=== PATIENT | female | born 1945 | race Caucasian/White ===

== ENCOUNTER 2018-04-22 11:00 | Outpatient (RCR) | payer MEDICARE, SELFPAY ==
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
--- NOTE | 2018-04-22 11:27 | HP.OTDCSUM ---
HP - OT D/C Summary It has been my pleasure to treat JENNI HOLLINS under orders from JERILYN THIBODEAUX, for the diagnosis of right 3rd and 4th metacarpal shaft fx for a total of 9 visit(s). Please see the following information for a summary of their discharge status. - Objective Objective/Function: pt demo the ability to make a composite fist. No pain with motion, minimal pain with ROM. pt demo a right pediatric clinical nurse specialist strength 25# and left pediatric clinical nurse specialist at 30# ( pt states she does not have alot of hand strength typically) - Goals Patient Goals: Regain Mobility, Regain Strength, Use Hand/Wrist/Arm Normally Again Goal:: pt will demo a increase in right pediatric clinical nurse specialist strength to 30# or greater to return to perfrom BADLS and IADLs at IND level by d/c. Goal:: pt will demo the ability to form a composite fist for pt to perform IADLs at IND. level by d/c Goal:: pt will demo full functional ROM with report of no pain greater than 1/10 by d/c Goal:: pt will demo understanding of scar mtg by end of 2nd session to decrease chance ofscar adhesions - Plan Plan: D/C - D/C Information Discharge Comments: pt has been seen for 9 OT session to increase her functional ROM and strength to return to her PLOF. Pt reports she is ind. with all BADLs and IADLs at this time. PT has met goals in OT and is D/C If there are questions or concerns regarding this patient's occupational therapy, please fell free to call me at [phone]. Thank you for the referral of this patient. Sincerely, Josseline Elias, OTR/L, CHT
--- NOTE | 2018-04-22 11:49 | RAD_ITS ---
STUDY: X-RAY CHEST REASON FOR EXAM: Female, 73 years old. Follow up lung nodules. TECHNIQUE: Frontal and lateral views of the chest. COMPARISON: CT scan 03/20/2013, chest x-ray 08/20/2016.. FINDINGS: There is hyperexpansion of the chest consistent with COPD. There is new elevation of the right hemidiaphragm which was not present previously. There is a stable poorly marginated 1.6 cm nodule in the right upper lobe which had been present since previous CT scan. Probable mild scarring in the lung bases. No focal infiltrates. No effusions. Normal size heart. Normal mediastinum and tory. Normal visualized pulmonary arteries. Normal visualized aortic arch and descending thoracic aorta. Normal visualized thoracic spine. Normal visualized ribs, clavicles, and shoulders. There is no demonstrated abnormality of the visualized soft tissue structures of the upper abdomen. RAD/Chest PA and Lateral IMPRESSION: Mild elevation of the right hemidiaphragm, new since prior study. COPD and no other changes. Electronically Signed: Nav Austin MD at 16:01 EDT , Service support ,
== END 2018-04-22 19:00 | disposition home or self-care (01) ==
LOC: OT 11:00
PROVIDERS: Family Provider Nurse Practitioner; PCP Nurse Practitioner
DX: Z98.890 Other specified postprocedural states (principal)
CPT/HCPCS: 71046; 97110; 97140; 97166; 97168; 97530

== ENCOUNTER 2018-05-09 16:31 | Emergency (ER) | payer MEDICARE, SELFPAY ==
[2018-05-09 16:32] VITALS: BP 165/82; PULSE 120; RESP 18; TEMP 37.1; O2SAT 94; BMI 23.0
[2018-05-09] MEDS: Ibuprofen 200 MG Tablet 400 MG PO (17:35)
[2018-05-09 17:48] LABS: Absolute Lymphocyte Count 1.74 X10^3/ul (0.83-4.51); Absolute Neutrophil Count 4.6 X10^3/uL (2.0-7.7); Basophil# 0.05 X10^3/uL; Basophil% 0.6 % (0-1); Eosinophil# 0.97 X10^3/uL; Eosinophils% 12.1 % (0-5); Hematocrit 35.6 % (37-47); Hemoglobin 11.2 g/dl (12.0-15.0); Lymphocyte # 1.74 X10^3/ul (4.0); Lymphocyte % 21.7 % (19-41); Mean Corp Hgb Conc 31.5 g/gl (32-36); Mean Corpuscular Hgb 27.1 pg (27.0-32.0); Mean Platelet Vol. 10.3 fl (6.2-12.0); Monocyte# 0.66 X10^3/uL; Monocyte% 8.2 % (0-10); Neutrophil # 4.58 X10^3/uL (2.7-7.7); Neutrophil % 57.3 % (47-70); Platelet Count 315 K/mm3 (150-450); RBC Distribution Width CV 14.5 % (11.6-14.6); RBC Distribution Width SD 44.4 fl (35.1-43.9); Red Blood Count 4.14 M/mm3 (4.2-5.4)
[2018-05-09 17:55] LABS: POSITIVE COUNT NO; POSITIVE DIFFERENTIAL NO; POSITIVE MORPHOLOGY NO
[2018-05-09 17:58] LABS: D-Dimer Quantitative (DVT/PE) 0.57 FEU/ug/m (0.27-0.49)
--- NOTE | 2018-05-09 17:59 | ED.RN ---
critical d dimer of 0.[address] Cagle notified, no new orders.
[2018-05-09 18:04] LABS: AST(SGOT) 21 U/L (15-37); Alanine Aminotransfer ALT/SGPT 25 U/L (13-56); Albumin, Serum 3.3 g/dL (3.2-5.0); Alkaline Phosphatase 90 U/L (45-117); Anion Gap 10 (5-15); BUN 14 mg/dL (7-18); Bilirubin, Direct < 0.05 mg/dL (0.00-0.30); Calcium,Total 8.9 mg/dL (8.5-10.1); Chloride 107 mmol/L (98-107); Creatinine, Serum 0.94 mg/dL (0.55-1.02); EST Glomerular Filtration Rate 63 mL/min (>60); Est Glom Filt Rate - Afr Amer 76 mL/min (>60); Estimated Creatinine Clearance 38.86 ml/min; Globulin 4.1 g/dL (2.2-4.2); Glucose 120 mg/dL (74-106); Lipase 493 U/L (73-393); Potassium 3.7 mmol/L (3.5-5.1); Protein, Total 7.4 g/dL (6.4-8.2); Sodium Level 144 mmol/L (136-145)
[2018-05-09 18:54] VITALS: PULSE 92; RESP 22; O2SAT 97
[2018-05-09 20:55] VITALS: PULSE 92; RESP 19; O2SAT 95
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
[2018-05-09 21:18] VITALS: BP 151/74; PULSE 86; RESP 22; O2SAT 97
--- NOTE | 2018-05-09 21:20 | ED.RN ---
THIS NURSE REVIEWED D/C INSTRUCTIONS WITH PT. PT VERBALIZED UNDERSTANDING OF INSTRUCTIONS. IV D/C. IV CATHETER INTACT. PT TOLERATED WELL. PT DENIES FURTHER NEEDS OR QUESTIONS AT THIS TIME. PT AMBULATES FROM ROOM ON OWN WITHOUT ASSISTANCE FROM STAFF
== END 2018-05-09 21:22 | disposition home or self-care (01) ==
PROVIDERS: Emergency Provider Emergency Medicine; Family Provider Nurse Practitioner; PCP Internal Medicine
DX: R07.89 Other chest pain (principal); S22.41XD Multiple fractures of ribs, right side, subsequent encounter for fracture with routine healing; V49.9XXD Car occupant (driver) (passenger) injured in unspecified traffic accident, subsequent encounter; K44.9 Diaphragmatic hernia without obstruction or gangrene; J44.9 Chronic obstructive pulmonary disease, unspecified; R79.89 Other specified abnormal findings of blood chemistry; Z86.718 Personal history of other venous thrombosis and embolism; Z87.891 Personal history of nicotine dependence
CPT/HCPCS: 71045; 71275; 80048; 80076; 83690; 85025; 85379; 96360; 99285; J7030; J7040; Q9967

== ENCOUNTER → 2018-09-25 10:59 | Outpatient (CLI) | payer MEDICARE, SELFPAY ==
--- NOTE | 2018-09-25 11:02 | RAD_ITS ---
STUDY: X-RAY CHEST REASON FOR EXAM: Female, 73 years old. One-week history of illness. Abnormal breath sounds. TECHNIQUE: PA and lateral views of the chest. COMPARISON: Comparison is made with prior examination dated May 09, 2018. FINDINGS: Hyperinflation. Stable elevation of the right hemidiaphragm. Focal density is seen in the right upper lobe. This is unchanged. There is evidence of blunting of the right costophrenic angle with right basilar scarring. Minimal increased markings at the left lung base suggestive of scarring. Scattered calcified granulomas. Normal size heart. Normal mediastinum and tory. Normal visualized pulmonary arteries. There is atherosclerotic calcification of the aortic arch with tortuosity. There is demineralization of the osseous structures. Normal visualized ribs, clavicles, and shoulders. There is no demonstrated abnormality of the visualized soft tissue structures of the upper abdomen. RAD/Chest PA and Lateral IMPRESSION: Stable examination. Electronically Signed: Gustavo Cota MD at 11:27 EST Tel [phone], Service support ,
== END ==
PROVIDERS: Family Provider Nurse Practitioner; PCP Internal Medicine; Referring Provider Nurse Practitioner Gerontology; Visit Provider Nurse Practitioner Gerontology
DX: R09.89 Other specified symptoms and signs involving the circulatory and respiratory systems (principal)
CPT/HCPCS: 71046

== ENCOUNTER → 2018-09-30 13:38 | Outpatient (CLI) | payer MEDICARE, SELFPAY ==
--- NOTE | 2018-09-30 13:41 | CT_ITS ---
STUDY: CT CHEST WITHOUT CONTRAST REASON FOR EXAM: Female, 73 years old. Lung nodule follow-up RADIATION DOSAGE (If Supplied By Facility): CTDIvol = ( 6.09 ) mGy, DLP = ( 208.44 ) mGycm TECHNIQUE: Transaxial imaging was performed without the administration of intravenous contrast material. Individualized dose optimization techniques were used for this CT. COMPARISON: March 20, 2013 and July 09, 2018 FINDINGS: TRACHEA, THYROID, ESOPHAGUS: No tracheomalacia,stricture or wall thickening. Thyroid and esophagus are normal CARDIOVASCULAR SYSTEM: The thoracic aorta is grossly within normal limits. The pulmonary trunk and the left pulmonary arteries are also grossly within normal limits. The heart is not enlarged. There are no vascular developmental anomalies. BIPIN AND LYMPH NODES: No hilar masses and no mediastinal, hilar, axillary or supraclavicular adenopathy LUNGS, LOW-ATTENUATION: A background of centrilobular emphysematous changes in both lungs. No traction bronchiectasis and no honeycombing. LUNGS, HIGH ATTENUATION: A 2.4 x 1.5 cm spiculated density in the posterior segment of the right upper lobe. Shows areas of retraction and very suggestive of a fibrotic scar. Has not changed since the last examination. LUNGS, MOSAIC/CRAZY PAVING: Not evident PLEURA AND CHEST WALL: No plural effusions, pneumothoraces,rib fractures or any osteolytic/osteoblastic changes . The soft tissue chest wall including the breasts are normal UPPER ABDOMEN: Unremarkable . CT/Chest without Contrast IMPRESSION: A background of centrilobular emphysematous changes in both lungs. A 2.4 x 1.5 cm focal area of scar tissue in the posterior segment of the right upper lobe. This has been present since 2012 Electronically Signed: Ryan Stafford MD at 8:00 EST Tel , Service support ,
== END ==
PROVIDERS: Family Provider Nurse Practitioner; PCP Internal Medicine; Referring Provider Internal Medicine Pulmonary Disease; Visit Provider Internal Medicine Pulmonary Disease
DX: R91.1 Solitary pulmonary nodule (principal)
CPT/HCPCS: 71250

== ENCOUNTER → 2018-10-09 13:00 | Outpatient (CLI) | payer MEDICARE, SELFPAY | PROVIDERS: Family Provider Internal Medicine; PCP Internal Medicine; Referring Provider Internal Medicine Pulmonary Disease; Visit Provider Internal Medicine Pulmonary Disease | DX: J44.9 Chronic obstructive pulmonary disease, unspecified (principal); J40 Bronchitis, not specified as acute or chronic | CPT/HCPCS: 87070; 87205 ==

== ENCOUNTER 2019-03-30 14:31 | Emergency (ER) | payer MEDICARE, SELFPAY ==
[2019-03-30 14:33] VITALS: BP 130/72; PULSE 104; RESP 16; TEMP 36.2; O2SAT 93; BMI 21.1
--- NOTE | 2019-03-30 15:03 | CT_ITS ---
STUDY: CT ABDOMEN AND PELVIS WITHOUT CONTRAST REASON FOR EXAM: Female, 74 years old. Left flank pain. RADIATION DOSAGE (If Supplied By Facility): CTDIvol = ( 6.04 ) mGy, DLP = ( 299 ) mGycm TECHNIQUE: Transaxial images were obtained from the dome of the diaphragm to the symphysis pubis without oral contrast, and without intravenous contrast. Sagittal and coronal images were reconstructed. Individualized dose optimization techniques were used for this CT. COMPARISON: None. FINDINGS: Emphysematous changes. Mild scarring at the right lung base with elevation of the right hemidiaphragm. The visualized portions of the heart are within normal limits. There is evidence of a colonic interposition in the right upper quadrant with abnormal orientation of the gallbladder towards the lateral side of the liver. Normal gallbladder and extrahepatic biliary system. Normal spleen. Normal pancreas. Normal bilateral adrenal glands. Normal right kidney. Normal left kidney. There is a retrocrural aortic left renal vein. There is a small hiatal hernia. Normal small intestine. There are multiple colonic diverticula consistent with diverticulosis. There are surgical clips in the region of the appendix consistent with a prior appendectomy. There is diffuse atherosclerotic calcification of the abdominal aorta, without a demonstrated aneurysm. Normal inferior vena cava. Normal retroperitoneum. Normal urinary bladder. Normal abdominal wall. There are diffuse degenerative changes of the visualized lumbar spine. CT/Abdomen/Pelvis without Cont IMPRESSION: Emphysematous changes with scarring and elevation of the right hemidiaphragm. Colonic interposition. Electronically Signed: Gustavo Cota, at 15:54 EDT , Service support ,
[2019-03-30] MEDS: 0.9% Normal Saline 1,000 ML 1000 ML IV (15:12)
[2019-03-30] MEDS: Ondansetron 4 MG/2 ML Vial IV (15:12)
[2019-03-30 15:53] LABS: Anion Gap 2 (5-15); BUN 18 mg/dL (7-18); BUN/Creat Ratio 16.1 RATIO (10-20); Calcium,Total 9.7 mg/dL (8.5-10.1); Chloride 107 mmol/L (98-107); Creatinine, Serum 1.12 mg/dL (0.55-1.02); EST Glomerular Filtration Rate 51 mL/min (>60); Est Glom Filt Rate - Afr Amer 61 mL/min (>60); Estimated Creatinine Clearance 32.13 ml/min; Glucose 120 mg/dL (74-106); Potassium 4.3 mmol/L (3.5-5.1); Sodium Level 141 mmol/L (136-145)
[2019-03-30 15:54] LABS: Absolute Lymphocyte Count 1.46 X10^3/ul (0.83-4.51); Absolute Neutrophil Count 3.7 X10^3/uL (2.0-7.7); Basophil# 0.04 X10^3/uL; Basophil% 0.6 % (0-1); Eosinophil# 0.75 X10^3/uL; Eosinophils% 11.5 % (0-5); Hematocrit 37.8 % (37-47); Hemoglobin 12.1 g/dl (12.0-15.0); Lymphocyte # 1.46 X10^3/ul (4.0); Lymphocyte % 22.4 % (19-41); Mean Corpuscular Hgb 28.1 pg (27.0-32.0); Mean Corpuscular Volume 87.9 fL (81-99); Mean Platelet Vol. 10.4 fl (6.2-12.0); Monocyte# 0.53 X10^3/uL; Monocyte% 8.1 % (0-10); Neutrophil # 3.74 X10^3/uL (2.7-7.7); Neutrophil % 57.4 % (47-70); Platelet Count 279 K/mm3 (150-450); RBC Distribution Width CV 14.3 % (11.6-14.6); RBC Distribution Width SD 45.9 fl (35.1-43.9); White Blood Count 6.5 K/mm3 (4.4-11.0)
[2019-03-30 15:55] LABS: POSITIVE COUNT NO; POSITIVE DIFFERENTIAL NO; POSITIVE MORPHOLOGY NO
[2019-03-30 16:01] LABS: Mucous, Urine 0 SEEN /hpf (<or=2+)
--- NOTE | 2019-03-30 16:05 | ED.VISSUMM ---
- ER Visit Summary Date of Service: 03/30/19 Chief Complaint: Left flank pain History of Present Illness: The patient is a 74 F with left flank pain. The pain has been ongoing for about 2 hours. She never had this before. Associated with nausea and urine frequency. Denies any other urinary symptoms. Denies any other GI symptoms. Denies any fevers or other associated symptoms. She never had this before. Nothing seemed to bring it on or make it worse. Nothing seems to make it better. Physical Examination: Afebrile and vital signs unremarkable. Patient is alert and oriented. Appears mildly uncomfortable. Heart regular. Lungs clear. Abdomen soft and nontender. Left CVA tender to palpation. Spine nontender. Skin appears unremarkable. Good strength and sensation. Normal gait. Test Results: CBC and BMP unremarkable. CT abdomen showed emphysematous changes of her lungs as well as scarring and elevation of her right hemidiaphragm. She has colonic interposition. No evidence of pathology. Urinalysis pending. Emergency Department Course and Treatment: Patient initially treated with fluids and Zofran. She declined pain meds as the pain had subsided. CBC unremarkable. BMP showed a very mildly elevated creatinine at 1.12. Urinalysis shows RBCs and some signs of infection. Cultures pending. Pt notified that she may have a small stone or may have passed a small stone. CT showed no evidence of stone or pathology. Nothing else to explain her pain. We will treat with Keflex, Motrin, Zofran. Cultures pending. Follow-up with primary care. Return for any new or worsening issues. Treatment Plan: As above Disposition: Discharge Impression: 1. Left flank pain This note was generated with [employer] dictation software. It may contain incorrect words, spelling, and punctuation that were not noted in review of the chart prior to signing ED Disposition - Plan for ED Patient: Disposition: Home or Assisted Living Instructions: PYELONEPHRITIS, Female (Adult) Prescriptions: Ibuprofen 600 mg PO TID PRN PRN #20 tab PRN Reason: Pain Prescription Printed Cephalexin [Keflex] 500 mg PO Q6 #40 cap Prescription Printed Ondansetron [Zofran Odt] 4 mg PO Q8H PRN PRN #10 tab PRN Reason: Nausea Prescription Printed Referrals: Julia Frazier DO [Primary Care Provider] -
[2019-03-30 16:29] LABS: Color, Urine Yellow (Yellow); Glucose, Dipstick Normal (Normal); Ketone-Dipstick 5 mg/dl (Negative); Leukocyte Esterase-Dipstick 25 /ul (Negative); Nitrite-Dipstick Negative (Negative); Occult Blood-Urine 250 /ul (Negative); Protein-Dipstick 15 mg/dl (Negative); Specific Gravity, Urine 1.015 (1.002-1.030); Urine Bilirubin Dipstick Negative (Negative); Urine Clarity Sl. Cloudy (Clear); Urine Urobilinogen 4 mg/dl (Normal)
--- NOTE | 2019-03-30 16:37 | ED.DEP ---
ED Disposition - Plan for ED Patient: Instructions: PYELONEPHRITIS, Female (Adult) Prescriptions: Ibuprofen 600 mg PO TID PRN PRN #20 tab PRN Reason: Pain Prescription Printed Cephalexin [Keflex] 500 mg PO Q6 #40 cap Prescription Printed Ondansetron [Zofran Odt] 4 mg PO Q8H PRN PRN #10 tab PRN Reason: Nausea Prescription Printed Referrals: Julia Frazier DO [Primary Care Provider] -
[2019-03-30 16:41] LABS: White Blood Cells 5-10 SEEN /hpf (0-5)
[2019-03-30 16:42] LABS: Bacteria RARE /hpf (None Seen); Calcium Oxalate Crystals Ur 3+ /hpf (<or=2+); Red Blood Cells-Urine > 100 SEEN /hpf (0-5); Squamous Epithelial Cells - UA 0-5 SEEN /hpf (5-10)
[2019-03-30] MEDS: Cephalexin 250 MG Capsule 500 MG PO (16:48)
[2019-03-30 16:49] VITALS: BP 120/56; PULSE 71; PULSE 74; RESP 16; O2SAT 99
== END 2019-03-30 16:56 | disposition home or self-care (01) ==
LOC: ED 15:07
PROVIDERS: Emergency Provider Emergency Medicine; Family Provider Internal Medicine; PCP Internal Medicine
DX: R10.9 Unspecified abdominal pain (principal); R35.0 Frequency of micturition; R11.0 Nausea; M54.9 Dorsalgia, unspecified; Z87.891 Personal history of nicotine dependence
CPT/HCPCS: 74176; 80048; 81001; 85025; 87086; 87088; 96361; 96374; 99284; J7030; A4216; J2405

== ENCOUNTER → 2019-05-25 15:37 | Outpatient (CLI) | payer MEDICARE, SELFPAY ==
--- NOTE | 2019-05-25 15:43 | RAD_ITS ---
STUDY: X-RAY - PELVIS AND LEFT HIP REASON FOR EXAM: Female, 74 years old. Lower back and left hip pain. TECHNIQUE: 3 views of the pelvis and hip. COMPARISON: None. FINDINGS: There is a non-specific bowel gas pattern. Normal visualized soft tissue structures. Date lower lumbar spine appears grossly normal. Normal bilateral iliac wings, sacroiliac joints and visualized sacrum. Normal bilateral superior and inferior pubic rami. Normal pubic symphysis. Normal bilateral ischial tuberosities. There is minimal narrowing of the right hip. Normal visualized left femoral head. Normal left acetabulum. There is mild articular joint space narrowing of the hip. RAD/HIP, UNI W/ Pelvis 2-3 Views IMPRESSION: Mild degenerative change left hip. There is no visualized acute fracture or dislocation of left hip or pelvis. Electronically Signed: Juan Carlos Posadas DO at 16:29 EDT Tel [phone], Service support ,
--- NOTE | 2019-05-25 15:44 | RAD_ITS ---
STUDY: X-RAY - LUMBAR SPINE REASON FOR EXAM: Female, 74 years old. Low back pain. Left hip pain TECHNIQUE: 5 view(s) of the lumbar spine were obtained. COMPARISON: None FINDINGS: There is a mild lumbar scoliosis with convexity to the right with narrowing of the lower thoracic disc spaces. The L1-L2 disc space is also narrowed. There are no fractures. Paravertebral soft tissues are normal. RAD/L/S Spine Min 4 Views IMPRESSION: Degenerative changes at the lower thoracic spine and L1-L2. No fracture Electronically Signed: Ryan Stafford MD at 3:33 EDT Tel , Service support ,
== END ==
PROVIDERS: Family Provider Internal Medicine; PCP Internal Medicine; Referring Provider Nurse Practitioner; Visit Provider Nurse Practitioner
DX: M25.552 Pain in left hip (principal); M54.9 Dorsalgia, unspecified
CPT/HCPCS: 72100; 72110; 73502

== ENCOUNTER → 2019-06-02 15:28 | Outpatient (CLI) | payer MEDICARE, SELFPAY ==
--- NOTE | 2019-06-02 15:31 | RAD_ITS ---
STUDY: X-RAY CHEST REASON FOR EXAM: Female, 74 years old. COPD, BRONCHIECTASIS TECHNIQUE: Frontal and lateral views of the chest. COMPARISON: Sep 25 2018 . FINDINGS: There is hyperinflation of the lungs consistent with chronic obstructive lung disease (COPD). Stable cortically marginated 1.9 cm focal pulmonary opacity of the right upper lobe. Stable mild elevation of the right hemidiaphragm with blunting of the right costophrenic angle consistent with scarring. Fibrotic changes in both lung bases. No definite effusions. There is no demonstrated pleural abnormality. Normal size heart. Normal mediastinum and tory. Normal visualized pulmonary arteries. Normal visualized aortic arch and descending thoracic aorta. There are diffuse degenerative changes of the visualized thoracic spine. Normal visualized ribs, clavicles, and shoulders. There is no demonstrated abnormality of the visualized soft tissue structures of the upper abdomen. RAD/Chest PA and Lateral IMPRESSION: COPD. Stable pleural-parenchymal scarring in the right lung base. Stable focal pulmonary opacity in the right upper lobe. No definite acute abnormalities. Electronically Signed: Nav Austin MD at 16:10 EDT , Service support ,
== END ==
PROVIDERS: Family Provider Internal Medicine; PCP Internal Medicine; Referring Provider Internal Medicine Pulmonary Disease; Visit Provider Internal Medicine Pulmonary Disease
DX: J47.9 Bronchiectasis, uncomplicated (principal)
CPT/HCPCS: 71046

== ENCOUNTER → 2019-06-03 09:52 | Outpatient (CLI) | payer MEDICARE, SELFPAY | PROVIDERS: Family Provider Internal Medicine; PCP Internal Medicine; Referring Provider Internal Medicine Pulmonary Disease; Visit Provider Internal Medicine Pulmonary Disease | DX: J47.9 Bronchiectasis, uncomplicated (principal) | CPT/HCPCS: 87015; 87070; 87116; 87205; 87206 ==

== ENCOUNTER → 2019-06-04 10:33 | Outpatient (CLI) | payer MEDICARE, SELFPAY | PROVIDERS: Family Provider Internal Medicine; PCP Internal Medicine; Referring Provider Internal Medicine Pulmonary Disease; Visit Provider Internal Medicine Pulmonary Disease | DX: J47.9 Bronchiectasis, uncomplicated (principal) | CPT/HCPCS: 87015; 87070; 87077; 87116; 87186; 87205; 87206 ==

== ENCOUNTER → 2019-06-05 08:27 | Outpatient (CLI) | payer MEDICARE, SELFPAY | PROVIDERS: Family Provider Internal Medicine; PCP Internal Medicine; Referring Provider Internal Medicine Pulmonary Disease; Visit Provider Internal Medicine Pulmonary Disease | DX: J47.9 Bronchiectasis, uncomplicated (principal) | CPT/HCPCS: 87015; 87116; 87206 ==

== ENCOUNTER 2019-06-09 18:35 | Emergency (ER) | payer MEDICARE, SELFPAY ==
[2019-06-09 18:36] VITALS: BP 128/63; PULSE 99; RESP 20; TEMP 36.7; O2SAT 95; BMI 21.1
--- NOTE | 2019-06-09 19:39 | CT_ITS ---
STUDY: CT ABDOMEN AND PELVIS WITHOUT CONTRAST REASON FOR EXAM: Female, 74 years old. Right-sided abdominal pain RADIATION DOSAGE (If Supplied By Facility): CTDIvol = ( 6.04 ) mGy, DLP = ( 286.91 ) mGycm TECHNIQUE: Transaxial images were obtained from the dome of the diaphragm to the symphysis pubis without oral contrast, and without intravenous contrast. Sagittal and coronal images were reconstructed. Individualized dose optimization techniques were used for this CT. COMPARISON: Prior study of 03/30/2019 FINDINGS: There are emphysematous changes of the lung bases. The visualized portions of the heart are within normal limits. There is a right hemidiaphragmatic hernia, with portion of the liver, gallbladder, and hepatic flexure of the colon within the thorax. Normal gallbladder and extrahepatic biliary system. Normal spleen. There is dilatation of the pancreatic duct measuring up to 5 mm. The right adrenal is not identified. The left adrenal appears normal. There is mild right hydronephrosis and proximal right hydroureter. No obstructing calculus is identified. There is an upper pole left renal cyst. There is a retroaortic left renal vein. Normal visualized stomach. Normal small intestine. There is colonic diverticulosis with no evidence of associated diverticulitis. The appendix is not seen in accordance with history of appendectomy. There are calcified plaques of the abdominal aorta. Normal inferior vena cava. Normal retroperitoneum. Normal urinary bladder. The uterus and adnexal structures are unremarkable. Normal abdominal wall. There are degenerative changes of the visualized thoracolumbar spine. CT/Abdomen/Pelvis without Cont IMPRESSION: 1. Emphysematous changes of the lung bases. 2. Right hemidiaphragmatic hernia, with a portion of the liver, gallbladder and hepatic flexure of the colon within the thorax. 3. Mild dilatation of the pancreatic duct measuring up to 5 mm. 4. There is a mild right hydronephrosis and proximal right hydroureter, representing a new interval finding. No obstructing calculus is identified. 5. Colonic diverticulosis with no evidence of associated diverticulitis. Electronically Signed: Isrrael Jones MD at 20:27 EDT , Service support ,
[2019-06-09] MEDS: Morphine 4 MG/ML Syringe IV (19:49)
[2019-06-09] MEDS: 0.9% Normal Saline 1,000 ML 1000 ML IV (19:49)
[2019-06-09] MEDS: Ondansetron 4 MG/2 ML Vial IV (19:49)
[2019-06-09 19:51] LABS: Absolute Neutrophil Count 9.4 X10^3/uL (2.0-7.7); Basophil# 0.04 X10^3/uL; Basophil% 0.3 % (0-1); Eosinophil# 0.35 X10^3/uL; Hematocrit 37.8 % (37-47); Hemoglobin 12.3 g/dL (12.0-15.0); Lymphocyte % 9.6 % (19-41); Mean Corp Hgb Conc 32.5 g/dL (32-36); Mean Corpuscular Hgb 29.1 pg (27.0-32.0); Mean Corpuscular Volume 89.6 fL (81-99); Mean Platelet Vol. 10.5 fl (6.2-12.0); Monocyte# 0.59 X10^3/uL; Monocyte% 5.1 % (0-10); NRBC Flagged by Analyzer 0 % (0-5); Neutrophil # 9.35 X10^3/uL (2.7-7.7); Neutrophil % 81.5 % (47-70); Platelet Count 226 K/mm3 (150-450); RBC Distribution Width SD 45.7 fl (35.1-43.9); Red Blood Count 4.22 M/mm3 (4.2-5.4); White Blood Count 11.5 K/mm3 (4.4-11.0)
[2019-06-09 20:09] LABS: ALB/GLOB Ratio 0.9 RATIO (0.9-2.4); AST(SGOT) 18 U/L (15-37); Alanine Aminotransfer ALT/SGPT 17 U/L (13-56); Albumin, Serum 3.5 g/dL (3.2-5.0); Alkaline Phosphatase 86 U/L (45-117); Anion Gap 5 (5-15); BUN 23 mg/dL (7-18); BUN/Creat Ratio 17.7 RATIO (10-20); Calcium,Total 9.1 mg/dL (8.5-10.1); Chloride 104 mmol/L (98-107); EST Glomerular Filtration Rate 43 mL/min (>60); Est Glom Filt Rate - Afr Amer 52 mL/min (>60); Estimated Creatinine Clearance 27.68 ml/min; Globulin 3.9 g/dL (2.2-4.2); Glucose 116 mg/dL (74-106); Potassium 3.8 mmol/L (3.5-5.1); Protein, Total 7.4 g/dL (6.4-8.2); Sodium Level 139 mmol/L (136-145)
[2019-06-09 20:13] VITALS: BP 124/56; PULSE 98; RESP 18; O2SAT 95
[2019-06-09 21:18] LABS: Lipase 295 U/L (73-393)
[2019-06-09 21:45] VITALS: BP 122/51; PULSE 89; RESP 18; O2SAT 93
[2019-06-09 22:18] LABS: Bacteria 0 SEEN /hpf (None Seen); Mucous, Urine 0 SEEN /hpf (<or=2+); Squamous Epithelial Cells - UA 0 SEEN /hpf (5-10)
[2019-06-09 22:19] LABS: Color, Urine Yellow (Yellow); Glucose, Dipstick Normal (Normal); Ketone-Dipstick 50 mg/dl (Negative); Leukocyte Esterase-Dipstick 25 /ul (Negative); Nitrite-Dipstick Negative (Negative); Occult Blood-Urine 250 /ul (Negative); Protein-Dipstick 30 mg/dl (Negative); Specific Gravity, Urine 1.015 (1.002-1.030); Urine Bilirubin Dipstick Negative (Negative); Urine Clarity Cloudy (Clear); Urine Urobilinogen 1 mg/dl (Normal); Urine pH 6.5 (5.0 - 8.0)
[2019-06-09 22:30] LABS: Red Blood Cells-Urine 25-50 SEEN /hpf (0-5)
[2019-06-09 22:31] LABS: White Blood Cells 0-5 SEEN /hpf (0-5)
--- NOTE | 2019-06-09 22:37 | ED.RN ---
DR OG PAGED FOR DR BARRERA
--- NOTE | 2019-06-09 22:42 | ED.DEP ---
ED Disposition - Plan for ED Patient: Instructions: FLANK PAIN, Uncertain Cause, KIDNEY STONE, Passed Prescriptions: Oxycodone [Oxyir] 5 mg PO Q4H PRN PRN 3 Days #10 tab PRN Reason: Pain Score 6-10/10 Prescription Printed Referrals: Julia Frazier DO [Primary Care Provider] - 3-5 Days Artie Cabral MD [STAFF PHYSICIAN] - 3-5 Days
[2019-06-09 23:14] VITALS: RESP 18
--- NOTE | 2019-06-21 23:04 | ED.VISSUMM ---
- ER Visit Summary Date of Service: 06/21/19 Chief Complaint: Right flank pain [] History of Present Illness: The patient is a 74 F [presents to the emergency department complaint of right flank pain that started today. Patient also feeling like she cannot empty her bladder. Currently rates her pain an 8 out of 10. Patient states that she is had some discomfort in her flank for about 3 weeks. She denies any fever. She is had some mild nausea. She also states that pain at times will go down her left leg for the last 3 weeks. Patient with history of hypothyroidism. Patient has had prior appendectomy and x4. She denies urinary symptoms. She denies fever.] Physical Examination: [HEENT-PERRLA, EOMI. Cranial nerves II through XII grossly intact. TMs clear. Mucous membranes moist. No adenopathy. Cardiovascular-regular rate and rhythm without murmur or ectopy Lungs-clear to auscultation, chest wall stable without crepitus or subcu emphysema Abdomen-normoactive bowel sounds, soft. Patient has tenderness palpation of the right lower quadrant with some guarding. There is no rebound, rigidity, or perineal signs. Patient has mild tenderness over the right costovertebral angle. Extremities-intact ?4, normal range of motion, normal pulses, atraumatic] Test Results: [Differently showed a white count 11.5, hemoglobin 12.3, hematocrit 38, platelets 226. Chemistries unremarkable. BUN was 23 and creatinine 1.30. LFTs were normal. Urinalysis showed 25-50 RBCs.] CT scan of the M pelvis showed a right hemidiaphragm hernia and mild right hydro-nephrosis. No ureteral stone was noted. Emergency Department Course and Treatment: [She was medicated with morphine and Zofran.] Treatment Plan: [Patient case was discussed with urologist on-call and advised patient to follow-up with urology.] Disposition: [Discharged home in stable condition.] Impression: [Abdominal pain-etiology uncertain Hematuria] This note was generated with [employer] software. It may contain incorrect words, spelling, and punctuation that were not noted in review of the chart prior to signing ED Disposition - Plan for ED Patient: Disposition: Home or Assisted Living Instructions: FLANK PAIN, Uncertain Cause, KIDNEY STONE, Passed Referrals: Artie Cabral MD [STAFF PHYSICIAN] - 3-5 Days Julia Frazier DO [Primary Care Provider] - 3-5 Days
== END 2019-06-09 23:15 | disposition home or self-care (01) ==
LOC: ED 19:41
PROVIDERS: Emergency Provider Emergency Medicine; Family Provider Internal Medicine; PCP Internal Medicine
DX: R10.9 Unspecified abdominal pain (principal); R31.9 Hematuria, unspecified; R11.0 Nausea; E03.9 Hypothyroidism, unspecified; Z79.899 Other long term (current) drug therapy
CPT/HCPCS: 74176; 80053; 81001; 83690; 85025; 96361; 96374; 96375; 99283; J7030; J2405

== ENCOUNTER → 2019-06-11 13:55 | Outpatient (CLI) | payer MEDICARE, SELFPAY ==
[2019-06-09 18:36] VITALS: BMI 21.1
--- NOTE | 2019-06-11 14:05 | BD_ITS ---
STUDY: DUAL ENERGY X-RAY ABSORPTIOMETRY / DXA REASON FOR EXAM: Female, 74 years old. The patient is postmenopausal. Loss of height. TECHNIQUE: Bone Mineral Density (BMD) measurements of lumbar spine and bilateral hips were obtained. COMPARISON: Comparison is made with prior study dated November 07, 2016. FINDINGS: Lumbar Spine (L1-L4): g/cm2 (0.881) / T-score (-2.4) / Z-score (-0.7) Findings are suggestive of osteopenia with a high fracture risk. Increased thoracic kyphosis. Left Femur Total: g/cm2 (0.669) / T-score (-2.7) / Z-score (-1.1) Left Femoral Neck: g/cm2 (0.774) / T-score (-1.9) / Z-score (-0.1) Right Femur Total: g/cm2 (0.699) / T-score (-2.5) / Z-score (-0.8) Right Femoral Neck: g/cm2 (0.718) / T-score (-2.3) / Z-score (-0.5) The T-Scores on the most recent prior examination were: Lumbar Spine (L1-L4): There has been worsening of bone density since the previous examination. Left Femur Total: which represents a worsening of 15.7%. Right Femur Total: which represents a worsening of 11.6%. BD/Dexa Bone Density Study IMPRESSION: The patient is considered osteoporotic as outlined below according to World Johnnie Organization (WHO) criteria with a high fracture risk. There has been worsening of bone density since the previous examination. Reference Information: The T-score is the number of standard deviations above or below the standard which is normal for young adults at their peak bone mineral density. The World Health Organization (WHO) interprets the T-scores as follows: Above -1 Normal bone density Between -1 and -2.5 Osteopenia Equal to / or below -2.5 Osteoporosis As a practical clinical guideline, osteopenia may be graded as follows: Mild -1 through -1.5 Moderate -1.6 through -2.0 Severe -2.1 through -2.4 The Z-score is the number of standard deviations above or below age-matched controls. A Z-score of less than -1.5 would be considered abnormal. References: 1. NIH Osteoporosis and Related Bone Diseases http://www.osteo.org 2. International Society for Clinical Densitometry http://www.iscd.org 3. National Osteoporosis Foundation http://www.nof.org Electronically Signed: Gustavo Cota, at 15:47 EDT , Service support ,
== END ==
PROVIDERS: Family Provider Internal Medicine; PCP Internal Medicine; Referring Provider Internal Medicine; Visit Provider Internal Medicine
DX: Z78.0 Asymptomatic menopausal state (principal); M81.0 Age-related osteoporosis without current pathological fracture
CPT/HCPCS: 77080; 97110

== ENCOUNTER → 2019-06-15 15:32 | Outpatient (CLI) | payer MEDICARE, SELFPAY ==
[2019-06-09 18:36] VITALS: BMI 21.1
[2019-06-15 17:51] LABS: Albumin, Serum 3.7 g/dL (3.2-5.0); BUN 9 mg/dL (7-18); BUN/Creat Ratio 9.2 RATIO (10-20); Calcium,Total 9.6 mg/dL (8.5-10.1); Chloride 108 mmol/L (98-107); Creatinine, Serum 0.98 mg/dL (0.55-1.02); EST Glomerular Filtration Rate 59 mL/min (>60); Est Glom Filt Rate - Afr Amer 72 mL/min (>60); Glucose 102 mg/dL (74-106); Phosphorus 3.2 mg/dL (2.5-4.9); Potassium 3.9 mmol/L (3.5-5.1); Sodium Level 143 mmol/L (136-145)
== END ==
PROVIDERS: Family Provider Internal Medicine; PCP Internal Medicine; Referring Provider Nurse Practitioner; Visit Provider Nurse Practitioner
DX: R79.89 Other specified abnormal findings of blood chemistry (principal)
CPT/HCPCS: 36415; 80069

== ENCOUNTER → 2019-06-16 17:18 | Outpatient (CLI) | payer MEDICARE, SELFPAY ==
[2019-06-09 18:36] VITALS: BMI 21.1
--- NOTE | 2019-06-16 16:30 | CYSPIN_PTH ---
PATIENT: JENNI HOLLINS LOC: [facility] U#:[id number] AGE/SX: 80/F ROOM: RE06/16/[address]: Belkis Topete : 1945 BED: DIS: SPEC #: [id number] RECD: 06/17/19 09:46 STATUS: MALU REJuliana #: [id number] VALERIY: 06/16/19 16:[address]: Belkis Topete DEPT: CYTOLOGY RECD BY: Martinez Ibarra ENTERED: 06/17/19 09:47 SP TYPE: CYSPIN FL OTHR DR: Dr. Julia Frazier, DO Julia Frazier, Tissues: Urine Procedures: Pap Stain (control) Special Stain Group II Cytospin Fluid HEADER OPERATION: Not noted PRE-OP DIAGNOSIS: Hematuria TISSUE SUBMITTED: Urine for cytology DIAGNOSIS CYTOLOGY Urine for cytology (cytospin): Negative for malignant cells. SJ:sarai 06/18/19 CYTOLOGY STUDY Slides are reviewed. CYTOLOGY GROSS Received is 70 ml of clear yellow fluid labeled with the patient's name and and designated per the requisition as urine. Submitted for cytology preparation. / sarai 06/17/19 TC:5 CPT: 32802
[2019-06-16 17:21] LABS: Cytology, Body Fluid / CSF SEE PATHOLOGY REPORT
== END ==
PROVIDERS: Family Provider Internal Medicine; PCP Internal Medicine
DX: R31.9 Hematuria, unspecified (principal)
CPT/HCPCS: 88108; 88313

== ENCOUNTER 2019-06-29 13:00 | Outpatient (RCR) | payer MEDICARE, SELFPAY ==
--- NOTE | 2019-06-29 13:20 | HP.PTDCSUM_ITS ---
HP - PT D/C Summary It has been my pleasure to treat JENNI HOLLINS under orders from Charline Jalloh, FABRICIO-C, for the diagnosis of LBP & L hip Pain for a total of 9 visit(s). Discharge Date: Please see the following information for a summary of their discharge status. - Subjective Subjective: Pt. reports therapy has gone great, only real pain when driving for long time. - Pain LB Pain Intensity (Out of 10): 3 - Overall Improvement % Improvement: 90 - Objective Objective/Function: Posture: FH, RS - corrected w/ V/C, not maintained. Scoliosis. HR: WFL. TR: WFL w/ pain. SLS: 10 seconds B, mod. sway, no pain. Gait: No deviations noted. ROM: Back: WFL in all planes Hip: WFL in all planes Knee: WFL Ankle: WFL. Strength: Hip 4+/5, Knee: 4+/5, Ankle 4+/5 Core: fair. F lexibility: Gastroc: mild HS: mod. Palpation: NTTP. Dural Test: + R. [ End ] - Goals Goal 1:: Pt. will be I w/ HEP & progression Goal Progress: Goal Met Goal 2:: Pt. will amb. >300 ft. w/ normalized gait pattern w/ no AD. Goal Progress: Goal Met Goal 3:: Pt. will demo LE strength 4+/5 Goal Progress: Goal Met Goal 4:: Pt. will be able to SLS L w/ appropriate weight shift for 10 sec Goal Progress: Goal Met Goal 5:: Pt. will exhibit proper posture t/o tx session d/t improved core s/s. Goal Progress: Goal Met - Plan Plan: 06/29/19 Pt. D/C instructed to cont. HEP I - D/C Information If there are questions or concerns regarding this patient's physical therapy, please feel free to call me at [phone]. Thank you for the referral of this patient. Sincerely, Julianne Garcia DPT
== END 2019-06-29 14:00 | disposition home or self-care (01) ==
LOC: PT 13:00
PROVIDERS: Family Provider Internal Medicine; PCP Internal Medicine; Referring Provider Nurse Practitioner; Visit Provider Nurse Practitioner
DX: M54.9 Dorsalgia, unspecified (principal); M25.552 Pain in left hip
CPT/HCPCS: 97110; 97161; 97164

== ENCOUNTER 2019-10-30 08:15 | Inpatient (IN) | payer MEDICARE, SELFPAY ==
[2019-10-30] VITALS (29 sets, daily range): BP systolic 86–146; BP diastolic 44–72; PULSE 68–132; RESP 18–33; TEMP 36.9–39.5; O2SAT 85–98; BMI 20.4; BMI 17.4; BMI 17.5
--- NOTE | 2019-10-30 08:24 | RAD_ITS ---
STUDY: X-RAY CHEST REASON FOR EXAM: Female, 74 years old. SOB, ACHY, FEVER TECHNIQUE: Single AP portable view of the chest. COMPARISON: Comparison is made with prior examination dated June 02, 2019. FINDINGS: EKG electrodes are seen. Stable elevation of the right hemidiaphragm with blunting of the right costophrenic angle. Stable 1.9 cm x 1.9 cm nodular density in the right upper lobe. There now is evidence of a left basilar infiltrate versus atelectasis with blunted left costophrenic angle. Normal size heart. Normal mediastinum and tory. Normal visualized pulmonary arteries. There is atherosclerotic calcification of the aortic arch with tortuosity. There are degenerative changes of the visualized thoracic spine. Normal visualized ribs, clavicles, and shoulders. There is no demonstrated abnormality of the visualized soft tissue structures of the upper abdomen. RAD/Chest 1 View (Portable) IMPRESSION: New increased markings at the left lung base suggestive of left basilar atelectasis versus infiltrate and blunting of left costophrenic angle. The right hemithorax is unchanged. Electronically Signed: Gustavo Cota, at 8:58 EST , Service support ,
--- NOTE | 2019-10-30 08:24 | EKG12_ITS ---
Test Reason : SOB Blood Pressure : / mmHG Vent. Rate : 123 BPM Atrial Rate : 122 BPM P-R Int : 000 ms QRS Dur : 080 ms QT Int : 430 ms P-R-T Axes : 000 048 092 degrees QTc Int : 615 ms Sinus tachycardia Nonspecific ST and T wave abnormality Abnormal ECG Confirmed by BHUPENDRA TORRES ([id number]), online editor GUILLE THOMAS ([id number]) on 11/02/2019 3:40:44 PM Referred By: TIFFANIE Confirmed By:BHUPENDRA TORRES
--- NOTE | 2019-10-30 08:27 | ED.DCSUM_ITS ---
History of Present Illness Chief Complaint: Shortness of Breath Informant: Patient, Family Onset: Today Timing: Continuous Current Severity: Moderate Maximum Severity: Moderate Narrative: Patient presents with cough congestion shortness of breath and fever of 102 Fahrenheit that started in the middle of the night. She presents this morning with her daughter. She has a history of COPD and bronchiectasis, she is on oxygen at night but not during the day she presented with a pulse ox of 85% in triage on room air. She has no chest pain, she has no abdominal pain she denies any urinary symptoms. She did receive influenza vaccination this year. Past Medical History - Allergies and Home Meds Allergies/Adverse Reactions: Allergies acetaminophen [From Darvocet-N] Allergy (Verified 03/30/19 14:33) Unknown levofloxacin [From Levaquin] Allergy (Verified 03/30/19 14:33) Unknown meperidine [From Demerol] Allergy (Verified 03/30/19 14:33) Angioedema propoxyphene [From Darvocet-N] Allergy (Verified 03/30/19 14:33) Unknown Sulfa (Sulfonamide Antibiotics) Allergy (Verified 03/30/19 14:33) Hives Primary Care Physician: Julia Frazier DO [Primary Care Provider] - Past Medical History: - - COPD, bronchiectasis, otherwise I reviewed her medications and her past medical history Smoking Status: Former smoker Review of Systems All systems negative except as indicated General: Reports: Fever Eyes: Denies: Visual changes - bilaterally ENT: Reports: Rhinorrhea, - - , Upper airway congestion Cardiovascular: Denies: Chest pain, Palpitations Respiratory: Reports: Dyspnea, Cough, Sputum Gastrointestinal: Denies: Abdominal pain, Nausea, Vomiting Genitourinary: Denies: Dysuria Musculoskeletal: Reports: Myalgias. Denies: Neck pain Skin: Denies: Rash, Abscess Neurological: Denies: Headache Endocrine: Denies: Polyuria Hematologic: Denies: Easy bruising Allergy: Denies: Swelling of the mouth, Swelling of the tongue Physical Exam Vital Signs/Narrative: Vital Signs Temp Pulse Resp BP Pulse Ox 10/30/19 08:16 100.6 F H 125 H 28 H 146/67 H 97 10/30/19 08:15 85 General: Well nourished, - - She appears in some respiratory distress, she is slightly tachypneic Head: Normocephalic Eyes: Perrl. Negative for: Pale conjunctiva ENT: Dry mucous membranes Neck: Supple Cardiovascular: Tachycardia. Negative for: Murmur Respiratory: - - She is tachypneic, she has diminished bilateral breath sounds with some end expiratory wheezing Abdomen: Soft, Nontender Back: Nontender, Normal Inspection. Negative for: CVA tenderness Extremities: Nontender, No edema Skin: Normal color. Negative for: No rash Neurological: Alert, Normal Strength, Normal Sensation Psychological: Normal affect Diagnostic/Tx/Re-eval - Rhythm Strip Rhythm Strip: Sinus Rhythm Rate: 123 Ectopy: None - EKG Initial EKG Interpretation: - - Normal sinus rhythm with a rate of 123. OK interval is normal although it is not interpreted by the computer reading it is normal per my reading. TC interval is prolonged. Nonspecific ST changes throughout. Otherwise normal EKG Interpreted by emergency doctor - Medical Decision Making She has fever tachycardia shortness of breath and productive cough, she has increased lung markings on the left, she has chronic lung markings on the right, she probably has a pneumonia, she does not meet criteria for severe sepsis or septic shock at this time. We will treat her with antibiotics and she will be admitted for her pneumonia as well as her hypoxia. Disposition admit in guarded condition ED Disposition - Plan for ED Patient: Disposition: Acute Care Hospital [facility] Diagnosis: Pneumonia Referrals: Julia Frazier DO [Primary Care Provider] -
[2019-10-30 08:42] LABS: Absolute Lymphocyte Count 0.68 X10^3/uL (0.83-4.51); Absolute Neutrophil Count 10.2 X10^3/uL (2.0-7.7); Basophil# 0.05 X10^3/uL; Basophil% 0.4 % (0-1); Eosinophil# 0.18 X10^3/uL; Eosinophils% 1.5 % (0-5); Hematocrit 39.8 % (37-47); Hemoglobin 12.9 g/dL (12.0-15.0); Lymphocyte # 0.68 X10^3/ul (4.0); Lymphocyte % 5.7 % (19-41); Mean Corp Hgb Conc 32.4 g/dL (32-36); Mean Corpuscular Hgb 28.7 pg (27.0-32.0); Mean Corpuscular Volume 88.6 fL (81-99); Mean Platelet Vol. 9.8 fl (6.2-12.0); Monocyte# 0.65 X10^3/uL; Monocyte% 5.5 % (0-10); NRBC Flagged by Analyzer 0 % (0-5); Neutrophil # 10.22 X10^3/uL (2.7-7.7); Neutrophil % 86.3 % (47-70); Platelet Count 255 K/mm3 (150-450); RBC Distribution Width CV 14.5 % (11.6-14.6); RBC Distribution Width SD 46.5 fl (35.1-43.9); Red Blood Count 4.49 M/mm3 (4.2-5.4); White Blood Count 11.9 K/mm3 (4.4-11.0)
[2019-10-30 08:57] LABS: AST(SGOT) 26 U/L (15-37); Alanine Aminotransfer ALT/SGPT 28 U/L (13-56); Alkaline Phosphatase 75 U/L (45-117); Anion Gap 6 (5-15); BUN 13 mg/dL (7-18); BUN/Creat Ratio 11.7 RATIO (10-20); Calcium,Total 9.3 mg/dL (8.5-10.1); Chloride 108 mmol/L (98-107); Creatinine, Serum 1.11 mg/dL (0.55-1.02); EST Glomerular Filtration Rate 51 mL/min (>60); Est Glom Filt Rate - Afr Amer 62 mL/min (>60); Estimated Creatinine Clearance 32.42 ml/min; Globulin 3.9 g/dL (2.2-4.2); Glucose 110 mg/dL (74-106); Protein, Total 7.9 g/dL (6.4-8.2); Sodium Level 140 mmol/L (136-145)
[2019-10-30 09:01] LABS: Lactic Acid 1.2 mmol/L (0.4-1.9)
[2019-10-30 09:07] LABS: International Normalized Ratio 1.1; Prothrombin Time (Protime)PT. 13.9 SECONDS (11.7-14.9)
[2019-10-30 09:08] LABS: Partial Thromboplast Time 26.6 Seconds (24.1-36.2)
--- NOTE | 2019-10-30 09:40 | PCM.HP.STD ---
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 At home temperature 102 Fahrenheit. Patient came to ER with shortness of breath and hypoxia pulse ox 85% on room air. In ED, T 100.6.F Chest x-ray independently reviewed. It shows infiltrate in the left lung base suggestive of infiltrate, or atelectasis shows right hemidiaphragm elevation which is chronic. Chronic emphysematous changes and bronchiectatic changes I called Dr. Kimbrough and got the information. She had sputum culture in September and May 2019 which did not grow organism. In 2016 she had MSSA. In 2015, sputum culture grew Pseudomonas and stenotrophomonas and E. coli which were sensitive to most antibiotics. She has evidence of obstructive ventilatory defect in PFT, May 2019. FEV1 53% of predicted, DLCO 51. Clinical Impression(s) from Imaging Studies Chest X-Ray 10/30/19 08:24 IMPRESSION: New increased markings at the left lung base suggestive of left basilar atelectasis versus infiltrate and blunting of left costophrenic angle. The right hemithorax is unchanged. Past Medical History Allergies acetaminophen [From Darvocet-N] Allergy (Verified 10/30/19 09:32) Unknown levofloxacin [From Levaquin] Allergy (Verified 10/30/19 09:32) Unknown meperidine [From Demerol] Allergy (Verified 10/30/19 09:32) Angioedema propoxyphene [From Darvocet-N] Allergy (Verified 10/30/19 09:32) Unknown Sulfa (Sulfonamide Antibiotics) Allergy (Verified 10/30/19 09:32) Hives Home Medications: Ambulatory Orders Medication Instructions Recorded Fluticasone/Vilanterol [Breo 1 puff INHALATION DAILY 05/09/18 Ellipta 100-25 Mcg INH] Levothyroxine [Synthroid] 25 mcg PO DAILY 06/09/19 Tiotropium [place] [Spiriva 18 MCG] 1 puff INHALATION DAILY 06/09/19 Smoking Status: Former smoker - Smoked for about 15 years, a pack per day Alcohol: None Drugs: None - *Family History Paternal History Items: Asthma, Pulmonary Disease Maternal History Items: Asthma, COPD, - - No history of lung cancer in the family. Review of Systems Constitutional: Reports: Chills, Fever, Night Sweats HEENT: Denies: Head Aches, Sinus Congestion, Sinus Drainage Cardiovascular: Denies: Chest Pain, Palpitations Respiratory: Reports: Cough, Shortness of Breath, Shortness of breath at rest, Shortness of breath upon exertion, Sputum production, Wheezing Gastrointestinal: Denies: Abdominal Pain, Nausea, Vomiting Genitourinary: Denies: Dysuria, Frequency Musculoskeletal: Reports: Joint Pain - Bilateral hip joint pain. Denies: Joint Tenderness Skin: Denies: Rash, Wounds Neurological: Reports: Balance problems. Denies: Focal weakness, Numbness, Tingling Psychiatric: Reports: Anxiety, Depression. Denies: Homicidal Ideations, Suicidal Ideations Hematologic/ Lymphatic: Denies: Easy Bruising, Easy Bleeding VTE Information - Inpt Only VTE Present on Admission: No VTE Mechan Device Prophylaxis: None VTE Pharm Prophylaxis ordered?: Yes Patient Problems: Active and Suspected Problems Pneumonia (Acute) COPD exacerbation (Acute) Bronchiectasis exacerbation (Acute) Left lower lobe pneumonia (Acute) Degenerative joint disease (DJD) of hip (Acute) - Physical Exam Vitals/I&O's: Vital Signs Temp Pulse Resp BP Pulse Ox 99.7 F H 132 H 33 H 122/67 H 94 10/30/19 09:36 10/30/19 09:36 10/30/19 09:36 10/30/19 09:36 10/30/19 09:36 Oxygen Flow Rate (L/min) 2 Oxygen Delivery Method Nasal Cannula Weight: 104 lb 7.986 oz Body Mass Index (BMI) 20.4 General: Alert, Oriented x3, Cooperative HEENT: Atraumatic, PERRLA, EOMI, Normocephalic Oral: No Gingival or Mucosal Lesions/ Ulcerations, Dry Mucosa Neck: Supple, No JVD, Negative Carotid Bruits Lungs: Diminished - Air entry diffusely diminished. Right hemidiaphragm elevation chest x-ray., Rhonchi, Short of Breath, Tachypneic Cardiovascular: Regular Rhythm, Normal S1, Normal S2, No murmurs, Tachycardic Abdomen: Bowel Sounds Present, Soft, Non Tender, Non-Distended Extremities: No edema, Capillary Refill Less than 3 Seconds Skin: No rashes, No breakdown Musculoskeletal: Arthritic Changes, Muscle Wasting, Tenderness - Bilateral hip joint tenderness, left more than right Lymphatic: No Cervical, Supraclavicular, or Inguinal Adenopathy Neurological: Cranial nerves II-XII grossly intact, Deep Tendon Reflexes 2+/4 and Symmetrical, Neuro grossly intact Psych/Mental Status: Normal Affect, Appropriate Microbiology Past 72 Hours 10/30/19 08:45 Mucosa - Nose Influenza Types A,B Direct FA (DANITZA) - Final Laboratory Results 10/30/19 08:30: WBC 11.9 H, RBC 4.49, Hgb 12.9, Hct 39.8, MCV 88.6, MCH 28.7, MCHC 32.4, RDW Std Deviation 46.5 H, RDW Coeff of Amber 14.5, Plt Count 255, MPV 9.8, Immature Gran % (Auto) 0.600, Neut % (Auto) 86.3 H, Lymph % (Auto) 5.7 L, [place] % (Auto) 5.5, Eos % (Auto) 1.5, Baso % (Auto) 0.4, Absolute Neuts (auto) 10.2 H, Absolute Lymphs (auto) 0.68 L, Nucleated RBC % 0 10/30/19 08:30: PT 13.9, INR 1.1, APTT 26.6 10/30/19 08:30: Sodium 140, Potassium 4.0, Chloride 108 H, Carbon Dioxide 26.0, Anion Gap 6, BUN 13, Creatinine 1.11 H, Estim Creat Clear Calc 32.42, Est GFR (MDRD) Af Amer 62, Est GFR (MDRD) Non-Af 51 L, BUN/Creatinine Ratio 11.7, Glucose 110 H, Calcium 9.3, Total Bilirubin 0.80, AST 26, ALT 28, Alkaline Phosphatase 75, Total Protein 7.9, Albumin 4.0, Globulin 3.9, Albumin/Globulin Ratio 1.0 10/30/19 08:30: Lactic Acid 1.2 Current Medications Azithromycin 500 mg/ Dextrose 255 mls @ 250 mls/hr IV X1 ONE Stop: 10/30/19 10:31 Ceftriaxone Sodium (Rocephin) 1 gm in 50 mls @ 100 mls/hr IV X1 ONE Stop: 10/30/19 09:59 Sodium Chloride () 500 mls @ 999 mls/hr IV .Q31M STEVE Stop: 10/30/19 10:15 Assessment/Plan All Active Problems Pneumonia (Acute) COPD exacerbation (Acute) Bronchiectasis exacerbation (Acute) Left lower lobe pneumonia (Acute) 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 1. Acute hypoxic respiratory distress/insufficiency secondary to COPD/bronchiectasis exacerbation: Patient being admitted in [facility]. Oxygen therapy. Rescue BiPAP at night as needed. 2. SIRS (fever, tachycardia, tachypnea, hypoxia and leukocytosis with left shift) COPD/bronchiectasis exacerbation most probably secondary to left lung base pneumonia: Pneumonia work-up ordered including blood cultures x2, sputum culture, MRSA nasal screen, respiratory panel and urinary antigens. Started on IV Rocephin and Zithromax. Discussed with Dr. Kimbrough and she did not had any recent antibiotic from him. He will not be available in town until Saturday. If needed we will consult our primer press operator. Lactic acid is normal. She is scheduled for right hemidiaphragm elevation surgery in [facility] later this month. She has evidence of obstructive ventilatory defect in PFT, May 2019. FEV1 53% of predicted, DLCO 51. At home she is on Breo Ellipta and Spiriva 3. Other comorbidities include hypothyroidism, bilateral hip arthritis. Moderate protein calorie malnutrition with diffuse muscle atrophy and loss of subcutaneous fat. Multiple comorbidities complicates the present care and expect difficult and delay recovery. TSH and free T4 tomorrow a.m. DVT prophylaxis: Lovenox 40 mils subcu daily Living will/advanced directive/CODE STATUS: Patient has living will at home. She does not know the details. When asked directly, she want CPR, intubation and ventilator for short time and wants to withdraw as per decision of physicians if it gets prolonged or permanent. She wants central line insertion, vaso-pressure, artificial tube feeding if needed. Full code Patient does not want artificial life support including intubation, tube feed, ventilator and/chest compression. Patient is DNR CC Arrest. Total time spent in [id number] encounter in discussion of advanced directive 16 minutes. Clinical Impression(s) from Imaging Studies Chest X-Ray 10/30/19 08:24 IMPRESSION: New increased markings at the left lung base suggestive of left basilar atelectasis versus infiltrate and blunting of left costophrenic angle. The right hemithorax is unchanged. Code Visit Inpatient E&M: 78488 Init Hosp L3 Procedures: 10687 Advncd Care Plan 30 Min
[2019-10-30] MEDS: Ondansetron 4 MG/2 ML Vial IV (09:46)
[2019-10-30] MEDS: Morphine 4 MG/ML Syringe IV (09:47)
[2019-10-30] MEDS: Ceftriaxone 1 GM/50 ML BAG IV ×2 (09:50→13:49)
[2019-10-30] MEDS: 0.9% Normal Saline 1,000 ML 125 ML IV ×2 (12:23→19:08)
[2019-10-30] MEDS: Ipratropium/Albuterol Sulfate 3 ML AMPUL.NEB INHALATION ×4 (12:58→23:29)
[2019-10-30] MEDS: 0.9% Normal Saline 1,000 ML 999 ML IV (13:50)
[2019-10-30] MEDS: Enoxaparin 40 MG/0.4 ML Syringe SC (14:02)
[2019-10-30] MEDS: 0.9% Saline Lock 10 ML Syringe IV ×2 (14:03→21:05)
[2019-10-30] MEDS: Acetaminophen 650 MG Suppository RECTAL (14:03)
--- NOTE | 2019-10-30 15:05 | CASEMGMT ---
RN CM Face to Face with patient for initial transition planning/care coordination assessment. RN CM introduced self and role at [facility]. Patient lying in bed, alert and oriented. Patient willing to participate in assessment and is able to answer all questions appropriately. Care providers, pharmacy, and demographics verified. Patient wishes to discharge home, denies need for home health at this time. Patient states she has no further needs or concerns at this time. CM to follow for discharge planning needs that may arise. PCP: Freddie Specialists: Luis E, pulmonology Preferred Pharmacy: [facility] Insurance: [employer] Prescription Benefit: yes Living Will/HPOA: yes, daughter Marilyn Hardy LNOK: son, daughter, granddaughter Living Arrangements: Patient lives with family in house with 1st floor setup. Patient independent at home and family support. Transportation: self, family DME/HHC: Patient has shower chair, raised toilet, cane, oxygen 2 lpm at HS through [facility], nebulizer. Disposition Plan: Patient to discharge home with family support and follow-up plans in place. Monitor for need for portable oxygen at home. Lovely DOWNSN, RN, CM
--- NOTE | 2019-10-30 15:55 | NURSING ---
report called to ICU, pt transported via bed at this time by Ly COTO,
--- NOTE | 2019-10-30 16:23 | PCM.HOSP.N ---
Hospitalist Note Sepsis follow-up note Patient is diagnosed severe sepsis secondary to hypotension, systolic in 90s 1 drop to 86/45 at 1520. Severe sepsis protocol started with IV fluid normal saline 30 mils per KG, total about 1.5 L. In ER she had 500 normal saline bolus. After that continue 125 mL/h. Patient had a small body size, total body weight 45 kg. High blood pressure started improving on normal saline bolus, last one systolic in 100s, responding well. No urine output since admission. Ward catheter ordered. Intensive care monitoring. Rest as mentioned in H&P.
--- NOTE | 2019-10-30 16:33 | NURSING ---
DR XIAO IN TO SEE PT. REPORT CALLED AND PT TRANSFERRED TO ICU2. PT NOTIFIED HER DAUGHTER OF TRANSFER.
[2019-10-30 16:51] LABS: M R Staph aureus DNA By PCR Negative (Negative)
[2019-10-30 16:52] LABS: Probe Check PASS; Specimen Processing Control PASS
[2019-10-30] MEDS: Vancomycin IV 1,000 MG/200 ML BAG 200 MG IV (18:13)
--- NOTE | 2019-10-30 18:50 | PCM.RX.CS ---
Consult Pharmacy has been consulted to manage selected antiobiotic: Vancomycin Type of Consult: New start Suspected Infection: Sepsis, Pneumonia Labs: Sodium 140 mmol/L (136-145) 10/30/19 08:30 Potassium 4.0 mmol/L (3.5-5.1) 10/30/19 08:30 Chloride 108 mmol/L (98-107) H 10/30/19 08:30 Carbon Dioxide 26.0 mmol/L (21.0-32.0) 10/30/19 08:30 Anion Gap 6 (5-15) 10/30/19 08:30 BUN 13 mg/dL (7-18) 10/30/19 08:30 Creatinine 1.11 mg/dL (0.55-1.02) H 10/30/19 08:30 Est GFR (MDRD) Af Amer 62 mL/min (>60) 10/30/19 08:30 Est GFR (MDRD) Non-Af 51 mL/min (>60) L 10/30/19 08:30 BUN/Creatinine Ratio 11.7 RATIO (10-20) 10/30/19 08:30 Glucose 110 mg/dL (74-106) H 10/30/19 08:30 Microbiology: Microbiology 10/30/19 16:50 Urine Catheter - Ward Streptococcus pneumoniae Antigen (M - Final 10/30/19 16:50 Urine Catheter - Ward Legionella Antigen - Final 10/30/19 13:35 Sputum, Expectorated/Coughed Gram Stain - Final 10/30/19 08:45 Mucosa - Nose Influenza Types A,B Direct FA (DANITZA) - Final Weight used for dosin.8 kg Estimated Creatinine Clearance: 32 ML/MIN Goal Trough: 15-20 mcg/mL Pharmacy Plan for Drug Dosing: Give initial dose of 1000mg IV x1, then continue with 750mg IV q24h. Will order a trough to be drawn before the 3rd overall dose. Pharmacy Service will continue to monitor and adjust dosing as required. Follow-Up Labs: Trough Vancomycin Labs to be done on [date and time ordered]: 11/01/19 17:30
[2019-10-30] MEDS: guaiFENesin 1,200 MG Tablet 1200 MG PO (21:04)
[2019-10-31] VITALS (33 sets, daily range): BP systolic 87–119; BP diastolic 50–74; PULSE 61–115; RESP 15–26; TEMP 36.6–37.2; O2SAT 92–100
[2019-10-31] MEDS: BENZOCAINE/MENTHOL 1 LOZENGE MUCOUS MEM (00:12)
[2019-10-31] MEDS: Ipratropium/Albuterol Sulfate 3 ML AMPUL.NEB INHALATION ×6 (04:03→23:45)
[2019-10-31 04:43] LABS: Absolute Neutrophil Count 12.1 X10^3/uL (2.0-7.7); Basophil# 0.01 X10^3/uL; Basophil% 0.1 % (0-1); Hemoglobin 9.7 g/dL (12.0-15.0); Lymphocyte % 4.5 % (19-41); Mean Corp Hgb Conc 31.3 g/dL (32-36); Mean Corpuscular Volume 89.3 fL (81-99); Mean Platelet Vol. 10.7 fl (6.2-12.0); Monocyte# 0.54 X10^3/uL; NRBC Flagged by Analyzer 0 % (0-5); Neutrophil # 12.14 X10^3/uL (2.7-7.7); Neutrophil % 90.7 % (47-70); POSITIVE DIFFERENTIAL YES; POSITIVE MORPHOLOGY YES; Platelet Count 155 K/mm3 (150-450); RBC Distribution Width CV 15.2 % (11.6-14.6); RBC Distribution Width SD 49.6 fl (35.1-43.9); Red Blood Count 3.47 M/mm3 (4.2-5.4); White Blood Count 13.4 K/mm3 (4.4-11.0)
[2019-10-31 04:53] LABS: Differential Indicated SCAN CRITERIA MET
[2019-10-31 05:01] LABS: BUN 14 mg/dL (7-18); Creatinine, Serum 0.98 mg/dL (0.55-1.02); Glucose 147 mg/dL (74-106)
[2019-10-31 05:02] LABS: Anion Gap 6 (5-15); BUN/Creat Ratio 14.3 RATIO (10-20); Calcium,Total 7.8 mg/dL (8.5-10.1); Chloride 117 mmol/L (98-107); EST Glomerular Filtration Rate 59 mL/min (>60); Est Glom Filt Rate - Afr Amer 71 mL/min (>60); Estimated Creatinine Clearance 36.13 ml/min; Potassium 3.8 mmol/L (3.5-5.1); Sodium Level 143 mmol/L (136-145)
[2019-10-31] MEDS: 0.9% Saline Lock 10 ML Syringe IV ×3 (05:09→21:47)
[2019-10-31] MEDS: Levothyroxine 25 MCG TABLET PO (05:09)
[2019-10-31] MEDS: Phenol/Sodium Phenolate 180ML 5 SPRAY MM (05:11)
[2019-10-31 05:22] LABS: Crenated RBC RARE; Ovalocyte RARE; Platelet Estimate ADEQUATE (ADEQ)
--- NOTE | 2019-10-31 06:28 | PCM.CON.CC ---
Reason for Consult Date of Consultation: 10/31/19 Reason for Consultation: Pneumonia with history of bronchiectasis and COPD History of Present Illness: The patient is a 74-year-old female, with a history as outlined below, who presented to the emergency department on October 30 with complaints of shortness of breath, cough and fever. She reported that the symptoms had been present for 1 day prior to her hospital presentation. Her cough has been intermittently productive of sputum as well. The patient is followed by Dr. Kimbrough on an outpatient basis due to a history of COPD, bronchiectasis and nocturnal hypoxemia. She regularly utilizes 2 L/min of supplemental oxygen only at night. She is currently prescribed Breo, Spiriva and as needed albuterol in her home environment. On presentation to the emergency department, the patient was noted to be febrile, tachycardic and tachypneic. She was, nevertheless, hemodynamically stable. She was initially noted to be saturating 85% on room air. Initial laboratory evaluation revealed an elevated white blood cell count to 12,000. Coagulation profile was within normal limits. Chemistry profile was notable for a creatinine of 1.1. Lactate was within normal limits. Chest x-ray revealed an elevated right hemidiaphragm with blunting of the right costophrenic angle. There appeared to be a nodular density in the right upper lobe along with evidence of left basilar atelectasis and blunting of the left costophrenic angle. Prior chest CT from September 2018 revealed evidence of a 2.4 x 1.5 cm spiculated density within the right upper lobe, concerning for a fibrotic scar. This has apparently been followed longitudinally by the patient's primary pulmonary provider. Past Medical History Allergies acetaminophen [From Darvocet-N] Allergy (Verified 10/30/19 10:32) Unknown vomit Fish Containing Products Allergy (Verified 10/30/19 10:32) Angioedema lactose Allergy (Verified 10/30/19 10:32) Other trouble breathing levofloxacin [From Levaquin] Allergy (Verified 10/30/19 10:32) Unknown trouble breathing meperidine [From Demerol] Allergy (Verified 10/30/19 09:32) Angioedema pepper (genus Capsicum) Allergy (Verified 10/30/19 10:32) Other trouble breathing, stomach pain propoxyphene [From Darvocet-N] Allergy (Verified 10/30/19 10:32) Unknown uncontrollable crying Sulfa (Sulfonamide Antibiotics) Allergy (Verified 10/30/19 09:32) Hives Home Medications: Ambulatory Orders Medication Instructions Recorded Fluticasone/Vilanterol [Breo 1 puff INHALATION DAILY 05/09/18 Ellipta 100-25 Mcg INH] Levothyroxine [Synthroid] 25 mcg PO DAILY 06/09/19 Tiotropium G[place] [Spiriva 18 MCG] 1 puff INHALATION DAILY 06/09/19 Smoking Status: Former smoker - Smoked for about 15 years, a pack per day Tobacco Use: Cigarettes Alcohol: None Drugs: None - *Family History Paternal History Items: Asthma, Pulmonary Disease Maternal History Items: Asthma, COPD, - - No history of lung cancer in the family. Review of Systems Constitutional: Reports: Chills, Fever Eyes: Denies: Blurred vision, Double vision HEENT: Denies: Head Aches, Sinus Congestion, Sinus Drainage Cardiovascular: Denies: Chest Pain, Palpitations Respiratory: Reports: Cough, Shortness of Breath, Sputum production Gastrointestinal: Denies: Abdominal Pain, Nausea, Vomiting Genitourinary: Denies: Dysuria Musculoskeletal: Denies: Joint Pain, Joint Tenderness Skin: Denies: Rash, Wounds Neurological: Denies: Numbness, Tingling, Focal weakness Psychiatric: Denies: Anxiety, Depression, Homicidal Ideations, Suicidal Ideations Hematologic/ Lymphatic: Denies: Easy Bruising, Easy Bleeding Patient Problems: Active and Suspected Problems Pneumonia (Acute) COPD exacerbation (Acute) Bronchiectasis exacerbation (Acute) Left lower lobe pneumonia (Acute) 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 Respiratory viral panel was negative. Strep and urine Legionella antigens were negative. Sputum, blood and urine cultures are pending. - Physical Exam Vitals/I&O's: Vital Signs Temp Pulse Resp BP Pulse Ox 98.0 F 94 22 H 90/50 L 95 10/31/19 05:00 10/31/19 06:00 10/31/19 06:00 10/31/19 06:00 10/31/19 06:00 Oxygen Flow Rate (L/min) 2 Oxygen Delivery Method Room Air Weight: 101 lb 10.13 oz Body Mass Index (BMI) 17.4 Intake and Output for Last 24 Hours 10/29/19 10/30/19 10/31/19 23:59 23:59 23:59 Intake Total 2685.42 / 2905.42 1446.83 / 1446.83 Output Total 250 / 900 1050 / 1050 Balance 2435.42 / 2005.42 396.83 / 396.83 General: Alert, Oriented x3, Cooperative, No apparent distress HEENT: Atraumatic, PERRLA, Normocephalic Oral: No Gingival or Mucosal Lesions/ Ulcerations Neck: Supple, No Nodes, Trachea Midline Lungs: Diminished, - - Right basilar rales. No conversational dyspnea. Cardiovascular: Regular rate, Regular Rhythm, Normal S1, Normal S2 Abdomen: Bowel Sounds Present, Soft, Non Tender Extremities: No clubbing, No cyanosis, No edema Skin: No breakdown Musculoskeletal: Arthritic Changes Lymphatic: No Cervical, Supraclavicular, or Inguinal Adenopathy Neurological: Cranial nerves II-XII grossly intact, Neuro grossly intact Psych/Mental Status: Alert and oriented to time, place, person, mood and affect Labs (Last 48 Hours) 10/30/19 10/30/19 10/30/19 08:30 08:30 08:30 WBC 11.9 H RBC 4.49 Hgb 12.9 Hct 39.8 MCV 88.6 MCH 28.7 MCHC 32.4 RDW Std Deviation 46.5 H RDW Coeff of Amber 14.5 Plt Count 255 MPV 9.8 Immature Gran % (Auto) 0.600 Neut % (Auto) 86.3 H Lymph % (Auto) 5.7 L [place] % (Auto) 5.5 Eos % (Auto) 1.5 Baso % (Auto) 0.4 Absolute Neuts (auto) 10.2 H Absolute Lymphs (auto) 0.68 L Nucleated RBC % 0 Differential Comment Platelet Estimate Ovalocytes Crenated Cell PT 13.9 INR 1.1 APTT 26.6 Sodium 140 Potassium 4.0 Chloride 108 H Carbon Dioxide 26.0 Anion Gap 6 BUN 13 Creatinine 1.11 H Estim Creat Clear Calc 32.42 Est GFR (MDRD) Af Amer 62 Est GFR (MDRD) Non-Af 51 L BUN/Creatinine Ratio 11.7 Glucose 110 H Lactic Acid Calcium 9.3 Total Bilirubin 0.80 AST 26 ALT 28 Alkaline Phosphatase 75 Total Protein 7.9 Albumin 4.0 Globulin 3.9 Albumin/Globulin Ratio 1.0 Urine Color Urine Clarity Urine pH Ur Specific [place] U Specif Grav (Refrac) Urine Protein Urine Glucose (UA) Urine Ketones Urine Occult Blood Urine Nitrite Urine Bilirubin Urine Urobilinogen Ur Leukocyte Esterase Urine RBC Urine WBC Ur Squamous Epith Cells Ur Transition Epith Cell Ur Renal Epithelial Cell Calcium Oxalate Crystal Uric Acid Crystals Triple Phos Crystals Other Crystals Amorphous Sediment Urine Bacteria Hyaline Casts Fine Granular Casts Coarse Granular Casts Waxy Casts RBC Casts WBC Casts Urine Mucus Urine Trichomonas Urine Yeast MRSA (PCR) 10/30/19 10/30/19 10/30/19 08:30 13:28 16:50 WBC RBC Hgb Hct MCV MCH MCHC RDW Std Deviation RDW Coeff of Amber Plt Count MPV Immature Gran % (Auto) Neut % (Auto) Lymph % (Auto) [place] % (Auto) Eos % (Auto) Baso % (Auto) Absolute Neuts (auto) Absolute Lymphs (auto) Nucleated RBC % Differential Comment Platelet Estimate Ovalocytes Crenated Cell PT INR APTT Sodium Potassium Chloride Carbon Dioxide Anion Gap BUN Creatinine Estim Creat Clear Calc Est GFR (MDRD) Af Amer Est GFR (MDRD) Non-Af BUN/Creatinine Ratio Glucose Lactic Acid 1.2 Calcium Total Bilirubin AST ALT Alkaline Phosphatase Total Protein Albumin Globulin Albumin/Globulin Ratio Urine Color Cancelled Urine Clarity Cancelled Urine pH Cancelled Ur Specific [place] Cancelled U Specif Grav (Refrac) Cancelled Urine Protein Cancelled Urine Glucose (UA) Cancelled Urine Ketones Cancelled Urine Occult Blood Cancelled Urine Nitrite Cancelled Urine Bilirubin Cancelled Urine Urobilinogen Cancelled Ur Leukocyte Esterase Cancelled Urine RBC Cancelled Urine WBC Cancelled Ur Squamous Epith Cells Cancelled Ur Transition Epith Cell Cancelled Ur Renal Epithelial Cell Cancelled Calcium Oxalate Crystal Cancelled Uric Acid Crystals Cancelled Triple Phos Crystals Cancelled Other Crystals Cancelled Amorphous Sediment Cancelled Urine Bacteria Cancelled Hyaline Casts Cancelled Fine Granular Casts Cancelled Coarse Granular Casts Cancelled Waxy Casts Cancelled RBC Casts Cancelled WBC Casts Cancelled Urine Mucus Cancelled Urine Trichomonas Cancelled Urine Yeast Cancelled MRSA (PCR) Negative 10/31/19 10/31/19 04:15 04:15 WBC 13.4 H RBC 3.47 L Hgb 9.7 L Hct 31.0 L MCV 89.3 MCH 28.0 MCHC 31.3 L RDW Std Deviation 49.6 H RDW Coeff of Amber 15.2 H Plt Count 155 MPV 10.7 Immature Gran % (Auto) 0.700 Neut % (Auto) 90.7 H Lymph % (Auto) 4.5 L [place] % (Auto) 4.0 Eos % (Auto) 0.0 Baso % (Auto) 0.1 Absolute Neuts (auto) 12.1 H Absolute Lymphs (auto) 0.60 L Nucleated RBC % 0 Differential Comment Platelet Estimate ADEQUATE Ovalocytes RARE Crenated Cell RARE PT INR APTT Sodium 143 Potassium 3.8 Chloride 117 H Carbon Dioxide 20.0 L Anion Gap 6 BUN 14 Creatinine 0.98 Estim Creat Clear Calc 36.13 Est GFR (MDRD) Af Amer 71 Est GFR (MDRD) Non-Af 59 L BUN/Creatinine Ratio 14.3 Glucose 147 H Lactic Acid Calcium 7.8 L Total Bilirubin AST ALT Alkaline Phosphatase Total Protein Albumin Globulin Albumin/Globulin Ratio Urine Color Urine Clarity Urine pH Ur Specific [place] U Specif Grav (Refrac) Urine Protein Urine Glucose (UA) Urine Ketones Urine Occult Blood Urine Nitrite Urine Bilirubin Urine Urobilinogen Ur Leukocyte Esterase Urine RBC Urine WBC Ur Squamous Epith Cells Ur Transition Epith Cell Ur Renal Epithelial Cell Calcium Oxalate Crystal Uric Acid Crystals Triple Phos Crystals Other Crystals Amorphous Sediment Urine Bacteria Hyaline Casts Fine Granular Casts Coarse Granular Casts Waxy Casts RBC Casts WBC Casts Urine Mucus Urine Trichomonas Urine Yeast MRSA (PCR) Microbiology 10/30/19 08:45 Mucosa - Nasopharyngeal Respiratory Panel (PCR) - Final 10/30/19 16:50 Urine Catheter - Ward Streptococcus pneumoniae Antigen (M - Final 10/30/19 16:50 Urine Catheter - Ward Legionella Antigen - Final 10/30/19 13:35 Sputum, Expectorated/Coughed Gram Stain - Final 10/30/19 08:45 Mucosa - Nose Influenza Types A,B Direct FA (DANITZA) - Final Clinical Impression(s) from Imaging Studies Chest X-Ray 10/30/19 08:24 IMPRESSION: New increased markings at the left lung base suggestive of left basilar atelectasis versus infiltrate and blunting of left costophrenic angle. The right hemithorax is unchanged. Electronically Signed: Gustavo Cota, at 8:58 EST , Service support , Current Medications Acetaminophen (Tylenol) 650 mg RECTAL Q4H PRN PRN PRN Reason: Fever, T>101 Last Admin: 10/30/19 14:03 Dose: 650 mg Documented by: Albuterol Sulfate (Ventolin Aerosols) 2.5 mg INHALATION Q2H PRN PRN PRN Reason: Shortness of Breath/Wheezing Albuterol/Ipratropium (Duoneb) 3 ml INHALATION Q4H.RT [facility] Last Admin: 10/31/19 04:03 Dose: 3 ml Documented by: Enoxaparin Sodium (Lovenox) 40 mg SC DAILY [facility] Last Admin: 10/30/19 14:02 Dose: 40 mg Documented by: Glucagon () 1 mg IM .X1 PRN PRN Reason: Hypoglycemia Guaifenesin (Mucinex) 1,200 mg PO BID [facility] Last Admin: 10/30/19 21:04 Dose: 1,200 mg Documented by: Sodium Chloride () 250 mls @ 15 mls/hr IV .[id number] PRN PRN Reason: Saline Flush Last Infusion: 10/31/19 03:26 Dose: 0 mls/hr Documented by: Sodium Chloride () 250 mls @ 15 mls/hr IV .[id number] PRN PRN Reason: Additional IVPB Infusion Azithromycin 500 mg/ Dextrose 255 mls @ 250 mls/hr IV Q24 [facility] Stop: 11/02/19 11:02 Dextrose (Dextrose 10%-Water) 250 mls @ 999 mls/hr IV .Q16M PRN; Protocol PRN Reason: HYPOGLYCEMIA Piperacillin Sod/Tazobactam (Sod 3.375 gm/ Sodium Chloride) 50 mls @ 12.5 mls/hr IV Q8 [facility] Last Admin: 10/31/19 05:09 Dose: 12.5 mls/hr Documented by: Vancomycin IV Pharmacy to Dose (1 ea/ Sodium Chloride) 500 mls @ 250 mls/hr IV DAILY PRN; Protocol Vancomycin HCl 750 mg/ Sodium (Chloride) 265 mls @ 250 mls/hr IV Q24H [facility] Levothyroxine Sodium (Synthroid) 25 mcg PO DAILY@0600 [facility] Last Admin: 10/31/19 05:09 Dose: 25 mcg Documented by: Methylprednisolone (Solu-Medrol) 40 mg IV Q8 [facility] Last Admin: 10/31/19 05:09 Dose: 40 mg Documented by: Morphine Sulfate () 2 mg IV Q3H PRN PRN PRN Reason: Pain Score 6-10/10 Oxycodone HCl (Oxyir) 5 mg PO Q4H PRN PRN PRN Reason: Pain Score 4-5/10 Phenol/Menthol (Chloraseptic (Bkc)) 5 spray MM Q2H PRN PRN PRN Reason: SORE THROAT Last Admin: 10/31/19 05:11 Dose: 5 spray Documented by: Prochlorperazine Edisylate (Compazine Iv) 5 mg IV Q4H PRN PRN PRN Reason: Breakthrough nausea/vomiting Promethazine HCl (Phenergan) 12.5 mg IV Q6H PRN PRN PRN Reason: Breakthrough nausea/vomiting Senna/Docusate Sodium (Senokot-S, Donna-Colace) 2 tablet PO BID PRN PRN PRN Reason: Constipation Sodium Chloride () 10 - 40 ml IV UD PRN PRN Reason: SALINE FLUSH Last Admin: 10/31/19 05:09 Dose: 20 ml Documented by: Throat Lozenges (Cepacol Sore Throat Lozenge) 2 lozenge MUCOUS MEM Q2H PRN PRN PRN Reason: SORE THROAT Assessment/Plan Active and Suspected Problems Pneumonia (Acute) COPD exacerbation (Acute) Bronchiectasis exacerbation (Acute) Left lower lobe pneumonia (Acute) 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 Discontinue azithromycin and vancomycin. Okay to continue Zosyn, pending finalized infectious work-up. 2. Continue bronchodilators and IV steroids. 3. Continue nocturnal supplemental oxygen per home regimen. 4. Encourage incentive spirometer use and mobilize patient as tolerated. 5. Perform walking oximetry study prior to consideration for discharge home. 6. Consider consultation to the patient's primary drafter electronic upon transfer out of the intensive care unit. IMPRESSIONS: 1. Acute respiratory insufficiency secondary to COPD/bronchiectasis with exacerbation Now resolved. The patient has been maintaining appropriate oxygen saturations on room air. She will be continued on scheduled bronchodilators along with IV steroids. Encourage incentive spirometer use and mobilize patient as tolerated. Perform walking oximetry study prior to consideration for discharge home. 2. Severe sepsis with concerns for community-acquired pneumonia The patient was initially transferred to the medical intensive care unit in the setting of hypotension, which ended up being responsive to IV fluid resuscitation. The patient never had to be started on any form of vasopressor support. She remains hemodynamically stable this morning with baseline systolic blood pressures. Azithromycin and vancomycin can be discontinued from my perspective. The patient will be continued on Zosyn, pending finalized infectious work-up. 3. Hypothyroidism Complicates care, management, recovery and prognosis. Continue Synthroid per home regimen. This note was generated with [employer] dictation software. It may contain incorrect words, spelling, and punctuation that were not noted in checking the note before signing. Code Visit Inpatient E&M: 13476 Init Hosp L3
--- NOTE | 2019-10-31 09:04 | PN_ITS ---
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 Currently respiratory rate in 20s, pulse ox 94% on room air. Heart rate 90s. Blood pressure 90/69?100/53; seems her baseline. Vitals/I&O's: Vital Signs Temp Pulse Resp BP Pulse Ox 98.0 F 92 20 H 90/69 94 10/31/19 05:00 10/31/19 07:00 10/31/19 07:00 10/31/19 07:00 10/31/19 07:00 Oxygen Flow Rate (L/min) 2 Oxygen Delivery Method Room Air Weight: 101 lb 10.13 oz Body Mass Index (BMI) 17.4 Intake and Output for Last 24 Hours 10/29/19 10/30/19 10/31/19 23:59 23:59 23:59 Intake Total 2685.42 / 2905.42 1446.83 / 1446.83 Output Total 250 / 900 1050 / 1050 Balance 2435.42 / 2005.42 396.83 / 396.83 General: Alert, Oriented x3, Cooperative HEENT: Atraumatic, PERRLA, EOMI, Normocephalic Neck: Supple, No JVD, Negative Carotid Bruits Lungs: Diminished - Air entry diminished predominantly in the right lung base., Rhonchi - Expiratory rhonchi and wheezing present. Egophony present Cardiovascular: Regular rate, Regular Rhythm, Normal S1, Normal S2, No murmurs Abdomen: Bowel Sounds Present, Soft, Non Tender, Non-Distended Extremities: No edema, Capillary Refill Less than 3 Seconds Skin: No rashes, No breakdown Musculoskeletal: No Tenderness to Palpation of Joints or Extremities, Arthritic Changes, Muscle Wasting Neurological: Cranial nerves II-XII grossly intact, Deep Tendon Reflexes 2+/4 and Symmetrical, Neuro grossly intact Psych/Mental Status: Normal Affect, Appropriate Microbiology Past 72 Hours 10/30/19 08:45 Mucosa - Nasopharyngeal Respiratory Panel (PCR) - Final 10/30/19 16:50 Urine Catheter - Ward Streptococcus pneumoniae Antigen (M - Final 10/30/19 16:50 Urine Catheter - Ward Legionella Antigen - Final 10/30/19 13:35 Sputum, Expectorated/Coughed Gram Stain - Final 10/30/19 08:45 Mucosa - Nose Influenza Types A,B Direct FA (DANITZA) - Final Laboratory Results 10/30/19 08:30: PT 13.9, INR 1.1, APTT 26.6 10/30/19 13:28: MRSA (PCR) Negative 10/30/19 16:50: Urine Color Cancelled, Urine Clarity Cancelled, Urine pH Cancelled, Ur Specific [place] Cancelled, U Specif Grav (Refrac) Cancelled, Urine Protein Cancelled, Urine Glucose (UA) Cancelled, Urine Ketones Cancelled, Urine Occult Blood Cancelled, Urine Nitrite Cancelled, Urine Bilirubin Cancelled, Urine Urobilinogen Cancelled, Ur Leukocyte Esterase Cancelled, Urine RBC Cancelled, Urine WBC Cancelled, Ur Squamous Epith Cells Cancelled, Ur Transition Epith Cell Cancelled, Ur Renal Epithelial Cell Cancelled, Calcium Oxalate Crystal Cancelled, Uric Acid Crystals Cancelled, Triple Phos Crystals Cancelled, Other Crystals Cancelled, Amorphous Sediment Cancelled, Urine Bacteria Cancelled, Hyaline Casts Cancelled, Fine Granular Casts Cancelled, Coarse Granular Casts Cancelled, Waxy Casts Cancelled, RBC Casts Cancelled, WBC Casts Cancelled, Urine Mucus Cancelled, Urine Trichomonas Cancelled, Urine Yeast Cancelled 10/31/19 04:15: WBC 13.4 H, RBC 3.47 L, Hgb 9.7 L, Hct 31.0 L, MCV 89.3, MCH 28.0, MCHC 31.3 L, RDW Std Deviation 49.6 H, RDW Coeff of Amber 15.2 H, Plt Count 155, MPV 10.7, Immature Gran % (Auto) 0.700, Neut % (Auto) 90.7 H, Lymph % (Auto) 4.5 L, [place] % (Auto) 4.0, Eos % (Auto) 0.0, Baso % (Auto) 0.1, Absolute Neuts (auto) 12.1 H, Absolute Lymphs (auto) 0.60 L, Nucleated RBC % 0, Differential Comment , Platelet Estimate ADEQUATE, Ovalocytes RARE, Crenated Cell RARE 10/31/19 04:15: Sodium 143, Potassium 3.8, Chloride 117 H, Carbon Dioxide 20.0 L , Anion Gap 6, BUN 14, Creatinine 0.98, Estim Creat Clear Calc 36.13, Est GFR (MDRD) Af Amer 71, Est GFR (MDRD) Non-Af 59 L, BUN/Creatinine Ratio 14.3, Glucose 147 H, Calcium 7.8 L Current Medications Acetaminophen (Tylenol) 650 mg RECTAL Q4H PRN PRN PRN Reason: Fever, T>101 Last Admin: 10/30/19 14:03 Dose: 650 mg Documented by: Albuterol Sulfate (Ventolin Aerosols) 2.5 mg INHALATION Q2H PRN PRN PRN Reason: Shortness of Breath/Wheezing Albuterol/Ipratropium (Duoneb) 3 ml INHALATION Q4H.RT [facility] Last Admin: 10/31/19 06:55 Dose: 3 ml Documented by: Enoxaparin Sodium (Lovenox) 40 mg SC DAILY [facility] Last Admin: 10/30/19 14:02 Dose: 40 mg Documented by: Glucagon () 1 mg IM .X1 PRN PRN Reason: Hypoglycemia Guaifenesin (Mucinex) 1,200 mg PO BID [facility] Last Admin: 10/30/19 21:04 Dose: 1,200 mg Documented by: Sodium Chloride () 250 mls @ 15 mls/hr IV .[id number] PRN PRN Reason: Saline Flush Last Infusion: 10/31/19 03:26 Dose: 0 mls/hr Documented by: Sodium Chloride () 250 mls @ 15 mls/hr IV .[id number] PRN PRN Reason: Additional IVPB Infusion Dextrose (Dextrose 10%-Water) 250 mls @ 999 mls/hr IV .Q16M PRN; Protocol PRN Reason: HYPOGLYCEMIA Piperacillin Sod/Tazobactam (Sod 3.375 gm/ Sodium Chloride) 50 mls @ 12.5 mls/hr IV Q8 [facility] Last Admin: 10/31/19 05:09 Dose: 12.5 mls/hr Documented by: Levothyroxine Sodium (Synthroid) 25 mcg PO DAILY@0600 [facility] Last Admin: 10/31/19 05:09 Dose: 25 mcg Documented by: Methylprednisolone (Solu-Medrol) 40 mg IV Q8 [facility] Last Admin: 10/31/19 05:09 Dose: 40 mg Documented by: Oxycodone HCl (Oxyir) 5 mg PO Q4H PRN PRN PRN Reason: Pain Score 4-5/10 Phenol/Menthol (Chloraseptic (Bkc)) 5 spray MM Q2H PRN PRN PRN Reason: SORE THROAT Last Admin: 10/31/19 05:11 Dose: 5 spray Documented by: Prochlorperazine Edisylate (Compazine Iv) 5 mg IV Q4H PRN PRN PRN Reason: Breakthrough nausea/vomiting Promethazine HCl (Phenergan) 12.5 mg IV Q6H PRN PRN PRN Reason: Breakthrough nausea/vomiting Senna/Docusate Sodium (Senokot-S, Donna-Colace) 2 tablet PO BID PRN PRN PRN Reason: Constipation Sodium Chloride () 10 - 40 ml IV UD PRN PRN Reason: SALINE FLUSH Last Admin: 10/31/19 05:09 Dose: 20 ml Documented by: Throat Lozenges (Cepacol Sore Throat Lozenge) 2 lozenge MUCOUS MEM Q2H PRN PRN PRN Reason: SORE THROAT STROKE Vital Signs/Narrative: Vital Signs Pulse Resp BP Pulse Ox 10/31/19 07:00 92 20 H 90/69 94 10/31/19 06:57 97 10/31/19 06:56 94 20 H 10/31/19 06:00 94 22 H 90/50 L 95 Medical Necessity - Tobacco Use Smoking Status: Former smoker - Smoked for about 15 years, a pack per day Tobacco Use: Cigarettes Assessment/Plan All Active Problems Pneumonia (Acute) COPD exacerbation (Acute) Bronchiectasis exacerbation (Acute) Left lower lobe pneumonia (Acute) 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 1. Acute hypoxic respiratory distress/insufficiency secondary to COPD/bronchiectasis exacerbation: Patient being admitted in [facility]. Oxygen therapy. Rescue BiPAP at night as needed. 2. Severe sepsis with SIRS (fever, hypotension, responded to IV fluid, tachycardia, tachypnea, hypoxia and leukocytosis with left shift) with COPD/bronchiectasis exacerbation most probably secondary to left lung base pneumonia: Gram stain showing 4+ WBC, 4+ gram-positive cocci, 4+ gram-negative rods and 1+ gram-positive rods. Antibiotic was broadened to IV Zosyn. MRSA nasal screen negative. Rocephin, Zithromax and vancomycin discontinued. Respir atory panel negative. Urinary antigens negative. Lactic acid is normal. Patient seen by manufacturing quality engineer. Continue bronchodilator and IV steroid. Incentive spirometry and chest physiotherapy. Walking pulse oximetry prior to discharge. She is scheduled for right hemidiaphragm elevation surgery in [facility], November 09. She has evidence of obstructive ventilatory defect in PFT, May 2019. FEV1 53% of predicted, DLCO 51. At home she is on Breo Ellipta and Spiriva 3. Other comorbidities include hypothyroidism, bilateral hip arthritis. Moderate protein calorie malnutrition with diffuse muscle atrophy and loss of subcutaneous fat. Multiple comorbidities complicates the present care and expect difficult and delay recovery. TSH and free T4 tomorrow a.m. DVT prophylaxis: Lovenox 40 mils subcu daily Living will/advanced directive/CODE STATUS: Patient has living will at home. Full code Clinical Impression(s) from Imaging Studies Chest X-Ray 10/30/19 08:24 IMPRESSION: New increased markings at the left lung base suggestive of left basilar atelectasis versus infiltrate and blunting of left costophrenic angle. The right hemithorax is unchanged. Code Visit Inpatient E&M: 38577 Subs Hosp L3
--- NOTE | 2019-10-31 09:24 | CM.UR ---
Participated in interdisciplinarily rounds this am. Patient has been weaned to room air. PT/OT will evaluate today. Dr. Jewell states ok to transfer out of ICU. Lanette Zimmer RN, CCM.
[2019-10-31] MEDS: Enoxaparin 40 MG/0.4 ML Syringe SC (10:56)
[2019-10-31] MEDS: guaiFENesin 1,200 MG Tablet 1200 MG PO ×2 (11:37→21:46)
[2019-11-01] VITALS (12 sets, daily range): BP systolic 103–121; BP diastolic 53–66; PULSE 90–120; RESP 12–24; TEMP 36.6–37.2; O2SAT 96–98
[2019-11-01] MEDS: Ipratropium/Albuterol Sulfate 3 ML AMPUL.NEB INHALATION ×6 (03:00→23:10)
[2019-11-01] MEDS: Levothyroxine 25 MCG TABLET PO (05:20)
[2019-11-01] MEDS: 0.9% Saline Lock 10 ML Syringe IV ×4 (05:20→14:17)
[2019-11-01 06:49] LABS: T4 Free Direct 1.06 ng/dL (0.76-1.46); Thyroid Stim Hormone (TSH) 0.53 uIU/mL (0.358-3.74)
--- NOTE | 2019-11-01 07:51 | PN_ITS ---
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 Events from the last 24 hours have been reviewed. The patient is currently afebrile, hemodynamically stable and maintaining appropriate oxygen saturations on room air. The patient reports that she still is short of breath with exertion to the bathroom. Objective: The patient's most recent lab work, culture data and imaging studies have all been personally reviewed. Respiratory viral panel was negative. Expectorated sputum culture appears to be normal respiratory gregorio. Strep and urine Legionella antigens were negative. - Physical Exam Vitals/I&O's: Vital Signs Temp Pulse Resp BP Pulse Ox 98.1 F 110 H 20 H 103/53 L 96 11/01/19 03:45 11/01/19 03:45 11/01/19 03:45 11/01/19 03:45 11/01/19 03:45 Oxygen Flow Rate (L/min) 2 Oxygen Delivery Method Nasal Cannula Weight: 101 lb 10.13 oz Body Mass Index (BMI) 17.4 Intake and Output for Last 24 Hours 10/30/19 10/31/19 11/01/19 23:59 23:59 23:59 Intake Total 2685.42 / 2905.42 2121.00 / 2121.00 572.58 / 572.58 Output Total 250 / 900 1360 / 1360 Balance 2435.42 / 2005.42 761.00 / 761.00 572.58 / 572.58 General: Alert, Oriented x3, Cooperative, No apparent distress HEENT: Atraumatic, PERRLA, Normocephalic Oral: No Gingival or Mucosal Lesions/ Ulcerations Neck: Supple, No Nodes, Trachea Midline Lungs: Diminished, Rales Cardiovascular: Regular rate, Regular Rhythm, Normal S1, Normal S2, No murmurs Abdomen: Bowel Sounds Present, Soft, Non Tender Extremities: No clubbing, No cyanosis, No edema Skin: No breakdown Musculoskeletal: No Tenderness to Palpation of Joints or Extremities Lymphatic: No Cervical, Supraclavicular, or Inguinal Adenopathy Neurological: Cranial nerves II-XII grossly intact, Neuro grossly intact Psych/Mental Status: Alert and oriented to time, place, person, mood and affect Labs (Last 48 Hours) 10/30/19 10/30/19 10/30/19 08:30 08:30 08:30 WBC 11.9 H RBC 4.49 Hgb 12.9 Hct 39.8 MCV 88.6 MCH 28.7 MCHC 32.4 RDW Std Deviation 46.5 H RDW Coeff of Amber 14.5 Plt Count 255 MPV 9.8 Immature Gran % (Auto) 0.600 Neut % (Auto) 86.3 H Lymph % (Auto) 5.7 L [place] % (Auto) 5.5 Eos % (Auto) 1.5 Baso % (Auto) 0.4 Absolute Neuts (auto) 10.2 H Absolute Lymphs (auto) 0.68 L Nucleated RBC % 0 Differential Comment Platelet Estimate Ovalocytes Crenated Cell PT 13.9 INR 1.1 APTT 26.6 Sodium 140 Potassium 4.0 Chloride 108 H Carbon Dioxide 26.0 Anion Gap 6 BUN 13 Creatinine 1.11 H Estim Creat Clear Calc 32.42 Est GFR (MDRD) Af Amer 62 Est GFR (MDRD) Non-Af 51 L BUN/Creatinine Ratio 11.7 Glucose 110 H Lactic Acid Calcium 9.3 Total Bilirubin 0.80 AST 26 ALT 28 Alkaline Phosphatase 75 Total Protein 7.9 Albumin 4.0 Globulin 3.9 Albumin/Globulin Ratio 1.0 Vitamin D 25-Hydroxy TSH Free T4 Urine Color Urine Clarity Urine pH Ur Specific [place] U Specif Grav (Refrac) Urine Protein Urine Glucose (UA) Urine Ketones Urine Occult Blood Urine Nitrite Urine Bilirubin Urine Urobilinogen Ur Leukocyte Esterase Urine RBC Urine WBC Ur Squamous Epith Cells Ur Transition Epith Cell Ur Renal Epithelial Cell Calcium Oxalate Crystal Uric Acid Crystals Triple Phos Crystals Other Crystals Amorphous Sediment Urine Bacteria Hyaline Casts Fine Granular Casts Coarse Granular Casts Waxy Casts RBC Casts WBC Casts Urine Mucus Urine Trichomonas Urine Yeast MRSA (PCR) 10/30/19 10/30/19 10/30/19 08:30 13:28 16:50 WBC RBC Hgb Hct MCV MCH MCHC RDW Std Deviation RDW Coeff of Amber Plt Count MPV Immature Gran % (Auto) Neut % (Auto) Lymph % (Auto) [place] % (Auto) Eos % (Auto) Baso % (Auto) Absolute Neuts (auto) Absolute Lymphs (auto) Nucleated RBC % Differential Comment Platelet Estimate Ovalocytes Crenated Cell PT INR APTT Sodium Potassium Chloride Carbon Dioxide Anion Gap BUN Creatinine Estim Creat Clear Calc Est GFR (MDRD) Af Amer Est GFR (MDRD) Non-Af BUN/Creatinine Ratio Glucose Lactic Acid 1.2 Calcium Total Bilirubin AST ALT Alkaline Phosphatase Total Protein Albumin Globulin Albumin/Globulin Ratio Vitamin D 25-Hydroxy TSH Free T4 Urine Color Cancelled Urine Clarity Cancelled Urine pH Cancelled Ur Specific [place] Cancelled U Specif Grav (Refrac) Cancelled Urine Protein Cancelled Urine Glucose (UA) Cancelled Urine Ketones Cancelled Urine Occult Blood Cancelled Urine Nitrite Cancelled Urine Bilirubin Cancelled Urine Urobilinogen Cancelled Ur Leukocyte Esterase Cancelled Urine RBC Cancelled Urine WBC Cancelled Ur Squamous Epith Cells Cancelled Ur Transition Epith Cell Cancelled Ur Renal Epithelial Cell Cancelled Calcium Oxalate Crystal Cancelled Uric Acid Crystals Cancelled Triple Phos Crystals Cancelled Other Crystals Cancelled Amorphous Sediment Cancelled Urine Bacteria Cancelled Hyaline Casts Cancelled Fine Granular Casts Cancelled Coarse Granular Casts Cancelled Waxy Casts Cancelled RBC Casts Cancelled WBC Casts Cancelled Urine Mucus Cancelled Urine Trichomonas Cancelled Urine Yeast Cancelled MRSA (PCR) Negative 10/31/19 10/31/19 11/01/19 04:15 04:15 05:20 WBC 13.4 H RBC 3.47 L Hgb 9.7 L Hct 31.0 L MCV 89.3 MCH 28.0 MCHC 31.3 L RDW Std Deviation 49.6 H RDW Coeff of Amber 15.2 H Plt Count 155 MPV 10.7 Immature Gran % (Auto) 0.700 Neut % (Auto) 90.7 H Lymph % (Auto) 4.5 L [place] % (Auto) 4.0 Eos % (Auto) 0.0 Baso % (Auto) 0.1 Absolute Neuts (auto) 12.1 H Absolute Lymphs (auto) 0.60 L Nucleated RBC % 0 Differential Comment Platelet Estimate ADEQUATE Ovalocytes RARE Crenated Cell RARE PT INR APTT Sodium 143 Potassium 3.8 Chloride 117 H Carbon Dioxide 20.0 L Anion Gap 6 BUN 14 Creatinine 0.98 Estim Creat Clear Calc 36.13 Est GFR (MDRD) Af Amer 71 Est GFR (MDRD) Non-Af 59 L BUN/Creatinine Ratio 14.3 Glucose 147 H Lactic Acid Calcium 7.8 L Total Bilirubin AST ALT Alkaline Phosphatase Total Protein Albumin Globulin Albumin/Globulin Ratio Vitamin D 25-Hydroxy TSH 0.53 Free T4 1.06 Urine Color Urine Clarity Urine pH Ur Specific [place] U Specif Grav (Refrac) Urine Protein Urine Glucose (UA) Urine Ketones Urine Occult Blood Urine Nitrite Urine Bilirubin Urine Urobilinogen Ur Leukocyte Esterase Urine RBC Urine WBC Ur Squamous Epith Cells Ur Transition Epith Cell Ur Renal Epithelial Cell Calcium Oxalate Crystal Uric Acid Crystals Triple Phos Crystals Other Crystals Amorphous Sediment Urine Bacteria Hyaline Casts Fine Granular Casts Coarse Granular Casts Waxy Casts RBC Casts WBC Casts Urine Mucus Urine Trichomonas Urine Yeast MRSA (PCR) 11/01/19 05:20 WBC RBC Hgb Hct MCV MCH MCHC RDW Std Deviation RDW Coeff of Amber Plt Count MPV Immature Gran % (Auto) Neut % (Auto) Lymph % (Auto) [place] % (Auto) Eos % (Auto) Baso % (Auto) Absolute Neuts (auto) Absolute Lymphs (auto) Nucleated RBC % Differential Comment Platelet Estimate Ovalocytes Crenated Cell PT INR APTT Sodium Potassium Chloride Carbon Dioxide Anion Gap BUN Creatinine Estim Creat Clear Calc Est GFR (MDRD) Af Amer Est GFR (MDRD) Non-Af BUN/Creatinine Ratio Glucose Lactic Acid Calcium Total Bilirubin AST ALT Alkaline Phosphatase Total Protein Albumin Globulin Albumin/Globulin Ratio Vitamin D 25-Hydroxy Pending TSH Free T4 Urine Color Urine Clarity Urine pH Ur Specific [place] U Specif Grav (Refrac) Urine Protein Urine Glucose (UA) Urine Ketones Urine Occult Blood Urine Nitrite Urine Bilirubin Urine Urobilinogen Ur Leukocyte Esterase Urine RBC Urine WBC Ur Squamous Epith Cells Ur Transition Epith Cell Ur Renal Epithelial Cell Calcium Oxalate Crystal Uric Acid Crystals Triple Phos Crystals Other Crystals Amorphous Sediment Urine Bacteria Hyaline Casts Fine Granular Casts Coarse Granular Casts Waxy Casts RBC Casts WBC Casts Urine Mucus Urine Trichomonas Urine Yeast MRSA (PCR) Microbiology 10/30/19 13:35 Sputum, Expectorated/Coughed Gram Stain - Final 10/30/19 13:35 Sputum, Expectorated/Coughed Respiratory Culture - Preliminary Appears to be normal respiratory gregorio. Further studies to follow. 10/30/19 08:45 Mucosa - Nasopharyngeal Respiratory Panel (PCR) - Final 10/30/19 16:50 Urine Catheter - Ward Streptococcus pneumoniae Antigen (M - Final 10/30/19 16:50 Urine Catheter - Ward Legionella Antigen - Final 10/30/19 08:45 Mucosa - Nose Influenza Types A,B Direct FA (DANITZA) - Final Clinical Impression(s) from Imaging Studies Chest X-Ray 10/30/19 08:24 IMPRESSION: New increased markings at the left lung base suggestive of left basilar atelectasis versus infiltrate and blunting of left costophrenic angle. The right hemithorax is unchanged. Electronically Signed: Gustavo Cota, at 8:58 EST , Service support , Current Medications Acetaminophen (Tylenol) 650 mg RECTAL Q4H PRN PRN PRN Reason: Fever, T>101 Last Admin: 10/30/19 14:03 Dose: 650 mg Documented by: Albuterol Sulfate (Ventolin Aerosols) 2.5 mg INHALATION Q2H PRN PRN PRN Reason: Shortness of Breath/Wheezing Albuterol/Ipratropium (Duoneb) 3 ml INHALATION Q4H.RT [facility] Last Admin: 11/01/19 03:00 Dose: 3 ml Documented by: Enoxaparin Sodium (Lovenox) 40 mg SC DAILY [facility] Last Admin: 10/31/19 10:56 Dose: 40 mg Documented by: Glucagon () 1 mg IM .X1 PRN PRN Reason: Hypoglycemia Guaifenesin (Mucinex) 1,200 mg PO BID [facility] Last Admin: 10/31/19 21:46 Dose: 1,200 mg Documented by: Sodium Chloride () 250 mls @ 15 mls/hr IV .[id number] PRN PRN Reason: Saline Flush Last Infusion: 11/01/19 05:22 Dose: 0 mls/hr Documented by: Sodium Chloride () 250 mls @ 15 mls/hr IV .[id number] PRN PRN Reason: Additional IVPB Infusion Dextrose (Dextrose 10%-Water) 250 mls @ 999 mls/hr IV .Q16M PRN; Protocol PRN Reason: HYPOGLYCEMIA Piperacillin Sod/Tazobactam (Sod 3.375 gm/ Sodium Chloride) 50 mls @ 12.5 mls/hr IV Q8 [facility] Last Admin: 11/01/19 05:23 Dose: 12.5 mls/hr Documented by: Levothyroxine Sodium (Synthroid) 25 mcg PO DAILY@0600 [facility] Last Admin: 11/01/19 05:20 Dose: 25 mcg Documented by: Methylprednisolone (Solu-Medrol) 40 mg IV Q8 [facility] Last Admin: 11/01/19 05:20 Dose: 40 mg Documented by: Oxycodone HCl (Oxyir) 5 mg PO Q4H PRN PRN PRN Reason: Pain Score 4-5/10 Phenol/Menthol (Chloraseptic (Bkc)) 5 spray MM Q2H PRN PRN PRN Reason: SORE THROAT Last Admin: 10/31/19 05:11 Dose: 5 spray Documented by: Prochlorperazine Edisylate (Compazine Iv) 5 mg IV Q4H PRN PRN PRN Reason: Breakthrough nausea/vomiting Promethazine HCl (Phenergan) 12.5 mg IV Q6H PRN PRN PRN Reason: Breakthrough nausea/vomiting Senna/Docusate Sodium (Senokot-S, Donna-Colace) 2 tablet PO BID PRN PRN PRN Reason: Constipation Sodium Chloride () 10 - 40 ml IV UD PRN PRN Reason: SALINE FLUSH Last Admin: 11/01/19 07:48 Dose: 10 ml Documented by: Throat Lozenges (Cepacol Sore Throat Lozenge) 2 lozenge MUCOUS MEM Q2H PRN PRN PRN Reason: SORE THROAT Medical Necessity - Tobacco Use Smoking Status: Former smoker - Smoked for about 15 years, a pack per day Tobacco Use: Cigarettes Assessment/Plan All Active Problems Pneumonia (Acute) COPD exacerbation (Acute) Bronchiectasis exacerbation (Acute) Left lower lobe pneumonia (Acute) 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 Continue Zosyn, pending finalized infectious work-up. 2. Continue bronchodilators and IV steroids. 3. Continue nocturnal supplemental oxygen per home regimen. 4. Encourage incentive spirometer use and mobilize patient as tolerated. 5. Perform walking oximetry study prior to consideration for discharge home. 6. 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 IMPRESSIONS: 1. Acute respiratory insufficiency secondary to COPD/bronchiectasis with exacerbation Now resolved. The patient has been maintaining appropriate oxygen saturations on room air. She will be continued on scheduled bronchodilators along with IV steroids. Encourage incentive spirometer use and mobilize patient as tolerated. Perform walking oximetry study prior to consideration for discharge home. Antibiotics can likely be de-escalated tomorrow to Levaquin, pending finalized infectious work-up. 2. Severe sepsis with concerns for community-acquired pneumonia The patient was initially transferred to the medical intensive care unit in the setting of hypotension, which ended up being responsive to IV fluid resuscitation. The patient never had to be started on any form of vasopressor support. She remains hemodynamically stable. The patient will be continued on IV antibiotics, which can likely be de-escalated to Levaquin beginning tomorrow. 3. Hypothyroidism Complicates care, management, recovery and prognosis. Continue Synthroid per home regimen. This note was generated with QFP[employer] dictation software. It may contain incorrect words, spelling, and punctuation that were not noted in checking the note before signing. Code Visit Inpatient E&M: 54596 Subs Hosp L2
[2019-11-01] MEDS: guaiFENesin 1,200 MG Tablet 1200 MG PO ×2 (09:28→21:55)
[2019-11-01] MEDS: proCHLORPERazine 10 MG/2 ML Vial 5 MG IV (09:33)
[2019-11-01] MEDS: Enoxaparin 40 MG/0.4 ML Syringe SC (09:33)
--- NOTE | 2019-11-01 09:44 | PN_ITS ---
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 She is tachypneic respiratory rate 24 and is tired of breathing hard. Educated about BiPAP and will try it and she accepted. She also has right hemidiaphragm paral ysis/elevation. Objective: Blood pressure 122/66. Vitals/I&O's: Vital Signs Temp Pulse Resp BP Pulse Ox 98.1 F 110 H 20 H 103/53 L 96 11/01/19 03:45 11/01/19 03:45 11/01/19 03:45 11/01/19 03:45 11/01/19 03:45 Oxygen Flow Rate (L/min) 2 Oxygen Delivery Method Room Air Weight: 101 lb 10.13 oz Body Mass Index (BMI) 17.4 Intake and Output for Last 24 Hours 10/30/19 10/31/19 11/01/19 23:59 23:59 23:59 Intake Total 2685.42 / 2905.42 2121.00 / 2121.00 622.58 / 622.58 Output Total 250 / 900 1360 / 1360 Balance 2435.42 / 2005.42 761.00 / 761.00 622.58 / 622.58 General: Alert, Oriented x3, Cooperative HEENT: Atraumatic, PERRLA, EOMI, Normocephalic Neck: Supple, No JVD, Negative Carotid Bruits Lungs: Diminished, Rales, Rhonchi, Short of Breath, Tachypneic Cardiovascular: Regular rate, Regular Rhythm, Normal S1, Normal S2, No murmurs Abdomen: Bowel Sounds Present, Soft, Non Tender, Non-Distended Extremities: No edema, Capillary Refill Less than 3 Seconds Skin: No rashes, No breakdown Musculoskeletal: No Tenderness to Palpation of Joints or Extremities, Arthritic Changes, Muscle Wasting Neurological: Cranial nerves II-XII grossly intact, Deep Tendon Reflexes 2+/4 and Symmetrical, Neuro grossly intact Psych/Mental Status: Normal Affect, Appropriate Microbiology Past 72 Hours 10/30/19 13:35 Sputum, Expectorated/Coughed Gram Stain - Final 10/30/19 13:35 Sputum, Expectorated/Coughed Respiratory Culture - Preliminary Appears to be normal respiratory gregorio. Further studies to follow. 10/30/19 08:45 Mucosa - Nasopharyngeal Respiratory Panel (PCR) - Final 10/30/19 16:50 Urine Catheter - Ward Streptococcus pneumoniae Antigen (M - Final 10/30/19 16:50 Urine Catheter - Ward Legionella Antigen - Final 10/30/19 08:45 Mucosa - Nose Influenza Types A,B Direct FA (DANITZA) - Final Laboratory Results 11/01/19 05:20: TSH 0.53, Free T4 1.06 11/01/19 05:20: Vitamin D 25-Hydroxy Pending Current Medications Acetaminophen (Tylenol) 650 mg RECTAL Q4H PRN PRN PRN Reason: Fever, T>101 Last Admin: 10/30/19 14:03 Dose: 650 mg Documented by: Albuterol Sulfate (Ventolin Aerosols) 2.5 mg INHALATION Q2H PRN PRN PRN Reason: Shortness of Breath/Wheezing Albuterol/Ipratropium (Duoneb) 3 ml INHALATION Q4H.RT [facility] Last Admin: 11/01/19 03:00 Dose: 3 ml Documented by: Enoxaparin Sodium (Lovenox) 40 mg SC DAILY [facility] Last Admin: 11/01/19 09:33 Dose: 40 mg Documented by: Glucagon () 1 mg IM .X1 PRN PRN Reason: Hypoglycemia Guaifenesin (Mucinex) 1,200 mg PO BID [facility] Last Admin: 11/01/19 09:28 Dose: 1,200 mg Documented by: Sodium Chloride () 250 mls @ 15 mls/hr IV .[id number] PRN PRN Reason: Saline Flush Last Infusion: 11/01/19 05:22 Dose: 0 mls/hr Documented by: Sodium Chloride () 250 mls @ 15 mls/hr IV .[id number] PRN PRN Reason: Additional IVPB Infusion Dextrose (Dextrose 10%-Water) 250 mls @ 999 mls/hr IV .Q16M PRN; Protocol PRN Reason: HYPOGLYCEMIA Piperacillin Sod/Tazobactam (Sod 3.375 gm/ Sodium Chloride) 50 mls @ 12.5 mls/hr IV Q8 [facility] Last Infusion: 11/01/19 09:34 Dose: Infused Documented by: Levothyroxine Sodium (Synthroid) 25 mcg PO DAILY@0600 [facility] Last Admin: 11/01/19 05:20 Dose: 25 mcg Documented by: Methylprednisolone (Solu-Medrol) 40 mg IV Q8 [facility] Last Admin: 11/01/19 05:20 Dose: 40 mg Documented by: Oxycodone HCl (Oxyir) 5 mg PO Q4H PRN PRN PRN Reason: Pain Score 4-5/10 Phenol/Menthol (Chloraseptic (Bkc)) 5 spray MM Q2H PRN PRN PRN Reason: SORE THROAT Last Admin: 10/31/19 05:11 Dose: 5 spray Documented by: Prochlorperazine Edisylate (Compazine Iv) 5 mg IV Q4H PRN PRN PRN Reason: Breakthrough nausea/vomiting Last Admin: 11/01/19 09:33 Dose: 5 mg Documented by: Promethazine HCl (Phenergan) 12.5 mg IV Q6H PRN PRN PRN Reason: Breakthrough nausea/vomiting Senna/Docusate Sodium (Senokot-S, Donna-Colace) 2 tablet PO BID PRN PRN PRN Reason: Constipation Sodium Chloride () 10 - 40 ml IV UD PRN PRN Reason: SALINE FLUSH Last Admin: 11/01/19 09:43 Dose: 10 ml Documented by: Throat Lozenges (Cepacol Sore Throat Lozenge) 2 lozenge MUCOUS MEM Q2H PRN PRN PRN Reason: SORE THROAT Medical Necessity - Tobacco Use Smoking Status: Former smoker - Smoked for about 15 years, a pack per day Tobacco Use: Cigarettes Assessment/Plan All Active Problems Pneumonia (Acute) COPD exacerbation (Acute) Bronchiectasis exacerbation (Acute) Left lower lobe pneumonia (Acute) 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 1. Acute hypoxic respiratory distress/insufficiency secondary to COPD/bronchiectasis exacerbation: Patient being admitted in [facility]. Oxygen therapy. Rescue BiPAP at night as needed. 11/01/2019: Resume BiPAP, 08/20, to keep pulse ox 90%. Discussed with respiratory therapist 2. Severe sepsis with SIRS (fever, hypotension, responded to IV fluid, tachycardia, tachypnea, hypoxia and leukocytosis with left shift) with COPD/bronchiectasis exacerbation most probably secondary to left lung base pneumonia: Gram stain showing 4+ WBC, 4+ gram-positive cocci, 4+ gram-negative rods and 1+ gram-positive rods. Antibiotic was broadened to IV Zosyn. MRSA nasal screen negative. Rocephin, Zithromax and vancomycin discontinued. Respiratory panel negative. Urinary antigens negative. Lactic acid is normal. Patient seen by physical chemistry teacher. Continue bronchodilator and IV steroid. Incentive spirometry and chest physiotherapy. Walking pulse oximetry prior to discharge. She is scheduled for right hemidiaphragm elevation surgery in [facility], November 09. She has evidence of obstructive ventilatory defect in PFT, May 2019. FEV1 53% of predicted, DLCO 51. At home she is on Breo Ellipta and Spiriva 11/01: Sputum culture appears to be normal respiratory gregorio. 3. Other comorbidities include hypothyroidism, bilateral hip arthritis. Moderate protein calorie malnutrition with diffuse muscle atrophy and loss of subcutaneous fat. Multiple comorbidities complicates the present care and expect difficult and delay recovery. TSH and free T4 are normal. DVT prophylaxis: Lovenox 40 mils subcu daily Living will/advanced directive/CODE STATUS: Patient has living will at home. Full code Total time of the visit including total time spent in counseling or coordination of care, (more than 50% of the total time, spent in obtaining medical information from nurses and other ancillary care providers), , review of labs and imaging is 35 minutes Clinical Impression(s) from Imaging Studies Chest X-Ray 10/30/19 08:24 IMPRESSION: New increased markings at the left lung base suggestive of left basilar atelectasis versus infiltrate and blunting of left costophrenic angle. The right hemithorax is unchanged. Microbiology Past 72 Hours 10/30/19 08:45 Blood Culture (Wb) - Right Forearm Blood Culture - Preliminary No growth in 48 hours. 10/30/19 08:30 Blood Culture (Wb) - Anticubital Right Blood Culture - Preliminary No growth in 48 hours. 10/30/19 13:35 Sputum, Expectorated/Coughed Gram Stain - Final 10/30/19 13:35 Sputum, Expectorated/Coughed Respiratory Culture - Preliminary Appears to be normal respiratory greogrio. Further studies to follow. 10/30/19 08:45 Mucosa - Nasopharyngeal Respiratory Panel (PCR) - Final 10/30/19 16:50 Urine Catheter - Ward Streptococcus pneumoniae Antigen (M - Final 10/30/19 16:50 Urine Catheter - Ward Legionella Antigen - Final 10/30/19 08:45 Mucosa - Nose Influenza Types A,B Direct FA (DANITZA) - Final Laboratory Results 11/01/19 05:20: TSH 0.53, Free T4 1.06 11/01/19 05:20: Vitamin D 25-Hydroxy Pending Code Visit Inpatient E&M: 90782 Subs Hosp L3
[2019-11-01 18:09] LABS: Vancomycin, Trough Level 3.1 ug/mL (5.0-15.0)
[2019-11-02] VITALS (12 sets, daily range): BP systolic 122–124; BP diastolic 64–72; PULSE 71–101; RESP 12–24; TEMP 36.7–36.8; O2SAT 88–98
[2019-11-02] MEDS: Levothyroxine 25 MCG TABLET PO (05:16)
[2019-11-02 06:03] LABS: Absolute Lymphocyte Count 0.53 X10^3/uL (0.83-4.51); Absolute Neutrophil Count 11.4 X10^3/uL (2.0-7.7); Basophil# 0.03 X10^3/uL; Basophil% 0.2 % (0-1); Eosinophil# 0.06 X10^3/uL; Eosinophils% 0.5 % (0-5); Hematocrit 29.4 % (37-47); Hemoglobin 9.8 g/dL (12.0-15.0); Lymphocyte # 0.53 X10^3/ul (4.0); Lymphocyte % 4.2 % (19-41); Mean Corp Hgb Conc 33.3 g/dL (32-36); Mean Corpuscular Hgb 28.8 pg (27.0-32.0); Mean Corpuscular Volume 86.5 fL (81-99); Mean Platelet Vol. 10.8 fl (6.2-12.0); Monocyte# 0.42 X10^3/uL; Monocyte% 3.3 % (0-10); NRBC Flagged by Analyzer 0 % (0-5); Neutrophil # 11.41 X10^3/uL (2.7-7.7); POSITIVE DIFFERENTIAL YES; POSITIVE MORPHOLOGY YES; Platelet Count 217 K/mm3 (150-450); RBC Distribution Width CV 15.6 % (11.6-14.6); RBC Distribution Width SD 49.1 fl (35.1-43.9); White Blood Count 12.7 K/mm3 (4.4-11.0)
[2019-11-02 06:12] LABS: Differential Indicated SCAN CRITERIA MET
[2019-11-02 06:24] LABS: Anion Gap 6 (5-15); BUN 16 mg/dL (7-18); BUN/Creat Ratio 17.9 RATIO (10-20); Calcium,Total 8.3 mg/dL (8.5-10.1); Chloride 114 mmol/L (98-107); EST Glomerular Filtration Rate 65 mL/min (>60); Est Glom Filt Rate - Afr Amer 79 mL/min (>60); Estimated Creatinine Clearance 40.52 ml/min; Glucose 142 mg/dL (74-106); Potassium 3.4 mmol/L (3.5-5.1); Sodium Level 143 mmol/L (136-145)
[2019-11-02 06:59] LABS: Differential Comment SCANNED; Hypochromasia 2+; Target Cells 1+
[2019-11-02] MEDS: Ipratropium/Albuterol Sulfate 3 ML AMPUL.NEB INHALATION ×3 (07:39→15:10)
[2019-11-02 09:05] LABS: Vitamin D,25 Hydroxy 39.3 ng/mL (29.95-100.01)
[2019-11-02] MEDS: guaiFENesin 1,200 MG Tablet 1200 MG PO (09:06)
[2019-11-02] MEDS: Enoxaparin 40 MG/0.4 ML Syringe SC (09:06)
--- NOTE | 2019-11-02 11:50 | DCINST_ITS ---
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) You will use the following diet at home:: Regular Your food should be the consistency of: Regular Discharge Activity: May Not Drive Weight Bearing Status: Weight bearing as tolerated Allergies/Adverse Reactions: Allergies acetaminophen [From Darvocet-N] Allergy (Verified 10/30/19 10:32) Unknown vomit Fish Containing Products Allergy (Verified 10/30/19 10:32) Angioedema lactose Allergy (Verified 10/30/19 10:32) Other trouble breathing levofloxacin [From Levaquin] Allergy (Verified 10/30/19 10:32) Unknown trouble breathing meperidine [From Demerol] Allergy (Verified 10/30/19 09:32) Angioedema pepper (genus Capsicum) Allergy (Verified 10/30/19 10:32) Other trouble breathing, stomach pain propoxyphene [From Darvocet-N] Allergy (Verified 10/30/19 10:32) Unknown uncontrollable crying Sulfa (Sulfonamide Antibiotics) Allergy (Verified 10/30/19 09:32) Hives Medications to take at Discharge Fluticasone/Vilanterol [Breo Ellipta 100-25 Mcg INH] 1 puff INHALATION DAILY 05/09/18 Levothyroxine [Synthroid] 25 mcg PO DAILY 06/09/19 Tiotropium [place] [Spiriva 18 MCG] 1 puff INHALATION DAILY 06/09/19 Amox/Clavulanate Tablet [Augmentin Tablet] 875 mg PO Q12H #10 tab 11/02/19 Cholecalciferol (Vitamin D3) [Vitamin D3] 5,000 unit PO DAILY #30 tab.rapdis 11/02/19 Guaifenesin [Mucinex] 1,200 mg PO BID #14 tab 11/02/19 Ipratropium/Albuterol Sulfate [Duoneb] 3 ml INHALATION Q4H.RT ampul.neb 11/02/19 Prednisone 10 mg PO DAILY #30 tab 11/02/19 The following prescriptions were given: Amox/Clavulanate Tablet [Augmentin Tablet] 875 mg PO Q12H #10 tab Transmission Status: Received by [facility]30 Guaifenesin [Mucinex] 1,200 mg PO BID #14 tab Transmission Status: Received by [facility] Prednisone 10 mg PO DAILY #30 tab Transmission Status: Received by [facility] Cholecalciferol (Vitamin D3) [Vitamin D3] 5,000 unit PO DAILY #30 tab.rapdis Transmission Status: Received by [facility] Primary Care Physician: Julia Frazier DO [Primary Care Provider] - Please follow up with your Primary Care Physician in: In 2 weeks Test Results: Test results from this visit will be discussed in further detail at your follow- up appointment, if applicable. Please Follow Up With: Edilson Kimbrough MD When: in 1 week
--- NOTE | 2019-11-02 12:31 | DS.PCM_ITS ---
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 1. Acute hypoxic respiratory distress/insufficiency secondary to COPD/bronchiectasis exacerbation with chronic hypoxic respiratory failure: Patient being admitted in [facility]. Oxygen therapy. Rescue BiPAP at night as needed. 11/01/2019: Resume BiPAP, 08/20, to keep pulse ox 90%. Discussed with respiratory therapist 11/02/2019: Home oxygen evaluation shows 94% on room air at rest, ambulating on room air 88%, ambulating on oxygen 2 L 94%. Therefore, patient is ambulatory in home and in the community and requires home oxygen with portability, 2 L through nasal cannula concentrator. 2. Severe sepsis with SIRS (fever, hypotension, responded to IV fluid, tachycardia, tachypnea, hypoxia and leukocytosis with left shift) with COPD/bronchiectasis exacerbation most probably secondary to left lung base pneumonia: Gram stain showing 4+ WBC, 4+ gram-positive cocci, 4+ gram-negative rods and 1+ gram-positive rods. Antibiotic was broadened to IV Zosyn. MRSA nasal screen negative. Rocephin, Zithromax and vancomycin discontinued. Respiratory panel negative. Urinary antigens negative. Lactic acid is normal. Patient seen by scissors grinder. Continue bronchodilator and IV steroid. Incentive spirometry and chest physiotherapy. Walking pulse oximetry prior to discharge. She is scheduled for right hemidiaphragm elevation surgery in [facility], November 09. She has evidence of obstructive ventilatory defect in PFT, May 2019. FEV1 53% of predicted, DLCO 51. At home she is on Breo Ellipta and Spiriva 11/01: Sputum culture appears to be normal respiratory gregorio. 11/02: Sputum culture final, appears mixed normal respiratory gregorio. 3. Other comorbidities include hypothyroidism, bilateral hip arthritis. Moderate protein calorie malnutrition with diffuse muscle atrophy and loss of subcutaneous fat. Multiple comorbidities complicates the present care and expect difficult and delay recovery. TSH and free T4 are normal. DVT prophylaxis: Lovenox 40 mils subcu daily Living will/advanced directive/CODE STATUS: Patient has living will at home. Full code Discharge medication reconciliation done. Discharge follow-up instructions completed. Discharge process discussed with the patient and all questions were answered to patient's satisfaction. Patient is discharged on Augmentin for 5 more days to complete a total of 8 days. Patient is allergic to Levaquin/fluoroquinolone: Therefore antibiotic changed. Patient had about 4 days of IV Zosyn. Follow Dr. Kimbrough in 1 week. Patient has DuoNeb nebulization equipment, DuoNeb medication and on triple inhalers. 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 She feels comfortable, no respiratory distress at room air. Blood pressure 124/64. - Physical Exam Vitals/I&O's: Vital Signs Temp Pulse Resp BP Pulse Ox 98.1 F 101 H 20 H 122/66 H 95 11/02/19 09:11 11/02/19 09:11 11/02/19 09:11 11/02/19 09:11 11/02/19 10:50 Oxygen Flow Rate (L/min) 1 Oxygen Delivery Method Room Air Weight: 101 lb 10.13 oz Body Mass Index (BMI) 17.4 Intake and Output for Last 24 Hours 10/31/19 11/01/19 11/02/19 23:59 23:59 23:59 Intake Total 2121.00 / 2121.00 1152.58 / 1352.58 1020.50 / 1020.50 Output Total 1360 / 1360 Balance 761.00 / 761.00 1152.58 / 1352.58 1020.50 / 1020.50 General: Alert, Oriented x3, Cooperative HEENT: Atraumatic, PERRLA, EOMI, Normocephalic Neck: Supple, No JVD, Negative Carotid Bruits Lungs: Diminished - Air entry diminished on posterior right side. Right hemidiaphragm elevation., Rhonchi - Chronic expiratory rhonchi Cardiovascular: Regular rate, Regular Rhythm, Normal S1, Normal S2, No murmurs Abdomen: Bowel Sounds Present, Soft, Non Tender, Non-Distended Extremities: No edema, Capillary Refill Less than 3 Seconds Skin: No rashes, No breakdown Musculoskeletal: No Tenderness to Palpation of Joints or Extremities, Muscle Wasting Neurological: Cranial nerves II-XII grossly intact, Deep Tendon Reflexes 2+/4 and Symmetrical, Neuro grossly intact Psych/Mental Status: Normal Affect, Appropriate Microbiology Past 72 Hours 10/30/19 16:50 Urine, Clean Catch Urine Culture - Final Culture exhibits no growth. 10/30/19 13:35 Sputum, Expectorated/Coughed Gram Stain - Final 10/30/19 13:35 Sputum, Expectorated/Coughed Respiratory Culture - Final 10/30/19 08:45 Blood Culture (Wb) - Right Forearm Blood Culture - Preliminary No growth in 48 hours. 10/30/19 08:30 Blood Culture (Wb) - Anticubital Right Blood Culture - Preliminary No growth in 48 hours. 10/30/19 08:45 Mucosa - Nasopharyngeal Respiratory Panel (PCR) - Final 10/30/19 16:50 Urine Catheter - Ward Streptococcus pneumoniae Antigen (M - Final 10/30/19 16:50 Urine Catheter - Ward Legionella Antigen - Final 10/30/19 08:45 Mucosa - Nose Influenza Types A,B Direct FA (DANITZA) - Final Laboratory Results 11/01/19 05:20: Vitamin D 25-Hydroxy 39.3 11/01/19 17:35: Vancomycin Trough 3.1 L 11/02/19 05:25: WBC 12.7 H, RBC 3.40 L, Hgb 9.8 L, Hct 29.4 L, MCV 86.5, MCH 28.8, MCHC 33.3, RDW Std Deviation 49.1 H, RDW Coeff of Amber 15.6 H, Plt Count 217, MPV 10.8, Immature Gran % (Auto) 1.800 H, Neut % (Auto) 90.0 H, Lymph % (Auto) 4.2 L, [place] % (Auto) 3.3, Eos % (Auto) 0.5, Baso % (Auto) 0.2, Absolute Neuts (auto) 11.4 H, Absolute Lymphs (auto) 0.53 L, Nucleated RBC % 0, Differential Comment SCANNED, Hypochromasia 2+, Target Cells 1+ 11/02/19 05:25: Sodium 143, Potassium 3.4 L, Chloride 114 H, Carbon Dioxide 23.0, Anion Gap 6, BUN 16, Creatinine 0.90, Estim Creat Clear Calc 40.52, Est GFR (MDRD) Af Amer 79, Est GFR (MDRD) Non-Af 65, BUN/Creatinine Ratio 17.9, Glucose 142 H, Calcium 8.3 L Current Medications Acetaminophen (Tylenol) 650 mg RECTAL Q4H PRN PRN PRN Reason: Fever, T>101 Last Admin: 10/30/19 14:03 Dose: 650 mg Documented by: Albuterol Sulfate (Ventolin Aerosols) 2.5 mg INHALATION Q2H PRN PRN PRN Reason: Shortness of Breath/Wheezing Albuterol/Ipratropium (Duoneb) 3 ml INHALATION Q4H.RT [facility] Last Admin: 11/02/19 11:28 Dose: 3 ml Documented by: Enoxaparin Sodium (Lovenox) 40 mg SC DAILY [facility] Last Admin: 11/02/19 09:06 Dose: 40 mg Documented by: Glucagon () 1 mg IM .X1 PRN PRN Reason: Hypoglycemia Guaifenesin (Mucinex) 1,200 mg PO BID [facility] Last Admin: 11/02/19 09:06 Dose: 1,200 mg Documented by: Sodium Chloride () 250 mls @ 15 mls/hr IV .[id number] PRN PRN Reason: Saline Flush Last Infusion: 11/02/19 09:16 Dose: 15 mls/hr Documented by: Sodium Chloride () 250 mls @ 15 mls/hr IV .[id number] PRN PRN Reason: Additional IVPB Infusion Dextrose (Dextrose 10%-Water) 250 mls @ 999 mls/hr IV .Q16M PRN; Protocol PRN Reason: HYPOGLYCEMIA Piperacillin Sod/Tazobactam (Sod 3.375 gm/ Sodium Chloride) 50 mls @ 12.5 mls/hr IV Q8 [facility] Last Infusion: 11/02/19 09:16 Dose: Infused Documented by: Levothyroxine Sodium (Synthroid) 25 mcg PO DAILY@0600 [facility] Last Admin: 11/02/19 05:16 Dose: 25 mcg Documented by: Methylprednisolone (Solu-Medrol) 40 mg IV Q8 [facility] Last Admin: 11/02/19 05:16 Dose: 40 mg Documented by: Oxycodone HCl (Oxyir) 5 mg PO Q4H PRN PRN PRN Reason: Pain Score 4-5/10 Phenol/Menthol (Chloraseptic (Bkc)) 5 spray MM Q2H PRN PRN PRN Reason: SORE THROAT Last Admin: 10/31/19 05:11 Dose: 5 spray Documented by: Prochlorperazine Edisylate (Compazine Iv) 5 mg IV Q4H PRN PRN PRN Reason: Breakthrough nausea/vomiting Last Admin: 11/01/19 09:33 Dose: 5 mg Documented by: Promethazine HCl (Phenergan) 12.5 mg IV Q6H PRN PRN PRN Reason: Breakthrough nausea/vomiting Senna/Docusate Sodium (Senokot-S, Donna-Colace) 2 tablet PO BID PRN PRN PRN Reason: Constipation Sodium Chloride () 10 - 40 ml IV UD PRN PRN Reason: SALINE FLUSH Last Admin: 11/01/19 14:17 Dose: 10 ml Documented by: Throat Lozenges (Cepacol Sore Throat Lozenge) 2 lozenge MUCOUS MEM Q2H PRN PRN PRN Reason: SORE THROAT Discharge Activity: May Not Drive Weight Bearing Status: Weight bearing as tolerated Home Medications: Medications to take at Discharge Fluticasone/Vilanterol [Breo Ellipta 100-25 Mcg INH] 1 puff INHALATION DAILY 05/09/18 Levothyroxine [Synthroid] 25 mcg PO DAILY 06/09/19 Tiotropium [place] [Spiriva 18 MCG] 1 puff INHALATION DAILY 06/09/19 Amox/Clavulanate Tablet [Augmentin Tablet] 875 mg PO Q12H #10 tab 02/17/20 Cholecalciferol (Vitamin D3) [Vitamin D3] 5,000 unit PO DAILY #30 tab.rapdis 11/02/19 Guaifenesin [Mucinex] 1,200 mg PO BID #14 tab 11/02/19 Ipratropium/Albuterol Sulfate [Duoneb] 3 ml INHALATION Q4H.RT ampul.neb 11/02/19 Prednisone 10 mg PO DAILY #30 tab 11/02/19 Following Prescrptions Were Given to Patient: Amox/Clavulanate Tablet [Augmentin Tablet] 875 mg PO Q12H #10 tab Transmission Status: Received by [facility] Guaifenesin [Mucinex] 1,200 mg PO BID #14 tab Transmission Status: Received by [facility]30 Prednisone 10 mg PO DAILY #30 tab Transmission Status: Received by [facility]30 Cholecalciferol (Vitamin D3) [Vitamin D3] 5,000 unit PO DAILY #30 tab.rapdis Transmission Status: Received by [facility] Primary Care Physician: Julia Frazier DO [Primary Care Provider] - Please follow up with your Primary Care Physician in: In 2 weeks Please Follow Up With: Edilson Kimbrough MD When: in 1 week Medical Necessity - Tobacco Use Smoking Status: Former smoker - Smoked for about 15 years, a pack per day Tobacco Use: Cigarettes Meaningful Use Info Meaningful Use Diagnoses (Choose all that apply): None applicable Code Visit Inpatient E&M: 45832 Disch Hosp
--- NOTE | 2019-11-02 13:00 | PHA.DC.MC ---
Pharmacy Service has performed discharge medication reconciliation and counseling for this patient. 1. AMOXICILLIN/CLAVULANATE 875MG PO BID 2. GUAIFENESIN 1200MG PO BID X 7 DAYS 3. PREDNISONE 40MG PO DAILY X 3 DAYS, THEN 30MG PO DAILY X 3 DAYS, THEN 20MG PO DAILY X 3 DAYS, THEN 10MG PO DAILY X 3 DAYS 4. CHOLECALCIFEROL 5000UNITS PO DAILY The patient's discharge medication list was reviewed for discrepancies and discrepancies were resolved. Home Medications Fluticasone/Vilanterol [Breo Ellipta 100-25 Mcg INH] 1 puff INHALATION DAILY 05/09/18 Levothyroxine [Synthroid] 25 mcg PO DAILY 06/09/19 Tiotropium [place] [Spiriva 18 MCG] 1 puff INHALATION DAILY 06/09/19 Amox/Clavulanate Tablet [Augmentin Tablet] 875 mg PO Q12H #10 tab 11/02/19 Cholecalciferol (Vitamin D3) [Vitamin D3] 5,000 unit PO DAILY #30 tab.rapdis 11/02/19 Guaifenesin [Mucinex] 1,200 mg PO BID #14 tab 11/02/19 Ipratropium/Albuterol Sulfate [Duoneb] 3 ml INHALATION Q4H.RT ampul.neb 11/02/19 Prednisone 10 mg PO DAILY #30 tab 11/02/19 The patient was counseled on the following discharge medications and changes in medications for homegoing were reviewed. The Reason for Use, instructions for use, and potential side effects were reviewed for all new medications. The patient's questions regarding all of their medications were answered. The patient was able to verbally demonstrate an understanding of their discharge medications.
[2019-11-02] MEDS: 0.9% Saline Lock 10 ML Syringe IV (14:51)
--- NOTE | 2019-11-02 15:16 | CASEMGMT ---
Pt does need 2liters home oxygen with ambulation at discharge per Dahiana COTO after testing complete. New order obtained and faxed to [facility] at this time. Call to [facility] and per Piero, pt does have some portable tanks for 'back up' at home and order is only for bedtime at this time. Piero is aware of new order sent and per Dahiana COTO, pt states that she has a tank she can use to get home. D/C summary also faxed at this time for F2F. Amanda COTO CM
--- NOTE | 2019-11-03 13:03 | CASEMGMT ---
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 Medical Lace/Strata: 08/18 F/u Appt: Dr Kimbrough 11/12/19 at 0915, Dr Frazier 11/05/19 at 1200 Called patient listed cell phone on demographics, patient answered, this engineering technical writer introduced self and role. Patient states not doing great with having N/V/D. States that she started with the nausea/vomiting at hospital d/t the potassium she was taking while in the hospital but has since developed the diarrhea and thinks it may be from the Abx. Has a call out to her Doctor's office and nurse is supposed to call her back/check to see if there is anything she can give her or possibly change Abx. States did eat with ABX this morning and has been drinking lemon water to help keep hydrated which she is able to hold down the lemon water. Her Dtr is at work until 3pm today. This engineering technical writer advised her to f/u again with her doctor and if symptoms persist or worsen advised to seek medical attention. Confirmed picked up all her DC medications and denies any issues, concerns, or questions with ACI or F/u. States needs to switch Dr Kimbrough's appointment d/t not having a ride at that time. Thanked patient for receiving care here at [facility] and ended conversation. Melissa Donohue RNCM
== END 2019-11-02 17:48 | disposition home or self-care (01) | DRG 871 ==
LOC: ED 09:34 → MS3 10:02 → ICU 15:51 → PCU 10-31 18:00
PROVIDERS: Admitting Provider Internal Medicine; Emergency Provider Emergency Medicine; PCP Internal Medicine; Visit Provider Internal Medicine
DX: A41.9 Sepsis, unspecified organism (principal); J18.9 Pneumonia, unspecified organism; J44.0 Chronic obstructive pulmonary disease with (acute) lower respiratory infection; J44.1 Chronic obstructive pulmonary disease with (acute) exacerbation; R06.03 Acute respiratory distress; R65.20 Severe sepsis without septic shock; E44.0 Moderate protein-calorie malnutrition; Z68.1 Body mass index [BMI] 19.9 or less, adult; J98.6 Disorders of diaphragm; M16.0 Bilateral primary osteoarthritis of hip; E03.9 Hypothyroidism, unspecified; Z79.899 Other long term (current) drug therapy; Z88.1 Allergy status to other antibiotic agents; Z87.01 Personal history of pneumonia (recurrent); Z87.891 Personal history of nicotine dependence
CPT/HCPCS: 36415; 71045; 80048; 80053; 80202; 82306; 83605; 84439; 84443; 85025; 85610; 85730; 87040; 87070; 87086; 87205; 87449; 87633; 87641; 87804; 93005; 94002; 94003; 94640; 94667; 94668; 97110; 97162; 97166; 97535; 97802; 97803; 99251; 99285; J7030; J7050; A4216; G0463; J2405

== ENCOUNTER → 2020-06-13 15:47 | Outpatient (CLI) | payer MEDICARE, SELFPAY ==
[2019-10-30 10:29] VITALS: BMI 17.4
--- NOTE | 2020-06-13 15:50 | RAD_ITS ---
STUDY: X-RAY CHEST REASON FOR EXAM: Female, 75 years old. COPD TECHNIQUE: PA and lateral views of the chest. COMPARISON: Comparison is made with prior study dated 10/30/2019. FINDINGS: Hyperinflation. Stable pleural parenchymal changes at the left lung base worse on the right side. Surgical clips are seen at the right lung base and in the right midlung. There is no demonstrated pleural abnormality. Normal size heart. Normal mediastinum and tory. Normal visualized pulmonary arteries. There is atherosclerotic calcification of the aortic arch with tortuosity. Normal visualized thoracic spine. Healed right upper rib fracture most likely secondary to prior thoracotomy. There is no demonstrated abnormality of the visualized soft tissue structures of the upper abdomen. RAD/Chest PA and Lateral IMPRESSION: Status post right thoracotomy. Surgical clips are seen in the right upper lobe and in the anterior medial aspect of the right lower lobe. Electronically Signed: Gustavo Cota, at 15:41 EDT , Service support ,
== END ==
PROVIDERS: PCP Internal Medicine; Referring Provider Internal Medicine Pulmonary Disease; Visit Provider Internal Medicine Pulmonary Disease
DX: J44.9 Chronic obstructive pulmonary disease, unspecified (principal)
CPT/HCPCS: 71046

== ENCOUNTER → 2020-10-17 12:31 | Outpatient (CLI) | payer MEDICARE, SELFPAY ==
[2019-10-30 10:29] VITALS: BMI 17.4
[2020-10-17 12:52] LABS: Absolute Lymphocyte Count 1.06 X10^3/uL (0.83-4.51); Absolute Neutrophil Count 2.6 X10^3/uL (2.0-7.7); Basophil# 0.03 X10^3/uL; Basophil% 0.6 % (0-1); Eosinophil# 0.54 X10^3/uL; Eosinophils% 11.4 % (0-5); Hematocrit 34.2 % (37-47); Hemoglobin 10.9 g/dL (12.0-15.0); Lymphocyte # 1.06 X10^3/ul (4.0); Lymphocyte % 22.5 % (19-41); Mean Corp Hgb Conc 31.9 g/dL (32-36); Mean Corpuscular Hgb 28.9 pg (27.0-32.0); Mean Corpuscular Volume 90.7 fL (81-99); Mean Platelet Vol. 10.1 fl (6.2-12.0); Monocyte# 0.46 X10^3/uL; Monocyte% 9.7 % (0-10); NRBC Flagged by Analyzer 0 % (0-5); Neutrophil # 2.62 X10^3/uL (2.7-7.7); Neutrophil % 55.6 % (47-70); Platelet Count 250 K/mm3 (150-450); Red Blood Count 3.77 M/mm3 (4.2-5.4); White Blood Count 4.7 K/mm3 (4.4-11.0)
[2020-10-17 13:24] LABS: ALB/GLOB Ratio 0.9 RATIO (0.9-2.4); AST(SGOT) 22 U/L (15-37); Alanine Aminotransfer ALT/SGPT 21 U/L (13-56); Albumin, Serum 3.4 g/dL (3.2-5.0); Alkaline Phosphatase 67 U/L (45-117); Anion Gap 3 (5-15); BUN 16 mg/dL (7-18); Calcium,Total 9.1 mg/dL (8.5-10.1); Chloride 107 mmol/L (98-107); Cholesterol 218 mg/dL (200); Creatinine, Serum 1.07 mg/dL (0.55-1.02); EST Glomerular Filtration Rate 53 mL/min (>60); Est Glom Filt Rate - Afr Amer 64 mL/min (>60); Ferritin 14 ng/mL (8-252); Globulin 3.9 g/dL (2.2-4.2); Glucose 95 mg/dL (74-106); High Density Lipoprotein 79 mg/dL; Iron 86 ug/dL (50-170); Iron Binding Capacity,Total 356 ug/dL (250-450); PERCENT IRON SATURATION 24.2 % (15.0-55.0); Potassium 4.4 mmol/L (3.5-5.1); Protein, Total 7.3 g/dL (6.4-8.2); Sodium Level 140 mmol/L (136-145); Thyroid Stim Hormone (TSH) 1.19 uIU/mL (0.358-3.74); Triglycerides 121 mg/dL; Very Low Density Lipoprotein 24 mg/dL (5-40)
[2020-10-17 14:43] LABS: Vitamin B12 843 pg/mL (211-911); Vitamin D,25 Hydroxy 41.9 ng/mL
== END ==
PROVIDERS: PCP Internal Medicine; Referring Provider Internal Medicine; Visit Provider Internal Medicine
DX: E03.9 Hypothyroidism, unspecified (principal); E78.00 Pure hypercholesterolemia, unspecified; E61.1 Iron deficiency; E55.9 Vitamin D deficiency, unspecified; E53.8 Deficiency of other specified B group vitamins
CPT/HCPCS: 36415; 80053; 80061; 82306; 82607; 82728; 83540; 83550; 84443; 85025

== ENCOUNTER 2020-11-09 11:36 | Outpatient (RCR) | payer MEDICARE, SELFPAY ==
[2019-10-30 10:29] VITALS: BMI 17.4
== END 2020-11-09 23:59 ==
LOC: IMMUN 11:36
PROVIDERS: PCP Internal Medicine; Referring Provider Family Medicine; Visit Provider Family Medicine
DX: Z23 Encounter for immunization (principal)
CPT/HCPCS: 0011A; 0012A; 91301

== ENCOUNTER → 2020-12-13 14:26 | Outpatient (CLI) | payer MEDICARE, SELFPAY ==
[2019-10-30 10:29] VITALS: BMI 17.4
--- NOTE | 2020-12-13 14:31 | BI_ITS ---
MAMMOGRAPHY - BILATERAL DIAGNOSTIC REASON FOR EXAM: Female, 75 years old. 2 week history of left breast lump following recent cold with vaccination. PERTINENT HISTORY: Non-contributory. TECHNIQUE: Digital bilateral breast jairo (3D mammographic acquisition) in the CC and MLO projections. 2-D mediolateral oblique (MLO) and craniocaudad (CC) views of both breasts were obtained. CAD: Full Field Digital Mammography with Computer Added Detection was performed. COMPARISON: None. Baseline examination. FINDINGS: Breast Composition: There are scattered areas of fibroglandular density. There are no dominant masses or suspicious calcifications. No other significant abnormalities are identified. BI/DIAG MAMM W/CAD, BILAT IMPRESSION: Negative diagnostic mammogram. With the patient''s history of a palpable lump in the left breast, correlation with ultrasound is recommended. ASSESSMENT CATEGORY: BIRADS Category 0: Incomplete. Need additional imaging evaluation. A letter regarding these results will be sent to the patient by the facility within 30 days. Approximately 10% of breast cancers are not detected by mammography. A normal mammogram should not delay biopsy of a clinically suspicious abnormality. Electronically Signed: Gustavo Cota MD at 15:21 EDT , Service support ,
--- NOTE | 2020-12-13 14:31 | US_ITS ---
STUDY: ULTRASOUND BREAST - LEFT REASON FOR EXAM: Female, 75 years old. Palpable lump left breast. TECHNIQUE: Axial and longitudinal images of the LEFT breast were performed with a high resolution ultrasound transducer. # OF IMAGES: 26 COMPARISON: Comparison is made with prior mammogram done earlier today. FINDINGS: LEFT Breast: There is a 3 mm x 3 mm x 1 mm cyst in the retroareolar region of the breast. US/Breast Limited Unilateral IMPRESSION: 3 mm x 2 mm x 1 mm cyst in the retroareolar region of the breast. ASSESSMENT CATEGORY: BIRADS Category 2: Benign. A letter regarding these results will be sent to the patient by the facility within 30 days. Electronically Signed: Gustavo Cota MD at 10:52 EDT , Service support ,
== END ==
PROVIDERS: PCP Internal Medicine; Referring Provider Nurse Practitioner; Visit Provider Nurse Practitioner
DX: N60.02 Solitary cyst of left breast (principal)
CPT/HCPCS: 76642; 77062; 77066; G0279

== ENCOUNTER → 2021-02-20 15:17 | Outpatient (CLI) | payer MEDICARE, SELFPAY ==
[2019-10-30 10:29] VITALS: BMI 17.4
--- NOTE | 2021-02-20 15:20 | CT_ITS ---
STUDY: CTA CHEST REASON FOR EXAM: Female, 76 years old. ELEVATED DDIMER RADIATION DOSAGE (If Supplied By Facility): CTDIvol = ( 2.49 ) mGy, DLP = ( 102.31 ) mGycm TECHNIQUE: The examination was performed with the intravenous administration of IV 100mL [id number]-370. Post-processing of the angiographic images was performed, with multiplanar reformation and 3D reconstruction. Individualized dose optimization techniques were used for this CT. COMPARISON: None. FINDINGS: Normal enhancement of the main pulmonary artery and right and left pulmonary arteries. Normal enhancement of the bilateral peripheral pulmonary arteries. There is no demonstrated pulmonary embolism. There is atherosclerotic calcification of the aortic arch with tortuosity. There is no demonstrated aortic dissection. Normal heart and pericardium. Normal mediastinum. Normal hilar regions. Normal visualized trachea and bronchi. Hyperinflation. Diffuse emphysematous changes with bullous formation more prominent in the upper lobes. There is an irregular area of soft tissue density in the posterior aspect of the right upper lobe measuring 2.6 cm x 1.6 years. This may represent a focal area of scarring although a neoplastic process cannot be ruled out. There is also evidence of an irregular soft tissue density in the peripheral lateral aspect of the lingular segment of the left upper lobe measuring 2.8 cm. There is also evidence of a bullous formation surrounding this density. There is evidence of bone bronchiectasis in the posterior aspect of the lingular segment of the left upper lobe as well as bullous changes in the left lung base. Normal pleura. Normal chest wall structures. Normal osseous structures. There is a 1.8 cm cyst in the upper pole of the left kidney. CT/CTA Chest W/WO Contrast IMPRESSION: No evidence of pulmonary embolism. Emphysematous changes as described. Patchy areas of increased density as described in both lungs. Radiographic follow-up or correlation with a PET scan is recommended for further evaluation. Electronically Signed: Gustavo Cota MD at 15:57 EDT , Service support ,
== END ==
PROVIDERS: PCP Internal Medicine; Referring Provider Nurse Practitioner; Visit Provider Nurse Practitioner
DX: R79.89 Other specified abnormal findings of blood chemistry (principal); R06.02 Shortness of breath
CPT/HCPCS: 71275; 80069; 83880; 85025; 85379; Q9967

== ENCOUNTER → 2021-02-20 | Outpatient (CLI) | payer MEDICARE, SELFPAY ==
[2019-10-30 10:29] VITALS: BMI 17.4
[2021-02-20 12:05] LABS: Absolute Lymphocyte Count 1.02 X10^3/uL (0.83-4.51); Absolute Neutrophil Count 4.9 X10^3/uL (2.0-7.7); Basophil# 0.03 X10^3/uL; Basophil% 0.4 % (0-1); Eosinophil# 0.99 X10^3/uL; Eosinophils% 13.1 % (0-5); Hematocrit 35.3 % (37-47); Hemoglobin 11.1 g/dL (12.0-15.0); Lymphocyte # 1.02 X10^3/ul (0.83-4.51); Lymphocyte % 13.5 % (19-41); Mean Corp Hgb Conc 31.4 g/dL (32-36); Mean Corpuscular Hgb 27.8 pg (27.0-32.0); Mean Corpuscular Volume 88.5 fL (81-99); Mean Platelet Vol. 11.4 fl (6.2-12.0); Monocyte# 0.58 X10^3/uL; Monocyte% 7.7 % (0-10); NRBC Flagged by Analyzer 0 % (0-5); Neutrophil # 4.92 X10^3/uL (2.7-7.7); Neutrophil % 64.9 % (47-70); Platelet Count 288 K/mm3 (150-450); RBC Distribution Width CV 13.6 % (11.6-14.6); RBC Distribution Width SD 44.5 fl (35.1-43.9); Red Blood Count 3.99 M/mm3 (4.2-5.4); White Blood Count 7.6 K/mm3 (4.4-11.0)
[2021-02-20 12:26] LABS: D-Dimer Quantitative (DVT/PE) 2.79 FEU/ug/m (0.27-0.49)
[2021-02-20 12:34] LABS: BNP,B-Type NATRIURETIC PEPTIDE 5.9 pg/mL (0-100)
[2021-02-20 13:10] LABS: Albumin, Serum 3.3 g/dL (3.2-5.0); BUN 15 mg/dL (7-18); BUN/Creat Ratio 15.6 RATIO (10-20); Calcium,Total 9.4 mg/dL (8.5-10.1); Chloride 105 mmol/L (98-107); Creatinine, Serum 0.96 mg/dL (0.55-1.02); EST Glomerular Filtration Rate 60 mL/min (>60); Est Glom Filt Rate - Afr Amer 73 mL/min (>60); Glucose 89 mg/dL (74-106); Phosphorus 3.2 mg/dL (2.5-4.9); Potassium 4.4 mmol/L (3.5-5.1); Sodium Level 140 mmol/L (136-145)
== END | disposition home or self-care (01) ==
LOC: LABSPEC 11:53
PROVIDERS: PCP Internal Medicine; Referring Provider Nurse Practitioner; Visit Provider Nurse Practitioner
DX: R06.02 Shortness of breath (principal)
CPT/HCPCS: 80069; 83880; 85025; 85379

== ENCOUNTER → 2021-06-09 14:25 | Outpatient (CLI) | payer MEDICARE, SELFPAY ==
[2021-06-09 14:31] VITALS: BP 120/60; PULSE 83; RESP 16; TEMP 36.3; O2SAT 94; BMI 20.5
[2021-06-09] MEDS: DENOSUMAB 60 MG/ML SC (14:36)
== END ==
PROVIDERS: PCP Internal Medicine; Referring Provider Nurse Practitioner; Visit Provider Nurse Practitioner
DX: M81.0 Age-related osteoporosis without current pathological fracture (principal)
CPT/HCPCS: 96372; J0897

== ENCOUNTER 2021-09-18 12:43 | Outpatient (CLI) | payer MEDICARE, SELFPAY ==
[2019-10-30 10:29] VITALS: BMI 17.4
--- NOTE | 2021-09-18 12:46 | CT_ITS ---
STUDY: CT CHEST WITHOUT CONTRAST REASON FOR EXAM: Female, 76 years old. BRONCHIESCHCTISIS RADIATION DOSAGE (If Supplied By Facility): CTDIvol = ( 5.16 ) mGy, DLP = ( 167.93 ) mGycm TECHNIQUE: Transaxial imaging was performed without the administration of intravenous contrast material. Multiplanar coronal and sagittal images were reformatted. Individualized dose optimization techniques were used for this CT. COMPARISON: 02/20/2021, 09/30/2018 FINDINGS: Diffusely abnormal lungs with severe multilobar centrilobular emphysematous bullae/blebs. Central and cylindrical dominant bronchiectasis most conspicuous in the bilateral lower lobes are also stable. No endobronchial lesions. In the posterolateral right upper lobe, there is a 2.0 x 2.8 cm solid dominant nodule on image 33 of series 4 which is increased in size since most recent CTA of 02/20/2021 when it measured 1.6 x 2.6 cm. Subpleural nodular density in the left lower lobe measuring 7 x 9 mm on image 68 of series 4 is new. Localized consolidation of the left upper lobe on the prior CTA has largely resolved with only minimal reticulonodular density (4-5 mm) on image 52 of series 4 persisting. There is no demonstrated pleural abnormality. Normal heart and pericardium. Normal mediastinum. Normal hilar regions. Normal unenhanced pulmonary arteries. Normal aorta arch and descending thoracic aorta. No destructive bony process. There is no demonstrated abnormality of the visualized upper abdomen. CT/Chest without Contrast IMPRESSION: 1. Since 02/20/2021, increased size of right posterior upper lobe nodule. Given change in size, additional evaluation with PET scan recommended. 2. Interval near-complete resolution of left upper lobe subpleural consolidation in the left upper lobe on the prior study. 3. Subpleural nodule in the left lower lobe is new since February 2021. Could represent focal area of inflammation/infection but is nonspecific. Follow-up chest CT in 3 months recommended. Electronically Signed: Antoine Jim MD ([place]) at 13:09 EST , Service support ,
== END 2021-09-18 23:59 | disposition short-term general hospital (02) ==
LOC: CT 12:44
PROVIDERS: PCP Internal Medicine; Referring Provider Internal Medicine Pulmonary Disease; Visit Provider Internal Medicine Pulmonary Disease
DX: J47.9 Bronchiectasis, uncomplicated (principal)
CPT/HCPCS: 71250

== ENCOUNTER 2021-12-07 14:28 | Outpatient (CLI) | payer MEDICARE, SELFPAY ==
[2021-12-07 14:43] VITALS: BP 116/47; PULSE 75; RESP 16; TEMP 36.8; O2SAT 99; BMI 19.9
[2021-12-07] MEDS: DENOSUMAB 60 MG/ML SC (14:46)
== END 2021-12-07 23:59 | disposition home or self-care (01) ==
LOC: MEDOUTP 14:29
PROVIDERS: PCP Internal Medicine; Referring Provider Nurse Practitioner; Visit Provider Nurse Practitioner
DX: M81.0 Age-related osteoporosis without current pathological fracture (principal)
CPT/HCPCS: 96372; J0897

== ENCOUNTER 2021-12-07 16:29 | Outpatient (CLI) | payer MEDICARE, SELFPAY ==
--- NOTE | 2021-12-07 16:30 | BI_ITS ---
MAMMOGRAPHY - BILATERAL SCREENING REASON FOR EXAM: Female, 76 years old. Routine annual screening examination. PERTINENT HISTORY: Non-contributory. TECHNIQUE: Digital bilateral breast luis (3D mammographic acquisition) in the CC and MLO projections. 2-D mediolateral oblique (MLO) and craniocaudad (CC) views of both breasts were obtained. CAD: Full Field Digital Mammography with Computer Added Detection was performed. COMPARISON: Comparison is made with prior study dated 12/13/2020. FINDINGS: Breast Composition: There are scattered areas of fibroglandular density. There are no dominant masses or suspicious calcifications. No other significant abnormalities are identified. There has been no significant change since the prior study. BI/SCRN MAMM (CAD)W/LUIS BILAT IMPRESSION: Stable bilateral screening mammogram. Yearly follow-up mammogram recommended. (A) ASSESSMENT CATEGORY: BIRADS Category 1: Negative. A letter regarding these results will be sent to the patient by the facility within 30 days. Approximately 10% of breast cancers are not detected by mammography. A normal mammogram should not delay biopsy of a clinically suspicious abnormality. [id number] Electronically Signed: Gustavo Cota MD at 8:16 EDT ,
== END 2021-12-07 23:59 | disposition home or self-care (01) ==
LOC: OPBI 16:30
PROVIDERS: PCP Internal Medicine; Visit Provider Nurse Practitioner
DX: Z12.31 Encounter for screening mammogram for malignant neoplasm of breast (principal)
CPT/HCPCS: 77063; 77067

== ENCOUNTER 2022-03-19 20:37 | Emergency (ER) | payer MEDICARE, SELFPAY ==
[2022-03-19 20:38] VITALS: BP 121/56; PULSE 100; RESP 24; TEMP 37.3; O2SAT 95; BMI 20.5
[2022-03-19 20:49] VITALS: PULSE 102; RESP 23; O2SAT 95
[2022-03-19 20:50] VITALS: O2SAT 95
--- NOTE | 2022-03-19 21:16 | EDS_ITS ---
HPI History of Present Illness Chief Complaint: Shortness of Breath Detail of Chief Complaint: Shortness of breath Informant: patient and family Onset/Context/Timing Onset: Month(s) (Onset approximately 1 month ago) Context: gradual Timing: Continuous Quality: Positive for Dyspnea on exertion and Wheezing; Negative for Orthopnea or PND Current Severity: Mild Maximum Severity: Moderate Worsened by: Exertion; Not Worsened By Lying flat or Coughing Relieved by: Nothing Associated Symptoms cough, rhinorrhea and post nasal drip; Negative for ear pain, fever, sore throat, subjective, chills, sweats, clear sputum, white sputum, yellow sputum or green sputum Chest Pain: Positive for None Narrative Narrative: Patient is a 77-year-old woman with history of bronchiectasis, COPD who presents with gradual worsening of shortness of breath over 1 month. She does have history of DVT after delivery of her 41-year-old daughter. She denies fever, chills night sweats. She denies weight loss. She does have chronic postnasal drainage. There is no change in the color of the drainage. She denies ear pain. She denies ocular or visual symptoms. She does report slight cough that is nonproductive. She denies pleuritic chest pain. She does report dyspnea on exertion. She has been on prednisone recently. She denies history of hiatal hernia. She denies history of peptic ulcers. She denies black or maroon-colored stool. She denies leg pain, swelling or discoloration. She is presently not on an anticoagulant. PE Risk Factors: Positive for Prior DVT or PE; Negative for Cancer, OCP + Smoking + > 35, Recent immobilization, Recent surgery or Recent travel Prior similar symptoms: Yes (COPD/bronchiectasis) Recent Illness/Hospitalization: No PFSH PFSH Home Medications levothyroxine 25 mcg tablet 50 mcg PO DAILY thyroid 06/09/19 [History Last Taken 10/29/19] tiotropium bromide 18 mcg capsule with inhalation device 1 puff inhalation DAILY breathing 06/09/19 [History Last Taken 10/29/19] cholecalciferol (vitamin D3) 125 mcg (5,000 unit) disintegrating tablet 5,000 unit PO DAILY ##30 11/02/19 [Rx Last Taken Unknown] guaifenesin 1,200 mg tablet, extended release 12 hr 1,200 mg PO BID PRN Cough 06/09/21 [History Last Taken Unknown] ipratropium 0.5 mg-albuterol 3 mg (2.5 mg base)/3 mL nebulization soln 3 ml INHALATION Q4H PRN sob 12/07/21 [History Last Taken Unknown] doxycycline monohydrate 100 mg capsule 100 mg PO BID #14 CAPSULES 03/19/22 [Rx Last Taken Unknown] fluticasone 250 mcg-salmeterol 50 mcg/dose blistr powdr for inhalation (Advair Diskus) 1 inh inhalation DAILY 03/19/22 [History Last Taken Unknown] prednisone 20 mg tablet 60 mg PO DAILY #15 TABLETS 03/19/22 [Rx Last Taken Unknown] Allergy/AdvReac Type Severity Reaction Status Date / Time acetaminophen Allergy Unknown Verified 03/19/22 20:38 [From Darvocet-N] Fish Containing Products Allergy Angioedema Verified 03/19/22 20:38 lactose Allergy Other Verified 03/19/22 20:38 levofloxacin [From Levaquin] Allergy Unknown Verified 03/19/22 20:38 meperidine [From Demerol] Allergy Angioedema Verified 03/19/22 20:38 pepper (genus Capsicum) Allergy Other Verified 03/19/22 20:38 propoxyphene Allergy Unknown Verified 03/19/22 20:38 [From Darvocet-N] Sulfa (Sulfonamide Allergy Hives Verified 03/19/22 20:38 Antibiotics) Surgical History History of appendectomy Social History (Updated 03/19/22 @ 21:[address] Kale Evangelista MD) household members: none Smoking Status: Former smoker substance use type: does not use ROS ROS ED Constitutional Constitutional ED: Denies chills, fever(s), sweats or weight loss Eyes Eyes: Denies blurry vision, change in vision or diplopia ENT ENT ED: Denies ear pain, rhinorrhea or sore throat Cardiovascular Cardiovascular: Denies chest pain, orthopnea, paroxysmal nocturnal dyspnea or racing heartbeat Respiratory/Chest Respiratory/Chest: Reports cough, dyspnea and dyspnea on exertion; Denies orthopnea, paroxysmal nocturnal dyspnea or sputum Gastrointestinal Gastrointestinal: Denies abdominal pain, constipation, diarrhea, melena, nausea or vomiting Genitourinary Genitourinary ED: Denies dysuria, hematuria or urinary frequency Musculoskeletal Musculoskeletal: Denies arthralgias, back pain, myalgias or neck pain Integumentary Denies Abrasions or rash Neurologic Neurologic: Denies headache(s), paresthesias or weakness Psychiatric Psychiatric: Denies anxiety or depression Endocrine Endocrinology: Denies cold intolerance or heat intolerance Hematologic/Lymphatic Hematologic/Lymphatic: Denies easy bleeding or easy bruising Allergic/Immunologic Allergic/Immunologic ED: Denies mouth swelling, tongue swelling or urticaria EXAM Physical Exam Narrative Exam Narrative: Patient appears dyspneic. Const Vital Signs: 03/19/22 20:38 03/19/22 20:49 03/19/22 20:50 Temperature 99.1 F Temperature Source Temporal Pulse Rate 100 102 H Respiratory Rate 24 H 23 H Respiratory Effort Short of Breath Respiratory Depth Respiratory Pattern Blood Pressure 121/56 H Blood Pressure Mean 77 Pulse Ox 95 95 Oxygen Delivery Method Room Air Room Air Room Air 03/19/22 21:29 03/19/22 21:29 Temperature Temperature Source Pulse Rate 126 H Respiratory Rate 20 H 18 Respiratory Effort Normal Short of Breath Respiratory Depth Shallow Respiratory Pattern Normal Normal Blood Pressure Blood Pressure Mean Pulse Ox 96 Oxygen Delivery Method Room Air Positive well nourished and well developed; Negative for obese, cachectic, contractures or unkempt General Appearance ED: well developed; Negative for unkempt, cachectic, contractures, NAD or pallor Nutritional Appearance: Negative for cachectic or obese HEENT Reports TM's clear and dry mucous membranes HEENT Narrative: Nares patent with minimal discharge. Postnasal drainage noted. Uvula midline. There is no erythema or exudate of the posterior pharynx. atraumatic and trauma Tympanic Membrane ED: Yes TM's clear Mouth ED: Yes dry mucous membranes Mouth: dry mucous membranes Eyes PERRL and EOMs intact bilaterally General Eye ED: Negative for pale conjunctiva or scleral icterus Neck no lymphadenopathy, supple, no meningeal signs and no JVD Resp No normal respiratory effort and No clear to auscultation bilaterally Auscultation: rales bilateral base (End inspiratory), wheezes expiratory wheezes and posterior (Lower lobes) and diminished lung sounds Cardio regular rhythm, S1 normal heart sound, S2 normal heart sound and no murmurs Rate: tachycardic GI non-tender, non-distended and no masses Auscultation: hypoactive bowel sounds Palpation: soft; Negative for hepatomegaly or splenomegaly Back/Spine no CVA tenderness and normal to inspection Extremity normal to inspection Extremity Narrative: There is no asymmetry, swelling, discoloration, leg vein distention, palpable cords or tenderness along the distribution of the deep venous system. General Extremety ED: Negative for edema or tenderness General Extremity: Negative for edema Neuro oriented x3, CN's II-XII intact bilaterally and no sensory deficits noted Darlin Coma Scale: document GCS findings Spontaneous Obeys Commands Oriented 15 Sensorium / Orientation: alert, oriented to person, oriented to place and oriented to time Speech: speech normal Sensory Exam: No sensory level loss detected Motor Exam: strength 5/5 throughout Psych Appearance: Negative for unkempt Thought Process: normal thought process Skin no wounds General Skin Exam: Negative for jaundice or pallor Lesions: no lesions Rashes: no rashes MDM MDM MDM Narrative Medical decision making narrative: With 1 month of gradual shortness of breath suspect this is due to her COPD/bronchiectasis. Chest x-ray obtained to rule out pneumonia. Blood work was obtained to assess white count, rule out anemia and assess renal function. Patient was treated with Solu-Medrol, DuoNeb and albuterol. EKG was obtained to evaluate for ischemia. Patient was reassessed at 2224. She is moving more air. There is no wheezing. Patient states she is coughing up sputum. Patient is aware of the scarring abnormality right upper lobe. She has been following with a him assistant for several years. Lab Data Attestation: I reviewed the patient's lab results. Lab results narrative: White count and differential are unremarkable. Basic metabolic panels marked for creatinine of 1.48. Lactate is normal. Labs: Laboratory Results - last 24 hr 03/19/22 03/19/22 03/19/22 21:37 21:37 21:37 WBC 8.4 RBC 3.56 L Hgb 10.1 L Hct 31.9 L MCV 89.6 MCH 28.4 MCHC 31.7 L RDW Std Deviation 44.3 H RDW Coeff of Amber 13.3 Plt Count 273 MPV 10.4 Immature Gran % (Auto) 0.200 Neut % (Auto) 65.1 Lymph % (Auto) 11.5 L [place] % (Auto) 13.5 H Eos % (Auto) 9.5 H Baso % (Auto) 0.2 Absolute Neuts (auto) 5.5 Absolute Lymphs (auto) 0.97 Nucleated RBC % 0 Sodium 140 Potassium 3.7 Chloride 107 Carbon Dioxide 26.0 Anion Gap 7 BUN 19 H Creatinine 1.48 H Estim Creat Clear Calc 23.23 Est GFR (MDRD) Af Amer 44 L Est GFR (MDRD) Non-Af 36 L BUN/Creatinine Ratio 12.8 Glucose 112 H Lactic Acid 0.9 Calcium 8.9 Radiography Chest X-Ray - ED: 1 View and Read by ED Physician (Patient has scarring/density right upper lobe that was noted on CAT scan in September of this year. This area has increased in size over the past year. Recommendation was PET scan at that time. Cardiac silhouette and size normal. [place] structures are unremarkable. The film was independently inter) EKG Initial EKG: Attestation: I personally reviewed and interpreted this EKG as follows: Interpretation: Sinus Rhythm (The EKG is normal. Rate is 94. OH interval is 148 ms. Cures duration 82 ms. QT duration 344 ms. [place] is normal.) Discharge Plan Triage Chief Complaint: Shortness of Breath ED Provider: Kale Evangelista Dx/Rx/DC Orders Clinical Impression: COPD exacerbation, Bronchiectasis exacerbation Instructions: ED COPD Flare Prescriptions: New prednisone 20 mg tablet 60 mg PO DAILY Qty: 15 0RF doxycycline monohydrate 100 mg capsule 100 mg PO BID Qty: 14 0RF No Action levothyroxine 25 MCG tablet 50 mcg PO DAILY tiotropium bromide 1 PUFF inhaler 1 puff inhalation DAILY cholecalciferol (vitamin D3) 5,000 UNIT tablet,disintegrating 5,000 unit PO DAILY Qty: 30 0RF guaifenesin 1,200 MG tablet extended release 12hr 1,200 mg PO BID PRN (Reason: Cough) ipratropium-albuterol 3 ML solution for nebulization 3 ml INHALATION Q4H PRN (Reason: sob) fluticasone propion-salmeterol [Advair Diskus] 250-50 mcg/dose Blister With Device 1 inh INHALATION DAILY Primary Care Provider: Julia Frazier Referrals: Julia Frazier DO [Primary Care Provider] - 3-5 Days Disposition Disposition: Home, Self Care
--- NOTE | 2022-03-19 21:24 | EKG12_ITS ---
Test Reason : DYSRHYTHMIA Blood Pressure : / mmHG Vent. Rate : 094 BPM Atrial Rate : 094 BPM P-R Int : 148 ms QRS Dur : 082 ms QT Int : 344 ms P-R-T Axes : 074 032 063 degrees QTc Int : 430 ms Normal sinus rhythm Normal ECG Confirmed by MEENU WOODY, NISREEN ([id number]), editor map CONSTANZA NAZARIO ([id number]) on 03/21/2022 8:18:26 AM Referred By: ADRIAN Confirmed By:NISREEN CORRIGAN MD
[2022-03-19 21:29] VITALS: PULSE 126; RESP 18; RESP 20; O2SAT 96
[2022-03-19] MEDS: Ipratropium/Albuterol Sulfate 3 ML AMPUL.NEB INHALATION (21:29)
[2022-03-19] MEDS: MethylPREDNISolone 125 MG/2 ML Vial IV (21:32)
[2022-03-19] MEDS: Albuterol 2.5 MG/3 ML VIAL.NEB. INHALATION ×3 (21:44→22:05)
[2022-03-19 21:46] LABS: Absolute Lymphocyte Count 0.97 X10^3/uL (0.83-4.51); Absolute Neutrophil Count 5.5 X10^3/uL (2.0-7.7); Basophil# 0.02 X10^3/uL; Basophil% 0.2 % (0-1); Eosinophils% 9.5 % (0-5); Hematocrit 31.9 % (37-47); Hemoglobin 10.1 g/dL (12.0-15.0); Lymphocyte # 0.97 X10^3/ul (0.83-4.51); Lymphocyte % 11.5 % (19-41); Mean Corp Hgb Conc 31.7 g/dL (32-36); Mean Corpuscular Hgb 28.4 pg (27.0-32.0); Mean Corpuscular Volume 89.6 fL (81-99); Mean Platelet Vol. 10.4 fl (6.2-12.0); Monocyte# 1.14 X10^3/uL; Monocyte% 13.5 % (0-10); NRBC Flagged by Analyzer 0 % (0-5); Neutrophil # 5.48 X10^3/uL (2.7-7.7); Neutrophil % 65.1 % (47-70); Platelet Count 273 K/mm3 (150-450); RBC Distribution Width CV 13.3 % (11.6-14.6); RBC Distribution Width SD 44.3 fl (35.1-43.9); Red Blood Count 3.56 M/mm3 (4.2-5.4); White Blood Count 8.4 K/mm3 (4.4-11.0)
[2022-03-19 22:01] LABS: Anion Gap 7 (5-15); BUN 19 mg/dL (7-18); BUN/Creat Ratio 12.8 RATIO (10-20); Calcium,Total 8.9 mg/dL (8.5-10.1); Chloride 107 mmol/L (98-107); Creatinine, Serum 1.48 mg/dL (0.55-1.02); EST Glomerular Filtration Rate 36 mL/min (>60); Est Glom Filt Rate - Afr Amer 44 mL/min (>60); Estimated Creatinine Clearance 23.23 ml/min; Glucose 112 mg/dL (74-106); Potassium 3.7 mmol/L (3.5-5.1); Sodium Level 140 mmol/L (136-145)
[2022-03-19 22:14] LABS: Lactic Acid 0.9 mmol/L (0.4-1.9)
--- NOTE | 2022-03-19 22:20 | CPS ---
x3 Albuterol given to pt. in ER as well
--- NOTE | 2022-03-19 22:30 | RAD_ITS ---
STUDY: X-RAY CHEST REASON FOR EXAM: Female, 77 years old. Dyspnea TECHNIQUE: Single AP portable view of the chest. 10:31 PM. COMPARISON: Previous chest radiographs of 04/12/2021, 03/08/2021, and 02/20/21. Chest CT report of 09/18/2021. FINDINGS: Findings of pulmonary emphysema are again noted with hyperinflation of the lungs and pruning of the peripheral pulmonary vascular markings. There is chronic hyperlucency in the right lateral costophrenic angle indicating basilar emphysematous blebs and bullae, associated with a broad band of scarring at the right lung base. 2.8 cm solid dominant nodule was seen within the right upper lobe posterior laterally on prior chest CT, and today''s chest radiograph shows a corresponding 2.5 cm stellate lesion within the right upper lobe, consistent with pulmonary neoplasm. More inferiorly within the right upper lobe, within the right upper lobe anterior segment, a small focus of more patchy consolidation has developed, which could be due to postobstructive pneumonitis or pneumonia. Emphysematous blebs and bullae are noted in the right upper lobe, surrounded by increasing hazy density. No definite pleural effusion is noted. Heart size remains within normal limits. Thoracic aorta remains mildly elongated and calcific. No acute osseous abnormality. 2 surgical clips are again projected at the right lung base medially. There is no demonstrated abnormality of the visualized soft tissue structures of the upper abdomen. 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 Small focus of patchy consolidation within the right upper lobe anterior segment, due to postobstructive pneumonitis versus minimal pneumonia. Findings of advanced pulmonary emphysema again noted along with right basilar scarring. Nonstandard communication protocol initiated. Electronically Signed: Kwan Gaitan MD at 23:43 EDT ,
[2022-03-19] MEDS: Doxycycline 100 MG CAPSULE PO (22:58)
[2022-03-19 23:07] VITALS: BP 134/48; PULSE 128; RESP 22; O2SAT 96
== END 2022-03-19 23:07 | disposition home or self-care (01) ==
PROVIDERS: Emergency Provider Emergency Medicine; PCP Internal Medicine; Visit Provider Emergency Medicine
DX: J47.1 Bronchiectasis with (acute) exacerbation (principal); Z20.822 Contact with and (suspected) exposure to COVID-19; R09.82 Postnasal drip; Z79.52 Long term (current) use of systemic steroids; Z79.890 Hormone replacement therapy; Z79.899 Other long term (current) drug therapy; Z86.718 Personal history of other venous thrombosis and embolism; Z87.891 Personal history of nicotine dependence
CPT/HCPCS: 71045; 80048; 83605; 85025; 87811; 93005; 94640; 96374; 99251; 99284; A4216; G0463

== ENCOUNTER → 2022-06-01 | Outpatient (CLI) | payer MEDICARE, SELFPAY ==
--- NOTE | 2022-06-01 14:45 | CT_ITS ---
STUDY: CT CHEST WITHOUT CONTRAST REASON FOR EXAM: Female, 77 year s old. Bronchiectasis. Pulmonary nodule. RADIATION DOSAGE (If Supplied By Facility): CTDIvol = ( 5.16 ) mGy, DLP = ( 164.06 ) mGycm TECHNIQUE: Transaxial imaging was performed without the administration of intravenous contrast material. Multiplanar coronal and sagittal images were reformatted. Individualized dose optimization techniques were used for this CT. COMPARISON: Comparison is made with prior study 09/18/2021. FINDINGS: CHEST Hyperinflation and diffuse emphysematous changes. Stable central and cylindrical bronchiectasis more prominent in the lower lobes. Once again, there is a 2 cm x 2.8 cm area of the irregular density with areas of lucency suggestive of a focal scarring. This is unchanged. Stable 7 mm 9 mm subpleural nodule in the left lower lobe. There is no demonstrated pleural abnormality. Normal heart and pericardium. There are calcifications of the coronary arteries. There are multiple small lymph nodes within the mediastinum, which are normal in size and morphology most compatible with reactive lymph hyperplasia. Normal hilar regions. Normal unenhanced pulmonary arteries. There is atherosclerotic calcification of the aortic arch with tortuosity and elongation of the aortic arch and descending thoracic aorta. There are multi-level degenerative changes of the thoracic spine. There is no demonstrated abnormality of the visualized upper abdomen. CT/Chest without Contrast IMPRESSION: Stable examination. Electronically Signed: Gustavo Cota MD at 15:14 EDT ,
== END | disposition home or self-care (01) ==
LOC: CT 14:40
PROVIDERS: PCP Internal Medicine; Visit Provider Internal Medicine Pulmonary Disease
DX: R91.1 Solitary pulmonary nodule (principal)
CPT/HCPCS: 71250

== ENCOUNTER → 2022-06-12 | Outpatient (CLI) | payer MEDICARE, SELFPAY ==
--- NOTE | 2022-06-12 16:02 | BD_ITS ---
STUDY: DUAL ENERGY X-RAY ABSORPTIOMETRY / DXA REASON FOR EXAM: Female, 77 years old. Z78.0. Patient is postmenopausal. TECHNIQUE: Bone Mineral Density (BMD) measurements of lumbar spine and bilateral hips were obtained. COMPARISON: Comparison is made with prior study dated 06/11/2019. FINDINGS: Lumbar Spine (L1-L4): g/cm2 (0.829) / T-score (-2.0) / Z-score (0.5) Findings are suggestive of osteopenia with a moderate fracture risk. Left Femur Total: g/cm2 (0.674) / T-score (-2.2) / Z-score (0.3) Left Femoral Neck: g/cm2 (0.564) / T-score (-2.6) / Z-score (-0.4) Right Femur Total: g/cm2 (0.678) / T-score (-2.2) / Z-score (-0.3) Right Femoral Neck: g/cm2 (0.529) / T-score (-2.9) / Z-score (-0.7) The T-Scores on the most recent prior examination were: Lumbar Spine (L1-L4): There has been improvement of bone density since the previous examination. Left Femur Total: which represents an improvement of 10.1%. Right Femur Total: which represents an improvement of 5.6%. BD/Dexa Bone Density Study IMPRESSION: The patient is considered osteoporotic as outlined below according to World [employer] Organization (WHO) criteria with a high fracture risk. There has been improvement of bone density since the previous examination. Reference Information: The T-score is the number of standard deviations above or below the standard which is normal for young adults at their peak bone mineral density. The World Health Organization (WHO) interprets the T-scores as follows: Above -1 Normal bone density Between -1 and -2.5 Osteopenia Equal to / or below -2.5 Osteoporosis As a practical clinical guideline, osteopenia may be graded as follows: Mild -1 through -1.5 Moderate -1.6 through -2.0 Severe -2.1 through -2.4 The Z-score is the number of standard deviations above or below age-matched controls. A Z-score of less than -1.5 would be considered abnormal. References: 1. NIH Osteoporosis and Related Bone Diseases www osteo.org 2. International Society for Clinical Densitometry www iscd.org 3. National Osteoporosis Foundation www nof.org Electronically Signed: Gustavo Cota MD at 13:43 EDT ,
== END | disposition home or self-care (01) ==
PROVIDERS: PCP Internal Medicine; Visit Provider Internal Medicine
DX: Z78.0 Asymptomatic menopausal state (principal); M81.0 Age-related osteoporosis without current pathological fracture; M85.80 Other specified disorders of bone density and structure, unspecified site
CPT/HCPCS: 77080

== ENCOUNTER → 2022-06-14 | Outpatient (CLI) | payer MEDICARE, SELFPAY ==
[2022-06-14 14:41] VITALS: BP 123/60; PULSE 89; RESP 16; TEMP 36; O2SAT 98; BMI 20.4
[2022-06-14] MEDS: DENOSUMAB 60 MG/ML SC (14:44)
== END | disposition home or self-care (01) ==
LOC: MEDOUTP 14:27
PROVIDERS: PCP Internal Medicine; Referring Provider Nurse Practitioner; Visit Provider Nurse Practitioner
DX: M81.0 Age-related osteoporosis without current pathological fracture (principal)
CPT/HCPCS: 96372; J0897

== ENCOUNTER 2022-09-09 12:45 | Emergency (ER) | payer MEDICARE, SELFPAY ==
[2022-09-09 12:46] VITALS: BP 127/55; PULSE 113; RESP 26; TEMP 36.5; O2SAT 96; BMI 20.2
--- NOTE | 2022-09-09 12:57 | ED.VIS.DYS ---
HPI History of Present Illness Chief Complaint: Shortness of Breath Informant: patient Narrative Narrative: 3-day history increasing dyspnea productive cough subjective fevers. History of COPD remote tobacco years ago. No diabetes history. Grandchildren in the house with RSV. Using her scheduled inhalers. Not increasing her treatment. None taken this morning. COVID less than 3 months ago. Vaccinated for influenza. Prior similar symptoms: Yes PFSH PFSH Medical History Bronchiectasis exacerbation COPD exacerbation Left lower lobe pneumonia Home Medications levothyroxine 25 mcg tablet 50 mcg PO DAILY thyroid 06/09/19 [History Last Taken 10/29/19] tiotropium bromide 18 mcg capsule with inhalation device 1 puff inhalation DAILY breathing 06/09/19 [History Last Taken 10/29/19] cholecalciferol (vitamin D3) 125 mcg (5,000 unit) disintegrating tablet 5,000 unit PO DAILY ##30 11/02/19 [Rx Last Taken Unknown] guaifenesin 1,200 mg tablet, extended release 12 hr 1,200 mg PO BID PRN Cough 06/09/21 [History Last Taken Unknown] ipratropium 0.5 mg-albuterol 3 mg (2.5 mg base)/3 mL nebulization soln 3 ml INHALATION Q4H PRN sob 12/07/21 [History Last Taken Unknown] prednisone 20 mg tablet 60 mg PO DAILY #15 TABLETS 03/19/22 [Rx Last Taken Unknown] fluticasone furoate 200 mcg-vilanterol 25 mcg/dose inhalation powder (Breo Ellipta) 1 ea inhalation DAILY 06/14/22 [History Last Taken Unknown] azithromycin 250 mg tablet 250 mg PO DAILY #4 tabs 09/09/22 [Rx Last Taken Unknown] prednisone 20 mg tablet 60 mg PO DAILY #12 tabs 09/09/22 [Rx Last Taken Unknown] Allergy/AdvReac Type Severity Reaction Status Date / Time acetaminophen Allergy Unknown Verified 09/09/22 12:46 [From Darvocet-N] Fish Containing Products Allergy Angioedema Verified 09/09/22 12:46 lactose Allergy Other Verified 09/09/22 12:46 levofloxacin [From Levaquin] Allergy Unknown Verified 09/09/22 12:46 meperidine [From Demerol] Allergy Angioedema Verified 09/09/22 12:46 pepper (genus Capsicum) Allergy Other Verified 09/09/22 12:46 propoxyphene Allergy Unknown Verified 09/09/22 12:46 [From Darvocet-N] Sulfa (Sulfonamide Allergy Hives Verified 09/09/22 12:46 Antibiotics) Surgical History History of appendectomy Social History household members: none Smoking Status: Former smoker substance use type: does not use ROS ROS ED Constitutional Constitutional ED: Reports fever(s); Denies chills or sweats Eyes Eyes: Denies change in vision ENT ENT ED: Denies dysphagia or sore throat Cardiovascular Cardiovascular: Denies chest pain, leg edema, palpitations or racing heartbeat Respiratory/Chest Respiratory/Chest: Reports cough and dyspnea; Denies dyspnea on exertion Gastrointestinal Gastrointestinal: Denies abdominal pain, diarrhea, nausea or vomiting Genitourinary Genitourinary ED: Denies dysuria, hematuria or urinary frequency Musculoskeletal Musculoskeletal: Denies back pain, extremity pain or neck pain Integumentary Denies rash or wounds Neurologic Neurologic: Denies headache(s), paresthesias or weakness EXAM Physical Exam Const Vital Signs: 09/09/22 12:46 09/09/22 13:05 09/09/22 13:22 Temperature 97.7 F L Temperature Source Temporal Pulse Rate 113 H 102 H 113 H Respiratory Rate 26 H 18 26 H Respiratory Effort Respiratory Pattern Normal Blood Pressure 127/55 H 127/55 H Blood Pressure Mean 79 79 Pulse Ox 96 96 Oxygen Delivery Method Room Air Room Air 09/09/22 13:23 09/09/22 13:29 Temperature 97.7 F L Temperature Source Temporal Pulse Rate 113 H Respiratory Rate 26 H Respiratory Effort Short of Breath Respiratory Pattern Blood Pressure 127/55 H Blood Pressure Mean 79 Pulse Ox 96 Oxygen Delivery Method Room Air Room Air Positive well nourished and well developed Constitutional Narrative: Speaking in full sentences. General Appearance ED: well developed and NAD HEENT Reports moist mucous membranes normocephalic and atraumatic Eyes PERRL, EOMs intact bilaterally and conjunctivae normal General Eye ED: Yes normal appearance of both eyes Neck no lymphadenopathy and supple General: Negative for tenderness Chest Wall Chest: Negative for tenderness Resp Resp Narrative: Diminished breath sounds at the bases. Effort and Inspection: symmetric chest movement; Negative for respiratory distress Cardio regular rhythm and no murmurs Rate: tachycardic Peripheral Pulses: pulses 2+ throughout GI normal to inspection, nondistended, normoactive bowel sounds and non-tender Palpation: Negative for guarding or rebound tenderness present Back/Spine no CVA tenderness and no thoracic nor lumbar tenderness Extremity normal to inspection General Extremety ED: Negative for edema or tenderness General Extremity: Negative for edema Neuro oriented x3 and no sensory deficits noted Sensorium / Orientation: awake and alert Skin no rashes or lesions noted and no wounds MDM MDM MDM Narrative Medical decision making narrative: Patient history of COPD diminished breath sounds, aerosol treatments given with improvement of symptoms she started on steroids. Two-view chest x-ray reviewed by myself read by radiology negative for acute process. She was ambulated pulse ox from 90 to 94%. She started on antibiotics secondary to golds criteria. She will be continued with steroids additional 5 days. She will follow-up with PCP. Return precautions. Radiography Diagnostic Testing: Clinical Impression(s) from Imaging Studies Chest X-Ray 09/09/22 13:24 IMPRESSION: Emphysema without pneumonia or atelectasis. Electronically Signed: Jose Daniel Enamorado MD at 13:37 EST , Discharge Plan Triage Chief Complaint: Shortness of Breath ED Provider: Paul Meneses Dx/Rx/DC Orders Clinical Impression: COPD exacerbation, Cough Instructions: ED COPD Flare Prescriptions: New azithromycin [azithromycin] 250 mg tablet 250 mg PO DAILY Qty: 4 0RF prednisone 20 mg tablet 60 mg PO DAILY Qty: 12 0RF No Action levothyroxine 25 MCG tablet 50 mcg PO DAILY tiotropium bromide 1 PUFF inhaler 1 puff inhalation DAILY cholecalciferol (vitamin D3) 5,000 UNIT tablet,disintegrating 5,000 unit PO DAILY Qty: 30 0RF guaifenesin 1,200 MG tablet extended release 12hr 1,200 mg PO BID PRN (Reason: Cough) ipratropium-albuterol 3 ML solution for nebulization 3 ml INHALATION Q4H PRN (Reason: sob) prednisone 20 mg tablet 60 mg PO DAILY Qty: 15 0RF fluticasone furoate-vilanterol [Breo Ellipta] 200-25 mcg/dose blister with device 1 ea INHALATION DAILY Label Comments: Inhale 1 puff daily Primary Care Provider: Julia Frazier Referrals: Julia Frazier DO [Primary Care Provider] - 3-5 Days Disposition Disposition: Home, Self Care Discharge Date/Time: 09/09/22 14:46
[2022-09-09] MEDS: predniSONE 20 MG Tablet 60 MG PO (13:01)
[2022-09-09] MEDS: Ipratropium/Albuterol Sulfate 3 ML AMPUL.NEB INHALATION (13:02)
[2022-09-09 13:05] VITALS: PULSE 102; RESP 18
[2022-09-09 13:22] VITALS: BP 127/55; PULSE 113; RESP 26; O2SAT 96
[2022-09-09 13:23] VITALS: BP 127/55; PULSE 113; RESP 26; TEMP 36.5; O2SAT 96
--- NOTE | 2022-09-09 13:24 | RAD_ITS ---
STUDY: X-RAY CHEST REASON FOR EXAM: Female, 77 years old. cough TECHNIQUE: PA and lateral views of the chest. COMPARISON: 05/15/2022 FINDINGS: There is hyperinflation of the lungs consistent with chronic obstructive lung disease (COPD). There is no demonstrated pleural abnormality. Normal size heart. Normal mediastinum and tory. Normal visualized pulmonary arteries. Normal visualized aortic arch and descending thoracic aorta. Normal visualized thoracic spine. Healed fracture the posterior right sixth rib. There is no demonstrated abnormality of the visualized soft tissue structures of the upper abdomen. RAD/Chest PA and Lateral IMPRESSION: Emphysema without pneumonia or atelectasis. Electronically Signed: Jose Daniel Enamorado MD at 13:37 EST ,
[2022-09-09 13:29] VITALS: O2SAT 97
[2022-09-09 14:37] VITALS: O2SAT 95
[2022-09-09] MEDS: Azithromycin 250 MG Tablet 500 MG PO (14:45)
== END 2022-09-09 14:46 | disposition home or self-care (01) ==
LOC: ED 13:10
PROVIDERS: Emergency Provider Emergency Medicine; PCP Internal Medicine; Visit Provider Emergency Medicine
DX: J44.1 Chronic obstructive pulmonary disease with (acute) exacerbation (principal); Z79.890 Hormone replacement therapy; Z79.899 Other long term (current) drug therapy; Z87.891 Personal history of nicotine dependence
CPT/HCPCS: 71046; 94640; 99281; 99282

== ENCOUNTER → 2022-12-12 | Outpatient (CLI) | payer MEDICARE, SELFPAY ==
[2022-12-12 14:30] VITALS: BP 127/64; PULSE 78; RESP 16; TEMP 36.6; O2SAT 99
[2022-12-12] MEDS: DENOSUMAB 60 MG/ML SC (14:37)
== END | disposition home or self-care (01) ==
LOC: MEDOUTP 14:24
PROVIDERS: PCP Internal Medicine; Referring Provider Nurse Practitioner; Visit Provider Nurse Practitioner
DX: M81.0 Age-related osteoporosis without current pathological fracture (principal)
CPT/HCPCS: 96372; J0897

== ENCOUNTER → 2023-03-28 | Outpatient (CLI) | payer MEDICARE, SELFPAY ==
--- NOTE | 2023-03-28 13:26 | BI_ITS ---
MAMMOGRAPHY - BILATERAL SCREENING REASON FOR EXAM: Female, 78 years old. Routine annual screening examination. PERTINENT HISTORY: Non-contributory. TECHNIQUE: Digital bilateral breast luis (3D mammographic acquisition) in the CC and MLO projections. 2-D mediolateral oblique (MLO) and craniocaudad (CC) views of both breasts were obtained. CAD: Full Field Digital Mammography with Computer Added Detection was performed. COMPARISON: Comparison is made with prior study December 07, 2021 and December 13, 2020. FINDINGS: Breast Composition: There are scattered areas of fibroglandular density. There are no dominant masses or suspicious calcifications. No other significant abnormalities are identified. There has been no significant change since the prior study. BI/SCRN MAMM (CAD)W/LUIS BILAT IMPRESSION: Stable bilateral screening mammogram. Yearly follow-up mammogram recommended. (A) ASSESSMENT CATEGORY: BIRADS Category 1: Negative. A letter regarding these results will be sent to the patient by the facility within 30 days. Approximately 10% of breast cancers are not detected by mammography. A normal mammogram should not delay biopsy of a clinically suspicious abnormality. [id number] Electronically Signed: Gustavo Cota MD at 14:01 EDT ,
== END | disposition home or self-care (01) ==
LOC: OPBI 13:26
PROVIDERS: PCP Internal Medicine; Referring Provider Internal Medicine; Visit Provider Internal Medicine
DX: Z12.31 Encounter for screening mammogram for malignant neoplasm of breast (principal)
CPT/HCPCS: 77063; 77067

== ENCOUNTER → 2023-04-04 | Outpatient (CLI) | payer MEDICARE, SELFPAY | END | disposition home or self-care (01) | LOC: PSN 10:52 | PROVIDERS: PCP Internal Medicine; Referring Provider Internal Medicine; Visit Provider Internal Medicine | DX: R00.0 Tachycardia, unspecified (principal) | CPT/HCPCS: 93225; 93226 ==

== ENCOUNTER → 2023-04-30 | Outpatient (CLI) | payer MEDICARE, SELFPAY ==
--- NOTE | 2023-04-30 10:26 | PCM.PR.TP ---
General Information2 General Information Admitting Diagnosis: COPD GOLD III: severe Secondary Diagnosis: COVID-19, RSV in Aug 2022, Hypercholesterolemia, asthma, hypothyroidism Gold Classification:: GOLD 3: Severe Personal Learning Style/Barriers Personal Learning Style:: Audio/Visual and Written Barriers to Learning: Vision impaired and Hearing impaired Stage of change r/t lifestyle modifications: Prepared Educational Classes SC: Living with Chronic Lung Disease: Initial Assessment, Breathing Retraining: Initial Assessment and Exercise: Initial Assessment Education/Goals Individual Counseling: Initial Assessment: Overweight/Obesity (Risk of malnutrition and COPD low BMI 19.) and Sedentary Lifestyle SC Patient Goals: Increase muscle strength: Initial Assessment, Experience less dyspnea: Initial Assessment and Improve energy level: Initial Assessment Exercise - Initial Assessment Visit Date of Eval: 04/30/23 Session Number:: 0 (Pre-program evaluation) Problem/Goals Problems: Deconditioning, No regular exercise and Knowledge deficit exercise guidelines Goals:: SC: 2-3/wk for 18 weeks [36 sessions] Physician Prescribed Exercise Modalities: Treadmill, Airdyne and NuStep Frequency (days/week): 3 Duration (Minutes):: 30-45 Intensity: 60-80% of age predicted maximum heart rate reserve Current METSs:: 3.0 Target HR:: 132 (THRR 86-108 initial 2 weeks and increase to Max of 132.) Resting Blood Pressure: 138/70 Minimum SpO2 with exercise: 98 EKG Type: Sinus rhythm Plan Plan and Plan to Review:: Benefits of exercise, Core components of exercise, How to measure dyspnea level, How to monitor dyspnea level, Exercise intensity, Exercise safety guideline, Home exercise guidelines and Shu: 3-4/11-13 Nutrition/Wt Mgmt - Initial Visit Date of Eval: 04/30/23 Session Number:: 0 (Pre-program evaluation) Problems/Goals Problems: Underweight Goals: BMI 21-25 Weight Management Knowledge Deficit Management of:: Underweight Admit Height:: 5 ft Admit Weight:: 100 lb Admit BMI:: 19.5 Intervention Referral to dietitian:: Yes Will attend diet classes:: Yes Intervention/Plan: Instruct on ideal BMI & set weight loss goal w/patient and Other additional plan/interventions (Encourage us of daily dietary supplement or increasing to 5 smaller meals daily to compensate for calorie loss due to work of breathing) Plan Nutrition Plan: Yes: Review BMI or WC & identify target wt & strategies for wt control and Yes: Nutrition education class: Nutrition/Wt Mgmt - 30-Day Visit Session Number:: 0 (Pre-program evaluation) Weight Management Height: 5 ft Weight:: 100 lb BMI: 19.5 Nutrition/Wt Mgmt - 60-Day Visit Session Number:: 0 (Pre-program evaluation) Weight Management Height: 5 ft Weight:: 100 lb BMI: 19.5 Nutrition/Wt Mgmt - 90-Day Visit Session Number:: 0 (Pre-program evaluation) Weight Management Height: 5 ft Weight:: 100 lb BMI: 19.5 Nutrition/Wt Mgmt - Final Visit Session Number:: 0 (Pre-program evaluation) Weight Management Height: 5 ft Weight:: 100 lb BMI: 19.5 Psychosocial - Initial Assess Visit Date of Eval: 04/30/23 Session Number:: 0 (Pre-program evaluation) Problems/Goals History of Emotional Disorders: None Psychosocial Goals: 1. Patient is free from overwhelming symtoms of depression (or anxiety and 7. Improved Q.O.L. Psychosocial Test Tool Used:: Pulmonary QOL and PHQ-9 Questionnaire Referral to Behavioral Health PS - Interventions: Yes: Attend Stress Management Classes and No: Referral to Behavioral Health if PHQ-9 score >9:, No: Referral to [facility] and No: Referral to Physician if PHQ-9 if score is 5-9: Intervention/Plan: See List Interventions/Plan:: Assess stressors,coping strategies & signs of derpression on admission, Instruct/assist pt to develop coping & personal stress Mgt strategies, Instruct patient to recognize signs & symptoms of depression and Instruct patient to recog Psychosocial - 30-Day Visit Session Number:: 0 (Pre-program evaluation) Problems/Goals History of Emotional Disorders: None Psychosocial Goals: 1. Patient is free from overwhelming symtoms of depression (or anxiety and 7. Improved Q.O.L. Psychosocial Test Tool Used:: Pulmonary QOL and PHQ-9 Questionnaire Referral to Behavioral Health PS - Interventions: Yes: Attend Stress Management Classes and No: Referral to Behavioral Health if PHQ-9 score >9:, No: Referral to [facility] and No: Referral to Physician if PHQ-9 if score is 5-9: Plan Interventions/Plan:: Assess stressors,coping strategies & signs of derpression on admission, Instruct/assist pt to develop coping & personal stress Mgt strategies, Instruct patient to recognize signs & symptoms of depression and Instruct patient to recog Psychosocial - 60-Day Visit Session Number:: 0 (Pre-program evaluation) Problems/Goals History of Emotional Disorders: None Psychosocial Goals: 1. Patient is free from overwhelming symtoms of depression (or anxiety and 7. Improved Q.O.L. Psychosocial Test Tool Used:: Pulmonary QOL and PHQ-9 Questionnaire Referral to Behavioral Health PS - Interventions: Yes: Attend Stress Management Classes and No: Referral to Behavioral Health if PHQ-9 score >9:, No: Referral to [facility] and No: Referral to Physician if PHQ-9 if score is 5-9: Plan Interventions/Plan:: Assess stressors,coping strategies & signs of derpression on admission, Instruct/assist pt to develop coping & personal stress Mgt strategies, Instruct patient to recognize signs & symptoms of depression and Instruct patient to recog Psychosocial - 90-Day Visit Session Number:: 0 (Pre-program evaluation) Problems/Goals History of Emotional Disorders: None Psychosocial Goals: 1. Patient is free from overwhelming symtoms of depression (or anxiety and 7. Improved Q.O.L. Psychosocial Test Tool Used:: Pulmonary QOL and PHQ-9 Questionnaire Referral to Behavioral Health PS - Interventions: Yes: Attend Stress Management Classes and No: Referral to Behavioral Health if PHQ-9 score >9:, No: Referral to [facility] and No: Referral to Physician if PHQ-9 if score is 5-9: Plan Interventions/Plan:: Assess stressors,coping strategies & signs of derpression on admission, Instruct/assist pt to develop coping & personal stress Mgt strategies, Instruct patient to recognize signs & symptoms of depression and Instruct patient to recog Psychosocial - Final Assess Visit Session Number:: 0 (Pre-program evaluation) Problems/Goals History of Emotional Disorders: None Psychosocial Goals: 1. Patient is free from overwhelming symtoms of depression (or anxiety and 7. Improved Q.O.L. Psychosocial Test Tool Used:: Pulmonary QOL and PHQ-9 Questionnaire Referral to Behavioral Health PS - Interventions: Yes: Attend Stress Management Classes and No: Referral to Behavioral Health if PHQ-9 score >9:, No: Referral to [facility] and No: Referral to Physician if PHQ-9 if score is 5-9: Plan Interventions/Plan:: Assess stressors,coping strategies & signs of derpression on admission, Instruct/assist pt to develop coping & personal stress Mgt strategies, Instruct patient to recognize signs & symptoms of depression and Instruct patient to recog Oxygen & Oxygen Titration Init Visit Date of Eval: 04/30/23 Session Number:: 0 (Pre-program evaluation) Initial Assessment Oxygen on Admission: None SpO2:: 98 FiO2:: 21 Patient Reports:: No cough Exacerbation Date: 09/09/22 Plans Plan: Monitor SpO2 rest & with exercise Reviewed prescribed medications:: Purpose, Schedule and Importance of compliance Instruct correct technique/timing & care:: MDI, DPI, Nebulizer and Return demo use of inhaler Bronchial Hygiene Plan: Controlled cough, Vibratory PEP device, Hydration, Hand hygiene, Signs/symptoms to report: and Influenza/Pneumovax vaccines Oxygen & Oxygen Titration 30D Visit Session Number:: 0 (Pre-program evaluation) Reassessment SpO2:: 98 Exacerbation Date: 09/09/22 Oxygen & Oxygen Titration 60D Visit Session Number:: 0 (Pre-program evaluation) Reassessment SpO2:: 98 Exacerbation Date: 09/09/22 Oxygen & Oxygen Titration 90D Visit Session Number:: 0 (Pre-program evaluation) Reassessment SpO2:: 98 Exacerbation Date: 09/09/22 Oxygen & Oxygen Titration EVELIN Visit Session Number:: 0 (Pre-program evaluation) Reassessment SpO2:: 98 Exacerbation Date: 09/09/22 Core Components - Initial Visit Date of Eval: 04/30/23 Session Number:: 0 (Pre-program evaluation) Hypertension Hypertension Diagnosis:: Hypertension ICD-10 I10 BP: 138/70 [employer] Hypertension Guidelines Low Sodium diet: No Outcomes/Goals: Able to verbalize/achieve optimal blood pressure <130/80 Tobacco - Initial Assessment Tobacco Program Goals Learning Barriers: Vision and Ready to Learn Tobacco Use: Non-smoker How long ago did you quit using tobacco products?: Greater than or equal to 6 months ago Do you use smokeless tobacco?: No Smoking Cessation Referral:: No Individual Education/Counseling:: No Education Schedule Given:: Yes Gave Education Materials For:: Pulmonary Disease, Risk Factors, Breathing Techniques, Medical Compliance, Pulmonary A&P, Exacerbation Signs & Symptoms and Stress & Relaxation Exacerbation Mgmt & Airway Clearance Bronchial Hygiene Problems:: Respiratory infection Prevention/Management Goals: Pt demonstrates effective cough, effective secretion clearance. and Pt describes signs and symptoms of infection. 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 Does pt report taking home meds as prescribed?: Yes Medications: Yes: MDI, Yes: DPI and Yes: NEB Reviewed prescribed medications:: Purpose, Schedule and Importance of compliance Diabetes Diabetes:: No Referral to dietitian:: Yes Referral to Diabetic Clinic:: No Will attend diet classes:: Yes Core Components - 30 DAYS Visit Session Number:: 0 (Pre-program evaluation) Hypertension Hypertension Diagnosis:: Hypertension ICD-10 I10 Resting Blood Pressure:: 138/70 [employer] Hypertension Guidelines Outcomes/Goals: Able to verbalize/achieve optimal blood pressure <130/80 Tobacco - 30-Day Tobacco Program Goals Tobacco Use: Non-smoker Do you use smokeless tobacco?: No Smoking Cessation Referral:: No Education Schedule Given:: Yes Gave Education Materials For:: Pulmonary Disease, Risk Factors, Breathing Techniques, Medical Compliance, Pulmonary A&P, Exacerbation Signs & Symptoms and Stress & Relaxation Diabetes Diabetes:: No Core Components - 60 DAYS Visit Session Number:: 0 (Pre-program evaluation) Hypertension Hypertension Diagnosis:: Hypertension ICD-10 I10 Resting Blood Pressure:: 138/70 [employer] Hypertension Guidelines Outcomes/Goals: Able to verbalize/achieve optimal blood pressure <130/80 Tobacco - 60-Day Tobacco Program Goals Tobacco Use: Non-smoker Do you use smokeless tobacco?: No Smoking Cessation Referral:: No Individual Education/Counseling:: No Education Schedule Given:: Yes Gave Education Materials For:: Pulmonary Disease, Risk Factors, Breathing Techniques, Medical Compliance, Pulmonary A&P, Exacerbation Signs & Symptoms and Stress & Relaxation Diabetes Diabetes:: No Core Components - 90 DAYS Visit Session Number:: 0 (Pre-program evaluation) Hypertension Hypertension Diagnosis:: Hypertension ICD-10 I10 Resting Blood Pressure:: 138/70 [employer] Hypertension Guidelines Outcomes/Goals: Able to verbalize/achieve optimal blood pressure <130/80 Tobacco - 90-Day Tobacco Program Goals Tobacco Use: Non-smoker Do you use smokeless tobacco?: No Smoking Cessation Referral:: No Individual Education/Counseling:: No Education Schedule Given:: Yes Gave Education Materials For:: Pulmonary Disease, Risk Factors, Breathing Techniques, Medical Compliance, Pulmonary A&P, Exacerbation Signs & Symptoms and Stress & Relaxation Diabetes Diabetes:: No Core Components - Final Visit Session Number:: 0 (Pre-program evaluation) Hypertension Hypertension Diagnosis:: Hypertension ICD-10 I10 Resting Blood Pressure:: 138/70 [employer] Hypertension Guidelines Outcomes/Goals: Able to verbalize/achieve optimal blood pressure <130/80 Tobacco - Final Tobacco Program Goals Tobacco Use: Non-smoker Do you use smokeless tobacco?: No Smoking Cessation Referral:: No Individual Education/Counseling:: No Education Schedule Given:: Yes Diabetes Diabetes:: No Patient Health Questionnaire PHQ-9 Screening Initial Assessment: 1. Little interest or pleasure in doing things: Not at all 2. Feeling down, depressed, or hopeless: Not at all 3. Trouble falling or staying asleep, or sleeping too much: Several days 4. Feeling tired or having little energy: Several days 5. Poor appetite or overeating: Several days 6. Feeling bad about yourself -- or that you are a failure or have let yourself or your family down: Not at all 7. Trouble concentrating on things, such as reading the newspaper or watching television: Not at all 8. Moving or speaking so slowly that other people could have noticed. Or the opposite - being so fidgety or restless that you have been moving around a lot more than usual: Not at all 9. Thoughts that you would be better off , or of hurting yourself in some way: Not at all Total Score: 3 Knowledge Questionaire (BCKQ) Information Information: [place] COPD Knowledge Questionnaire (BCKQ) This questionnaire is designed to find out what you know about your lung problem. It should be completed without help form anyone else. This usually takes between 10 and 20 minutes. Your answers will help us to find out what information you need to help you to understand and manage your lung condition. Jakub the elim ira which you think is the correct answer. Questions 1. In COPD: a. In COPD the word chronic means it is severe: False b. COPD can only be confirmed by breathing tests: False c. In COPD ther is usually gradual worsening over time: True d. In COPD oxygen levels in the blood are always low: False e. COPD is usually in people less than 40 years old: False 2. COPD: Josie than 80% of COPD cases are caused by cigarette smoking: False b. COPD can be caused by occupational dust exposure: True c. Longstanding asthma can develop into COPD: True d. COPD is commonly an inherited disease: False e. Women are less vunerable to the effects of cigarette than men: False 3. The following symptoms are Common in COPD: a. Swelling of the ankles is common in COPD:: False b. Fatigue [tiredness] is common in COPD: True c. Wheezing is common in COPD: True d. Crushing chest pain is common in COPD: False e. Rapid weight loss is common in COPD: False 4. Breathlessness in COPD: a. Severe breathlessness prevents travel by air: False b. Breathlessness can be worsened by eating large meals: True c. Breathlessness means that your oxygen levels are low: True d. Breathlessness is a normal response to exercise: False e. Breathlessness is primarily caused by a narrowing of the bronchial tubes: False 5. Phlegm (sputum): a. Coughing phlegm is a common symptom in COPD: True b. Clearing phlegm is more difficult if you get dehydrated: True c. Bronchodilator inhalers can help clear phlegm: True d. Phlegm causes harm if swallowed: False e. Clearing phlegm can be assisted by breathing exercises: True 6. Chest infections / exacerbations: a. Chest infections often cause coughing of blood: False b. Chest infection phlegm usually becomes coloured (ylw/grn): True cExerbations (episodes of worsening) can occur in the absence of chest infection: True d. Chest infections are always accompanied by a high temperature: False e. Steroid tablets should be taken whenever there is an exacerbation: Don't know 7. Excercise in COPD: aWalking excercises better than breathing to improve fitness: True b. Exercise should be avoided as it strains the lungs: False c. Exercise can help maintain your bone density: True d. Exercise helps relieve depression: True e. Exercise should be stopped if it makes you breathless: False 8. Smoking: a. Stopping smoking will reduce the risk of heart disease: True b. Stopping smoking will slow down further lung damage: True c. Stopping smoking is pointless as the damage is done: False d.Stopping smoking usually results in improved lung function: False eNicotine replacement therapy only available on prescription: Don't know 9. Vaccination: a. A flu jab is recommended every year: True b. You can get flu from having a flu jab: False c. You can only have a flu jab if you are 65 or over: False d. A pneumonia jab protects against all forms of pneumonia: False e.You can have a pneumonia jab and a flu job on the same day: Don't know 10. Inhaled bronchodilators: a. Bronchodilators act quickly (within 10 minutes): False b. Both short & long acting bronchodilators can be taken on the same day: True c. Spacers (volumatic,nebuhaler,serochamber)should be dried w/atowel after washing: Don't know d. A spacer device increases the medication to the lungs: True e. Tremor may be a side effect of bronchodilators: Don't know 11. Antibiotic treatment in COPD: a. To be effective, the course should last at least 10 days: False b. Excessive use of antibiotics can cause resistant bacteria (germs): True c. Antibiotics will clear all chest infections: False d. Antibiotic treatment is necessary for an exacerbation (worsening) however mild: False e. Seek advice if antibiotics cause severe diarrhoea: True 12. Steroid tablets given for COPD (eg Prednisolone): a. Steroid tablets help strengthen muscles: False b. Steroid tablets should be avoided if there is a chest infection: False c. The risk of long-term side effects due to steroids is less w/short courses then w/continous treatment: True dIndigestion is common side effect from using steroid tablet: True e. Steroid tablets can increase your appetite: True 13. Inhaled steroids (brown, red or orange): a. Inhaled steroids should be stopped if you are given steroid tablets: False bSteroid inhalers can be used for rapid relief breathlessnes: False c. Spacer devices reduce the risk of getting thrush in the mouth: False d.Steroid inhaler should be taken before your bronchodilator: Don't know e. Inhaled steroids improve lung function in COPD: True COPD Knowledge Test Total Score:: 51 COPD Assessment Test [CAT] Questions Never cough = 0, Cough all the time = 5: 1 No phlegm = 0, Chest full of phlegm = 5: 1 No chest tightness = 0, Chest very tight = 5: 1 No breathless w/exertion = 0, Very breathless w/exertion = 5: 4 No limitations w/activity = 0, Very limited w/activity = 5: 1 Confident leaving home = 0, Not at all confident = 5: 0 Sleep soundly = 0, Don't sleep soundly = 5: 2 Lots of energy = 0, No energy at all = 5: 3 Total CAT score:: 13 Self-Efficacy 6-Item Scale Initial Assessment: We would like to know how confident you are in doing certain activities. Please select your confidence level for: Fatigue Select Number: 4 Physical Discomfort or Pain Select Number: 7 Emotional Distress Select Number: 9 Other Symptoms or Health Problems Select Number: 9 Different Tasks and Activities Select Number: 9 Medication Select Number: 9 Total Score:: 7 Nutrition Survey Nutrition Survey Instructions Scoring Instructions Nutrition Survey Initial: Have you lost >10 lbs over the past 2 months without trying?: No Are you following a special diet at home for diabetes, low fat, or low salt?: Yes Are you interested in meeting with a dietitian for help understanding your diet?: No Do you eat less than 3 meals a day?: No Do you eat fatty meats (nelson, sausage, ribs, etc), fried foods, desserts, large amounts of salad dressings, margarine, butter, or cheese most days?: No Do you have food allergies? [Enter types in comment field]: Yes Do you eat in restaurants more than 3 times a week?: No Do you season food with salt, seasoning salt, or garlic salt?: Yes Do you used canned, boxed, frozen meals, or soups, seasoning packets?: No Total Score:: 3
--- NOTE | 2023-04-30 10:26 | PCM.PR.HP ---
History of Present Illness General Arrival date:: 04/30/23 Arrival time:: 10:15 Date of Referral:: 04/23/23 Date of Evaluation: 04/30/23 Referring Physician: Dr. Edilson Kimbrough Primary Diagnosis: COPD GOLD III: Severe History of Present Pulmonary Event History of Present Illness: Patient previously has participated in pulmonary rehab in the past and is allowed an additional 36 sessions of her lifetime benefit of 72 sessions under the CMS Medicare Rule. It is appropiate to add the KX modifier to this series of pulmonary rehab. mMRC Breathless Scale: When is the patient short of breath? Y/N Grade: Description of Breathlessness: 0 I only get breathless with strenuous exercise. 1 I get short of breath when hurrying on level ground or walking up a slight hill. 2 On level ground, I walk slower than people of the same age because of breathless, or have to stop for breath when walking at my own pace. 3 I stop for breath after walking 100 yards or after a few minutes on level ground. 4 I am too breathless to leave the house or I am breathless when dressing. Respiratory Problems: Yes Fatigue, Wheezing, Able to Speak in Full Sentences, Dizziness and Dyspnea with Activity; No Retain Secretions, Limited Range of Motion, Chest Pain, Ankle Swelling, Hoarseness, Anxiety, Panic, Dyspnea at Rest, Dyspnea Lying Down Flat or Cough with Secretions Medications Home Medications levothyroxine 25 mcg tablet 50 mcg PO DAILY thyroid 06/09/19 tiotropium bromide 18 mcg capsule with inhalation device 1 puff inhalation DAILY breathing 06/09/19 cholecalciferol (vitamin D3) 125 mcg (5,000 unit) disintegrating tablet 5,000 unit PO DAILY ##30 11/02/19 guaifenesin 1,200 mg tablet, extended release 12 hr 1,200 mg PO BID PRN Cough 06/09/21 ipratropium 0.5 mg-albuterol 3 mg (2.5 mg base)/3 mL nebulization soln 3 ml INHALATION Q4H PRN sob 12/07/21 prednisone 20 mg tablet 60 mg (3 x 20 mg) PO DAILY #15 TABLETS 03/19/22 fluticasone furoate 200 mcg-vilanterol 25 mcg/dose inhalation powder (Breo Ellipta) 1 ea inhalation DAILY 06/14/22 azithromycin 250 mg tablet 250 mg PO DAILY #4 tabs 12/25/22 prednisone 20 mg tablet 60 mg (3 x 20 mg) PO DAILY #12 tabs 09/09/22 Allergies Allergies acetaminophen [From Darvocet-N] Allergy (Verified 09/09/22 12:46) Unknown vomit Fish Containing Products Allergy (Verified 09/09/22 12:46) Angioedema lactose Allergy (Verified 09/09/22 12:46) Other trouble breathing levofloxacin [From Levaquin] Allergy (Verified 09/09/22 12:46) Unknown trouble breathing meperidine [From Demerol] Allergy (Verified 09/09/22 12:46) Angioedema pepper (genus Capsicum) Allergy (Verified 09/09/22 12:46) Other trouble breathing, stomach pain peppers propoxyphene [From Darvocet-N] Allergy (Verified 09/09/22 12:46) Unknown uncontrollable crying Sulfa (Sulfonamide Antibiotics) Allergy (Verified 09/09/22 12:46) Hives Secretions Normal Color:: sinusitis, Thick:: No Thin:: No Sleep Disorder Evaluation Hx of Sleep Apnea: No Do you snore loudly (louder than talking or can be heard through closed doors)?: No Do you often feel tired/ fatigued/ sleepy during daytime?: Yes Has anyone observed you stop breathing during sleep?: No History of Hypertension (for STOP score): Yes STOP Results: Positive; was tested & - Medical Utilization Medical Devices Do you use a peak flow meter at home?: No Do you use a spacer device with your inhalers?: Yes Medical Utilization Number of hospital visits in the last year?: 0 Number of emergency room visits in the last year?: 1 (shortness of breath, exacerbation COVID-19 & RSV) Do you see your physician on a regular schedule?: Yes How often?: PCP 6months; Dr. Kimbrough 6 months or more Advanced Directives Advanced Directives Power of Programs Manager: Yes Living Will: Yes Advance Directives Information Provided: No Advance Directives on File: No DNR Order?:: No MOLST See MOLST form: No Past Medical History Covid-19 Screening Physicial Symptoms Fever: No Unexplained muscle aches: No Current respiratory symptoms: Yes (associated with the chronic rhinitis, and COPD) Upper respiratory infections symptoms: No Gastro-intestinal symptoms: No [id number] symptoms: No Other Clinical Concerns Has tested positive for COVID-19 in last 30 days: No Date of testin04/30/23 (fully vaccinated and recently had COVID-19 & RSV at [place] 2021.) Exposure Risk Had contact w/person w/symptoms or Covid-19 (+) last 14 days: No Has High Risk Exposures ID'd by Health dept/Inf Control team: No Pertinent Comorbidities 65 years or older:: Yes Lives in Assisted Living facility:: No Has a chronic lung disease or moderate to severe asthma:: Yes Has a serious heart condition:: No Immunocompromised:: No Severely obese (Body Mass Index of 40 or higher):: No Diabetic:: No Has chronic kidney disease undergoing dialysis:: No Has liver disease:: No Medical History Past Medical History Bronchiectasis exacerbation COPD exacerbation Left lower lobe pneumonia Surgical History Past Surgical History History of appendectomy Z90.49 Current/ Previous Services Pulmonary Rehab:: Yes Comments Comments: Participated in 36 sessions of OR here at [facility]. Social History Smoking History Smoking Status: Former smoker (Quit somewehre around .) Years Smokin Packs Smoked per Day: 0.5 Hx Tobacco Use: Yes Hx Smoking Exposure: No Alcohol Use Alcohol Usage: No Substance Abuse Hx Substance Use: No Occupation Occupation (List type of work in comments):: Retired Hobbies, Recreation, Social Activities Hobbies: Sewing (& crafts), Reading (Reading and crossword puzzles) and Other (Al ot of confucianism social activities, games etc.) Recreational Activities: I am able to engage in most, but not all activities Functioning ADL/IADL Current Ability Current Ability: Independent: Self-Care (e.g.,grooming, dressing, & bathing), Independent: Ambulation, Independent: Transfer and Independent: Household tasks (e.g., light meal prep, laundry, shopping) Pt Functioning Prior to Problem Prior Functioning: Self-Care (e.g.,grooming, dressing, & bathing): Independent, Ambulation: Independent, Transfer: Independent and Household tasks (e.g., light meal prep, laundry, shopping): Independent Social Environment Status Marital Status: Current Living Arrangements Living Environment:: Family Children How many children do you have?: 4 Do any of your children live nearby?: Yes Safety Do you feel safe in your surroundings?: Yes Assistance Do you need any assistance at home?: no Review of Systems Review of Systems Review of Systems Respiratory: Reports SOB upon Exertion, Wheezing, Appetite, Normal (for me personally, don't have much of an appetite), Dizziness/Lightheadedness (Migraines & vertigo) and Fatigue; Denies Cough, Hemoptysis, Pleuritic Pain, SOB at Rest, Sputum production, Sexual changes or Sleep, Normal (disruptive sleep pattern) Pain Is Patient Pain Free?: No Pain Level: 0/10 Previous experience dealing with pain?: occasional oseoarthritis pain; Valteron Risk Factor Assessment Vital Signs Temperature: 98.7 F Pulse Rate: 90 Pulse Rhythm: Regular Respiratory Rate: 16 Pulse Ox: 99 Blood Pressure: 138/70 Diabetes Nutrition Referral for Diabetes: No Obesity Height: 5 ft Weight:: 100 lb Weight in Pounds: 100.0 lbs Weight Source: Estimated by Patient Body Mass Index (BMI): 19.5 Nutritional Referral for Obesity: Yes (risk of malnutrition, poor appetite at home) Physical Activity Physical Inactivity: Recreational activity (Daily yoga, stretching limber exercise) and None Risk Stratification Risk Guidelines: Lowest Risk: Risk Factor for Smoking, Risk Factor for Dyslipidemia, Risk Factor for Diabetes, Risk Factor for Hypertension and Risk Factor for Depression, Moderate Risk: Risk Factor for Sedentary Lifestyle (Sit a lot; more sedentary lifestyle) and Highest Risk: Risk Factor for Obesity (Underweight/malnutrition) For Smoking Smoking Risk Guidelines For Dyslipidemia Dyslipidemia Risk Guidelines For Diabetes Mellitus Diabetes Risk Guidelines For Obesity/Overweight Obesity/Overweight Risk Guidelines For Hypertension Hypertension Risk Guidelines For Sedentary Lifestyle Sedentary Lifestyle Risk Guidelines For Depression Depression Risk Guidelines Motivation Motivation to Participate On a scale of 1 to 10, how prepared are you to commit to attending program?: 10 What do you see as barriers to successfully being able to complete the program?: shortness of breath or something physical that may occurr. What do you see as the benefits of succesfully completing the program? In other words, what do you hope to get out of participating in the program?: Strengthening legs, regain some stamina Are there issues you are dealing with that will interfere with completing the program?: no Do you have a spouse or signficant other, family or friends who will help support you to complete the program?: yes
[2023-04-30 10:47] VITALS: BP 138/70; PULSE 90; RESP 16; TEMP 37.1; O2SAT 99; BMI 19.5
[2023-04-30 11:05] VITALS: BP 138/70; O2SAT 98; BMI 19.5
== END | disposition home or self-care (01) ==
LOC: PR 10:18
PROVIDERS: PCP Internal Medicine; Referring Provider Internal Medicine Pulmonary Disease; Visit Provider Internal Medicine Pulmonary Disease
DX: J44.9 Chronic obstructive pulmonary disease, unspecified (principal); E78.00 Pure hypercholesterolemia, unspecified; E03.9 Hypothyroidism, unspecified; Z87.891 Personal history of nicotine dependence

== ENCOUNTER 2023-05-15 10:00 | Outpatient (RCR) | payer MEDICARE, SELFPAY ==
[2023-04-30 11:05] VITALS: BMI 19.5
== END 2023-05-16 23:59 ==
LOC: PR 10:00
PROVIDERS: PCP Internal Medicine; Referring Provider Internal Medicine Pulmonary Disease; Visit Provider Internal Medicine Pulmonary Disease
DX: J44.9 Chronic obstructive pulmonary disease, unspecified (principal)
CPT/HCPCS: 97150; 94626

== ENCOUNTER 2023-06-13 13:27 | Outpatient (CLI) | payer MEDICARE, SELFPAY ==
[2023-04-30 11:05] VITALS: BMI 19.5
[2023-06-13 13:59] VITALS: BP 108/52; PULSE 73; RESP 16; TEMP 36.1; O2SAT 98; BMI 19.8
[2023-06-13] MEDS: DENOSUMAB 60 MG/ML SC (14:01)
== END 2023-06-13 13:28 | disposition home or self-care (01) ==
LOC: MEDOUTP 13:28
PROVIDERS: PCP Internal Medicine; Referring Provider Nurse Practitioner; Visit Provider Nurse Practitioner
DX: M81.0 Age-related osteoporosis without current pathological fracture (principal)
CPT/HCPCS: 96372; J0897

== ENCOUNTER 2023-06-14 10:00 | Outpatient (RCR) | payer MEDICARE, SELFPAY ==
[2023-04-30 11:05] VITALS: BMI 19.5
== END 2023-06-15 23:59 ==
LOC: PR 10:00
PROVIDERS: PCP Internal Medicine; Referring Provider Internal Medicine Pulmonary Disease; Visit Provider Internal Medicine Pulmonary Disease
DX: J44.9 Chronic obstructive pulmonary disease, unspecified (principal)
CPT/HCPCS: 97150; 94626

== ENCOUNTER 2023-07-15 10:00 | Outpatient (RCR) | payer MEDICARE, SELFPAY ==
[2023-04-30 11:05] VITALS: BMI 19.5
--- NOTE | 2023-06-28 14:49 | PR.ITP_ITS ---
Exercise - Initial Assessment Visit Session Number:: 23 Physician Prescribed Exercise Target HR:: 132 (THRR 122-132) Current RPD:: 2-3 Maximum Exercise HR:: 126 Resting Blood Pressure: 126/68 Maximum Exercise Blood Pressure: 140/60 Minimum SpO2 with exercise: 91 EKG Type: SInus bradycardia to sinus tachycardia with rare PVCs. Nutrition/Wt Mgmt - Initial Visit Session Number:: 23 Weight Management Admit Height:: 5 ft Admit Weight:: 99 lb Admit BMI:: 19.3 Nutrition/Wt Mgmt - 30-Day Visit Date of Eval: 06/28/23 Session Number:: 23 Weight Management Height: 5 ft Weight:: 99 lb BMI: 19.3 Nutrition/Wt Mgmt - 60-Day Visit Date of Eval: 06/28/23 Session Number:: 23 Weight Management Weight Assessment:: BMI 21 to 25 Height: 5 ft Weight:: 99 lb BMI: 19.3 Weight Goals Progress:: Referral to structured weight management program (Weight gain, supplement use, increasing proteins etc.) Nutrition/Wt Mgmt - 90-Day Visit Session Number:: 23 Weight Management Weight Assessment:: BMI 21 to 25 Height: 5 ft Weight:: 99 lb BMI: 19.3 Weight Goals Progress:: Referral to structured weight management program (Weight gain, supplement use, increasing proteins etc.) Nutrition/Wt Mgmt - Final Visit Session Number:: 23 Weight Management Height: 5 ft Weight:: 99 lb BMI: 19.3 Psychosocial - Initial Assess Visit Session Number:: 23 Problems/Goals History of Emotional Disorders: None Psychosocial Goals: 2. Identifies personal stressors & states the strategies for managing, 3. Identifies activities to decrease isolation and/or symptoms of and 7. Improved Q.O.L. Psychosocial Test Tool Used:: PHQ-9 Questionnaire Referral to Behavioral Health PS - Interventions: Yes: Attend Stress Management Classes and No: Referral to Behavioral Health if PHQ-9 score >9:, No: Referral to [facility] and No: Referral to Physician if PHQ-9 if score is 5-9: Intervention/Plan: See List Interventions/Plan:: Assess stressors,coping strategies & signs of derpression on admission, Instruct/assist pt to develop coping & personal stress Mgt strategies, Instruct patient to recognize signs & symptoms of depression and Instruct patient to recog Psychosocial - 30-Day Visit Date of Eval: 06/28/23 Session Number:: 23 Problems/Goals History of Emotional Disorders: None Psychosocial Goals: 2. Identifies personal stressors & states the strategies for managing, 3. Identifies activities to decrease isolation and/or symptoms of and 7. Improved Q.O.L. Psychosocial Test Tool Used:: PHQ-9 Questionnaire Referral to Behavioral Health PS - Interventions: Yes: Attend Stress Management Classes and No: Referral to Behavioral Health if PHQ-9 score >9:, No: Referral to [facility] and No: Referral to Physician if PHQ-9 if score is 5-9: Plan Interventions/Plan:: Assess stressors,coping strategies & signs of derpression on admission, Instruct/assist pt to develop coping & personal stress Mgt strategies, Instruct patient to recognize signs & symptoms of depression and Instruct patient to recog Psychosocial - 60-Day Visit Date of Eval: 06/28/23 Session Number:: 23 Problems/Goals History of Emotional Disorders: None Psychosocial Goals: 2. Identifies personal stressors & states the strategies for managing, 3. Identifies activities to decrease isolation and/or symptoms of and 7. Improved Q.O.L. Psychosocial Test Tool Used:: PHQ-9 Questionnaire Referral to Behavioral Health PS - Interventions: Yes: Attend Stress Management Classes and No: Referral to Behavioral Health if PHQ-9 score >9:, No: Referral to [facility] and No: Referral to Physician if PHQ-9 if score is 5-9: Plan Interventions/Plan:: Assess stressors,coping strategies & signs of derpression on admission, Instruct/assist pt to develop coping & personal stress Mgt strategies, Instruct patient to recognize signs & symptoms of depression and Instruct patient to recog Psychosocial - 90-Day Visit Session Number:: 23 Problems/Goals History of Emotional Disorders: None Psychosocial Goals: 2. Identifies personal stressors & states the strategies for managing, 3. Identifies activities to decrease isolation and/or symptoms of and 7. Improved Q.O.L. Psychosocial Test Tool Used:: PHQ-9 Questionnaire Referral to Behavioral Health PS - Interventions: Yes: Attend Stress Management Classes and No: Referral to Behavioral Health if PHQ-9 score >9:, No: Referral to [facility] and No: Referral to Physician if PHQ-9 if score is 5-9: Plan Interventions/Plan:: Assess stressors,coping strategies & signs of derpression on admission, Instruct/assist pt to develop coping & personal stress Mgt strategies, Instruct patient to recognize signs & symptoms of depression and Instruct patient to recog Psychosocial - Final Assess Visit Session Number:: 23 Problems/Goals History of Emotional Disorders: None Psychosocial Goals: 2. Identifies personal stressors & states the strategies for managing, 3. Identifies activities to decrease isolation and/or symptoms of and 7. Improved Q.O.L. Psychosocial Test Tool Used:: PHQ-9 Questionnaire Referral to Behavioral Health PS - Interventions: Yes: Attend Stress Management Classes and No: Referral to Behavioral Health if PHQ-9 score >9:, No: Referral to [facility] and No: Referral to Physician if PHQ-9 if score is 5-9: Plan Interventions/Plan:: Assess stressors,coping strategies & signs of derpression on admission, Instruct/assist pt to develop coping & personal stress Mgt strategies, Instruct patient to recognize signs & symptoms of depression and Instruct patient to recog Oxygen & Oxygen Titration Init Visit Session Number:: 23 Initial Assessment SpO2:: 91 Oxygen & Oxygen Titration 30D Visit Date of Eval: 06/28/23 Session Number:: 23 Reassessment Breath Sounds:: Clear and Diminished SpO2:: 91 Oxygen & Oxygen Titration 60D Visit Date of Eval: 06/28/23 Session Number:: 23 Reassessment Breath Sounds:: Clear and Diminished SpO2:: 91 Oxygen & Oxygen Titration 90D Visit Date of Eval: 06/28/23 Session Number:: 23 Reassessment Breath Sounds:: Clear and Diminished SpO2:: 91 Oxygen & Oxygen Titration EVELIN Visit Date of Eval: 06/28/23 Session Number:: 23 Reassessment Breath Sounds:: Clear and Diminished SpO2:: 91 Core Components - Initial Visit Session Number:: 23 Hypertension Hypertension Diagnosis:: Hypertension ICD-10 I10 BP: 126/68 [place] [employer] Hypertension Guidelines Blood Pressure: 140/60 Outcomes/Goals: Able to verbalize/achieve optimal blood pressure <130/80 and Incorporates diet changes & exercise for blood pressure control by DC Diabetes Diabetes:: No Heart Failure Documenting weight daily for CHF: No Core Components - 30 DAYS Visit Date of Eval: 06/28/23 Session Number:: 23 Hypertension Hypertension Diagnosis:: Hypertension ICD-10 I10 Resting Blood Pressure:: 126/68 [place] [employer] Hypertension Guidelines Peak Exercise Blood Pressure:: 140/60 Change in medication: No Outcomes/Goals: Able to verbalize/achieve optimal blood pressure <130/80 and Incorporates diet changes & exercise for blood pressure control by DC Interventions/plan: Instruct on optimal blood pressure, hypertension & medications and Instruct on effects of sodium, alcohol, stress, exercise &hypertension 30 day Reassessments:: Met Exacerbation Mgmt & Airway Clearance Reassessment: Demonstrates knowledge of O2 Rx with exercise Bronchial Hygiene Plan: Yes: Pt demo correct for device (instruct in use of SMI and PEP therapy devices), Yes: Pt demo correct for improved hydration, Yes: Pt demo correct for hand hygiene and Yes: Pt demo correct for verbalize when to call MD (verbalizes signs and symptoms of flare-up) Medication Medication reassessment: Yes: Pt demonstrates correct technique timing for MDI, Yes: Pt demonstrates correct technique timing for DPI, Yes: Pt demonstrates correct technique timing for NEB and Yes: Pt demonstrates correct technique timing for spacer Diabetes Diabetes:: No Heart Failure Documenting weight destin: No Core Components - 60 DAYS Visit Date of Eval: 06/28/23 Session Number:: 23 Hypertension Hypertension Diagnosis:: Hypertension ICD-10 I10 Resting Blood Pressure:: 126/68 [place] [employer] Hypertension Guidelines Peak Exercise Blood Pressure:: 140/60 Change in medication: No Outcomes/Goals: Able to verbalize/achieve optimal blood pressure <130/80 and Incorporates diet changes & exercise for blood pressure control by DC Interventions/plan: Instruct on optimal blood pressure, hypertension & medications and Instruct on effects of sodium, alcohol, stress, exercise &hypertension 60 day Reassessments:: Met Exacerbation Mgmt & Airway Clearance Reassessment: Demonstrates knowledge of O2 Rx with exercise Bronchial Hygiene Plan: Yes: Pt demo correct for device (instruct in use of SMI and PEP therapy devices), Yes: Pt demo correct for improved hydration, Yes: Pt demo correct for hand hygiene and Yes: Pt demo correct for verbalize when to call MD (verbalizes signs and symptoms of flare-up) Medication Medication list reviewed:: Yes Taking medications 100% of the time:: Met Medication reassessment: Yes: Pt demonstrates correct technique timing for MDI, Yes: Pt demonstrates correct technique timing for DPI, Yes: Pt demonstrates correct technique timing for NEB and Yes: Pt demonstrates correct technique timing for spacer 60-day Reassessments:: Met Diabetes Diabetes:: No Heart Failure Documenting weight destin: No Core Components - 90 DAYS Visit Session Number:: 23 Hypertension Hypertension Diagnosis:: Hypertension ICD-10 I10 Resting Blood Pressure:: 126/68 [place] [employer] Hypertension Guidelines Peak Exercise Blood Pressure:: 140/60 Outcomes/Goals: Able to verbalize/achieve optimal blood pressure <130/80 and Incorporates diet changes & exercise for blood pressure control by DC Interventions/plan: Instruct on optimal blood pressure, hypertension & medications and Instruct on effects of sodium, alcohol, stress, exercise &hypertension 90 day Reassessments:: Met Exacerbation Mgmt & Airway Clearance Bronchial Hygiene Plan: Yes: Pt demo correct for device (instruct in use of SMI and PEP therapy devices), Yes: Pt demo correct for improved hydration, Yes: Pt demo correct for hand hygiene and Yes: Pt demo correct for verbalize when to call MD (verbalizes signs and symptoms of flare-up) Medication Medication reassessment: Yes: Pt demonstrates correct technique timing for MDI, Yes: Pt demonstrates correct technique timing for DPI, Yes: Pt demonstrates correct technique timing for NEB and Yes: Pt demonstrates correct technique timing for spacer Diabetes Diabetes:: No Core Components - Final Visit Session Number:: 23 Hypertension Hypertension Diagnosis:: Hypertension ICD-10 I10 Resting Blood Pressure:: 126/68 [place] [employer] Hypertension Guidelines Peak Exercise Blood Pressure:: 140/60 Outcomes/Goals: Able to verbalize/achieve optimal blood pressure <130/80 and Incorporates diet changes & exercise for blood pressure control by DC Exacerbation Mgmt & Airway Clearance Bronchial Hygiene Plan: Yes: Pt demo correct for device (instruct in use of SMI and PEP therapy devices), Yes: Pt demo correct for improved hydration, Yes: Pt demo correct for hand hygiene and Yes: Pt demo correct for verbalize when to call MD (verbalizes signs and symptoms of flare-up) Medication Medication reassessment: Yes: Pt demonstrates correct technique timing for MDI, Yes: Pt demonstrates correct technique timing for DPI, Yes: Pt demonstrates correct technique timing for NEB and Yes: Pt demonstrates correct technique timing for spacer Diabetes Diabetes:: No Patient Health Questionnaire PHQ-9 Screening 60-Day Re-eval Assessment: 1. Little interest or pleasure in doing things: Not at all 2. Feeling down, depressed, or hopeless: Not at all 3. Trouble falling or staying asleep, or sleeping too much: Several days 4. Feeling tired or having little energy: Several days 5. Poor appetite or overeating: Several days 6. Feeling bad about yourself -- or that you are a failure or have let yourself or your family down: Not at all 7. Trouble concentrating on things, such as reading the newspaper or watching television: Not at all 8. Moving or speaking so slowly that other people could have noticed. Or the opposite - being so fidgety or restless that you have been moving around a lot more than usual: Not at all 9. Thoughts that you would be better off , or of hurting yourself in some way: Not at all How difficult have these problems made it for you to do your work, take care of things at home, or get along with other people?: Not difficult at all Total Score: 3 Knowledge Questionaire (BCKQ) Information Information: [place] COPD Knowledge Questionnaire (BCKQ) This questionnaire is designed to find out what you know about your lung problem. It should be completed without help form anyone else. This usually takes between 10 and 20 minutes. Your answers will help us to find out what information you need to help you to understand and manage your lung condition. Jakub the tonto apache which you think is the correct answer. COPD Assessment Test [CAT] Questions Never cough = 0, Cough all the time = 5: 1 No phlegm = 0, Chest full of phlegm = 5: 1 No chest tightness = 0, Chest very tight = 5: 1 No breathless w/exertion = 0, Very breathless w/exertion = 5: 3 No limitations w/activity = 0, Very limited w/activity = 5: 1 Confident leaving home = 0, Not at all confident = 5: 0 Sleep soundly = 0, Don't sleep soundly = 5: 1 Lots of energy = 0, No energy at all = 5: 2 Total CAT score:: 10 Self-Efficacy 6-Item Scale 60-Day Re-eval Assessment: We would like to know how confident you are in doing certain activities. Please select your confidence level for: Fatigue Select Number: 6 Physical Discomfort or Pain Select Number: 8 Emotional Distress Select Number: 9 Other Symptoms or Health Problems Select Number: 9 Different Tasks and Activities Select Number: 10 Medication Select Number: 9 Total Score:: 8 Nutrition Survey Nutrition Survey Instructions Scoring Instructions
[2023-06-28 14:58] VITALS: BP 126/68; BP 140/60; O2SAT 91; BMI 19.3
== END 2023-07-16 23:59 ==
LOC: PR 10:00
PROVIDERS: PCP Internal Medicine; Referring Provider Internal Medicine Pulmonary Disease; Visit Provider Internal Medicine Pulmonary Disease
DX: J44.9 Chronic obstructive pulmonary disease, unspecified (principal)
CPT/HCPCS: 97150; 94626

== ENCOUNTER 2023-08-07 10:30 | Outpatient (RCR) | payer MEDICARE, SELFPAY ==
[2023-06-28 14:58] VITALS: BMI 19.3
[2023-07-17 00:14] VITALS: BP 126/68; BP 140/60; BMI 19.3
--- NOTE | 2023-07-29 06:46 | PCM.PR.TP ---
Exercise - Initial Assessment Visit Session Number:: 32 Physician Prescribed Exercise Current METSs:: 4.0 Patient's maximal level of intensity. Original goal was 5.0 Resting Blood Pressure: 128/62 Maximum Exercise Blood Pressure: 142/64 Minimum SpO2 with exercise: 94 (Room air at rest. Minimum Spo2 during exercise is 92% when walking.) EKG Type: NSR to sinus tach withisolated PACs and rare PVC. Nutrition/Wt Mgmt - Initial Visit Session Number:: 32 Weight Management Admit Height:: 5 ft Admit Weight:: 101 lb (encourage use of dietary supplements, and smaller meals more frequent (5 times per day). Patient did meet with Nutritional Services.) Admit BMI:: 19.7 Nutrition/Wt Mgmt - 30-Day Visit Date of Eval: 07/29/23 Session Number:: 32 Weight Management Height: 5 ft Weight:: 101 lb (encourage use of dietary supplements, and smaller meals more frequent (5 times per day). Patient did meet with Nutritional Services.) BMI: 19.7 Nutrition/Wt Mgmt - 60-Day Visit Session Number:: 32 Weight Management Height: 5 ft Weight:: 101 lb (encourage use of dietary supplements, and smaller meals more frequent (5 times per day). Patient did meet with Nutritional Services.) BMI: 19.7 Nutrition/Wt Mgmt - 90-Day Visit Session Number:: 32 Weight Management Height: 5 ft Weight:: 101 lb (encourage use of dietary supplements, and smaller meals more frequent (5 times per day). Patient did meet with Nutritional Services.) BMI: 19.7 Nutrition/Wt Mgmt - Final Visit Date of Eval: 07/29/23 Session Number:: 32 Weight Management Final Weight Assessment: BMI 21 to 25 Height: 5 ft Weight:: 101 lb (encourage use of dietary supplements, and smaller meals more frequent (5 times per day). Patient did meet with Nutritional Services.) BMI: 19.7 Weight Goals Progress:: Progressing Psychosocial - Initial Assess Visit Session Number:: 32 Problems/Goals History of Emotional Disorders: Depression Psychosocial Goals: 1. Patient is free from overwhelming symtoms of depression (or anxiety, 2. Identifies personal stressors & states the strategies for managing, 3. Identifies activities to decrease isolation and/or symptoms of, 4. Improved psychosocial coping skills., 5. Verbalizes coping strategies. and 7. Improved Q.O.L. Psychosocial Test Tool Used:: PHQ-9 Questionnaire Referred to MD for counseling:: No Referral to Behavioral Health PS - Interventions: Yes: Attend Stress Management Classes (Patient using stress relaxation at home.) and No: Referral to Behavioral Health if PHQ-9 score >9: and No: Referral to [facility] Intervention/Plan: See List Interventions/Plan:: Assess stressors,coping strategies & signs of derpression on admission, Instruct/assist pt to develop coping & personal stress Mgt strategies, Instruct patient to recognize signs & symptoms of depression and Instruct patient to recog Psychosocial - 30-Day Visit Date of Eval: 07/29/23 Session Number:: 32 Problems/Goals History of Emotional Disorders: Depression Psychosocial Goals: 1. Patient is free from overwhelming symtoms of depression (or anxiety, 2. Identifies personal stressors & states the strategies for managing, 3. Identifies activities to decrease isolation and/or symptoms of, 4. Improved psychosocial coping skills., 5. Verbalizes coping strategies. and 7. Improved Q.O.L. Psychosocial Test Tool Used:: PHQ-9 Questionnaire Referred to MD for counseling:: No Referral to Behavioral Health PS - Interventions: Yes: Attend Stress Management Classes (Patient using stress relaxation at home.) and No: Referral to Behavioral Health if PHQ-9 score >9: and No: Referral to [facility] Plan Interventions/Plan:: Assess stressors,coping strategies & signs of derpression on admission, Instruct/assist pt to develop coping & personal stress Mgt strategies, Instruct patient to recognize signs & symptoms of depression and Instruct patient to recog Psychosocial - 60-Day Visit Session Number:: 32 Problems/Goals History of Emotional Disorders: Depression Psychosocial Goals: 1. Patient is free from overwhelming symtoms of depression (or anxiety, 2. Identifies personal stressors & states the strategies for managing, 3. Identifies activities to decrease isolation and/or symptoms of, 4. Improved psychosocial coping skills., 5. Verbalizes coping strategies. and 7. Improved Q.O.L. Psychosocial Test Tool Used:: PHQ-9 Questionnaire Referred to MD for counseling:: No Referral to Behavioral Health PS - Interventions: Yes: Attend Stress Management Classes (Patient using stress relaxation at home.) and No: Referral to Behavioral Health if PHQ-9 score >9: and No: Referral to [facility] Plan Interventions/Plan:: Assess stressors,coping strategies & signs of derpression on admission, Instruct/assist pt to develop coping & personal stress Mgt strategies, Instruct patient to recognize signs & symptoms of depression and Instruct patient to recog Psychosocial - 90-Day Visit Session Number:: 32 Problems/Goals History of Emotional Disorders: Depression Psychosocial Goals: 1. Patient is free from overwhelming symtoms of depression (or anxiety, 2. Identifies personal stressors & states the strategies for managing, 3. Identifies activities to decrease isolation and/or symptoms of, 4. Improved psychosocial coping skills., 5. Verbalizes coping strategies. and 7. Improved Q.O.L. Psychosocial Test Tool Used:: PHQ-9 Questionnaire Referred to MD for counseling:: No Referral to Behavioral Health PS - Interventions: Yes: Attend Stress Management Classes (Patient using stress relaxation at home.) and No: Referral to Behavioral Health if PHQ-9 score >9: and No: Referral to [facility] Plan Interventions/Plan:: Assess stressors,coping strategies & signs of derpression on admission, Instruct/assist pt to develop coping & personal stress Mgt strategies, Instruct patient to recognize signs & symptoms of depression and Instruct patient to recog Psychosocial - Final Assess Visit Date of Eval: 07/29/23 Session Number:: 32 Problems/Goals History of Emotional Disorders: Depression Psychosocial Goals: 1. Patient is free from overwhelming symtoms of depression (or anxiety, 2. Identifies personal stressors & states the strategies for managing, 3. Identifies activities to decrease isolation and/or symptoms of, 4. Improved psychosocial coping skills., 5. Verbalizes coping strategies. and 7. Improved Q.O.L. Psychosocial Test Tool Used:: PHQ-9 Questionnaire Referred to MD for counseling:: No Referral to Behavioral Health PS - Interventions: Yes: Attend Stress Management Classes (Patient using stress relaxation at home.) and No: Referral to Behavioral Health if PHQ-9 score >9: and No: Referral to [facility] Plan Interventions/Plan:: Assess stressors,coping strategies & signs of derpression on admission, Instruct/assist pt to develop coping & personal stress Mgt strategies, Instruct patient to recognize signs & symptoms of depression and Instruct patient to recog Oxygen & Oxygen Titration Init Visit Session Number:: 32 Initial Assessment SpO2:: 94 (Room air at rest. Minimum Spo2 during exercise is 92% when walking.) Oxygen & Oxygen Titration 30D Visit Date of Eval: 07/29/23 Session Number:: 32 Reassessment Breath Sounds:: Clear and Diminished SpO2:: 94 (Room air at rest. Minimum Spo2 during exercise is 92% when walking.) Oxygen & Oxygen Titration 60D Visit Date of Eval: 07/29/23 Session Number:: 32 Reassessment Breath Sounds:: Clear and Diminished SpO2:: 94 (Room air at rest. Minimum Spo2 during exercise is 92% when walking.) Oxygen & Oxygen Titration 90D Visit Date of Eval: 07/29/23 Session Number:: 32 Reassessment Breath Sounds:: Clear and Diminished SpO2:: 94 (Room air at rest. Minimum Spo2 during exercise is 92% when walking.) Oxygen & Oxygen Titration EVELIN Visit Date of Eval: 07/29/23 Session Number:: 32 Reassessment Oxygen & Oxygen Titration Final: None Breath Sounds:: Clear and Diminished SpO2:: 94 (Room air at rest. Minimum Spo2 during exercise is 92% when walking.) Core Components - Initial Visit Session Number:: 32 Hypertension Hypertension Diagnosis:: Hypertension ICD-10 I10 BP: 128/62 [employer] Hypertension Guidelines Blood Pressure: 142/64 Outcomes/Goals: Able to verbalize/achieve optimal blood pressure <130/80 and Incorporates diet changes & exercise for blood pressure control by DC Tobacco - Initial Assessment Tobacco Program Goals Do you use smokeless tobacco?: No Smoking Cessation Referral:: No Individual Education/Counseling:: Yes Education Schedule Given:: Yes Diabetes Diabetes:: No Core Components - 30 DAYS Visit Date of Eval: 07/29/23 Session Number:: 32 Hypertension Hypertension Diagnosis:: Hypertension ICD-10 I10 Resting Blood Pressure:: 128/62 [employer] Hypertension Guidelines Peak Exercise Blood Pressure:: 142/64 Outcomes/Goals: Able to verbalize/achieve optimal blood pressure <130/80 and Incorporates diet changes & exercise for blood pressure control by DC Tobacco - 30-Day Tobacco Program Goals Do you use smokeless tobacco?: No Smoking Cessation Referral:: No Education Schedule Given:: Yes Exacerbation Mgmt & Airway Clearance Bronchial Hygiene Plan: Yes: Pt demo correct for device (Instruct SMI, PEP therapy), Yes: Pt demo correct for sputum management (Instruct Mucus Clearance device), Yes: Pt demo correct for improved hydration, Yes: Pt demo correct for hand hygiene and Yes: Pt demo correct for verbalize when to call MD Medication Medication reassessment: Yes: Pt demonstrates correct technique timing for MDI, Yes: Pt demonstrates correct technique timing for DPI, Yes: Pt demonstrates correct technique timing for NEB and Yes: Pt demonstrates correct technique timing for spacer (Instruct in Neb and Spacer use) Diabetes Diabetes:: No Core Components - 60 DAYS Visit Session Number:: 32 Hypertension Hypertension Diagnosis:: Hypertension ICD-10 I10 Resting Blood Pressure:: 128/62 [employer] Hypertension Guidelines Peak Exercise Blood Pressure:: 142/64 Outcomes/Goals: Able to verbalize/achieve optimal blood pressure <130/80 and Incorporates diet changes & exercise for blood pressure control by DC Tobacco - 60-Day Tobacco Program Goals Do you use smokeless tobacco?: No Smoking Cessation Referral:: No Individual Education/Counseling:: Yes Education Schedule Given:: Yes Exacerbation Mgmt & Airway Clearance Bronchial Hygiene Plan: Yes: Pt demo correct for device (Instruct SMI, PEP therapy), Yes: Pt demo correct for sputum management (Instruct Mucus Clearance device), Yes: Pt demo correct for improved hydration, Yes: Pt demo correct for hand hygiene and Yes: Pt demo correct for verbalize when to call MD Medication Medication reassessment: Yes: Pt demonstrates correct technique timing for MDI, Yes: Pt demonstrates correct technique timing for DPI, Yes: Pt demonstrates correct technique timing for NEB and Yes: Pt demonstrates correct technique timing for spacer (Instruct in Neb and Spacer use) Diabetes Diabetes:: No Core Components - 90 DAYS Visit Session Number:: 32 Hypertension Hypertension Diagnosis:: Hypertension ICD-10 I10 Resting Blood Pressure:: 128/62 [employer] Hypertension Guidelines Peak Exercise Blood Pressure:: 142/64 Outcomes/Goals: Able to verbalize/achieve optimal blood pressure <130/80 and Incorporates diet changes & exercise for blood pressure control by DC Tobacco - 90-Day Tobacco Program Goals Do you use smokeless tobacco?: No Smoking Cessation Referral:: No Individual Education/Counseling:: Yes Education Schedule Given:: Yes Exacerbation Mgmt & Airway Clearance Bronchial Hygiene Plan: Yes: Pt demo correct for device (Instruct SMI, PEP therapy), Yes: Pt demo correct for sputum management (Instruct Mucus Clearance device), Yes: Pt demo correct for improved hydration, Yes: Pt demo correct for hand hygiene and Yes: Pt demo correct for verbalize when to call MD Medication Medication reassessment: Yes: Pt demonstrates correct technique timing for MDI, Yes: Pt demonstrates correct technique timing for DPI, Yes: Pt demonstrates correct technique timing for NEB and Yes: Pt demonstrates correct technique timing for spacer (Instruct in Neb and Spacer use) Diabetes Diabetes:: No Core Components - Final Visit Date of Eval: 07/29/23 Session Number:: 32 Hypertension Hypertension Diagnosis:: Hypertension ICD-10 I10 Resting Blood Pressure:: 128/62 [employer] Hypertension Guidelines Peak Exercise Blood Pressure:: 142/64 Outcomes/Goals: Able to verbalize/achieve optimal blood pressure <130/80 and Incorporates diet changes & exercise for blood pressure control by DC Tobacco - Final Tobacco Program Goals Do you use smokeless tobacco?: No Smoking Cessation Referral:: No Individual Education/Counseling:: Yes Education Schedule Given:: Yes Education Goal Reached?: Yes Exacerbation Mgmt & Airway Clearance Final Assessment: Demonstrates knowledge of O2 Rx with exercise Bronchial Hygiene Plan: Yes: Pt demo correct for device (Instruct SMI, PEP therapy), Yes: Pt demo correct for sputum management (Instruct Mucus Clearance device), Yes: Pt demo correct for improved hydration, Yes: Pt demo correct for hand hygiene and Yes: Pt demo correct for verbalize when to call MD Medication Medication list reviewed:: Yes Taking medications 100% of the time:: Met Medication reassessment: Yes: Pt demonstrates correct technique timing for MDI, Yes: Pt demonstrates correct technique timing for DPI, Yes: Pt demonstrates correct technique timing for NEB and Yes: Pt demonstrates correct technique timing for spacer (Instruct in Neb and Spacer use) Diabetes Diabetes:: No Heart Failure Documenting weight daily: No Patient Health Questionnaire PHQ-9 Screening Discharge Assessment: 1. Little interest or pleasure in doing things: Not at all 2. Feeling down, depressed, or hopeless: Not at all 3. Trouble falling or staying asleep, or sleeping too much: Several days 4. Feeling tired or having little energy: Several days 5. Poor appetite or overeating: Several days 6. Feeling bad about yourself -- or that you are a failure or have let yourself or your family down: Not at all 7. Trouble concentrating on things, such as reading the newspaper or watching television: Not at all 8. Moving or speaking so slowly that other people could have noticed. Or the opposite - being so fidgety or restless that you have been moving around a lot more than usual: Not at all 9. Thoughts that you would be better off , or of hurting yourself in some way: Not at all How difficult have these problems made it for you to do your work, take care of things at home, or get along with other people?: Not difficult at all Total Score: 3 Knowledge Questionaire (BCKQ) Information Information: [place] COPD Knowledge Questionnaire (BCKQ) This questionnaire is designed to find out what you know about your lung problem. It should be completed without help form anyone else. This usually takes between 10 and 20 minutes. Your answers will help us to find out what information you need to help you to understand and manage your lung condition. Jakub the deering which you think is the correct answer. COPD Assessment Test [CAT] Questions Never cough = 0, Cough all the time = 5: 1 No phlegm = 0, Chest full of phlegm = 5: 1 No chest tightness = 0, Chest very tight = 5: 1 No breathless w/exertion = 0, Very breathless w/exertion = 5: 3 No limitations w/activity = 0, Very limited w/activity = 5: 0 Confident leaving home = 0, Not at all confident = 5: 0 Sleep soundly = 0, Don't sleep soundly = 5: 2 Lots of energy = 0, No energy at all = 5: 2 Total CAT score:: 10 Self-Efficacy 6-Item Scale Discharge Assessment: We would like to know how confident you are in doing certain activities. Please select your confidence level for: Fatigue Select Number: 7 Physical Discomfort or Pain Select Number: 8 Emotional Distress Select Number: 10 Other Symptoms or Health Problems Select Number: 10 Different Tasks and Activities Select Number: 10 Medication Select Number: 10 Total Score:: 9 Nutrition Survey Nutrition Survey Instructions Scoring Instructions Nutrition Survey Discharge: Have you lost >10 lbs over the past 2 months without trying?: No Are you following a special diet at home for diabetes, low fat, or low salt?: Yes Are you interested in meeting with a dietitian for help understanding your diet?: No Do you eat less than 3 meals a day?: No Do you eat fatty meats (nelson, sausage, ribs, etc), fried foods, desserts, large amounts of salad dressings, margarine, butter, or cheese most days?: No Do you have food allergies? [Enter types in comment field]: Yes (Dairy, Fish and seafood) Do you eat in restaurants more than 3 times a week?: No Do you season food with salt, seasoning salt, or garlic salt?: No Do you used canned, boxed, frozen meals, or soups, seasoning packets?: No Total Score:: 2
[2023-07-29 06:59] VITALS: BP 128/62; BP 142/64; O2SAT 94; BMI 19.7
== END 2023-08-15 23:59 ==
LOC: PR 10:30
PROVIDERS: PCP Internal Medicine; Referring Provider Internal Medicine Pulmonary Disease; Visit Provider Internal Medicine Pulmonary Disease
DX: J44.9 Chronic obstructive pulmonary disease, unspecified (principal)
CPT/HCPCS: 97150; 94626

== ENCOUNTER → 2023-10-29 | Outpatient (CLI) | payer MEDICARE, SELFPAY ==
[2023-07-29 06:59] VITALS: BMI 19.7
== END | disposition home or self-care (01) ==
PROVIDERS: PCP Internal Medicine; Referring Provider Internal Medicine Pulmonary Disease; Visit Provider Internal Medicine Pulmonary Disease
DX: J47.9 Bronchiectasis, uncomplicated (principal)
CPT/HCPCS: 87070; 87077; 87186; 87205

== ENCOUNTER 2023-12-12 13:24 | Outpatient (CLI) | payer MEDICARE, SELFPAY ==
[2023-04-30 11:05] VITALS: BMI 19.5
[2023-07-29 06:59] VITALS: BMI 19.7
[2023-12-12 13:40] VITALS: BP 133/54; PULSE 82; RESP 16; TEMP 35.7; O2SAT 100; BMI 19.5
[2023-12-12] MEDS: DENOSUMAB 60 MG/ML SC (13:55)
== END 2023-12-12 13:25 | disposition home or self-care (01) ==
LOC: MEDOUTP 13:25
PROVIDERS: PCP Internal Medicine; Referring Provider Internal Medicine; Visit Provider Internal Medicine
DX: M81.0 Age-related osteoporosis without current pathological fracture (principal)
CPT/HCPCS: 96372; J0897

== ENCOUNTER → 2024-02-03 | Outpatient (CLI) | payer MEDICARE, SELFPAY ==
[2023-07-29 06:59] VITALS: BMI 19.7
[2024-02-03 12:33] LABS: Absolute Lymphocyte Count 0.98 X10^3/uL (0.83-4.51); Absolute Neutrophil Count 7.4 X10^3/uL (2.0-7.7); Basophil# 0.04 X10^3/uL; Basophil% 0.4 % (0-1); Eosinophil# 0.45 X10^3/uL; Eosinophils% 4.7 % (0-5); Hematocrit 32.2 % (37-47); Hemoglobin 10.1 g/dL (12.0-15.0); Lymphocyte # 0.98 X10^3/ul (0.83-4.51); Lymphocyte % 10.2 % (19-41); Mean Corp Hgb Conc 31.4 g/dL (32-36); Mean Corpuscular Hgb 28.5 pg (27.0-32.0); Mean Platelet Vol. 10.6 fl (6.2-12.0); Monocyte# 0.75 X10^3/uL; Monocyte% 7.8 % (0-10); NRBC Flagged by Analyzer 0 % (0-5); Neutrophil # 7.39 X10^3/uL (2.7-7.7); Neutrophil % 76.5 % (47-70); Platelet Count 250 K/mm3 (150-450); RBC Distribution Width CV 13.7 % (11.6-14.6); RBC Distribution Width SD 46.3 fl (35.1-43.9); Red Blood Count 3.54 M/mm3 (4.2-5.4); White Blood Count 9.7 K/mm3 (4.4-11.0)
[2024-02-03 12:44] LABS: AST(SGOT) 19 U/L (15-37); Alanine Aminotransfer ALT/SGPT 13 U/L (13-56); Albumin, Serum 3.6 g/dL (3.2-5.0); Alkaline Phosphatase 59 U/L (45-117); Anion Gap 4 (5-15); BUN 14 mg/dL (7-18); BUN/Creat Ratio 12.4 RATIO (10-20); Calcium,Total 9.3 mg/dL (8.5-10.1); Chloride 107 mmol/L (98-107); Creatinine, Serum 1.13 mg/dL (0.55-1.02); EST Glomerular Filtration Rate 50 mL/min (>60); Est Glom Filt Rate - Afr Amer 60 mL/min (>60); Globulin 3.5 g/dL (2.2-4.2); Glucose 95 mg/dL (74-106); Potassium 4.5 mmol/L (3.5-5.1); Protein, Total 7.1 g/dL (6.4-8.2); Sodium Level 140 mmol/L (136-145)
[2024-02-03 13:05] LABS: D-Dimer Quantitative (DVT/PE) 6.17 FEU/ug/m (0.27-0.49)
== END | disposition home or self-care (01) ==
LOC: LABSPEC 12:14
PROVIDERS: PCP Internal Medicine; Referring Provider Nurse Practitioner Family; Visit Provider Nurse Practitioner Family
DX: M54.6 Pain in thoracic spine (principal)
CPT/HCPCS: 80053; 85025; 85379

== ENCOUNTER → 2024-02-03 | Outpatient (CLI) | payer MEDICARE, SELFPAY ==
[2023-07-29 06:59] VITALS: BMI 19.7
--- NOTE | 2024-02-03 12:56 | CT_ITS ---
EXAM: CT ANGIOGRAPHY CHEST WITHOUT AND WITH INTRAVENOUS CONTRAST CLINICAL INDICATION: Left sided chest pain, STAT, SOB with inspiration -- STAT question PE TECHNIQUE: Helically acquired angiography images were obtained of the chest without and with intravenous contrast. This CT exam was performed using one or more of the following dose reduction techniques: automated exposure control, adjustment of the mA and/or kV according to patient size, and/or use of iterative reconstruction technique. MIP reconstructed images were created and reviewed. CONTRAST: IV 100mL Isovue-370 COMPARISON: No relevant prior studies available. FINDINGS: PULMONARY ARTERIES: Normal. Normal in caliber. No evidence of pulmonary embolism. AORTA: Normal. Normal in caliber. No evidence of dissection. GREAT VESSELS OF AORTIC ARCH: Normal. Normal in caliber. No evidence of dissection. LUNGS AND PLEURAL SPACES: Marked diffuse centrilobular pulmonary emphysema throughout the lungs. Focal airspace opacification within both upper lobes of the lung which may represent acute inflammatory or infectious process. No mass. No pleural effusion or thickening. HEART: Small pericardial effusion. No significant coronary artery calcifications. Normal heart size. MEDIASTINUM: Normal. No mediastinal or hilar adenopathy. Esophagus is unremarkable. No hiatal hernia. BONES/JOINTS: Normal. No suspicious lytic or blastic abnormality. CT/CTA Chest W/WO Contrast IMPRESSION: 1. No evidence of acute pulmonary embolism. 2. Marked pulmonary emphysema. 3. Focal airspace opacification within both upper lobes of the lung consistent with pneumonia. Electronically Signed: Bijan Shi MD at 13:32 EDT ,
== END | disposition home or self-care (01) ==
LOC: CT 12:52
PROVIDERS: PCP Internal Medicine; Referring Provider Nurse Practitioner Family; Visit Provider Nurse Practitioner Family
DX: M54.6 Pain in thoracic spine (principal)
CPT/HCPCS: 71275; Q9967

== ENCOUNTER → 2024-06-01 | Outpatient (CLI) | payer MEDICARE, SELFPAY ==
[2024-04-01 14:51] VITALS: BMI 19.7
[2024-06-01 12:42] LABS: Absolute Lymphocyte Count 1.37 X10^3/uL (0.83-4.51); Absolute Neutrophil Count 4.4 X10^3/uL (2.0-7.7); Basophil# 0.05 X10^3/uL; Basophil% 0.7 % (0-1); Eosinophil# 0.67 X10^3/uL; Eosinophils% 9.4 % (0-5); Hematocrit 34.8 % (37-47); Hemoglobin 10.7 g/dL (12.0-15.0); Lymphocyte # 1.37 X10^3/ul (0.83-4.51); Lymphocyte % 19.2 % (19-41); Mean Corp Hgb Conc 30.7 g/dL (32-36); Mean Corpuscular Hgb 28.1 pg (27.0-32.0); Mean Corpuscular Volume 91.3 fL (81-99); Mean Platelet Vol. 11.2 fl (6.2-12.0); Monocyte# 0.63 X10^3/uL; Monocyte% 8.8 % (0-10); NRBC Flagged by Analyzer 0 % (0-5); Neutrophil % 61.6 % (47-70); Platelet Count 254 K/mm3 (150-450); RBC Distribution Width CV 14.5 % (11.6-14.6); RBC Distribution Width SD 48.8 fl (35.1-43.9); Red Blood Count 3.81 M/mm3 (4.2-5.4); White Blood Count 7.1 K/mm3 (4.4-11.0)
[2024-06-01 12:47] LABS: Erythrocyte Sedimentation Rate 11 mm/hr (0-30)
[2024-06-01 13:22] LABS: AST(SGOT) 20 U/L (15-37); Alanine Aminotransfer ALT/SGPT 13 U/L (13-56); Albumin, Serum 3.7 g/dL (3.2-5.0); Alkaline Phosphatase 76 U/L (45-117); Anion Gap 4 (5-15); BUN 15 mg/dL (7-18); BUN/Creat Ratio 12.1 RATIO (10-20); CRP < 2.90 mg/L (0.0-3.0); Calcium,Total 10.1 mg/dL (8.5-10.1); Chloride 107 mmol/L (98-107); Creatinine, Serum 1.24 mg/dL (0.55-1.02); EST Glomerular Filtration Rate 44 mL/min (>60); Est Glom Filt Rate - Afr Amer 54 mL/min (>60); Globulin 3.8 g/dL (2.2-4.2); Glucose 93 mg/dL (74-106); Potassium 4.2 mmol/L (3.5-5.1); Protein, Total 7.5 g/dL (6.4-8.2); Sodium Level 140 mmol/L (136-145)
== END | disposition home or self-care (01) ==
LOC: LABSPEC 12:20
PROVIDERS: PCP Internal Medicine; Referring Provider Internal Medicine; Visit Provider Internal Medicine
DX: R10.31 Right lower quadrant pain (principal)
CPT/HCPCS: 80053; 85025; 85652; 86140

== ENCOUNTER 2024-06-11 13:41 | Outpatient (CLI) | payer MEDICARE, SELFPAY ==
[2023-07-29 06:59] VITALS: BMI 19.7
[2024-04-01 14:51] VITALS: BMI 19.7
[2024-06-11] MEDS: DENOSUMAB 60 MG/ML SC (13:52)
[2024-06-11 13:54] VITALS: BP 122/52; PULSE 80; RESP 16; TEMP 36.4
== END 2024-06-11 23:59 | disposition home or self-care (01) ==
LOC: MEDOUTP 13:41
PROVIDERS: PCP Internal Medicine; Referring Provider Internal Medicine; Visit Provider Internal Medicine
DX: M81.0 Age-related osteoporosis without current pathological fracture (principal)
CPT/HCPCS: 96372; J0897

== ENCOUNTER → 2024-06-16 | Outpatient (CLI) | payer MEDICARE, SELFPAY ==
[2023-07-29 06:59] VITALS: BMI 19.7
[2024-04-01 14:51] VITALS: BMI 19.7
--- NOTE | 2024-06-16 12:51 | BI_ITS ---
MAMMOGRAPHY - BILATERAL SCREENING REASON FOR EXAM: Female, 79 years old. Routine annual screening examination. PERTINENT HISTORY: Non-contributory. TECHNIQUE: Digital bilateral breast luis (3D mammographic acquisition) in the CC and MLO projections. 2-D mediolateral oblique (MLO) and craniocaudad (CC) views of both breasts were obtained. CAD: Full Field Digital Mammography with Computer Added Detection was performed. COMPARISON: Comparison is made with prior study dated March 28, 2023 and December 07, 2021. FINDINGS: Breast Composition: There are scattered areas of fibroglandular density. There are no dominant masses or suspicious calcifications. No other significant abnormalities are identified. There has been no significant change since the prior study. BI/SCRN MAMM (CAD)W/LUIS BILAT IMPRESSION: Stable bilateral screening mammogram. Yearly follow-up mammogram recommended. (A) ASSESSMENT CATEGORY: BIRADS Category 1: Negative. A letter regarding these results will be sent to the patient by the facility within 30 days. Approximately 10% of breast cancers are not detected by mammography. A normal mammogram should not delay biopsy of a clinically suspicious abnormality. [id number] Electronically Signed: Gustavo Cota MD at 13:50 EDT ,
--- NOTE | 2024-06-16 12:53 | BD_ITS ---
STUDY: DUAL ENERGY X-RAY ABSORPTIOMETRY / DXA REASON FOR EXAM: Female, 79 years old. [id number] TECHNIQUE: Bone Mineral Density (BMD) measurements of lumbar spine and bilateral hips were obtained. COMPARISON: Comparison is made with prior study June 12, 2022. FINDINGS: Lumbar Spine (L1-L4): g/cm2 (0.859) / T-score (-1.7) / Z-score (0.9) Findings are suggestive of osteopenia with a moderate fracture risk. Left Femur Total: g/cm2 (0.667) / T-score (-2.3) / Z-score (-0.3) Left Femoral Neck: g/cm2 (0.599) / T-score (-2.2) / Z-score (0.0) Right Femur Total: g/cm2 (0.643) / T-score (-2.5) / Z-score (-0.5) Right Femoral Neck: g/cm2 (0.544) / T-score (-2.7) / Z-score (-0.5) The T-Scores on the most recent prior examination were: Lumbar Spine (L1-L4): There has been improvement of bone density since the previous examination. Left Femur Total: which represents a worsening of 1.1%. Right Femur Total: which represents a worsening of 5.2%. BD/Dexa Bone Density Study IMPRESSION: The patient is considered osteoporotic as outlined below according to World [employer]nie Organization (WHO) criteria with a high fracture risk. There has been worsening of bone density since the previous examination. Reference Information: The T-score is the number of standard deviations above or below the standard which is normal for young adults at their peak bone mineral density. The World Health Organization (WHO) interprets the T-scores as follows: Above -1 Normal bone density Between -1 and -2.5 Osteopenia Equal to / or below -2.5 Osteoporosis As a practical clinical guideline, osteopenia may be graded as follows: Mild -1 through -1.5 Moderate -1.6 through -2.0 Severe -2.1 through -2.4 The Z-score is the number of standard deviations above or below age-matched controls. A Z-score of less than -1.5 would be considered abnormal. References: 1. NIH Osteoporosis and Related Bone Diseases www osteo.org 2. International Society for Clinical Densitometry www iscd.org 3. National Osteoporosis Foundation www nof.org Electronically Signed: Gustavo Cota MD at 10:31 EDT ,
== END | disposition home or self-care (01) ==
LOC: OPBD 12:49
PROVIDERS: PCP Internal Medicine; Referring Provider Internal Medicine; Visit Provider Internal Medicine
DX: Z12.31 Encounter for screening mammogram for malignant neoplasm of breast (principal); Z78.0 Asymptomatic menopausal state
CPT/HCPCS: 77063; 77067; 77080

== ENCOUNTER → 2024-06-19 | Outpatient (CLI) | payer MEDICARE, SELFPAY ==
[2024-04-01 14:51] VITALS: BMI 19.7
--- NOTE | 2024-06-19 13:53 | CT_ITS ---
STUDY: CT Abdomen And Pelvis W/ Contrast Injection 06/21/2024 3:51 PM REASON FOR EXAM: Female, 79 years old. Abdominal pain Palpable Abdominal Mass Individualized dose optimization techniques were used for this CT. COMPARISON: None. TECHNIQUE: CT Abdomen And Pelvis W/ Contrast Injection Oral and amp; IV Readi-CAT and amp; 75mL Isovue-300 FINDINGS: There are atherosclerotic calcifications of visualized coronary arteries. The visualized portions of the heart are within normal limits. Cystic area in the caudate lobe of the liver may be a hemangioma or cyst. Normal gallbladder and extrahepatic biliary system. Normal spleen. Normal pancreas. Normal bilateral adrenal glands. No acute findings of the right kidney. There are hypodensities in the left kidney. These are consistent for cysts. No follow up required. Non obstructive 2 mm left renal parenchymal stones. Normal visualized stomach. Normal small intestine. Stool throughout the colon. There is non-visualization of the appendix. There are calcifications of the abdominal aorta. This is consistent for atherosclerotic disease. There is NO abdominal aortic aneurysm. Vascular workup can be obtained based on clinical correlation. Normal inferior vena cava. Subcentimeter mesenteric lymph nodes. Normal urinary bladder. Atrophic uterus. Normal abdominal wall. There are diffuse degenerative changes of the visualized lumbar spine. Grade 1 anterolisthesis of L4 on L5 and L3 on L4. CT/Abdomen/Pelvis WITH Contrast IMPRESSION: (NOT LISTED IN ORDER OF SIGNIFICANCE) Constipation There are no acute findings. Other findings as above. Electronically Signed: Rajeev Miller MD at 15:54 EDT ,
== END | disposition home or self-care (01) ==
LOC: CT 13:52
PROVIDERS: PCP Internal Medicine; Referring Provider Internal Medicine; Visit Provider Internal Medicine
DX: R19.00 Intra-abdominal and pelvic swelling, mass and lump, unspecified site (principal)
CPT/HCPCS: 74177; Q9967

== ENCOUNTER 2024-07-19 18:35 | Emergency (ER) | payer MEDICARE, SELFPAY ==
[2024-07-16 12:11] VITALS: BMI 19.7
[2024-07-19 18:36] VITALS: BP 151/71; PULSE 113; RESP 22; TEMP 37.1; O2SAT 96; BMI 19.3
--- NOTE | 2024-07-19 18:42 | EX.ED.DYSGE1 ---
HPI History of Present Illness Chief Complaint: Foreign Body [facility] Medical History (Updated 04/30/23 @ 10:49 by Renard Parkinson, BUILDING SUPERINTENDENT, CNC SERVICE TECHNICIAN, BS) BMI between 19-24,adult At risk for malnutrition Left lower lobe pneumonia Bronchiectasis exacerbation COPD exacerbation Home Medications ?Medication ?Instructions ?Recorded ?Last Taken ?Type levothyroxine 25 mcg tablet 50 mcg PO DAILY thyroid 06/09/19 10/29/19 History tiotropium bromide 18 mcg capsule 1 puff inhalation DAILY breathing 06/09/19 10/29/19 History with inhalation device cholecalciferol (vitamin D3) 125 5,000 unit PO DAILY ##30 11/02/19 Unknown Rx mcg (5,000 unit) disintegrating tablet guaifenesin 1,200 mg tablet, 1,200 mg PO BID PRN Cough 06/09/21 Unknown History extended release 12 hr ipratropium 0.5 mg-albuterol 3 mg 3 ml INHALATION Q4H PRN sob 12/07/21 Unknown History (2.5 mg base)/3 mL nebulization soln prednisone 20 mg tablet 60 mg (3 x 20 mg) PO DAILY #15 03/19/22 Unknown Rx TABLETS fluticasone furoate 200 1 ea inhalation DAILY 06/14/22 Unknown History mcg-vilanterol 25 mcg/dose inhalation powder (Breo Ellipta) prednisone 20 mg tablet 60 mg (3 x 20 mg) PO DAILY #12 tabs 09/09/22 Unknown Rx ondansetron 4 mg disintegrating 4 mg PO Q8H PRN PRN Nausea #10 tabs 07/19/24 Unknown Rx tablet Allergy/AdvReac Type Severity Reaction Status Date / Time acetaminophen (From Allergy Unknown Verified 07/19/24 18:36 Darvocet-N) Fish Containing Products Allergy Angioedema Verified 07/19/24 18:36 lactose Allergy Other Verified 07/19/24 18:36 levofloxacin (From Levaquin) Allergy Unknown Verified 07/19/24 18:36 meperidine (From Demerol) Allergy Angioedema Verified 07/19/24 18:36 pepper (genus Capsicum) Allergy Other Verified 07/19/24 18:36 propoxyphene (From Allergy Unknown Verified 07/19/24 18:36 Darvocet-N) Sulfa (Sulfonamide Allergy Hives Verified 07/19/24 18:36 Antibiotics) Surgical History (Reviewed 04/30/23 @ 10:34 by Renard Parkinson, BUILDING SUPERINTENDENT, CNC SERVICE TECHNICIAN, BS) History of appendectomy Social History household members: none Smoking Status: Former smoker substance use type: does not use EXAM Physical Exam Const Vital Signs: 07/19/24 18:36 07/19/24 19:09 Temperature 98.8 F Temperature Source Oral Pulse Rate 113 H Respiratory Rate 22 H Respiratory Pattern Normal Blood Pressure 151/71 H Blood Pressure Mean 97 Pulse Ox 96 Oxygen Delivery Method Room Air MDM MDM MDM Narrative Medical decision making narrative: HISTORY OF PRESENT ILLNESS: 79 F-year-old female presents with concern for esophageal foreign body. Notes she feels like there is a piece of pork stuck in her throat. No chest tightness. REVIEW OF SYSTEMS: Pertinent positives: Esophageal foreign body Pertinent negatives: [] PHYSICAL EXAM: Nursing triage notes reviewed, Vital signs reviewed Constitutional: please see mdm HENT: MMM, posterior oropharynx patent, no pooling of secretions, no drooling, Eyes: Pupils equal round and reactive to light, Extraocular muscles intact Neck: No stridor, no JVD, full neck ROM Lungs: Clear to auscultation, No wheezing or rales. No increased work of breathing, no conversational dyspnea, no accessory muscle use, no nasal flaring. No respiratory distress noted Heart: Regular rate and rhythm, No murmurs, No rubs and No gallops, 2+ distal pulses (radial, femoral, posterior tibial) in all extremities Abdomen: Soft, there is no tenderness, rigidity, rebound or guarding, no obvious peritoneal signs, no palpable pulsatile abdominal masses, no auscultated abdominal bruit : No CVAT Extremities: No edema Neuro: No focal neurological deficits, cranial nerves II through XII intact, 5/5 strength in all extremities. Intact sensation to light touch in all extremities, 2+ reflexes bilateral patella tendons. Normal gait. No ataxia. Skin: No rash or lesions noted MEDICAL DECISION MAKING: Chief Complaint: Esophageal foreign body External records reviewed: Pneumonia Factors affecting care: degenerative disease Social determinants of health: none History obtained from others: none Consults: none MDM Narrative: Patient was initially tachycardic rate of 113, tachypneic at a rate of 22, otherwise afebrile and nontoxic-appearing. Exam I considered the following differential diagnosis: Esophageal food impaction, reflux ALL IMAGES (IF OBTAINED) HAVE BEEN PERSONALLY REVIEWED AND INTERPRETED BY MYSELF. I have personally reviewed the patient's chest x-ray. Chest x-ray is unremarkable for pulmonary edema, pneumothorax, pneumonia or focal cardiopulmonary abnormality. History Tylenol a gram of IV glucagon and 4 mgZofran with improvement in symptoms. Then tried additional 2 mg of glucagon with marginal addition relief As the patient is not in extremis, she is in no acute distress, she is tolerating p.o. No indication for transfer at this time will give GI follow-up and strict return precautions. The patient and/or family, caregivers express understanding. The patient and/or family, caregivers agrees with the plan. Shared decision making: I will have a discussion with the patient and or visitors regarding risk/benefits of further testing or admission. They will be made aware of of the risk/benefits inherent in this decision they will be given the opportunity to voice understanding. Total critical care time today provided was at least 0 minutes. This excludes separately billable procedures. Critical care time (if documented) is secondary to the patient having high probability of clinically significant/life threatening deterioration in the patient's condition which required my urgent intervention. Impression: 1. Esophageal foreign body Dispo: Discharge home This note was generated with [employer] dictation software. It may contain incorrect words, spelling, and punctuation that were not noted in review of the chart prior to signing. Radiography Diagnostic Testing: Clinical Impression(s) from Imaging Studies Chest X-Ray 07/19/24 19:14 IMPRESSION: There are no acute findings. Electronically Signed: Rajeev Miller MD at 20:14 EST , Discharge Plan Triage Chief Complaint: Foreign Body ED Provider: Jong Reich Dx/Rx/DC Orders Instructions: ED Esophageal Foreign Body, Resolved Prescriptions: New ondansetron 4 mg tablet,disintegrating 4 mg PO Q8H PRN PRN (Reason: Nausea) Qty: 10 0RF No Action levothyroxine 25 MCG tablet 50 mcg PO DAILY tiotropium bromide 1 PUFF inhaler 1 puff inhalation DAILY cholecalciferol (vitamin D3) 5,000 UNIT tablet,disintegrating 5,000 unit PO DAILY Qty: 30 0RF guaifenesin 1,200 MG tablet extended release 12hr 1,200 mg PO BID PRN (Reason: Cough) ipratropium-albuterol 3 ML solution for nebulization 3 ml INHALATION Q4H PRN (Reason: sob) prednisone 20 mg tablet 60 mg PO DAILY Qty: 15 0RF fluticasone furoate-vilanterol [Breo Ellipta] 200-25 mcg/dose blister with device 1 ea INHALATION DAILY Patient Comments: Inhale 1 puff daily prednisone 20 mg tablet 60 mg PO DAILY Qty: 12 0RF Primary Care Provider: Julia Frazier Referrals: Walter Awad DO [Med Staff - Active Staff] - Activity Restrictions/Additional Instructions: Thank you for trusting us with your care today! Please take Tylenol (2 pills, 650 mg), ibuprofen (2 pills, 400 mg) every 6 hours as needed for pain and fever control. Please take Zofran as needed for nausea vomiting control Please return to the emergency department if your symptoms change or worsen. Please follow with gastroenterology (Dr. Awad) for further outpatient evaluation and management. Print Language: Uruguayan Disposition Disposition: Home, Self Care
[2024-07-19] MEDS: Glucagon 1 MG/ML Syringe IV (19:03)
[2024-07-19] MEDS: Ondansetron 4 MG/2 ML Vial IV ×2 (19:03→21:03)
--- NOTE | 2024-07-19 19:14 | RAD_ITS ---
STUDY: XR Chest 2 Views 07/19/2024 7:17 PM REASON FOR EXAM: Female, 79 years old. chest tightness COMPARISON: 07/16/2024 TECHNIQUE: XR Chest 2 Views FINDINGS: There is no demonstrated pleural abnormality. Healed right rib fractures. The lung [place] are hyperexpanded. Normal heart size. Normal mediastinum. Normal tory. Prominent appearing increased interstitial lung markings. Normal visualized pulmonary arteries. There is atherosclerotic calcification of the aortic arch with tortuosity. There are diffuse degenerative changes of the visualized thoracic spine. There is degenerative osteoarthritis of the bilateral shoulders. There are no acute findings of the upper abdomen. RAD/Chest PA and Lateral IMPRESSION: There are no acute findings. Electronically Signed: Rajeev Miller MD at 20:14 EST ,
--- NOTE | 2024-07-19 19:15 | ED.RN ---
Patient ambulated to radiology
--- NOTE | 2024-07-19 19:30 | ED.RN ---
Dr. Reich bedside and notified of patient having vomiting episode. Patient given coke
--- NOTE | 2024-07-19 20:00 | ED.RN ---
Pharmacy called for glucagon to be tubed.
[2024-07-19] MEDS: Glucagon 1 MG/ML Syringe 2 MG IV (20:05)
[2024-07-19 20:36] VITALS: BP 145/72; PULSE 91; RESP 16; O2SAT 99
== END 2024-07-19 21:04 | disposition home or self-care (01) ==
PROVIDERS: Emergency Provider Emergency Medicine; PCP Internal Medicine; Visit Provider Emergency Medicine
DX: T18.128A Food in esophagus causing other injury, initial encounter (principal); J44.9 Chronic obstructive pulmonary disease, unspecified; W44.F3XA Food entering into or through a natural orifice, initial encounter; Z79.890 Hormone replacement therapy; Z79.899 Other long term (current) drug therapy; Z87.891 Personal history of nicotine dependence
CPT/HCPCS: 71046; 96374; 96375; 96376; 99282; A4216; J1610; J2405

== ENCOUNTER 2024-07-20 07:55 | Day surgery (SDC) | payer MEDICARE, SELFPAY ==
[2024-07-16 12:11] VITALS: BMI 19.7
[2024-07-20] VITALS (12 sets, daily range): BP systolic 104–177; BP diastolic 49–105; PULSE 77–108; RESP 16–24; TEMP 36.3–37.1; O2SAT 94–98; BMI 20.9
--- NOTE | 2024-07-20 | ESO_PTH ---
PATIENT: JEN[place] [facility] [id number] AGE/SX: 79/F ROOM: RE07/20/[address]: Dr. Walter Awad DO : 1945 BED: DIS: 07/20/2024 SPEC #: [id number] RECD: 07/20/24 14:54 STATUS: MALU REJuliana #: [id number] VALERIY: 07/20/24 00:[address]: Walter Awad DEPT: SURGICAL PATHOLOGY RECD BY: Migel Marcelo ENTERED: 07/21/24 09:49 SP TYPE: CLYDE ARTEAGA DR: Dr. Julia Frazier DO Tissues: Esophagus, NOS Procedures: Special Stain Group I Surgery Specimen Level IV GMS Stain (control) HEADER OPERATION: EGD, foreign body removal biopsy PRE-OP DIAGNOSIS: Esophageal foreign body TISSUE SUBMITTED: Upper esophagus biopsy MICROSCOPIC DIAGNOSIS Upper esophagus, biopsy: Fragments of benign squamous cell mucosa with mild acute and chronic inflammation. See comment. 07/22/2024 COMMENT Special stain for fungi is negative for organisms; matched control is appropriate. Correlation with clinical, endoscopic findings and appropriate follow up are necessary. MICROSCOPIC DESCRIPTION Slides are reviewed. GROSS DESCRIPTION Received in fixative is one container labeled with the patient's name and designated Upper esophagus biopsy. The specimen consists of multiple irregular fragments of light lala soft tissue that in aggregate measure 1.0 x 0.5 x 0.1 cm. The specimen is totally submitted in one cassette. 07/21/2024 TC:2 CPT:28422,50581
--- NOTE | 2024-07-20 08:23 | EDS_ITS ---
HPI History of Present Illness Chief Complaint: Foreign Body Informant: patient and family Narrative Narrative: 79-year-old female was eating a pork chop last night and got a piece stuck in her throat with vomiting, transiently dyspnea, came to the ER, was tolerating oral fluids according to documentation but the patient states the discomfort never resolved, GI was not on-call so she was sent home and she states she is much worse this morning. She is not able to tolerate sips of fluids. She states she is continuously spitting out oral secretions, tolerating this but very uncomfortable. She was prescribed nausea medication but it was overnight and she has not been able to fill it yet since pharmacies are not yet open. [facility] Medical History (Updated 07/20/24 @ 08:[address] Leobardo Garcia MD) Bronchiectasis BMI between 19-24,adult At risk for malnutrition Left lower lobe pneumonia COPD exacerbation Home Medications ?Medication ?Instructions ?Recorded ?Last Taken ?Type levothyroxine 25 mcg tablet 50 mcg PO DAILY thyroid 06/09/19 10/29/19 History tiotropium bromide 18 mcg capsule 1 puff inhalation DAILY breathing 06/09/19 10/29/19 History with inhalation device cholecalciferol (vitamin D3) 125 5,000 unit PO DAILY ##30 11/02/19 Unknown Rx mcg (5,000 unit) disintegrating tablet guaifenesin 1,200 mg tablet, 1,200 mg PO BID PRN Cough 06/09/21 Unknown History extended release 12 hr ipratropium 0.5 mg-albuterol 3 mg 3 ml INHALATION Q4H PRN sob 12/07/21 Unknown History (2.5 mg base)/3 mL nebulization soln prednisone 20 mg tablet 60 mg (3 x 20 mg) PO DAILY #15 03/19/22 Unknown Rx TABLETS fluticasone furoate 200 1 ea inhalation DAILY 06/14/22 Unknown History mcg-vilanterol 25 mcg/dose inhalation powder (Breo Ellipta) prednisone 20 mg tablet 60 mg (3 x 20 mg) PO DAILY #12 tabs 09/09/22 Unknown Rx ondansetron 4 mg disintegrating 4 mg PO Q8H PRN PRN Nausea #10 tabs 07/19/24 Unknown Rx tablet Allergy/AdvReac Type Severity Reaction Status Date / Time acetaminophen (From Allergy Unknown Verified 07/20/24 07:55 Darvocet-N) Fish Containing Products Allergy Angioedema Verified 07/20/24 07:55 lactose Allergy Other Verified 07/20/24 07:55 levofloxacin (From Levaquin) Allergy Unknown Verified 07/20/24 07:55 meperidine (From Demerol) Allergy Angioedema Verified 07/20/24 07:55 pepper (genus Capsicum) Allergy Other Verified 07/20/24 07:55 propoxyphene (From Allergy Unknown Verified 07/20/24 07:55 Darvocet-N) Sulfa (Sulfonamide Allergy Hives Verified 07/20/24 07:55 Antibiotics) Surgical History History of appendectomy Social History household members: none Smoking Status: Former smoker substance use type: does not use ROS ROS ED Constitutional Constitutional ED: Denies chills or fever(s) Eyes Eyes: Denies change in vision or diplopia ENT ENT ED: Reports other Details: Throat pain ; Denies rhinorrhea or sore throat Cardiovascular Cardiovascular: Denies chest pain or palpitations Respiratory/Chest Respiratory/Chest: Reports cough and other Details: Chronic productive cough no worse than usual at this time ; Denies dyspnea Gastrointestinal Gastrointestinal: Reports vomiting and other; Denies abdominal pain, diarrhea or nausea Genitourinary Genitourinary ED: Denies dysuria or hematuria Musculoskeletal Musculoskeletal: Denies back pain or neck pain Integumentary Denies abscess or rash Neurologic Neurologic: Denies headache(s), paresthesias or weakness Psychiatric Psychiatric: Denies anxiety or suicidal thoughts EXAM Physical Exam Const Vital Signs: 07/20/24 07:56 07/20/24 08:03 Temperature 98.7 F Temperature Source Oral Pulse Rate 106 H Respiratory Rate 18 Respiratory Effort Normal Respiratory Pattern Normal Blood Pressure 132/72 H Blood Pressure Mean 92 Pulse Ox 97 Oxygen Delivery Method Room Air Positive well nourished and well developed General Appearance ED: well developed and NAD HEENT Reports moist mucous membranes normocephalic and atraumatic Eyes PERRL and EOMs intact bilaterally Neck full ROM and supple Resp normal respiratory effort and clear to auscultation bilaterally Resp Narrative: Speaking normally. Tolerating secretions. Cardio regular rate, regular rhythm and no murmurs GI non-tender and non-distended Auscultation: normoactive bowel sounds Palpation: soft Back/Spine no CVA tenderness General Back: other FROM Extremity normal to inspection General Extremety ED: Negative for edema, pulses abnormal or tenderness General Extremity: Negative for edema or pulses abnormal Neuro oriented x3, CN's II-XII intact bilaterally and no sensory deficits noted Sensorium / Orientation: awake and alert Motor Exam: strength 5/5 throughout Skin no rashes or lesions noted and no wounds MDM MDM MDM Narrative Medical decision making narrative: Patient's airway is stable she is obviously not tolerating oral fluids given the fact that she is actively spitting them out and has tried drinking sips of water multiple times at home without success. I discussed with Dr. Awad who is av ailable, he will be able to perform EGD in a couple of hours. In the meantime we will place an IV, give her IV fluids, medications for symptoms, and observe her airway which at this time is intact and stable. Discharge Plan Triage Chief Complaint: Foreign Body ED Provider: Leobardo Garcia Dx/Rx/DC Orders Clinical Impression: Esophageal obstruction due to food impaction Prescriptions: No Action levothyroxine 25 MCG tablet 50 mcg PO DAILY tiotropium bromide 1 PUFF inhaler 1 puff inhalation DAILY cholecalciferol (vitamin D3) 5,000 UNIT tablet,disintegrating 5,000 unit PO DAILY Qty: 30 0RF guaifenesin 1,200 MG tablet extended release 12hr 1,200 mg PO BID PRN (Reason: Cough) ipratropium-albuterol 3 ML solution for nebulization 3 ml INHALATION Q4H PRN (Reason: sob) prednisone 20 mg tablet 60 mg PO DAILY Qty: 15 0RF fluticasone furoate-vilanterol [Breo Ellipta] 200-25 mcg/dose blister with device 1 ea INHALATION DAILY Patient Comments: Inhale 1 puff daily prednisone 20 mg tablet 60 mg PO DAILY Qty: 12 0RF ondansetron 4 mg tablet,disintegrating 4 mg PO Q8H PRN PRN (Reason: Nausea) Qty: 10 0RF Primary Care Provider: Julia Frazier Referrals: Julia Frazier DO [Primary Care Provider] - Print Language: Spanish
[2024-07-20] MEDS: Ondansetron 4 MG/2 ML Vial IV (08:40)
[2024-07-20] MEDS: 0.9% Normal Saline (1000mL) 1,000 ML 200 ML IV (08:40)
[2024-07-20] MEDS: Morphine 2 MG/ML Syringe IV (08:42)
--- NOTE | 2024-07-20 10:54 | PRE.ANES_ITS ---
ASA Classification* ASA Classification ASA Classification: 2 Assessment & Plan Anesthesia* Anesthesia Assessment Anesthesia Assessment: Discussed sedation and/or anesthesia options, risks, benefits, and alternatives with patient/parents/legal guardian/POA. Questions invited. The patient/parents/legal guardian/POA seems to understand and agrees to proceed with anesthesia plan. Reviewed the physical assessment, medical history, allergy history and patient home medications list prior to surgery/procedure/anesthetic and documented any changes. Performed airway and anesthesia risk assessments. Anesthesia Type Anesthesia Type: MAC History Source History Obtained from:: Patient and Chart Anesthesia Focused Assessment* Temperature: 98.2 F Pulse Rate: 77 Blood Pressure: 135/66 Respiratory Rate: 19 Pulse Ox: 95 Oxygen Delivery Method: Room Air Airway Assessment Mouth opens: 2 cm Mallampati Score: IV Teeth Condition: Dentures (Patient has an upper full denture.) and Partial (Lower partials out.) Neck Range of motion (ROM): Full ROM Focused Labs Anesthesia Preop lab: CBC WBC 7.1 K/mm3 (4.4-11.0) 06/01/24 12:00 RBC 3.81 M/mm3 (4.2-5.4) L 06/01/24 12:00 Hgb 10.7 g/dL (12.0-15.0) L 06/01/24 12:00 Hct 34.8 % (37-47) L 06/01/24 12:00 Plt Count 254 K/mm3 (150-450) 06/01/24 12:00 CHEMISTRY Potassium 4.2 mmol/L (3.5-5.1) 06/01/24 12:00 Sodium 140 mmol/L (136-145) 06/01/24 12:00 Phosphorus 3.2 mg/dL (2.5-4.9) 02/20/21 10:29 BUN 15 mg/dL (7-18) 06/01/24 12:00 Creatinine 1.24 mg/dL (0.55-1.02) H 06/01/24 12:00 Glucose 93 mg/dL (74-106) 06/01/24 12:00 POC Glucose 82 mg/dL (70-110) 07/19/15 09:19 TSH 1.19 uIU/mL (0.358-3.74) 10/17/20 12:36 COAG PT 13.9 SECONDS (11.7-14.9) 10/30/19 08:30 Pre-Assessment Diagnosis/Proposed Procedure Planned Operative Procedure(s): Esophagogastroduodenoscopy. Anesthesia History Anesthesia History - java web developer: Anesthesia History - java web developer Hx Hospitalization No 07/16/24 12:11 Any Problems With Anesthesia Cholinesterase deficiency You/Your Family Experience fever (hyperthermia) with Relationship Recent Exposure to Contagious Disease Does patient have nerve stimulator Patient instructed to have device shut off --Does patient have Pacemaker or ICD? When Was Last Pacemaker Check QUESTION #4 FULL TEXT: You/Your Family Experience fever (hyperthermia) with Anesthesia Last Oral Intake Last Oral intake: Last Oral Intake NPO since Meds taken in AM with sips of water? Meds patient instructed to take am of surgery Any additional information?: Yes NPO since: 00:00 PONV PONV - java web developer: PONV - java web developer Female HX of Motion Sickness HX of N/V After Surgery Non-Smoker Duration of Surgery greater than 60 minutes Number of Risk Factors PONV Score Height & Weight Height & Weight: Anesthesia: Height & Weight Height 4 ft 11.06 in 07/20/24 07:56 Weight: 47.3 kg 07/20/24 07:59 Body Mass Index (BMI) 20.9 07/20/24 07:59 Respiratory Assessment Respiratory Assessment - java web developer: Respiratory Tract Infection Hx - java web developer Hx Respiratory Tract Infection Any additional information?: Yes Hx Respiratory Tract Infection: Yes (Patient had recent bronchiectasis. Patient is at the end of her antibiotic) STOP Sleep Apnea STOP Sleep Apnea - java web developer: STOP Sleep Apnea - java web developer Hx Hypertension No 07/16/24 12:11 Hx Sleep Apnea No 07/16/24 12:11 CPAP BIPAP Do you snore loudly (louder than talking or can be heard Do you often feel tired/ fatigued/ sleepy during daytime? Has anyone observed you stop breathing during sleep? STOP Results QUESTION #5 FULL TEXT : Do you snore loudly (louder than talking or can be heard through closed doors)? Tobacco Use History Tobacco Use History - java web developer: Tobacco Use History - java web developer Tobacco Use Smoking Status Former smoker 07/20/24 08:03 Hx Tobacco Use Yes 07/16/24 12:11 Years Smoking Packs Smoked per Day Smoking Cessation Date was No - quit smoking greater 07/20/24 08:03 within the last 15 years than 15 years ago Hx Smoking Cessation Date 09/16/83 07/20/24 08:03 Hx Smoking Cessation Counseling Hematologic Medial History Hematologic Hx - java web developer: Hematologic Medical Hx - headline writer Hx of Blood Transfusion Hx of Transfusion in last 3 Months Date of Last Transfusion (if within last 3 months) Ever experience any problems with transfusion(s)? Specify any problems Hx of Preganancy in last 3 Months Nurse Filling Out Transfusion & Questions: Date: Time: Patient unable to answer at this time (ie. confused, unrespo /Reproduction History /Reproductive History - java web developer: /Reproductive Hx- java web developer Hx Now Gestational Age (in weeks): EDC: Hx Hx Para Hx Section SAB Active Medications Active Medications: Current Medications Generic Name Dose Route Start Last Admin Trade Name Freq PRN Reason Stop Dose Admin Sodium Chloride 1,000 mls @ 200 mls/hr 07/20/24 08:30 07/20/24 08:40 IV 07/20/24 13:29 200 mls/hr .Q5H STEVE Administration Protocol [facility] Medical History (Updated 07/20/24 @ 11:[address] Shiva Stewart MD) Right radial fracture Bronchiectasis BMI between 19-24,adult At risk for malnutrition Left lower lobe pneumonia COPD exacerbation Home Medications ?Medication ?Instructions ?Recorded ?Last Taken ?Type levothyroxine 25 mcg tablet 50 mcg PO DAILY thyroid 06/09/19 10/29/19 History tiotropium bromide 18 mcg capsule 1 puff inhalation DAILY breathing 06/09/19 10/29/19 History with inhalation device cholecalciferol (vitamin D3) 125 5,000 unit PO DAILY ##30 11/02/19 Unknown Rx mcg (5,000 unit) disintegrating tablet guaifenesin 1,200 mg tablet, 1,200 mg PO BID PRN Cough 06/09/21 Unknown History extended release 12 hr ipratropium 0.5 mg-albuterol 3 mg 3 ml INHALATION Q4H PRN sob 12/07/21 Unknown History (2.5 mg base)/3 mL nebulization soln prednisone 20 mg tablet 60 mg (3 x 20 mg) PO DAILY #15 03/19/22 Unknown Rx TABLETS fluticasone furoate 200 1 ea inhalation DAILY 06/14/22 Unknown History mcg-vilanterol 25 mcg/dose inhalation powder (Breo Ellipta) prednisone 20 mg tablet 60 mg (3 x 20 mg) PO DAILY #12 tabs 09/09/22 Unknown Rx ondansetron 4 mg disintegrating 4 mg PO Q8H PRN PRN Nausea #10 tabs 07/19/24 Unknown Rx tablet Allergy/AdvReac Type Severity Reaction Status Date / Time acetaminophen (From Allergy Unknown Verified 07/20/24 07:55 Darvocet-N) Fish Containing Products Allergy Angioedema Verified 07/20/24 07:55 lactose Allergy Other Verified 07/20/24 07:55 levofloxacin (From Levaquin) Allergy Unknown Verified 07/20/24 07:55 meperidine (From Demerol) Allergy Angioedema Verified 07/20/24 07:55 pepper (genus Capsicum) Allergy Other Verified 07/20/24 07:55 propoxyphene (From Allergy Unknown Verified 07/20/24 07:55 Darvocet-N) Sulfa (Sulfonamide Allergy Hives Verified 07/20/24 07:55 Antibiotics) Surgical History (Updated 07/20/24 @ 11:[address] Shiva Stewart MD) Status post open reduction and internal fixation (ORIF) of fracture Status post repair of paraesophageal diaphragmatic hernia H/O: section History of appendectomy Social History household members: none Smoking Status: Former smoker substance use type: does not use Review of Systems (Anesthesia) ROS Narrative System reviewed and no additional complaints, except as documented.
--- NOTE | 2024-07-20 12:12 | PCM.HP.STD ---
HPI - General General Date of Admission: 07/20/24 Date of Service: 07/20/24 Chief Complaint: Esophageal foreign body HPI Narrative JENNI HOLLINS, is a 79-year-old female was eating a pork chop last night and got a piece stuck in her throat with vomiting, transiently dyspnea, came to the ER, was tolerating oral fluids according to documentation but the patient states the discomfort never resolved, GI was not on-call so she was sent home and she states she is much worse this morning. She is not able to tolerate sips of fluids. She states she is continuously spitting out oral secretions, tolerating this but very uncomfortable. She was prescribed nausea medication but it was overnight and she has not been able to fill it yet since pharmacies are not yet open. [facility] Medical History (Updated 07/20/24 @ 11:[address] Shiva Stewart MD) Right radial fracture Bronchiectasis BMI between 19-24,adult At risk for malnutrition Left lower lobe pneumonia COPD exacerbation Home Medications ?Medication ?Instructions ?Recorded ?Last Taken ?Type levothyroxine 25 mcg tablet 50 mcg PO DAILY thyroid 06/09/19 10/29/19 History tiotropium bromide 18 mcg capsule 1 puff inhalation DAILY breathing 06/09/19 10/29/19 History with inhalation device cholecalciferol (vitamin D3) 125 5,000 unit PO DAILY ##30 11/02/19 Unknown Rx mcg (5,000 unit) disintegrating tablet guaifenesin 1,200 mg tablet, 1,200 mg PO BID PRN Cough 06/09/21 Unknown History extended release 12 hr ipratropium 0.5 mg-albuterol 3 mg 3 ml INHALATION Q4H PRN sob 12/07/21 Unknown History (2.5 mg base)/3 mL nebulization soln prednisone 20 mg tablet 60 mg (3 x 20 mg) PO DAILY #15 03/19/22 Unknown Rx TABLETS fluticasone furoate 200 1 ea inhalation DAILY 06/14/22 Unknown History mcg-vilanterol 25 mcg/dose inhalation powder (Breo Ellipta) prednisone 20 mg tablet 60 mg (3 x 20 mg) PO DAILY #12 tabs 09/09/22 Unknown Rx ondansetron 4 mg disintegrating 4 mg PO Q8H PRN PRN Nausea #10 tabs 11/03/24 Unknown Rx tablet Allergy/AdvReac Type Severity Reaction Status Date / Time Fish Containing Products Allergy Angioedema Verified 07/20/24 07:55 lactose Allergy Other Verified 07/20/24 07:55 levofloxacin (From Levaquin) Allergy Unknown Verified 07/20/24 07:55 meperidine (From Demerol) Allergy Angioedema Verified 07/20/24 07:55 pepper (genus Capsicum) Allergy Other Verified 07/20/24 07:55 propoxyphene (From Allergy Unknown Verified 07/20/24 07:55 Darvocet-N) Sulfa (Sulfonamide Allergy Hives Verified 07/20/24 07:55 Antibiotics) Surgical History (Updated 07/20/24 @ 11:[address] Shiva Stewart MD) Status post open reduction and internal fixation (ORIF) of fracture Status post repair of paraesophageal diaphragmatic hernia H/O: section History of appendectomy Social History household members: none Smoking Status: Former smoker substance use type: does not use ROS Review of Systems ROS Unobtainable: other Constitutional Constitutional: Denies fatigue, fever(s), poor appetite, weight gain or weight loss ENT HEENT: Denies mouth lesions Cardiovascular Cardiovascular: Denies abdominal bloating, abdominal edema or abdominal pain Respiratory/Chest Respiratory/Chest: Denies change in mental status, change in phlegm color, chest congestion or chest tightness Gastrointestinal Gastrointestinal: Denies belching, bloating, change in bowel habits, change in stool character, chewing difficulty, coffee ground emesis, constipation, cramping, diarrhea, dyspepsia, dysphagia, early satiety, excessive flatus, fecal incontinence, heartburn, hematemesis, hematochezia, hemorrhoids, loose stools, melena, nausea, odynophagia, rectal bleeding, tenesmus, vomiting or weight changes Genitourinary Genitourinary: Denies abdominal discomfort, burning urination or itching Musculoskeletal Musculoskeletal: Reports as per HPI; Denies muscle weakness or myalgias Integumentary Integumentary: Denies jaundice Neurologic Neurologic: Denies lack of coordination or weakness Psychiatric Psychiatric: Denies confusion, depression, memory loss, mood swings, paranoia or suicidal ideation Endocrine Endocrinology: Denies systems reviewed and no addt'l complaints, except as documented Hematologic/Lymphatic Hematologic/Lymphatic: Denies anemia, easy bleeding, easy bruising or lymphadenopathy Allergic/Immunologic Allergic/Immunologic: Denies systems reviewed and no addt'l complaints, except as documented Vital Signs Vital Signs Vital Signs: 07/20/24 07:56 07/20/24 08:03 07/20/24 08:55 Temperature 98.7 F Temperature Source Oral Pulse Rate 106 H 78 Respiratory Rate 18 18 Respiratory Effort Normal Respiratory Pattern Normal Blood Pressure 132/72 H 175/105 H Blood Pressure Mean 92 128 Pulse Ox 97 95 Oxygen Delivery Method Room Air Room Air 07/20/24 09:00 07/20/24 09:45 07/20/24 10:00 Temperature 98.2 F Temperature Source Pulse Rate 82 77 77 Respiratory Rate 19 H 19 H 19 H Respiratory Effort Respiratory Pattern Blood Pressure 177/101 H 137/78 H 135/66 H Blood Pressure Mean 126 97 89 Pulse Ox 98 97 95 Oxygen Delivery Method Room Air Room Air 07/20/24 11:14 Temperature 98.2 F Temperature Source Pulse Rate 77 Respiratory Rate 19 H Respiratory Effort Respiratory Pattern Blood Pressure 135/66 H Blood Pressure Mean Pulse Ox 95 Oxygen Delivery Method Room Air Weight Weight: 104 lb 4.458 oz Body Mass Index (BMI) 20.9 Physical Exam Const alert, oriented x3, no apparent distress, healthy appearing and well nourished General Appearance: cooperative, comfortable, well kempt and well developed Orientation / Consciousness: awake and oriented to person HEENT Head and Scalp: normocephalic and atraumatic Face and Sinus: normal facial exam Mouth: oral and palatal mucosa normal Eyes General Eye: normal appearance of both eyes Neck full ROM Lymph Lymphatic: no lymphadenopathy noted Chest inspection of chest normal Resp normal respiratory effort and no use of accessory muscles Cardio regular rate and regular rhythm GI normal to inspection, nondistended, normoactive bowel sounds, soft to palpation, non-tender, non-distended and no masses Auscultation: normoactive bowel sounds Palpation: soft Percussion: normal to percussion Rectal Exam: visual inspection normal and normal sphincter tone no CVA tenderness Back/Spine no CVA tenderness and normal ROM Extremity normal to inspection Peripheral Pulses: Yes pulses 2+ throughout Skin no rashes or lesions noted General Skin Exam: no breakdown, elasticity normal and turgor normal Neuro oriented x3 Motor Exam: strength 5/5 throughout Psych mental status grossly normal Appearance: grossly normal Attitude: calm Activity / Motor Behavior: appropriate eye contact Speech: normal speech Thought Process: normal thought process Thought Content: normal thought content Attention / Concentration: attention grossly intact Memory / Cognition: memory grossly intact Insight: insight good Judgement: judgement good Assessment & Plan Assessment/Plan (1) Esophageal obstruction due to food impaction: PLAN: She will undergo EGD with foreign body removal. She was explained alternatives, risk, benefits include not withstanding bleeding, infection, sepsis, perforation, need emergent surgery . She will have an ASA of 3.
--- NOTE | 2024-07-20 12:33 | OP.CCLET_ITS ---
07/20/2024 Julia Frazier [address] [place] [address] Re : Upper GI endoscopy procedure for Pam Fernando Dear Dr. Frazier This procedure was performed on Saturday, July 20, 2024. My impressions and recommendations are as follows: Impressions : - Food was found in the esophagus. Removal was successful. - Benign-appearing esophageal stenosis. Biopsied. - Hiatal hernia. - Normal duodenal bulb. Recommendations : - Discharge patient to home. - Full liquid diet for 3 days. - Continue present medications. - Pantoprazole 40 mg p.o. twice daily -Repeat upper endoscopy in 3 weeks for dilation My findings are described in the full procedure note, which is enclosed. If I can be of further assistance, please feel free to contact me at . Sincerely, Walter Awad, 07/20/2024 12:33:25 PM This report has been signed electronically.
--- NOTE | 2024-07-20 12:33 | OP.EGD_ITS ---
Patient Name: Pam Fernando Procedure Date: 07/20/2024 12:07 PM Date of : 1945 Age: 79 Procedure: Upper GI endoscopy Indications: Dysphagia Providers: Walter Awad DO Medicines: Monitored Anesthesia Care Patient Profile: This is a 79 year old female. Refer to note in patient chart for documentation of history and physical. Patient has symptoms of acute dysphagia. Complications: No immediate complications. Procedure: Pre-Anesthesia Assessment: - Prior to the procedure, a History and Physical was performed, and patient medications and allergies were reviewed. The patient is competent. The risks and benefits of the procedure and the sedation options and risks were discussed with the patient. All questions were answered and informed consent was obtained. Patient identification and proposed procedure were verified by the physician in the pre-procedure area. Mental Status Examination: alert and oriented. Airway Examination: normal oropharyngeal airway and neck mobility. Respiratory Examination: clear to auscultation. CV Examination: normal. Prophylactic Antibiotics: The patient does not require prophylactic antibiotics. Prior Anticoagulants: The patient has taken no anticoagulant or antiplatelet agents except for NSAID medication. ASA Grade Assessment: II - A patient with mild systemic disease. After reviewing the risks and benefits, the patient was deemed in satisfactory condition to undergo the procedure. The anesthesia plan was to use monitored anesthesia care (MAC). Immediately prior to administration of medications, the patient was re-assessed for adequacy to receive sedatives. The heart rate, respiratory rate, oxygen saturations, blood pressure, adequacy of pulmonary ventilation, and response to care were monitored throughout the procedure. The physical status of the patient was re-assessed after the procedure. After obtaining informed consent, the endoscope was passed under direct vision. Throughout the procedure, the patient's blood pressure, pulse, and oxygen saturations were monitored continuously. The Endoscope was introduced through the mouth, and advanced to the second part of duodenum. The upper GI endoscopy was accomplished without difficulty. The patient tolerated the procedure well. Scope In: 12:20:03 PM Scope Out: 12:27:37 PM Total Procedure Duration Time 0 hours 7 minutes 34 seconds Findings: Food was found in the upper third of the esophagus, 20 cm from the incisors. Removal was accomplished with a Raptor grasping device. Verification of patient identification for the specimen was done. Estimated blood loss was minimal. One benign-appearing, intrinsic severe stenosis was found 19 to 22 cm from the incisors. The stenosis was traversed. Biopsies were taken with a cold forceps for histology. Verification of patient identification for the specimen was done. Estimated blood loss was minimal. A hiatal hernia was present. The exam of the stomach was otherwise normal. The duodenal bulb was normal. Impression: - Food was found in the esophagus. Removal was successful. - Benign-appearing esophageal stenosis. Biopsied. - Hiatal hernia. - Normal duodenal bulb. Recommendation: - Discharge patient to home. - Full liquid diet for 3 days. - Continue present medications. - Pantoprazole 40 mg p.o. twice daily -Repeat upper endoscopy in 3 weeks for dilation Procedure Code(s): --- Professional --- 78954, Esophagogastroduodenoscopy, flexible, transoral; with removal of foreign body(s) 41913, Esophagogastroduodenoscopy, flexible, transoral; with biopsy, single or multiple CPT copyright 2021 [employer]. All rights reserved. The codes documented in this report are preliminary and upon commercial subcontractor review may be revised to meet current compliance requirements. Walter Awad DO 07/20/2024 12:33:25 PM This report has been signed electronically. Number of Addenda: 0 Note Initiated On: 07/20/2024 12:07 PM
--- NOTE | 2024-07-20 12:39 | PCM.POST.ANE ---
Anesthesia: Postop Eval I Current Vital Signs Temperature: 97.4 F Pulse Rate: 98 Blood Pressure: 109/49 Respiratory Rate: 16 Pulse Ox: 95 Oxygen Delivery Method: Room Air Assessment Airway patent: Yes Spontaneous unlabored respirations: Yes Mental status: Awake nausea: No Vomiting: No Anesthesia Complication: No Fluid Hydration Crystalloid volume administer (ml): 30 Total IV fluid infused: 30 Progress Note Anesthesia document: Postop Eval 1 completed: Yes
--- NOTE | 2024-07-20 15:21 | PCM.POSTANE2 ---
Anesthesia Postop Eval I Sum Postop Eval Completion status Anesthesia document: Postop Eval 1 completed: Yes Anesthesia Postop Eval I Summary Anesthesia Postop Eval I Summary: Anesthesia Postop Eval I: Assessment Summary Airway patent Yes 07/20/24 12:40 [email or web address] Spontaneous unlabored Yes 07/20/24 12:40 [email or web address] respirations Mental status Awake 07/20/24 12:40 [email or web address] nausea No 07/20/24 12:40 [email or web address] Vomiting No 07/20/24 12:40 [email or web address] Anesthesia Postop Eval I: Fluid Summary Crystalloid volume administer 30 07/20/24 12:40 [email or web address] (ml) Colloids volume administered ( ml) Blood Product volume administered (ml) Total IV fluid infused 30 07/20/24 12:40 [email or web address] Anesthesia Postop Eval I: Summary Notes Anesthesia Complication No 07/20/24 12:40 [email or web address] Anesthesia Complication Comment: Post-operative progress note Anesthesia: Postop Eval II Evaluation Mental status: Awake and Calm Pain Level: 0 nausea: No Vomiting: No Complications Anesthesia Complication: No
== END 2024-07-20 13:31 | disposition home or self-care (01) ==
LOC: ED 08:35 → SDC 09:00 → AC 09:01
PROVIDERS: Emergency Provider Emergency Medicine; PCP Internal Medicine; Visit Provider Internal Medicine Gastroenterology
PROC: 0DJ08ZZ Inspection of Upper Intestinal Tract, Via Natural or Artificial Opening Endoscopic (ICD-10-PCS; CPT 43235; principal; 2024-07-20 11:25)
DX: T18.128A Food in esophagus causing other injury, initial encounter (principal); J44.9 Chronic obstructive pulmonary disease, unspecified; K44.9 Diaphragmatic hernia without obstruction or gangrene; Z87.891 Personal history of nicotine dependence; K22.2 Esophageal obstruction; Z79.51 Long term (current) use of inhaled steroids; W44.F3XA Food entering into or through a natural orifice, initial encounter; Z79.899 Other long term (current) drug therapy
CPT/HCPCS: 43247; 43239; 88305; 88312; 99283; J7030; A4216; J2405

== ENCOUNTER → 2024-07-28 | Outpatient (CLI) | payer MEDICARE, SELFPAY ==
[2024-07-16 12:11] VITALS: BMI 19.7
[2024-07-28 17:43] LABS: Hemoglobin 10.4 g/dL (12.0-15.0); Mean Corp Hgb Conc 31.5 g/dL (32-36); Mean Corpuscular Volume 88.9 fL (81-99); Platelet Count 321 K/mm3 (150-450); RBC Distribution Width CV 14.2 % (11.6-14.6); Red Blood Count 3.71 M/mm3 (4.2-5.4); White Blood Count 7.3 K/mm3 (4.4-11.0)
[2024-07-28 18:13] LABS: Ferritin 23 ng/mL (8-252); Iron 85 ug/dL (50-170); T4 Total, Thyroxin 15.1 ug/dL (4.8-13.9)
== END | disposition home or self-care (01) ==
LOC: MTLAB 15:50
PROVIDERS: PCP Internal Medicine; Referring Provider Internal Medicine Gastroenterology; Visit Provider Internal Medicine Gastroenterology
DX: D50.9 Iron deficiency anemia, unspecified (principal); K59.00 Constipation, unspecified
CPT/HCPCS: 36415; 82728; 83540; 84436; 84443; 85027

== ENCOUNTER → 2024-09-23 | Outpatient (CLI) | payer MEDICARE, SELFPAY ==
[2024-07-16 12:11] VITALS: BMI 19.7
--- NOTE | 2024-09-23 09:27 | RAD_ITS ---
STUDY: BARIUM ENEMA. REASON FOR EXAM: Female, 79 years old. Changed in Stool Caliber (R19.5) FLUOROSCOPY TIME (if supplied): ( 1 minute and 50 seconds ) minutes/seconds. 41.4 mGy. 11 images were obtained. TECHNIQUE: A manager supply view was obtained. Following this, contrast was introduced retrograde through the rectum. The entire colon was opacified. COMPARISON: None. FINDINGS: Dextroscoliosis. Gas pattern is unremarkable. Contrast was introduced retrograde. There is evidence of sigmoid diverticulosis with no radiographic evidence of diverticulitis. There is redundancy of the sigmoid colon. No intraluminal filling defect is seen. No evidence of obstruction. RAD/Barium Enema No Air Cont IMPRESSION: Sigmoid diverticulosis. Redundancy of the sigmoid colon. Electronically Signed: Gustavo Cota MD at 14:07 EST ,
== END | disposition home or self-care (01) ==
LOC: RAD 09:26
PROVIDERS: PCP Internal Medicine; Referring Provider Internal Medicine; Visit Provider Internal Medicine
DX: R19.5 Other fecal abnormalities (principal)
CPT/HCPCS: 74270

== ENCOUNTER → 2024-09-28 | Outpatient (CLI) | payer MEDICARE, SELFPAY ==
[2024-07-16 12:11] VITALS: BMI 19.7
--- NOTE | 2024-09-28 10:06 | NM_ITS ---
CLINICAL: 79-year-old female with history of abdominal bloating and early satiety. SEMI-SOLID PHASE 99m Tc SULFUR COLLOID GASTRIC EMPTYING STUDY COMPARISON: None available FINDINGS: The patient was administered 1.1 mCi of 99m Tc sulfur colloid mixed with oatmeal and consumed per os. Image acquisitions in the anterior-posterior projections were obtained for 60 minutes. There is prompt visualization of the stomach. There is no gastroesophageal reflux identified. First order kinetics are maintained throughout the duration of the acquisitions. The T ? linear fit was extrapolated to be 101.38 minutes, (Normal: 12-56 minutes). NM/Gastric Emptying Study IMPRESSION: 1. ABNORMAL 99m Tc sulfur colloid semi-solid phase (oatmeal) gastric emptying imaging examination. A. There is delayed semi-solid phase gastric emptying compared to normal controls with maintained first order kinetics throughout all components Electronically Signed: Jose Daniel Gross DO at 7:43 EST ,
== END | disposition home or self-care (01) ==
LOC: NM 10:05
PROVIDERS: PCP Internal Medicine; Referring Provider Student in an Organized Health Care Education/Training Program; Visit Provider Student in an Organized Health Care Education/Training Program
DX: R14.0 Abdominal distension (gaseous) (principal)
CPT/HCPCS: 78264; A9541

== ENCOUNTER 2024-10-14 11:23 | Day surgery (SDC) | payer MEDICARE, SELFPAY ==
[2024-07-16 12:11] VITALS: BMI 19.7
[2024-10-14] VITALS (8 sets, daily range): BP systolic 82–141; BP diastolic 43–71; PULSE 64–97; RESP 16–18; TEMP 36.1–36.2; O2SAT 93–98; BMI 19.1
--- NOTE | 2024-10-14 | IMM_PTH ---
PATIENT: JENNI HOLLINS LOC: EN U#:[id number] AGE/SX: 79/F ROOM: RE10/14/[address]: Dr. Walter Awad DO : 1945 BED: DIS: 10/14/2024 SPEC #: [id number] RECD: 10/16/24 10:56 STATUS: MALU REQ #: [id number] VALERIY: 10/14/24 00:[address]: Walter Awad DEPT: IMMUNOHISTOCHEMISTRY RECD BY: Joaquín Henriquez ENTERED: 10/16/24 10:57 SP TYPE: IMMUNO OT DR: Dr. Julia Frazier DO Tissues: B - Esophagus, NOS Procedures: P53 (initial) KI-67 (add) PHYSICIAN & INSTITUTION [place] [id number] SPECIMEN INFORMATION: Tissue Source: B- Distal esophagus biopsy Clinical Info: Dysphagia, bloating Specimen Number: [id number] CPT code: 63668,72370 METHODOLOGY: Deparaffinized sections of prefer/formalin-fixed tissue or PAP/DQ stained slides are incubated with monoclonal/polyclonal antibodies/oligonucleotide probes. Localization is made via biotin free immunoperoxidase method. Appropriate controls are performed and reacted as expected. Results on target cell population are indicated in the following table: RESULTS: ANTIBODY / CLONE RESULT Block B P53 (DO-7) positive, focal (wild type pattern) Ki-67 (30-9) positive, low These tests were developed and their performance characteristics determined by [facility]. They may not have been cleared or approved by the U.[place]. Food and Drug Administration. The FDA has determined that such clearance or approval is not necessary. The above immunohistochemical/dualISH markers are ordered and reviewed by the Pathologist. INTERPRETATION: B. Distal esophagus, biopsy: Negative for dysplasia. BERTRAM. 10/19/2024
--- NOTE | 2024-10-14 12:37 | PRE.ANES_ITS ---
ASA Classification* ASA Classification ASA Classification: 3 Assessment & Plan Anesthesia* Anesthesia Assessment Anesthesia Assessment: Discussed sedation and/or anesthesia options, risks, benefits, and alternatives with patient/parents/legal guardian/POA. Questions invited. The patient/parents/legal guardian/POA seems to understand and agrees to proceed with anesthesia plan. Reviewed the physical assessment, medical history, allergy history and patient home medications list prior to surgery/procedure/anesthetic and documented any changes. Performed airway and anesthesia risk assessments. Anesthesia Type Anesthesia Type: MAC History Source History Obtained from:: Patient and Chart Anesthesia Focused Assessment* Temperature: 96.9 F Pulse Rate: 82 Blood Pressure: 141/58 Respiratory Rate: 18 Pulse Ox: 98 Oxygen Delivery Method: Room Air Airway Assessment Mouth opens: >3 cm Mallampati Score: II Teeth Condition: Dentures Focused Labs Anesthesia Preop lab: CBC WBC 7.3 K/mm3 (4.4-11.0) 07/28/24 15:53 RBC 3.71 M/mm3 (4.2-5.4) L 07/28/24 15:53 Hgb 10.4 g/dL (12.0-15.0) L 07/28/24 15:53 Hct 33.0 % (37-47) L 07/28/24 15:53 Plt Count 321 K/mm3 (150-450) 07/28/24 15:53 CHEMISTRY Potassium 4.2 mmol/L (3.5-5.1) 06/01/24 12:00 Sodium 140 mmol/L (136-145) 06/01/24 12:00 Phosphorus 3.2 mg/dL (2.5-4.9) 02/20/21 10:29 BUN 15 mg/dL (7-18) 06/01/24 12:00 Creatinine 1.24 mg/dL (0.55-1.02) H 06/01/24 12:00 Glucose 93 mg/dL (74-106) 06/01/24 12:00 POC Glucose 82 mg/dL (70-110) 07/19/15 09:19 TSH 1.490 uIU/mL (0.358-3.740) 07/28/24 15:53 COAG PT 13.9 SECONDS (11.7-14.9) 10/30/19 08:30 Pre-Assessment Diagnosis/Proposed Procedure Planned Operative Procedure(s): EGD Anesthesia History 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 When Was Last Pacemaker Check QUESTION #4 FULL TEXT: You/Your Family Experience fever (hyperthermia) with Anesthesia Last Oral Intake Last Oral intake: Last Oral Intake NPO since 00:00 10/14/24 12:01 Meds taken in AM with sips of water? Meds patient instructed to take am of surgery PONV PONV - digital watch assembler: PONV - digital watch assembler Female Yes 10/13/24 10:44 HX of Motion Sickness Yes 10/13/24 10:44 HX of N/V After Surgery No 10/13/24 10:44 Non-Smoker Yes 10/13/24 10:44 Duration of Surgery greater No 10/13/24 10:44 than 60 minutes Number of Risk Factors 3 10/13/24 10:44 PONV Score Moderate Risk 10/13/24 10:44 Height & Weight Height & Weight: Anesthesia: Height & Weight Height 4 ft 11.06 in 10/14/24 12:01 Weight: 43 kg 10/14/24 12:01 Body Mass Index (BMI) 19.1 10/14/24 12:01 Respiratory Assessment Respiratory Assessment - digital watch assembler: Respiratory Tract Infection Hx - digital watch assembler Hx Respiratory Tract Infection No 10/13/24 10:44 STOP Sleep Apnea STOP Sleep Apnea - digital watch assembler: STOP Sleep Apnea - digital watch assembler Hx Hypertension No 10/13/24 10:44 Hx Sleep Apnea No 10/13/24 10:44 CPAP BIPAP Do you snore loudly (louder No 10/13/24 10:44 than talking or can be heard Do you often feel tired/ No 10/13/24 10:44 fatigued/ sleepy during daytime? Has anyone observed you stop No 10/13/24 10:44 breathing during sleep? STOP Results Negative 10/13/24 10:44 QUESTION #5 FULL TEXT : Do you snore loudly (louder than talking or can be heard through closed doors)? 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 Specify any problems Hx of Preganancy in last 3 No 10/13/24 10:44 Months Nurse Filling Out Transfusion DSCHRIBER 10/13/24 10:44 & Questions: Date: 10/13/24 10/13/24 10:44 Time: 10:45 10/13/24 10:44 Patient unable to answer at this time (ie. confused, unrespo /Reproduction History /Reproductive History - digital watch assembler: /Reproductive Hx- digital watch assembler Hx Now No 10/13/24 10:44 Gestational Age (in weeks): EDC: Hx Hx Para Hx Section SAB No 10/13/24 10:44 PFSH Medical History Wears hearing aid Wears glasses Wears partial dentures Wears dentures Post-menopausal Thyroid disease Arthritis Low iron DVT (deep venous thrombosis) Migraine headache Back pain Syncope Hypoglycemia History of hiatal hernia Gastric reflux On home oxygen therapy Former smoker Asthma Shortness of breath on exertion COPD (chronic obstructive pulmonary disease) History of pain when walking History of Holter monitoring Bronchiectasis BMI between 19-24,adult At risk for malnutrition Left lower lobe pneumonia Home Medications ?Medication ?Instructions ?Recorded ?Last Taken ?Type levothyroxine 25 mcg tablet 50 mcg PO DAILY thyroid 06/09/19 10/14/24 History tiotropium bromide 18 mcg capsule 1 puff inhalation DAILY breathing 06/09/19 10/14/24 History with inhalation device cholecalciferol (vitamin D3) 125 5,000 unit PO DAILY ##30 11/02/19 10/13/24 Rx mcg (5,000 unit) disintegrating tablet guaifenesin 1,200 mg tablet, 1,200 mg PO BID PRN Cough 06/09/21 10/13/24 History extended release 12 hr ipratropium 0.5 mg-albuterol 3 mg 3 ml INHALATION Q4H PRN sob 12/07/21 Unknown History (2.5 mg base)/3 mL nebulization soln fluticasone furoate 200 1 ea inhalation DAILY 06/14/22 Unknown History mcg-vilanterol 25 mcg/dose inhalation powder (Breo Ellipta) albuterol (refill) 90 90 mcg inhalation PRN PRN SOB 10/13/24 Unknown History mcg/actuation aerosol inhaler ferrous sulfate 325 mg (65 mg 325 mg PO DAILY 10/13/24 10/13/24 History iron) tablet linaclotide 145 mcg capsule 145 mcg PO DAILY 10/13/24 10/13/24 History (Linzess) Allergy/AdvReac Type Severity Reaction Status Date / Time Fish Containing Products Allergy Angioedema Verified 10/14/24 11:59 lactose Allergy Other Verified 10/14/24 11:59 levofloxacin (From Levaquin) Allergy Unknown Verified 10/14/24 11:59 meperidine (From Demerol) Allergy Angioedema Verified 10/14/24 11:59 pepper (genus Capsicum) Allergy Other Verified 10/14/24 11:59 propoxyphene (From Allergy Unknown Verified 10/14/24 11:59 Darvocet-N) Sulfa (Sulfonamide Allergy Hives Verified 10/14/24 11:59 Antibiotics) Surgical History (Updated 10/13/24 @ 10:54 by Alda Abdullahi) Hx of colonoscopy Hx of dilation and curettage History of esophagogastroduodenoscopy (EGD) Status post open reduction and internal fixation (ORIF) of fracture Status post repair of paraesophageal diaphragmatic hernia H/O: section History of appendectomy Social History household members: none Smoking Status: Former smoker substance use type: does not use Review of Systems (Anesthesia) ROS Narrative System reviewed and no additional complaints, except as documented.
--- NOTE | 2024-10-14 12:45 | EGD_PTH ---
PATIENT: JENNI HOLLINS LOC: EN U#:[id number] AGE/SX: 79/F ROOM: RE10/14/[address]: Dr. Walter Awad DO : 1945 BED: DIS: 10/14/2024 SPEC #: [id number] RECD: 10/15/24 08:03 STATUS: MALU REJuliana #: [id number] VALERIY: 10/14/24 12:[address]: Walter Awad DEPT: SURGICAL PATHOLOGY RECD BY: Dena Bach ENTERED: 10/15/24 10:54 SP TYPE: EGD BIOPSY CHANDLER DR: Dr. Julia Frazier DO Tissues: A - Duodenum, NOS B - Esophagus, NOS Procedures: Special Stain Group I Surgery Specimen Level IV Alcian Blue/PAS (control) HEADER OPERATION: EGD, biopsy PRE-OP DIAGNOSIS: Dysphagia, bloating TISSUE SUBMITTED: A- Duodenum biopsy, B- Distal esophagus biopsy MICROSCOPIC DIAGNOSIS A. Duodenum, biopsy: Fragments of duodenal mucosa with mild Finn's gland hyperplasia. B. Distal esophagus, biopsy: Fragments of gastric mucosa with focal intestinal metaplasia (goblet cell metaplasia) consistent with Sahu's esophagus. Chronic inflammation. Negative for dysplasia. See comment. 10/16/2024 COMMENT B. Alcian blue/PAS stain with matched control is used in the evaluation of the specimen. Immunohistochemistry ([id number]) for P53 and Ki-67 will be performed and results will be reported separately. MICROSCOPIC DESCRIPTION Slides are reviewed. GROSS DESCRIPTION A. Received in fixative is one container labeled with the patient's name and designated Duodenum biopsy. The specimen consists of two irregular fragment of light lala soft tissue that measuring in aggregate 0.8 x 0.5 x 0.1 cm. The specimen is totally submitted in one cassette. B. Received in fixative is one container labeled with the patient's name and designated Distal esophagus biopsy. The specimen consists of multiple irregular fragments of light lala soft tissue that in aggregate measure 0.9 x 0.6 x 0.1 cm. The specimen is totally submitted in one cassette. MS/mr 10/15/2024 TC:5 CPT:48911t2,30312
--- NOTE | 2024-10-14 13:09 | PCM.HP.STD ---
HPI - General General Date of Admission: 10/14/24 Date of Service: 10/14/24 Chief Complaint: bloating and abdominal pain HPI Narrative JENNI HOLLINS, is a 79 F who presents for endoscopic evaluation of abdominal pain, bloating and intermittent dysphagia. [facility] ED 07.20.24 with food impaction. Underwent EGD for removal. EGD 07.20.24: - Food was found in the esophagus. Removal was successful. - Benign-appearing esophageal stenosis. Biopsied. - Hiatal hernia. - Normal duodenal bulb. OV 08.11.24 Pt does not feel like she is having further issues with swallowing. However, she is having issues with constipation and bloating. She tells me she has a hx of hiatal hernia with repair after her intestine came through and were touching her lung. She tells me this feels similar. She had a normal CT scan 06.19.24 but did show stool throughout the colon. She takes Linzess and mirlax daily which gives her diarrhea but if she does not take it she will not go. \ [facility] Medical History Wears hearing aid Wears glasses Wears partial dentures Wears dentures Post-menopausal Thyroid disease Arthritis Low iron DVT (deep venous thrombosis) Migraine headache Back pain Syncope Hypoglycemia History of hiatal hernia Gastric reflux On home oxygen therapy Former smoker Asthma Shortness of breath on exertion COPD (chronic obstructive pulmonary disease) History of pain when walking History of Holter monitoring Bronchiectasis BMI between 19-24,adult At risk for malnutrition Left lower lobe pneumonia Home Medications ?Medication ?Instructions ?Recorded ?Last Taken ?Type levothyroxine 25 mcg tablet 50 mcg PO DAILY thyroid 06/09/19 10/14/24 History tiotropium bromide 18 mcg capsule 1 puff inhalation DAILY breathing 06/09/19 10/14/24 History with inhalation device cholecalciferol (vitamin D3) 125 5,000 unit PO DAILY ##30 11/02/19 10/13/24 Rx mcg (5,000 unit) disintegrating tablet guaifenesin 1,200 mg tablet, 1,200 mg PO BID PRN Cough 06/09/21 10/13/24 History extended release 12 hr ipratropium 0.5 mg-albuterol 3 mg 3 ml INHALATION Q4H PRN sob 12/07/21 Unknown History (2.5 mg base)/3 mL nebulization soln fluticasone furoate 200 1 ea inhalation DAILY 06/14/22 Unknown History mcg-vilanterol 25 mcg/dose inhalation powder (Breo Ellipta) albuterol (refill) 90 90 mcg inhalation PRN PRN SOB 10/13/24 Unknown History mcg/actuation aerosol inhaler ferrous sulfate 325 mg (65 mg 325 mg PO DAILY 10/13/24 10/13/24 History iron) tablet linaclotide 145 mcg capsule 145 mcg PO DAILY 10/13/24 10/13/24 History (Linzess) Allergy/AdvReac Type Severity Reaction Status Date / Time Fish Containing Products Allergy Angioedema Verified 10/14/24 11:59 lactose Allergy Other Verified 10/14/24 11:59 levofloxacin (From Levaquin) Allergy Unknown Verified 10/14/24 11:59 meperidine (From Demerol) Allergy Angioedema Verified 10/14/24 11:59 pepper (genus Capsicum) Allergy Other Verified 10/14/24 11:59 propoxyphene (From Allergy Unknown Verified 10/14/24 11:59 Darvocet-N) Sulfa (Sulfonamide Allergy Hives Verified 10/14/24 11:59 Antibiotics) Surgical History Hx of colonoscopy Hx of dilation and curettage History of esophagogastroduodenoscopy (EGD) Status post open reduction and internal fixation (ORIF) of fracture Status post repair of paraesophageal diaphragmatic hernia H/O: section History of appendectomy Social History household members: none Smoking Status: Former smoker substance use type: does not use ROS Constitutional Constitutional: Denies fatigue, fever(s), poor appetite, weight gain or weight loss Gastrointestinal Gastrointestinal: Denies belching, bloating, change in bowel habits, change in stool character, chewing difficulty, coffee ground emesis, constipation, cramping, diarrhea, dyspepsia, dysphagia, early satiety, excessive flatus, fecal incontinence, heartburn, hematemesis, hematochezia, hemorrhoids, loose stools, melena, nausea, odynophagia, rectal bleeding, tenesmus, vomiting or weight changes Vital Signs Vital Signs Vital Signs: 10/14/24 12:01 10/14/24 12:01 10/14/24 12:39 Temperature 96.9 F L 96.9 F L Temperature Source Temporal Pulse Rate 82 82 Respiratory Rate 18 18 Respiratory Pattern Normal Blood Pressure 141/58 H 141/58 H Blood Pressure Mean 85 Blood Pressure Source Monitor Blood Pressure Position Sitting Pulse Ox 98 98 Oxygen Delivery Method Room Air Room Air Weight Weight: 94 lb 12.78 oz Body Mass Index (BMI) 19.1 Physical Exam Const alert, oriented x3, no apparent distress, healthy appearing and well nourished General Appearance: cooperative, comfortable, well kempt and well developed Orientation / Consciousness: awake and oriented to person HEENT Head and Scalp: normocephalic and atraumatic Face and Sinus: normal facial exam Mouth: oral and palatal mucosa normal Eyes General Eye: normal appearance of both eyes Neck full ROM Lymph Lymphatic: no lymphadenopathy noted Chest inspection of chest normal Resp normal respiratory effort and no use of accessory muscles Cardio regular rate and regular rhythm GI normal to inspection, nondistended, normoactive bowel sounds, soft to palpation, non-tender, non-distended and no masses Auscultation: normoactive bowel sounds Palpation: soft Percussion: normal to percussion Rectal Exam: visual inspection normal and normal sphincter tone no CVA tenderness Back/Spine no CVA tenderness and normal ROM Extremity normal to inspection Peripheral Pulses: Yes pulses 2+ throughout Skin no rashes or lesions noted General Skin Exam: no breakdown, elasticity normal and turgor normal Neuro oriented x3 Motor Exam: strength 5/5 throughout Psych mental status grossly normal Appearance: grossly normal Attitude: calm Activity / Motor Behavior: appropriate eye contact Speech: normal speech Thought Process: normal thought process Thought Content: normal thought content Attention / Concentration: attention grossly intact Memory / Cognition: memory grossly intact Insight: insight good Judgement: judgement good Assessment & Plan Assessment/Plan (1) Bloating: (2) Esophageal obstruction due to food impaction: PLAN: Plan Assessment and Plan Assessment and Plan (1) Dysphagia: (2) Bloating: Status: Acute Plan: This is a 79 yo female pt here today for establishment with [facility]. Pt was seen in [facility] ED 11.. for food impaction and underwent EGD for removal with recommendation for repeat scope for dilation in 3 weeks. She will be scheduled for this. She also has complaints of bloating and constipation. She feels her stomach may empty slow. She will continue Linzess and Miralax. I will order GES to assess for gastroparesis causing a slow transit constipation. -EGD -GES -Continue Linzess and miralax -f/u after procedure Orders: Orders Gastric Emptying Study Today R14.0 - Abdominal distension (gaseous)
--- NOTE | 2024-10-14 13:44 | OP.CCLET_ITS ---
10/14/2024 Julia Frazier [address] [place] [address] Re : Upper GI endoscopy procedure for Pam Fernando Dear Dr. Frazier This procedure was performed on Monday, October 14, 2024. 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 Biopsied. - Medium-sized hiatal hernia. - Gastric stenosis was found at the pylorus. - Chronic duodenitis. Biopsied. Recommendations : - Discharge patient to home. - Resume previous diet. - Continue present medications. - Await pathology results. -Patient may need Botox and further dilation of pyloric stenosis and gastroparesis if she still is not able to eat regular foods. My findings are described in the full procedure note, which is enclosed. If I can be of further assistance, please feel free to contact me at . Sincerely, Walter Awad, 10/14/2024 1:43:42 PM This report has been signed electronically.
--- NOTE | 2024-10-14 13:44 | OP.EGD_ITS ---
Patient Name: Pam Fernando Procedure Date: 10/14/2024 1:17 PM Date of : 1945 Age: 79 Procedure: Upper GI endoscopy Indications: Epigastric abdominal pain, Functional Dyspepsia, Dyspepsia Providers: Walter Awad DO Referring MD: Julia Frazier Medicines: Monitored Anesthesia Care Patient Profile: This is a 79 year old female. Refer to note in patient chart for documentation of history and physical. Patient has symptoms of acute abdominal cramping, acute epigastric abdominal pain and acute dyspepsia. Complications: No immediate complications. Procedure: Pre-Anesthesia Assessment: - Prior to the procedure, a History and Physical was performed, and patient medications and allergies were reviewed. The patient is competent. The risks and benefits of the procedure and the sedation options and risks were discussed with the patient. All questions were answered and informed consent was obtained. Patient identification and proposed procedure were verified by the physician in the pre-procedure area. Mental Status Examination: alert and oriented. Airway Examination: normal oropharyngeal airway and neck mobility. Respiratory Examination: clear to auscultation. CV Examination: normal. Prophylactic Antibiotics: The patient does not require prophylactic antibiotics. Prior Anticoagulants: The patient has taken no anticoagulant or antiplatelet agents except for NSAID medication. ASA Grade Assessment: II - A patient with mild systemic disease. After reviewing the risks and benefits, the patient was deemed in satisfactory condition to undergo the procedure. The anesthesia plan was to use monitored anesthesia care (MAC). Immediately prior to administration of medications, the patient was re-assessed for adequacy to receive sedatives. The heart rate, respiratory rate, oxygen saturations, blood pressure, adequacy of pulmonary ventilation, and response to care were monitored throughout the procedure. The physical status of the patient was re-assessed after the procedure. After obtaining informed consent, the endoscope was passed under direct vision. Throughout the procedure, the patient's blood pressure, pulse, and oxygen saturations were monitored continuously. The Endoscope was introduced through the mouth, and advanced to the fourth part of the duodenum. Small bowel enteroscopy was deemed necessary. The upper GI endoscopy was accomplished without difficulty. The patient tolerated the procedure well. Scope In: 1:29:17 PM Scope Out: 1:33:27 PM Total Procedure Duration Time 0 hours 4 minutes 10 seconds Findings: There were esophageal mucosal changes secondary to established long-segment Sahu's disease present in the lower third of the esophagus. The maximum longitudinal extent of these mucosal changes was 7 cm in length. Mucosa was biopsied with a cold forceps for histology in a targeted manner at intervals of 1 cm in the lower third of the esophagus. One specimen bottle was sent to pathology. Verification of patient identification for the specimen was done. Estimated blood loss was minimal. A medium-sized hiatal hernia was present. A benign-appearing, intrinsic severe stenosis was found at the pylorus. This was traversed. Patchy mild inflammation characterized by erythema and friability was found in the duodenal bulb. Biopsies were taken with a cold forceps for histology. Verification of patient identification for the specimen was done. Estimated blood loss was minimal. 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 Biopsied. - Medium-sized hiatal hernia. - Gastric stenosis was found at the pylorus. - Chronic duodenitis. Biopsied. Recommendation: - Discharge patient to home. - Resume previous diet. - Continue present medications. - Await pathology results. -Patient may need Botox and further dilation of pyloric stenosis and gastroparesis if she still is not able to eat regular foods. Procedure Code(s): --- Professional --- 12232, Small intestinal endoscopy, enteroscopy beyond second portion of duodenum, not including ileum; with biopsy, single or multiple CPT copyright 2021 [employer]. All rights reserved. The codes documented in this report are preliminary and upon digital controls technical officer review may be revised to meet current compliance requirements. Walter Awad DO 10/14/2024 1:43:42 PM This report has been signed electronically. Number of Addenda: 0 Note Initiated On: 10/14/2024 1:17 PM
--- NOTE | 2024-10-14 13:45 | PCM.POST.ANE ---
Anesthesia: Postop Eval I Current Vital Signs Temperature: 97 F Pulse Rate: 67 Blood Pressure: 100/43 Respiratory Rate: 18 Pulse Ox: 97 Oxygen Delivery Method: Room Air Assessment Airway patent: Yes Spontaneous unlabored respirations: Yes Mental status: Asleep nausea: No Vomiting: No Anesthesia Complication: No Fluid Hydration Crystalloid volume administer (ml): 30 Total IV fluid infused: 30 Progress Note Anesthesia document: Postop Eval 1 completed: Yes
--- NOTE | 2024-10-14 14:22 | PCM.POSTANE2 ---
Anesthesia Postop Eval I Sum Postop Eval Completion status Anesthesia document: Postop Eval 1 completed: Yes Anesthesia Postop Eval I Summary Anesthesia Postop Eval I Summary: Anesthesia Postop Eval I: Assessment Summary Airway patent Yes 10/14/24 14:03 [email or web address] Spontaneous unlabored Yes 10/14/24 14:03 [email or web address] respirations Mental status Asleep 10/14/24 14:03 [email or web address] nausea No 10/14/24 14:03 [email or web address] Vomiting No 10/14/24 14:03 [email or web address] Anesthesia Postop Eval I: Fluid Summary Crystalloid volume administer 30 10/14/24 14:03 [email or web address] (ml) Colloids volume administered ( ml) Blood Product volume administered (ml) Total IV fluid infused 30 10/14/24 14:03 [email or web address] Anesthesia Postop Eval I: Summary Notes Anesthesia Complication No 10/14/24 14:03 [email or web address] Anesthesia Complication Comment: Post-operative progress note Anesthesia: Postop Eval II Evaluation Mental status: Awake Pain Level: 0 nausea: No Vomiting: No Complications Anesthesia Complication: No
== END 2024-10-14 14:16 | disposition home or self-care (01) ==
LOC: EN 11:25 → AC 11:30
PROVIDERS: PCP Internal Medicine; Referring Provider Internal Medicine; Visit Provider Internal Medicine Gastroenterology
PROC: 0DJ08ZZ Inspection of Upper Intestinal Tract, Via Natural or Artificial Opening Endoscopic (ICD-10-PCS; CPT 43235; principal; 2024-10-14 12:40)
DX: K21.00 Gastro-esophageal reflux disease with esophagitis, without bleeding (principal); J44.9 Chronic obstructive pulmonary disease, unspecified; K44.9 Diaphragmatic hernia without obstruction or gangrene; Z87.891 Personal history of nicotine dependence; K22.2 Esophageal obstruction; K29.80 Duodenitis without bleeding; K22.70 Barrett's esophagus without dysplasia; Z79.890 Hormone replacement therapy; E07.9 Disorder of thyroid, unspecified; T18.128A Food in esophagus causing other injury, initial encounter; W44.F3XA Food entering into or through a natural orifice, initial encounter
CPT/HCPCS: 43239; 88305; 88312; 88341; 88342; A4216; J2405

== ENCOUNTER → 2024-11-05 | Outpatient (CLI) | payer MEDICARE, SELFPAY ==
[2024-07-16 12:11] VITALS: BMI 19.7
[2024-11-05 17:55] LABS: Absolute Lymphocyte Count 1.76 X10^3/uL (0.83-4.51); Basophil# 0.06 X10^3/uL; Basophil% 0.9 % (0-1); Eosinophil# 1.01 X10^3/uL; Eosinophils% 15.9 % (0-5); Hematocrit 32.7 % (37-47); Hemoglobin 10.3 g/dL (12.0-15.0); Lymphocyte # 1.76 X10^3/ul (0.83-4.51); Lymphocyte % 27.7 % (19-41); Mean Corp Hgb Conc 31.5 g/dL (32-36); Mean Corpuscular Hgb 28.5 pg (27.0-32.0); Mean Corpuscular Volume 90.6 fL (81-99); Mean Platelet Vol. 10.7 fl (6.2-12.0); Monocyte# 0.55 X10^3/uL; Monocyte% 8.6 % (0-10); NRBC Flagged by Analyzer 0 % (0-5); Neutrophil # 2.95 X10^3/uL (2.7-7.7); Neutrophil % 46.4 % (47-70); Platelet Count 291 K/mm3 (150-450); RBC Distribution Width CV 14.1 % (11.6-14.6); RBC Distribution Width SD 47.1 fl (35.1-43.9); Red Blood Count 3.61 M/mm3 (4.2-5.4); White Blood Count 6.4 K/mm3 (4.4-11.0)
== END | disposition home or self-care (01) ==
LOC: MTLAB 15:08
PROVIDERS: PCP Internal Medicine; Referring Provider Internal Medicine Pulmonary Disease; Visit Provider Internal Medicine Pulmonary Disease
DX: J47.9 Bronchiectasis, uncomplicated (principal)
CPT/HCPCS: 36415; 85025

== ENCOUNTER 2024-12-10 13:16 | Outpatient (CLI) | payer MEDICARE, SELFPAY ==
[2024-07-16 12:11] VITALS: BMI 19.7
[2024-12-10 13:19] VITALS: BP 144/51; PULSE 88; RESP 16; TEMP 36.3; O2SAT 97; BMI 18.8
[2024-12-10] MEDS: DENOSUMAB 60 MG/ML SC (13:30)
== END 2024-12-10 23:59 | disposition home or self-care (01) ==
LOC: MEDOUTP 13:17
PROVIDERS: PCP Internal Medicine; Referring Provider Internal Medicine; Visit Provider Internal Medicine
DX: M81.0 Age-related osteoporosis without current pathological fracture (principal)
CPT/HCPCS: 96372; J0897

== ENCOUNTER 2025-01-08 12:27 | Inpatient (IN) | payer MEDICARE, SELFPAY ==
[2024-07-16 12:11] VITALS: BMI 19.7
[2025-01-08] VITALS (13 sets, daily range): BP systolic 112–139; BP diastolic 61–82; PULSE 97–123; RESP 18–25; TEMP 36.3–36.9; O2SAT 89–96; BMI 20.9
--- NOTE | 2025-01-08 12:41 | EX.ED.DYSGE1 ---
HPI History of Present Illness Chief Complaint: Shortness of Breath Narrative Narrative: Patient is a 71-year-old female past medical history of COPD, DVT, iron deficiency anemia who presented to the emergency department the chief complaint of shortness of breath from her physician's office. According the patient for the last approximately 10 days she has been not feeling well she originally was placed on Z-Fahad and steroids and was not getting better had a follow-up appointment they increased her steroids and changed her antibiotic. States that she had another fall appointment today and noted that she was not feeling any better therefore they staff there sent her here to the emergency department to be further evaluated. Patient states that her cough is dry and states that when she gets up and walks her oxygen is low in the mid 70s and feels very short of breath and weak. Patient states that normally she has oxygen at night but lately she has been using it throughout the day which is abnormal for her denies any recent travels. [facility] Medical History Wears hearing aid Wears glasses Wears partial dentures Wears dentures Post-menopausal Thyroid disease Arthritis Low iron DVT (deep venous thrombosis) Migraine headache Back pain Syncope Hypoglycemia History of hiatal hernia Gastric reflux On home oxygen therapy Former smoker Asthma Shortness of breath on exertion COPD (chronic obstructive pulmonary disease) History of pain when walking History of Holter monitoring Bronchiectasis BMI between 19-24,adult At risk for malnutrition Left lower lobe pneumonia Home Medications ?Medication ?Instructions ?Recorded ?Last Taken ?Type tiotropium bromide 18 mcg capsule 1 puff inhalation DAILY breathing 06/09/19 01/08/25 History with inhalation device cholecalciferol (vitamin D3) 125 5,000 unit PO DAILY ##30 11/02/19 10/13/24 Rx mcg (5,000 unit) disintegrating tablet guaifenesin 1,200 mg tablet, 1,200 mg PO BID PRN Cough 06/09/21 10/13/24 History extended release 12 hr ipratropium 0.5 mg-albuterol 3 mg 3 ml INHALATION Q4H PRN sob 12/07/21 01/08/25 History (2.5 mg base)/3 mL nebulization soln fluticasone furoate 200 1 ea inhalation DAILY 06/14/22 01/07/25 History mcg-vilanterol 25 mcg/dose inhalation powder (Breo Ellipta) linaclotide 145 mcg capsule 145 mcg PO DAILY 10/13/24 01/08/25 History (Linzess) pantoprazole 40 mg tablet,delayed 40 mg PO BID #60 tabs 10/22/24 Unknown Rx release albuterol sulfate 90 mcg/actuation 2 puff inhalation Q6H PRN 01/08/25 Unknown History aerosol inhaler shortness of breath or wheezing amoxicillin 875 mg-potassium 1 tab PO BID 01/08/25 01/08/25 History clavulanate 125 mg tablet levothyroxine 50 mcg tablet 50 mcg PO DAILY 01/08/25 01/08/25 History (Synthroid) metoclopramide HCl 5 mg/5 mL oral 5 mg PO TID 01/08/25 01/07/25 History solution prednisone 20 mg tablet See Taper PO DAILY 01/08/25 01/07/25 History Allergy/AdvReac Type Severity Reaction Status Date / Time Fish Containing Products Allergy Angioedema Verified 01/08/25 12:28 lactose Allergy Other Verified 01/08/25 12:28 levofloxacin (From Levaquin) Allergy Unknown Verified 01/08/25 12:28 meperidine (From Demerol) Allergy Angioedema Verified 01/08/25 12:28 pepper (genus Capsicum) Allergy Other Verified 01/08/25 12:28 propoxyphene (From Allergy Unknown Verified 01/08/25 12:28 Darvocet-N) Sulfa (Sulfonamide Allergy Hives Verified 01/08/25 12:28 Antibiotics) Family History no significant family his Surgical History Hx of colonoscopy Hx of dilation and curettage History of esophagogastroduodenoscopy (EGD) Status post open reduction and internal fixation (ORIF) of fracture Status post repair of paraesophageal diaphragmatic hernia H/O: section History of appendectomy Social History household members: none Smoking Status: Former smoker substance use type: does not use ROS ROS ED ROS Narrative Constitutional: Denies any fevers, chills, headaches Cardiovascular: Complains of chest tightness denies palpitations Respiratory: Complains of cough but denies any sputum production and complains of shortness of breath Abdomen: Denies abdominal pain nausea vomit diarrhea : Denies urinary symptoms Neurological: Denies numbness, weakness, tingling Musculoskeletal: Denies back pain Skin: Denies any rashes or lesions EXAM Physical Exam Narrative Exam Narrative: General: Patient lying in bed rest comfortably did not appear to be in acute distress Head: Atraumatic, normocephalic Eyes: PERRL bilaterally, EOMI bilaterally, no conjunctival injection noted Neck: Soft, supple, trachea midline Cardiovascular: Regular in rhythm Respiratory: Patient has diminished breath sounds bilaterally with mild end expiratory wheezing noted bilaterally Abdomen: No tenderness palpation, soft, nondistended Extremities: +4/5 strength noted in the bilateral upper and lower extremities Neurological: Patient follow commands knew that she was at [facility] year is 2024 Skin: Warm, dry, intact no rashes or lesions noted Const Vital Signs: 01/08/25 12:28 01/08/25 12:58 01/08/25 13:03 Temperature 98.5 F Temperature Source Oral Pulse Rate 97 98 Respiratory Rate 18 24 H Respiratory Effort Respiratory Pattern Tachypnea Blood Pressure 139/64 H Blood Pressure Mean 89 Pulse Ox 94 Oxygen Delivery Method Room Air Room Air Oxygen Flow Rate (L/min) 01/08/25 13:11 01/08/25 14:27 01/08/25 14:31 Temperature Temperature Source Pulse Rate 122 H Respiratory Rate 25 H Respiratory Effort Short of Breath Respiratory Pattern Blood Pressure 130/65 H Blood Pressure Mean 86 Pulse Ox 89 92 Oxygen Delivery Method Room Air Room Air Nasal Cannula Oxygen Flow Rate (L/min) 1 01/08/25 14:36 Temperature Temperature Source Pulse Rate Respiratory Rate Respiratory Effort Respiratory Pattern Blood Pressure Blood Pressure Mean Pulse Ox 96 Oxygen Delivery Method Nasal Cannula Oxygen Flow Rate (L/min) 4 MDM MDM MDM Narrative Medical decision making narrative: Patient is a 79-year-old female who presented to the emergency department the chief complaint of cough, shortness of breath, dyspnea on exertion. On the differential diagnosis includes but not limited to ACS, pneumonia, pneumothorax, CHF. Once workup is obtained reviewed she will be reevaluated. Patient is already on steroids 60 mg at home and will be given 3 DuoNebs. Patient be given 1 L of IV fluids there is concern for a hypervolemic state therefore we will hold off on 30 cc/kg bolus. Patient CBC was reviewed and showed no evidence leukocytosis white blood count normal at 7.8, hemoglobin 11.4, platelet count was noted be 306. Patient's INR of 0.9, PT normal at 12.5. Patient sodium normal 139, potassium of 3.5, creatinine was 1.20. Patient lactic acid normal at 1.7, AST and ALT were 19 and 8 respectively. Patient troponin is pending, proBNP normal at 54. Patient's chest x-ray was reviewed by myself and by radiology which showed pleural-parenchymal changes more prominent at the right lung base with evidence of prior surgery in the right upper lobe with postoperative scarring rib deformity no significant change since prior exam. Given the nature of her workup we will add a CT angiography of chest on given that she has not improved with her steroids and antibiotics and her history of a DVT. Patient's EKG was reviewed and showed sinus rhythm with a rate of 90 beats per minutes. Patient was attempted be ambulated here in the emergency department and her oxygen level dropped to the mid 80s and she was very weak. Patient CTA of the chest reviewed and showed emphysematous changes no evidence of pulmonary embolism. There is a 2.4 cm x 1 point centimeter irregular nodular density in the posterior lateral aspect of the right upper lobe recommending correlation with PET scan. Discussed case with hospitalist Dr. Alonso who accept the patient for admission. At this point in time there is no identifiable source of infection therefore do not believe the patient warrants IV antibiotics at 2:46 PM. Reperfusion assessment was performed as well and she remains normotensive to hypertensive therefore no vasopressors indicated at 2:46 PM. Lab Data Labs: Laboratory Results - last 24 hr 01/08/25 12:50 WBC 7.8 RBC 4.02 L Hgb 11.4 L Hct 35.0 L MCV 87.1 MCH 28.4 MCHC 32.6 RDW Std Deviation 42.1 RDW Coeff of Amber 13.3 Plt Count 306 MPV 10.3 Immature Gran % (Auto) 1.000 H Neut % (Auto) 54.5 Lymph % (Auto) 28.8 Power % (Auto) 8.8 Eos % (Auto) 6.5 H Baso % (Auto) 0.4 Absolute Neuts (auto) 4.2 Absolute Lymphs (auto) 2.25 Nucleated RBC % 0 PT 12.5 INR 0.9 APTT 21.7 L Sodium 139 Potassium 3.5 Chloride 102 Carbon Dioxide 22.3 Anion Gap 15 BUN 16 Creatinine 1.20 Estim Creat Clear Calc 27.75 L Est GFR (MDRD) Non-Af 46 L BUN/Creatinine Ratio 13.2 Glucose 97 Lactic Acid 1.7 Calcium 8.6 Total Bilirubin 0.29 AST 19 ALT 8 Alkaline Phosphatase 70 NT pro BNP II 54 Total Protein 7.6 Albumin 3.9 Globulin 3.6 Albumin/Globulin Ratio 1.1 Radiography Diagnostic Testing: Clinical Impression(s) from Imaging Studies Chest X-Ray 01/08/25 13:30 IMPRESSION: NO SIGNIFICANT CHANGE SINCE THE PRIOR EXAM. Pleural-parenchymal changes more prominent at the right lung base with evidence of prior surgery in the right upper lobe with postoperative scarring and rib deformity. Reading Location: [facility] Chest CTA 01/08/25 13:49 IMPRESSION: Hyperinflation. Emphysematous changes. No evidence of pulmonary embolism. 2.4 cm 1.2 cm irregular nodular density in the posterolateral aspect of the right upper lobe as described. Correlation with PET scan recommended. Reading Location: [facility] Discharge Plan Triage Chief Complaint: Shortness of Breath ED Provider: Reji Newton Dx/Rx/DC Orders Clinical Impression: COPD exacerbation, Acute hypoxic respiratory failure, Generalized weakness Prescriptions: No Action tiotropium bromide 1 PUFF inhaler 1 puff inhalation DAILY cholecalciferol (vitamin D3) 5,000 UNIT tablet,disintegrating 5,000 unit PO DAILY Qty: 30 0RF Patient Comments: PT UNSURE OF STRENGTH guaifenesin 1,200 MG tablet extended release 12hr 1,200 mg PO BID PRN (Reason: Cough) Patient Comments: ONLY NEEDED ipratropium-albuterol 3 ML solution for nebulization 3 ml INHALATION Q4H PRN (Reason: sob) fluticasone furoate-vilanterol [Breo Ellipta] 200-25 mcg/dose blister with device 1 ea INHALATION DAILY Patient Comments: Inhale 1 puff daily Linzess 145 mcg capsule 145 mcg PO DAILY prednisone 20 mg tablet See Taper PO DAILY Taper: Prednisone Taper 60 mg WITH BREAKFAST for 2 Days 40 mg WITH BREAKFAST for 3 Days 20 mg WITH BREAKFAST for 3 Days metoclopramide HCl 5 mg/5 mL solution 5 mg PO TID levothyroxine [Synthroid] 50 mcg tablet 50 mcg PO DAILY amoxicillin-pot clavulanate 875-125 mg tablet 1 tab PO BID Patient Comments: STARTED ON SATURDAY albuterol sulfate 90 mcg/actuation HFA aerosol inhaler 2 puff inhalation Q6H PRN (Reason: shortness of breath or wheezing) pantoprazole 40 mg tablet,delayed release (DR/EC) 40 mg PO BID Qty: 60 3RF Patient Comments: PT STATES SHE HAS NOT BEEN TAKING Primary Care Provider: Julia Frazier Referrals: Julia Frazier DO [Primary Care Provider] - Print Language: Ghanaian Disposition Disposition: Acute Care Hospital [facility]
[2025-01-08] MEDS: Ipratropium/Albuterol Sulfate 3 ML AMPUL.NEB INHALATION ×4 (13:02→19:08)
[2025-01-08] MEDS: 0.9% Normal Saline (1000mL) 1,000 ML 999 ML IV (13:05)
[2025-01-08 13:11] LABS: Absolute Lymphocyte Count 2.25 X10^3/uL (0.83-4.51); Absolute Neutrophil Count 4.2 X10^3/uL (2.0-7.7); Basophil# 0.03 X10^3/uL; Basophil% 0.4 % (0-1); Eosinophil# 0.51 X10^3/uL; Eosinophils% 6.5 % (0-5); Hemoglobin 11.4 g/dL (12.0-15.0); Lymphocyte # 2.25 X10^3/ul (0.83-4.51); Lymphocyte % 28.8 % (19-41); Mean Corp Hgb Conc 32.6 g/dL (32-36); Mean Corpuscular Hgb 28.4 pg (27.0-32.0); Mean Corpuscular Volume 87.1 fL (81-99); Mean Platelet Vol. 10.3 fl (6.2-12.0); Monocyte# 0.69 X10^3/uL; Monocyte% 8.8 % (0-10); NRBC Flagged by Analyzer 0 % (0-5); Neutrophil # 4.24 X10^3/uL (2.7-7.7); Neutrophil % 54.5 % (47-70); Platelet Count 306 K/mm3 (150-450); RBC Distribution Width CV 13.3 % (11.6-14.6); RBC Distribution Width SD 42.1 fl (35.1-43.9); Red Blood Count 4.02 M/mm3 (4.2-5.4); White Blood Count 7.8 K/mm3 (4.4-11.0)
[2025-01-08 13:19] LABS: International Normalized Ratio 0.9; Prothrombin Time (Protime)PT. 12.5 SECONDS (11.7-14.9)
[2025-01-08 13:21] LABS: Partial Thromboplast Time 21.7 Seconds (24.1-36.2)
[2025-01-08 13:29] LABS: ALB/GLOB Ratio 1.1 RATIO (0.9-2.4); AST(SGOT) 19 U/L (<=31); Alanine Aminotransfer ALT/SGPT 8 U/L (<=34); Albumin, Serum 3.9 g/dL (3.4-4.8); Alkaline Phosphatase 70 U/L (35-104); Anion Gap 15 (5-15); BUN 16 mg/dL (4-19); BUN/Creat Ratio 13.2 RATIO (10-20); Calcium,Total 8.6 mg/dL (7.6-11.0); Carbon Dioxide 22.3 mmol/L (21.0-32.0); Chloride 102 mmol/L (98-108); EST Glomerular Filtration Rate 46 (>60); Estimated Creatinine Clearance 27.75 ml/min (50-250); Globulin 3.6 g/dL (2.2-4.2); Glucose 97 mg/dL (70-99); Potassium 3.5 mmol/L (3.3-5.1); Pro- Brain NATRIURETIC PEPTIDE 54 pg/mL (<=1800); Protein, Total 7.6 g/dL (5.9-8.4); Sodium Level 139 mmol/L (133-145); Total Bilirubin 0.29 mg/dL (0.00-1.30)
--- NOTE | 2025-01-08 13:30 | RAD_ITS ---
PROCEDURE: CHEST PA AND LATERAL 01/08/2025 REASON FOR EXAM: 10 day history of shortness of breath. TECHNIQUE: Frontal and lateral views of the chest. COMPARISON: Comparison is made with prior study dated July 19, 2024. FINDINGS: Hardware: EKG electrodes are seen. Heart: The heart size is normal. Mediastinum: Calcification of the aortic arch. Lungs: Hyperinflation. Stable pleural-parenchymal changes at the left lung base more prominent at the right lung base. There is evidence of the heel right upper rib fracture. Stable focal scarring in the right upper lobe. Surgical clips are seen in the right upper lobe most likely secondary to prior surgical intervention. Bones: Degenerative changes are identified within the thoracic spine. Increased kyphosis. RAD/Chest PA and Lateral IMPRESSION: NO SIGNIFICANT CHANGE SINCE THE PRIOR EXAM. Pleural-parenchymal changes more prominent at the right lung base with evidence of prior surgery in the right upper lobe with postoperative scarring and rib deformity. Reading Location: [place] [id number]
[2025-01-08 13:36] LABS: Lactic Acid 1.7 mmol/L (0.0-2.0)
--- NOTE | 2025-01-08 13:49 | CT_ITS ---
PROCEDURE: CTA CHEST W/WO CONTRAST 01/08/2025 REASON FOR EXAM: SOB, HX OF DVT TECHNIQUE: CTA axial imaging of the chest with intravenous contrast. Multiplanar and multisequence images were obtained. 3D, 3D post processing, 3D reconstructions, Maximum intensity projection (MIPs) Volume rendering and Shaded surface rendering was provided. PATIENT PREPARATION: Per protocol One or more dose reduction techniques were used (e.g., Automated exposure control, adjustment of the mA and/or kV according to patient size, use of iterative reconstruction technique). CONTRAST: Isovue 300 VOLUME: 75 mL RADIATION DOSE SUMMARY: CTDlvol: 4.25 mGy DLP: 134 mGycm COMPARISON: Prior chest radiograph done earlier in the day. FINDINGS: Hardware: None Lymph nodes: No suspicious lymph nodes are seen. Heart: No evidence of coronary artery calcification. Thoracic Aorta: Atherosclerotic calcific plaques. Pulmonary Vessels: Prominence of the central pulmonary arteries suggestive of possible pulmonary hypertension. Lungs and Airways: Advanced emphysematous changes are present. Pleural- parenchymal changes at the right lung base. There is a 2.4 cm by 1.2 cm irregular nodular density in the posterior lateral aspect of the right upper lobe. A neoplastic process can not be excluded. Pleura: Pleural-parenchymal changes. Upper Abdomen: Unremarkable Bones: Degenerative changes of the thoracic spine. CT/CTA Chest W/WO Contrast IMPRESSION: Hyperinflation. Emphysematous changes. No evidence of pulmonary embolism. 2.4 cm 1.2 cm irregular nodular density in the posterolateral aspect of the rig ht upper lobe as described. Correlation with PET scan recommended. Reading Location: [place] [id number]
--- NOTE | 2025-01-08 13:57 | ED.RN ---
Ambulated Pt with pulse ox. Pt became very unsteady and weak.
[2025-01-08] MEDS: Albuterol 2.5 MG/3 ML VIAL.NEB. INHALATION (14:10)
[2025-01-08] MEDS: MethylPREDNISolone 125 MG/2 ML Vial IV (14:20)
[2025-01-08 14:47] LABS: Troponin T High Sensitivity 17 ng/L (<=14)
--- NOTE | 2025-01-08 15:35 | PCM.HP.STD ---
HPI - General General Date of Admission: 01/08/25 Date of Service: 01/08/25 Chief Complaint: Persistent SOB HPI Narrative JENNI HOLLINS, is a 79-year-old female history of COPD, hypothyroidism, GERD who presented [facility] ED 01/08/2025 from her physician's office for shortness of breath. She has not been feeling well for 10 days and was originally on a Z-Fahad and steroids however due to not getting better her steroids were increased and her antibiotic was changed. She had another follow-up appointment today and due to failing outpatient management she was sent to the ED to be evaluated. Patient reports dry cough and shortness of breath as well as generalized weakness and notes when she ambulates her oxygen drops to the mid 70s. Normally on oxygen at night but has been using it throughout the day recently. In ED patient 94% on room air, respiratory rate 18 with a blood pressure 139/64 and temperature 98.5 but she desaturated to 89% on room air. Lab workup not overtly revealing and chest x-ray did not report any acute process so CTA obtained. CTA demonstrated a 2.4 cm x 1.2 cm irregular nodule density in the posterior lateral aspect of the right upper lobe recommended correlation with PET scan. Given patient's refractory shortness of breath to outpatient management hospitalist contacted for admission for COPD exacerbation. Patient evaluated at bedside. She reports that she has been sick before and has been on multiple medicines without any significant improvement, does report in the ED she finally coughed up something for the first time and felt a little bit better though still feeling short of breath. Denies any chest pain but does report some right sided lower rib pain that went to the left possibly associated with coughing, does feel little bit generally weak. Patient denies any fevers or chills. Follows with Dr. Kimbrough on an outpatient basis [facility] Medical History Wears hearing aid Wears glasses Wears partial dentures Wears dentures Post-menopausal Thyroid disease Arthritis Low iron DVT (deep venous thrombosis) Migraine headache Back pain Syncope Hypoglycemia History of hiatal hernia Gastric reflux On home oxygen therapy Former smoker Asthma Shortness of breath on exertion COPD (chronic obstructive pulmonary disease) History of pain when walking History of Holter monitoring Bronchiectasis BMI between 19-24,adult At risk for malnutrition Left lower lobe pneumonia Home Medications ?Medication ?Instructions ?Recorded ?Last Taken ?Type tiotropium bromide 18 mcg capsule 1 puff inhalation DAILY breathing 06/09/19 01/08/25 History with inhalation device cholecalciferol (vitamin D3) 125 5,000 unit PO DAILY ##30 11/02/19 10/13/24 Rx mcg (5,000 unit) disintegrating tablet guaifenesin 1,200 mg tablet, 1,200 mg PO BID PRN Cough 06/09/21 10/13/24 History extended release 12 hr ipratropium 0.5 mg-albuterol 3 mg 3 ml INHALATION Q4H PRN sob 12/07/21 01/08/25 History (2.5 mg base)/3 mL nebulization soln fluticasone furoate 200 1 ea inhalation DAILY 06/14/22 01/07/25 History mcg-vilanterol 25 mcg/dose inhalation powder (Breo Ellipta) linaclotide 145 mcg capsule 145 mcg PO DAILY 10/13/24 01/08/25 History (Linzess) pantoprazole 40 mg tablet,delayed 40 mg PO BID #60 tabs 10/22/24 Unknown Rx release albuterol sulfate 90 mcg/actuation 2 puff inhalation Q6H PRN 01/08/25 Unknown History aerosol inhaler shortness of breath or wheezing amoxicillin 875 mg-potassium 1 tab PO BID 01/08/25 01/08/25 History clavulanate 125 mg tablet levothyroxine 50 mcg tablet 50 mcg PO DAILY 01/08/25 01/08/25 History (Synthroid) metoclopramide HCl 5 mg/5 mL oral 5 mg PO TID 01/08/25 01/07/25 History solution prednisone 20 mg tablet See Taper PO DAILY 01/08/25 01/07/25 History Allergy/AdvReac Type Severity Reaction Status Date / Time Fish Containing Products Allergy Angioedema Verified 01/08/25 12:28 lactose Allergy Other Verified 01/08/25 12:28 levofloxacin (From Levaquin) Allergy Unknown Verified 01/08/25 12:28 meperidine (From Demerol) Allergy Angioedema Verified 01/08/25 12:28 pepper (genus Capsicum) Allergy Other Verified 01/08/25 12:28 propoxyphene (From Allergy Unknown Verified 01/08/25 12:28 Darvocet-N) Sulfa (Sulfonamide Allergy Hives Verified 01/08/25 12:28 Antibiotics) Family History no significant family his Surgical History Hx of colonoscopy Hx of dilation and curettage History of esophagogastroduodenoscopy (EGD) Status post open reduction and internal fixation (ORIF) of fracture Status post repair of paraesophageal diaphragmatic hernia H/O: section History of appendectomy Social History household members: none Smoking Status: Former smoker substance use type: does not use ROS ROS Narrative General: Denies fever/chills HENT: Denies headache, denies stuffy nose, denies sore throat EYES: Denies changes in vision Resp: Has a cough but was not able to produce anything until today, has had persistent shortness of breath Cardiac: Denies chest pain GI: Denies abdominal pain, denies changes in bowel, denies nausea/vomiting : Denies changes in urination Extremity: Denies swelling MSK: Some generalized weakness Neuro: Denies any numbness/tingling Heme: Denies any bleeding or bruising Skin: Denies rashes Psychiatric: No complaints voiced Vital Signs Vital Signs Vital Signs: 01/08/25 12:28 01/08/25 12:58 01/08/25 13:03 Temperature 98.5 F Temperature Source Oral Pulse Rate 97 98 Respiratory Rate 18 24 H Respiratory Effort Respiratory Pattern Tachypnea Blood Pressure 139/64 H Blood Pressure Mean 89 Pulse Ox 94 Oxygen Delivery Method Room Air Room Air Oxygen Flow Rate (L/min) 01/08/25 13:11 01/08/25 14:27 01/08/25 14:31 Temperature Temperature Source Pulse Rate 122 H Respiratory Rate 25 H Respiratory Effort Short of Breath Respiratory Pattern Blood Pressure 130/65 H Blood Pressure Mean 86 Pulse Ox 89 92 Oxygen Delivery Method Room Air Room Air Nasal Cannula Oxygen Flow Rate (L/min) 1 01/08/25 14:36 01/08/25 15:17 Temperature 98.5 F Temperature Source Pulse Rate 123 H Respiratory Rate 18 Respiratory Effort Respiratory Pattern Blood Pressure 139/67 H Blood Pressure Mean 91 Pulse Ox 96 92 Oxygen Delivery Method Nasal Cannula Oxygen Flow Rate (L/min) 4 Weight Weight: 47.8 kg Body Mass Index (BMI) 20.9 Physical Exam Narrative General: Alert, oriented, no apparent distress HEENT: Atraumatic, normocephalic Eyes: Anicteric, normal conjunctiva, extraocular movements grossly intact Neck: Supple Respiratory: Increased respiratory effort, diminished at the bases with wheezes in upper lobes Cardiovascular: Sinus tachycardia GI: Soft, nontender, nondistended Extremities: No edema Musculoskeletal: Moving all extremities Neuro: No overt focal neurological deficits Skin: No rashes appreciated Psych: Cooperative Results Lab / Micro Data 01/08/25 12:50 01/08/25 12:50 Labs: Laboratory Results - last 24 hr 01/08/25 12:50: WBC 7.8, RBC 4.02 L, Hgb 11.4 L, Hct 35.0 L, MCV 87.1, MCH 28.4, MCHC 32.6, RDW Std Deviation 42.1, RDW Coeff of Amber 13.3, Plt Count 306, MPV 10.3, Immature Gran % (Auto) 1.000 H, Neut % (Auto) 54.5, Lymph % (Auto) 28.8, [place] % (Auto) 8.8, Eos % (Auto) 6.5 H, Baso % (Auto) 0.4, Absolute Neuts (auto) 4.2, Absolute Lymphs (auto) 2.25, Nucleated RBC % 0, PT 12.5, INR 0.9, APTT 21.7 L, Sodium 139, Potassium 3.5, Chloride 102, Carbon Dioxide 22.3, Anion Gap 15, BUN 16, Creatinine 1.20, Estim Creat Clear Calc 27.75 L, Est GFR (MDRD) Non-Af 46 L, BUN/Creatinine Ratio 13.2, Glucose 97, Lactic Acid 1.7, Calcium 8.6, Total Bilirubin 0.29, AST 19, ALT 8, Alkaline Phosphatase 70, Troponin T High Sens 17 H, NT pro BNP II 54, Total Protein 7.6, Albumin 3.9, Globulin 3.6, Albumin/Globulin Ratio 1.1 Micro: Microbiology 01/08/25 12:50 Mucosa - Nose SARS-CoV-2, Influenza & RSV (PCR) - Final Imaging Radiology Impression Chest X-Ray 01/08/25 13:30 IMPRESSION: NO SIGNIFICANT CHANGE SINCE THE PRIOR EXAM. Pleural-parenchymal changes more prominent at the right lung base with evidence of prior surgery in the right upper lobe with postoperative scarring and rib deformity. Reading Location: [facility] Chest CTA 01/08/25 13:49 IMPRESSION: Hyperinflation. Emphysematous changes. No evidence of pulmonary embolism. 2.4 cm 1.2 cm irregular nodular density in the posterolateral aspect of the right upper lobe as described. Correlation with PET scan recommended. Reading Location: [facility] Assessment & Plan Assessment/Plan (1) Acute hypoxic respiratory failure: (2) COPD exacerbation: PLAN: Plan # Increased shortness of breath on exertion suspect secondary to COPD exacerbation refractory to outpatient management -Admit to floor, continuous O2 monitoring -Chest x-ray: No acute process, CTA showed a right sided nodular density in the right upper lobe but no other acute process -COVID negative, obtain respiratory panel, sputum culture if able -O2 in place, wean as tolerated -IV methylprednisone -Scheduled DuoNebs -Albuterol prn -Antibiotics: Patient reports she had not been able to get up anything but was able to cough something up in the ED and has failed outpatient antibiotics we will place her on Levaquin -Incentive spirometer -Flutter valve -Mucinex - Also of note, patient had an EGD a couple of months ago with 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 and gastroparesis as well as 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, speech consult placed in the event patient may be silently aspirating this is leading to her refractory symptoms #Hypothyroidism -Continue Synthroid #GERD -Continue PPI # Right upper lobe nodule -2.4 cm x 1.2 cm irregular nodular density at the posterior lateral aspect of the right upper lobe -Recommended correlation with PET scan, will need PET scan or further workup ordered on an outpatient basis - Can follow-up with PCP or her interior design director #DVT ppx: Lovenox subcu Jeni Alonso MD Time spent in the patient's overall evaluation, decision-making process, review of diagnostic data, adjustment of management, discussion with other providers, nursing and ancillary staff involved in patient's care documentation, 58 Minutes Charges/Coding Visit Charges Inpatient E&M: 18237 Init Hosp L2
[2025-01-08 15:38] LABS: Bacteria 0 SEEN /hpf (None Seen); Mucous, Urine 0 SEEN /hpf (<or=2+); Red Blood Cells-Urine 0 SEEN /hpf (0-5); Squamous Epithelial Cells - UA 0 SEEN /hpf (5-10); White Blood Cells 0 SEEN /hpf (0-5)
[2025-01-08 15:51] LABS: Color, Urine Yellow (Yellow); Glucose, Dipstick Normal (Normal); Ketone-Dipstick Negative (Negative); Leukocyte Esterase-Dipstick Negative /ul (Negative); Nitrite-Dipstick Negative (Negative); Occult Blood-Urine Negative /ul (Negative); Protein-Dipstick Negative (Negative); Urine Bilirubin Dipstick Negative (Negative); Urine Clarity Clear (Clear); Urine Urobilinogen Normal (Normal)
[2025-01-08 15:54] LABS: Troponin T High Sens 2 HR 41 ng/L (<=14)
--- NOTE | 2025-01-08 16:34 | ECHOCS_ITS ---
Reason For Study Reason For Study: Dyspnea/SOB Procedure This was a 2D Doppler, Color Flow transthoracic echocardiogram. The study was technically difficult. Contrast injection was performed. Exam performed portable in patient room. Left Ventricle Normal size and thickness. The LV systolic function is normal. EF is 70 %. Normal diastology for age. Right Ventricle Normal right ventricle. Atria The left and right atria are normal. Prominent eustachian valve. Mitral Valve Mild mitral annular calcification. Tricuspid Valve Normal tricuspid valve. Aortic Valve Trisinus/trileaflet aortic valve. Pulmonic Valve The pulmonic valve is not well visualized. Great Vessels Normal sized aortic root. Pericardium/Pleural No pericardial effusion. Medication Diluted definity 3ml given slow IV push to enhance endocardial definition. MMode/2D Measurements & Calculations LVIDd: 3.3 cm IVSd: 0.77 cm LVOT diam: 2.0 cm LVIDs: 2.1 cm LVPWd: 0.77 cm RVDd: 3.3 cm FS: 37.2 % LVOT area: 3.2 cm2 LAV(MOD-bp): 23.5 ml LVAd ap4: 24.9 cm2 SV(MOD-sp4): 47.6 ml LAV(MOD-bp) Indexed: 17.2 ml/m2 LVLd ap4: 7.2 cm SI(MOD-sp4): 34.8 ml/m2 LAV(MOD-sp2): 18.5 ml EDV(MOD-sp4): 70.3 ml LAV(MOD-sp4): 24.6 ml EDV(sp4-el): 73.4 ml LVAs ap4: 12.0 cm2 LVLs ap4: 5.4 cm ESV(MOD-sp4): 22.7 ml ESV(sp4-el): 23.0 ml EF(MOD-sp4): 67.8 % EF(sp4-el): 68.7 % SV(sp4-el): 50.5 ml LA A4 area: 10.9 cm2 LA dimension(2D): 3.2 cm RA A4 area: 10.9 cm2 Doppler Measurements & Calculations MV E max juan: 90.9 cm/sec Lat Peak E' Juan: 11.0 cm/sec Med Peak E' Juan: 9.3 cm/sec E/E' lat: 8.3 E/E' med: 9.8 MV V2 max: 124.6 cm/sec MV P1/2t max juan: 87.7 cm/sec Ao V2 max: 124.1 cm/sec MV max P.2 mmHg MV P1/2t: 60.5 msec Ao max P.2 mmHg MV V2 mean: 71.3 cm/sec Ao V2 mean: 90.5 cm/sec MV mean P.4 mmHg MV dec slope: 424.4 cm/sec2 Ao mean P.7 mmHg MV V2 VTI: 19.4 cm MVA(P1/2t): 3.6 cm2 Ao V2 VTI: 27.6 cm AV (velocity ratio): 0.85 MVA(VTI): 3.8 cm2 TOBY(I,D): 2.7 cm2 TOBY(V,D): 3.0 cm2 LV V1 max: 117.4 cm/sec SV(LVOT): 74.3 ml LV V1 max P.5 mmHg LV V1 mean P.8 mmHg LV V1 mean: 76.5 cm/sec LV V1 VTI: 23.4 cm ECHO/Echo Complete W/ Contrast Interpretation Summary The LV systolic function is normal. EF is 70 %. Mild mitral annular calcification. Ordering Physician: Jeni Alnoso Referring Physician: Jeni Alonso Performed By: Sushant Arnold RCS
--- NOTE | 2025-01-08 16:35 | PCM.HOSP.N ---
Hospitalist Note Patient did have increase in her troponin that was checked in the ED, she denied any chest pain, suspect this is because she became hypoxic, will continue to trend, will also add echocardiogram
[2025-01-08] MEDS: Ampicillin/Sulbactam 3 GM in 0.9% Normal Saline (100mL MB+) 100 ML IV ×2 (17:14→22:10)
[2025-01-08] MEDS: Metoclopramide 10 MG/10 ML UDC 5 MG PO (17:14)
[2025-01-08 19:45] LABS: Troponin T High Sens 4 HR 78 ng/L (<=14)
[2025-01-08] MEDS: Methylprednisolone Sod Succ 40 MG/ML VIAL IV (20:09)
[2025-01-08] MEDS: 0.9% Saline Lock 10 ML Syringe IV (20:09)
[2025-01-08] MEDS: Pantoprazole Sodium 40 MG Tablet PO (20:09)
[2025-01-08] MEDS: guaiFENesin 1,200 MG Tablet 1200 MG PO (20:09)
[2025-01-08] MEDS: Aspirin 81 MG TAB.CHEW PO (21:01)
[2025-01-08] MEDS: Atorvastatin Calcium 40 MG Tablet PO (21:01)
[2025-01-09] VITALS (8 sets, daily range): BP systolic 106–133; BP diastolic 60–96; PULSE 76–108; RESP 17–26; TEMP 36.4–37.1; O2SAT 93–96
[2025-01-09] MEDS: Methylprednisolone Sod Succ 40 MG/ML VIAL IV ×3 (05:56→21:28)
[2025-01-09] MEDS: 0.9% Saline Lock 10 ML Syringe IV ×3 (05:56→21:27)
[2025-01-09] MEDS: Metoclopramide 10 MG/10 ML UDC 5 MG PO ×2 (05:57→16:03)
[2025-01-09] MEDS: Levothyroxine 50 MCG Tablet PO (05:58)
[2025-01-09 06:00] LABS: Absolute Lymphocyte Count 0.88 X10^3/uL (0.83-4.51); Absolute Neutrophil Count 6.8 X10^3/uL (2.0-7.7); Basophil# 0.01 X10^3/uL; Basophil% 0.1 % (0-1); Eosinophil# 0.01 X10^3/uL; Eosinophils% 0.1 % (0-5); Hematocrit 28.8 % (37-47); Hemoglobin 9.6 g/dL (12.0-15.0); Lymphocyte # 0.88 X10^3/ul (0.83-4.51); Mean Corp Hgb Conc 33.3 g/dL (32-36); Mean Corpuscular Hgb 28.8 pg (27.0-32.0); Mean Corpuscular Volume 86.5 fL (81-99); Mean Platelet Vol. 10.7 fl (6.2-12.0); Monocyte# 0.14 X10^3/uL; Monocyte% 1.7 % (0-10); NRBC Flagged by Analyzer 0 % (0-5); Neutrophil # 6.81 X10^3/uL (2.7-7.7); Neutrophil % 85.1 % (47-70); Platelet Count 249 K/mm3 (150-450); RBC Distribution Width CV 13.5 % (11.6-14.6); RBC Distribution Width SD 42.7 fl (35.1-43.9); Red Blood Count 3.33 M/mm3 (4.2-5.4)
[2025-01-09 06:18] LABS: Anion Gap 11 (5-15); BUN 14 mg/dL (4-19); BUN/Creat Ratio 12.1 RATIO (10-20); Calcium,Total 8.4 mg/dL (7.6-11.0); Carbon Dioxide 22.1 mmol/L (21.0-32.0); Chloride 106 mmol/L (98-108); Creatinine, Serum 1.15 mg/dL (0.70-1.20); EST Glomerular Filtration Rate 49 (>60); Glucose 149 mg/dL (70-99); Potassium 4.4 mmol/L (3.3-5.1); Sodium Level 139 mmol/L (133-145)
[2025-01-09] MEDS: Ipratropium/Albuterol Sulfate 3 ML AMPUL.NEB INHALATION ×4 (06:53→19:13)
[2025-01-09] MEDS: guaiFENesin 1,200 MG Tablet 1200 MG PO ×2 (09:51→21:27)
[2025-01-09] MEDS: Aspirin 81 MG TAB.CHEW PO (09:51)
[2025-01-09] MEDS: Pantoprazole Sodium 40 MG Tablet PO ×2 (09:51→21:27)
[2025-01-09] MEDS: Ampicillin/Sulbactam 3 GM in 0.9% Normal Saline (100mL MB+) 100 ML IV (09:51)
[2025-01-09] MEDS: Enoxaparin 30 MG/0.3 ML Syringe SC (09:51)
--- NOTE | 2025-01-09 10:05 | CASEMGMT ---
CHICA MCKEON Face to Face with patient for initial transition planning/care coordination assessment. RN CM introduced self and role at [facility]. Patient lying in bed, alert and oriented. Patient willing to participate in assessment and is able to answer all questions appropriately. Care providers, pharmacy, and demographics verified. Strata: 2 PCP: Freddie Specialists: Luis E, pulmonology Preferred Pharmacy: [facility] Insurance: [employer] Prescription Benefit: yes Living Will/HPOA: yes but done several years ago and would like to redo, SW notified LNOK: Daughter, son Living Arrangements: Patient lives with daughter, TOSHIA, son, and grandchildren in a 2 story home with bed and bath on first floor. Patient states she is independent at home. Transportation: self, family DME/HHC: Patient has shower chair, nebulizer, pulse ox and home oxygen with [employer] at 1lpm at only. No previous HHC or SNF. Will monitor for increase in home oxygen, green sheet placed on chart. Patient wishes to discharge home, denies need for home health at this time. Patient states she has no further needs or concerns at this time. CM to follow for discharge planning needs that may arise. Disposition Plan: Patient to discharge home with family support and follow-up plans in place. Will monitor for increase in home oxygen. Lovely JEROME, RN, CM
--- NOTE | 2025-01-09 11:03 | PN.HOSP_ITS ---
Reason for Visit Reason for Visit: Diagnoses Chronic obstructive pulmonary disease with (acute) exacerbation (01/08/25) Acute respiratory failure with hypoxia (01/08/25) Subjective Subjective Patient was seen and examined today, she is currently on 2 L of nasal cannula oxygen at rest. Objective Data Objective Data Vital Signs: Vital Signs Temp Pulse Resp BP Pulse Ox O2 Del Method O2 Flow Rate 98.2 F 98 26 H 130/96 H 94 Nasal Cannula 2 01/09/25 09:48 01/09/25 09:48 01/09/25 09:48 01/09/25 09:48 01/09/25 09:48 01/09/25 10:00 01/09/25 10:00 Oxygen Flow Rate (L/min) 2 Oxygen Delivery Method Nasal Cannula Weight: 45.1 kg Body Mass Index (BMI) 20.0 Intake & Output: Intake and Output for Last 24 Hours 01/07/25 01/08/25 01/09/25 23:59 23:59 23:59 Intake Total 1464 / 1464 Balance 1464 / 1464 Lab / Micro Data 01/09/25 04:35 01/09/25 04:35 Labs: Laboratory Results - last 24 hr 01/08/25 12:50: WBC 7.8, RBC 4.02 L, Hgb 11.4 L, Hct 35.0 L, MCV 87.1, MCH 28.4, MCHC 32.6, RDW Std Deviation 42.1, RDW Coeff of Amber 13.3, Plt Count 306, MPV 10.3, Immature Gran % (Auto) 1.000 H, Neut % (Auto) 54.5, Lymph % (Auto) 28.8, [place] % (Auto) 8.8, Eos % (Auto) 6.5 H, Baso % (Auto) 0.4, Absolute Neuts (auto) 4.2, Absolute Lymphs (auto) 2.25, Nucleated RBC % 0, PT 12.5, INR 0.9, APTT 21.7 L, Sodium 139, Potassium 3.5, Chloride 102, Carbon Dioxide 22.3, Anion Gap 15, BUN 16, Creatinine 1.20, Estim Creat Clear Calc 27.75 L, Est GFR (MDRD) Non-Af 46 L, BUN/Creatinine Ratio 13.2, Glucose 97, Lactic Acid 1.7, Calcium 8.6, Total Bilirubin 0.29, AST 19, ALT 8, Alkaline Phosphatase 70, Troponin T High Sens 17 H, NT pro BNP II 54, Total Protein 7.6, Albumin 3.9, Globulin 3.6, Albumin/Globulin Ratio 1.1 01/08/25 15:25: Urine Color Yellow, Urine Clarity Clear, Urine pH 6.0, Ur Specific [place] 1.010, Urine Protein Negative, Urine Glucose (UA) Normal, Urine Ketones Negative, Urine Occult Blood Negative, Urine Nitrite Negative, Urine Bilirubin Negative, Urine Urobilinogen Normal, Ur Leukocyte Esterase Negative, Urine RBC 0 SEEN, Urine WBC 0 SEEN, Ur Squamous Epith Cells 0 SEEN, Urine Bacteria 0 SEEN, Urine Mucus 0 SEEN 01/08/25 15:30: Troponin T Hi Sens 2 Hr 41 H 01/08/25 18:41: Troponin T Hi Sens 4Hr 78 H* 01/09/25 04:35: WBC 8.0, RBC 3.33 L, Hgb 9.6 L, Hct 28.8 L, MCV 86.5, MCH 28.8, MCHC 33.3, RDW Std Deviation 42.7, RDW Coeff of Amber 13.5, Plt Count 249, MPV 10.7, Immature Gran % (Auto) 2.000 H, Neut % (Auto) 85.1 H, Lymph % (Auto) 11.0 L, [place] % (Auto) 1.7, Eos % (Auto) 0.1, Baso % (Auto) 0.1, Absolute Neuts (auto) 6.8, Absolute Lymphs (auto) 0.88, Nucleated RBC % 0, Sodium 139, Potassium 4.4, Chloride 106, Carbon Dioxide 22.1, Anion Gap 11, BUN 14, Creatinine 1.15, Estim Creat Clear Calc 28.70 L, Est GFR (MDRD) Non-Af 49 L, BUN/Creatinine Ratio 12.1, Glucose 149 H, Calcium 8.4 Micro: Microbiology 01/08/25 15:25 Urine, Catheterized Urine Culture - Preliminary Culture exhibits no growth. 01/08/25 16:35 Mucosa - Nose Respiratory Panel (PCR) - Final Human [place] 01/08/25 12:50 Mucosa - Nose SARS-CoV-2, Influenza & RSV (PCR) - Final Radiography Diagnostic Testing: Radiology Impression Chest X-Ray 01/08/25 13:30 IMPRESSION: NO SIGNIFICANT CHANGE SINCE THE PRIOR EXAM. Pleural-parenchymal changes more prominent at the right lung base with evidence of prior surgery in the right upper lobe with postoperative scarring and rib deformity. Reading Location: [facility] Chest CTA 01/08/25 13:49 IMPRESSION: Hyperinflation. Emphysematous changes. No evidence of pulmonary embolism. 2.4 cm 1.2 cm irregular nodular density in the posterolateral aspect of the right upper lobe as described. Correlation with PET scan recommended. Reading Location: [facility] Physical Exam Const alert, oriented x3, no apparent distress, average body habitus and healthy appearing General Appearance: cooperative, well kempt and well developed Orientation / Consciousness: awake, oriented to person, oriented to place and oriented to time HEENT normocephalic, head/scalp atraumatic and moist oral mucous membranes Eyes PERRL, EOMs intact bilaterally and conjunctivae normal Neck supple, no JVD, thyroid normal and no carotid bruits General: trachea midline Resp normal respiratory effort, no retractions and no use of accessory muscles Resp Narrative: There are faint expiratory wheezes noted bilaterally Auscultation: wheezes expiratory wheezes; Negative for rales or rhonchi Cardio regular rate, regular rhythm, S1 normal heart sound, S2 normal heart sound, no murmurs, no rub and no gallops GI normal to inspection, nondistended, normoactive bowel sounds, soft to palpation, non-tender and non-distended Extremity no clubbing, cyanosis or edema Skin no rashes or lesions noted General Skin Exam: no breakdown Neuro oriented x3, CN's II-XII intact bilaterally, moves all extremities, no focal motor deficits and no sensory deficits noted Sensorium / Orientation: awake and alert Speech: speech normal Psych affect normal Assessment & Plan Assessment/Plan (1) COPD exacerbation: PLAN: Plan 1. COPD exacerbation secondary to human metapneumovirus bronchitis-continue present medications, patient is on Unasyn currently, I will change her to oral Zithromax. #2 hypoxia-patient's pulse ox will be monitored, patient is on 1 L of oxygen at night only at home during sleep. #3 human pneumo virus bronchitis-no specific treatment, continue aerosol treatments and IV corticosteroids #4 nodular density in the right upper lobe-this will need follow-up as an outpatient #5 elevated troponin secondary to demand ischemia from hypoxia-I do not feel patient needs any workup at this time as far as cardiac workup, echocardiogram was ordered Total clinical time spent by myself addressing the patient's medical issues, reviewing all her data, and collaborating with patient's care team: 35-minute Charges/Coding Visit Charges Inpatient E&M: 54648 Subs Hosp L2
[2025-01-09] MEDS: Azithromycin 250 MG Tablet 500 MG PO (11:44)
--- NOTE | 2025-01-09 14:14 | CASEMGMT ---
Social Work SW assisted pt in completing Living Will and HCPOA naming her dgt Marilyn Hardy. Copy placed on pt chart and original given to pt. JOSÉ ANTONIO Perez
[2025-01-09] MEDS: Acetaminophen 325 MG Tablet 650 MG PO (16:03)
[2025-01-09] MEDS: Atorvastatin Calcium 40 MG Tablet PO (21:27)
[2025-01-10] VITALS (9 sets, daily range): BP systolic 122–133; BP diastolic 63–73; PULSE 85–103; RESP 16–20; TEMP 36.4–37.2; O2SAT 89–100
[2025-01-10] MEDS: Metoclopramide 10 MG/10 ML UDC 5 MG PO ×2 (06:11→15:01)
[2025-01-10] MEDS: Levothyroxine 50 MCG Tablet PO (06:12)
[2025-01-10] MEDS: 0.9% Saline Lock 10 ML Syringe IV ×2 (06:12→21:15)
[2025-01-10] MEDS: Methylprednisolone Sod Succ 40 MG/ML VIAL IV ×3 (06:12→21:15)
[2025-01-10] MEDS: Ipratropium/Albuterol Sulfate 3 ML AMPUL.NEB INHALATION ×4 (06:50→19:17)
[2025-01-10] MEDS: guaiFENesin 1,200 MG Tablet 1200 MG PO ×2 (08:31→21:15)
[2025-01-10] MEDS: Enoxaparin 30 MG/0.3 ML Syringe SC (08:31)
[2025-01-10] MEDS: Pantoprazole Sodium 40 MG Tablet PO ×2 (08:31→21:15)
[2025-01-10] MEDS: Azithromycin 250 MG Tablet 500 MG PO (08:31)
--- NOTE | 2025-01-10 16:56 | PCM.PN.HOSP ---
Reason for Visit Reason for Visit: Diagnoses Chronic obstructive pulmonary disease with (acute) exacerbation (01/08/25) Acute respiratory failure with hypoxia (01/08/25) Subjective Subjective Patient was seen and examined today, she still requires low-flow nasal cannula oxygen at 2 L at rest. Objective Data Objective Data Vital Signs: Vital Signs Temp Pulse Resp BP Pulse Ox O2 Del Method O2 Flow Rate 98.6 F 87 17 129/70 H 98 Nasal Cannula 2 01/10/25 14:54 01/10/25 15:28 01/10/25 15:28 01/10/25 14:54 01/10/25 14:54 01/10/25 14:54 01/10/25 14:54 Oxygen Flow Rate (L/min) 2 Oxygen Delivery Method Nasal Cannula Weight: 45.1 kg Body Mass Index (BMI) 20.0 Intake & Output: Intake and Output for Last 24 Hours 01/08/25 01/09/25 01/10/25 23:59 23:59 23:59 Intake Total 1464 / 1464 1332 / 1332 660 / 660 Output Total 0 / 0 Balance 1464 / 1464 1332 / 1332 660 / 660 Lab / Micro Data 01/09/25 04:35 01/09/25 04:35 Micro: Microbiology 01/08/25 12:50 Blood Culture (Wb) - Anticubital Left Blood Culture - Preliminary No growth in 48 hours. 01/08/25 12:25 Blood Culture (Wb) - Anticubital Left Blood Culture - Preliminary No growth in 48 hours. 01/08/25 16:45 Sputum, Expectorated/Coughed Gram Stain - Final 01/08/25 16:45 Sputum, Expectorated/Coughed Respiratory Culture - Preliminary Presumptive C albicans 01/08/25 15:25 Urine, Catheterized Urine Culture - Final Culture exhibits no growth. 01/08/25 16:35 Mucosa - Nose Respiratory Panel (PCR) - Final Human [place] 01/08/25 12:50 Mucosa - Nose SARS-CoV-2, Influenza & RSV (PCR) - Final Physical Exam Narrative alert, oriented x3, no apparent distress, average body habitus and healthy appearing General Appearance: cooperative, well kempt and well developed Orientation / Consciousness: awake, oriented to person, oriented to place and oriented to time HEENT normocephalic, head/scalp atraumatic and moist oral mucous membranes Eyes PERRL, EOMs intact bilaterally and conjunctivae normal Neck supple, no JVD, thyroid normal and no carotid bruits General: trachea midline Resp normal respiratory effort, no retractions and no use of accessory muscles Resp Narrative: There are faint expiratory wheezes noted bilaterally Auscultation: wheezes expiratory wheezes; Negative for rales or rhonchi Cardio regular rate, regular rhythm, S1 normal heart sound, S2 normal heart sound, no murmurs, no rub and no gallops GI normal to inspection, nondistended, normoactive bowel sounds, soft to palpation, non-tender and non-distended Extremity no clubbing, cyanosis or edema Skin no rashes or lesions noted General Skin Exam: no breakdown Neuro oriented x3, CN's II-XII intact bilaterally, moves all extremities, no focal motor deficits and no sensory deficits noted Sensorium / Orientation: awake and alert Speech: speech normal Psych affect normal Assessment & Plan Assessment/Plan (1) COPD exacerbation: PLAN: Plan 1. COPD exacerbation secondary to human metapneumovirus bronchitis-continue present medications, patient is on Unasyn currently, I will change her to oral Zithromax. #2 hypoxia-patient's pulse ox will be monitored, patient is on 1 L of oxygen at night only at home during sleep. Currently she is requiring 2 L at rest via nasal cannula #3 human pneumo virus bronchitis-no specific treatment, continue aerosol treatments and IV corticosteroids #4 nodular density in the right upper lobe-this will need follow-up as an outpatient #5 elevated troponin secondary to demand ischemia from hypoxia-I do not feel patient needs any workup at this time as far as cardiac workup, echocardiogram was ordered, patient's echocardiogram showed a normal EF with no significant valvular heart disease. Total clinical time spent by myself addressing the patient's medical issues, reviewing all her data, and collaborating with patient's care team: 25-minute Charges/Coding Visit Charges Inpatient E&M: 33898 Subs Hosp L1
[2025-01-10] MEDS: MELATONIN 10 MG TABLET PO (21:15)
[2025-01-10] MEDS: Atorvastatin Calcium 40 MG Tablet PO (21:15)
[2025-01-11] VITALS (9 sets, daily range): BP systolic 124–132; BP diastolic 60–68; PULSE 81–105; RESP 16–18; TEMP 36.2–37; O2SAT 89–94
[2025-01-11] MEDS: Methylprednisolone Sod Succ 40 MG/ML VIAL IV ×2 (06:02→13:30)
[2025-01-11] MEDS: Metoclopramide 10 MG/10 ML UDC 5 MG PO ×2 (06:02→15:59)
[2025-01-11] MEDS: 0.9% Saline Lock 10 ML Syringe IV ×2 (06:02→13:30)
[2025-01-11] MEDS: Levothyroxine 50 MCG Tablet PO (06:02)
[2025-01-11] MEDS: Ipratropium/Albuterol Sulfate 3 ML AMPUL.NEB INHALATION ×3 (06:37→13:54)
[2025-01-11] MEDS: Azithromycin 250 MG Tablet 500 MG PO (09:00)
[2025-01-11] MEDS: guaiFENesin 1,200 MG Tablet 1200 MG PO (09:00)
[2025-01-11] MEDS: Enoxaparin 30 MG/0.3 ML Syringe SC (09:00)
[2025-01-11] MEDS: Pantoprazole Sodium 40 MG Tablet PO (09:00)
--- NOTE | 2025-01-11 14:20 | CHAPLAIN ---
Type of Pastoral Visit _x__ Initial Visit ___ Follow-up Visit ___ On-call Visit ___ General Patient Visit ___ Spiritual Assessment ___ Family Conference ___ Bereavement ___ Rapid Response ___ Code Blue ___ Other (describe below) Pastoral Care Referral From _x__ Patient ___ Family ___ Nurse ___ Physician ___ Executive Producer [employer] ___ Ambulatory Care Nurse ___ Other (describe below) Sacrament/Intervention _x__ Active listening ___ Anointing ___ Mandaeism ___ Bereavement ___ Communion _x__ Ailyn exploration ___ _x__ Life review _x__ Prayer ___ Reconciliation ___ Sacrament of Sick ___ Supportive presence ___ Wedding ___ Other (describe below) Pastoral Comments patient presents with a positive perspective that she is doing better and should go home; pt has family support and a good orthodox community for support; pt says that she has lived the average life expectancy for [place] that she hopes to live at least four more years to see her grandsons become young adults; prayer and presence were welcomed and appreciated
--- NOTE | 2025-01-11 15:08 | DS.PCM_ITS ---
Providers Date of Admission: 01/08/25 Date of Discharge: 01/11/25 Primary Care Physician: Dr. Julia Frazier DO Reason For Visit: HYPOXIC AND SHORT OF BREATH Diagnosis Discharge Diagnosis (1) COPD exacerbation: Status: Chronic Code(s): J44.1 - Chronic obstructive pulmonary disease with (acute) exacerbation Medications at Discharge Home Medications tiotropium bromide 18 mcg capsule with inhalation device 1 puff inhalation DAILY breathing 06/09/19 cholecalciferol (vitamin D3) 125 mcg (5,000 unit) disintegrating tablet 5,000 unit PO DAILY ##30 11/02/19 guaifenesin 1,200 mg tablet, extended release 12 hr 1,200 mg PO BID PRN Cough 06/09/21 ipratropium 0.5 mg-albuterol 3 mg (2.5 mg base)/3 mL nebulization soln 3 ml INHALATION Q4H PRN sob 12/07/21 fluticasone furoate 200 mcg-vilanterol 25 mcg/dose inhalation powder (Breo Ellipta) 1 ea inhalation DAILY 06/14/22 linaclotide 145 mcg capsule (Linzess) 145 mcg PO DAILY 10/13/24 albuterol sulfate 90 mcg/actuation aerosol inhaler 2 puff inhalation Q6H PRN shortness of breath or wheezing 01/08/25 levothyroxine 50 mcg tablet (Synthroid) 50 mcg PO DAILY 01/08/25 metoclopramide HCl 5 mg/5 mL oral solution 5 mg PO TID 01/08/25 azithromycin 500 mg tablet 500 mg PO DAILY 2 days #2 tabs 01/11/25 prednisone 20 mg tablet 40 mg (2 x 20 mg) PO DAILY 5 days #10 tabs 01/11/25 Hospital Course Operations None Procedures None Summary of Care Provided Minutes Spent on Discharge: 47 Hospital Course: Patient is a 79-year-old female with a past medical history as outlined was admitted through the ED on 01/08/2025 with complaint of shortness of breath. She had gone to her physician's office for the shortness of breath. She had not been feeling well for about 10 days was originally admitted Z-Fahad and steroids but was not getting any better. Her steroids were increased and antibiotics were switched but still she was not feeling well. She had an assisted dry cough and generalized weakness. When she ambulated her oxygen level dropped to the mid 70s. She had also been using her night home oxygen during the day. On admission chest x-ray did not show any acute pathology. CTA of the chest showed no evidence of PE but showed a 2.4 cm x 1.2 cm irregular nodule in the posterior lateral aspect of the right upper lobe and recommendation was for correlation with a PET scan. She was admitted to be managed for COPD exacerbation with failed outpatient therapy. She was started on IV Solu-Medrol, breathing treatments with bronchodilators and azithromycin. Shortness of breath gradually improved and she felt better. She was weaned down to room air at rest. She had 2D echo which showed EF of 70% with normal diastolic for age. Her shortness of breath improved and she felt much better. She was discharged on 01/11/2025. She was discharged on a 2-day course of p.o. azithromycin to complete a 5-day course and was discharged on p.o. prednisone 40 mg daily x 5 days. Of note respiratory panel was positive for human metapneumovirus which is likely driving the underlying COPD exacerbation. She is follow-up with her primary care doctor and is follow-up with pulmonology for further evaluation of the 2.4 x 1.2 cm irregular nodule in the posterior lateral aspect of the right upper lobe. Patient seen and examined prior to discharge. She felt much better and had no complaints. He had an uneventful night. Review of systems otherwise negative. Labs and vitals reviewed. Home medication reviewed and reconciled. Physical Exam Const alert, oriented x3 and no apparent distress General Appearance: cooperative, comfortable and well kempt Orientation / Consciousness: awake Exam Limitations: no limitations HEENT normocephalic, head/scalp atraumatic, hearing grossly normal bilaterally, moist oral mucous membranes and oropharynx normal Mouth: oral and palatal mucosa normal Eyes PERRL, EOMs intact bilaterally and conjunctivae normal Neck no lymphadenopathy and supple Resp Resp Narrative: mildly diminished breath sounds bibasally, no wheezes or crackles. On room air. Cardio regular rate, regular rhythm, S1 normal heart sound, S2 normal heart sound and no murmurs GI normal to inspection, nondistended, normoactive bowel sounds, soft to palpation, non-tender and non-distended Extremity normal to inspection, full ROM and no clubbing, cyanosis or edema Skin no rashes or lesions noted and no wounds Neuro oriented x3, CN's II-XII intact bilaterally, moves all extremities and no focal motor deficits Sensorium / Orientation: awake and alert Motor Exam: strength 5/5 throughout Psych affect normal Weight / BMI Weight Weight: 99 lb 6.856 oz Body Mass Index (BMI) 20.0 ABG / Lab / Microbiology Data 01/09/25 04:35 01/09/25 04:35 Microbiology: Microbiology 01/08/25 16:45 Sputum, Expectorated/Coughed Gram Stain - Final 01/08/25 16:45 Sputum, Expectorated/Coughed Respiratory Culture - Final Presumptive C albicans 01/08/25 12:50 Blood Culture (Wb) - Anticubital Left Blood Culture - Preliminary No growth in 48 hours. 01/08/25 12:25 Blood Culture (Wb) - Anticubital Left Blood Culture - Preliminary No growth in 48 hours. 01/08/25 15:25 Urine, Catheterized Urine Culture - Final Culture exhibits no growth. 01/08/25 16:35 Mucosa - Nose Respiratory Panel (PCR) - Final Human [place] 01/08/25 12:50 Mucosa - Nose SARS-CoV-2, Influenza & RSV (PCR) - Final D/C Instructions Discharge Diet: Low fat / Low cholesterol Discharge Activity: Return to Normal Activity Weight Bearing Status: Weight bearing as tolerated Call your doctor if your incision/area has: Continuous Slow Oozing Call your doctor if you observe: Fever of 101 or Higher, Shortness of breath, Dizziness, Swelling in the ankles and Chest pain DC O2, CPAP, BIPAP Needs Home O2 Discharge instructions: Yes Type of respiratory needs?: Oxygen (2) Oxygen frequency: With Sleeping Oxygen liters per minute when sleepin DC home with Oxygen: Yes Home O2 MD Review: I have reviewed the oxygen testing, and the patient qualifies for home oxygen equipment and portability. The patient is mobile in the home and the community. Meaningful Use Info Meaningful Use Meaningful Use Diagnoses (Choose all that apply): None applicable Ischemic Stroke Statin Dosing Therapy Reference: STATIN DOSE THERAPY REFERENCE: * Patients > 75 years receive moderate or high dose statin therapy. * Patients 75 years or YOUNGER should receive HIGH intensity statin dose unless contraindicated. You will be required to document reason for non-treatment if statin daily dose does not meet guidelines. HIGH DOSE STATIN THERAPY DAILY Atorvastatin > than or = to 40 mg Rosuvastatin > than or = to 20 mg Amlodipine + Atorvastatin > than or = to 2.5/40 mg Ezetimibe + Simvastatin 10/80 mg Simvastatin 80mg Discharge Plan Admission Admit Date/Time: 01/08/25 15:35 Primary Reason for Your Visit: COPD exacerbation. Attending Provider: Mine Hubbard Primary Care Provider: Julia Frazier Consulting Providers: Jeni Alonso; Jakub Suazo Instructions Patient Instructions: COPD Controlled Breathing Dc, Diagnosing COPD Discharge Orders/Prescriptions Prescriptions: New prednisone 20 mg tablet 40 mg PO DAILY 5 Days Qty: 10 0RF azithromycin 500 mg tablet 500 mg PO DAILY 2 Days Qty: 2 0RF Rx Instructions: start on day 2 of therapy Continued tiotropium bromide 1 PUFF inhaler 1 puff inhalation DAILY cholecalciferol (vitamin D3) 5,000 UNIT tablet,disintegrating 5,000 unit PO DAILY Qty: 30 0RF Patient Comments: PT UNSURE OF STRENGTH guaifenesin 1,200 MG tablet extended release 12hr 1,200 mg PO BID PRN (Reason: Cough) Patient Comments: ONLY NEEDED ipratropium-albuterol 3 ML solution for nebulization 3 ml INHALATION Q4H PRN (Reason: sob) fluticasone furoate-vilanterol [Breo Ellipta] 200-25 mcg/dose blister with device 1 ea INHALATION DAILY Patient Comments: Inhale 1 puff daily Linzess 145 mcg capsule 145 mcg PO DAILY metoclopramide HCl 5 mg/5 mL solution 5 mg PO TID levothyroxine [Synthroid] 50 mcg tablet 50 mcg PO DAILY albuterol sulfate 90 mcg/actuation HFA aerosol inhaler 2 puff inhalation Q6H PRN (Reason: shortness of breath or wheezing) Discontinued prednisone 20 mg tablet See Taper PO DAILY Taper: Prednisone Taper 60 mg WITH BREAKFAST for 2 Days 40 mg WITH BREAKFAST for 3 Days 20 mg WITH BREAKFAST for 3 Days amoxicillin-pot clavulanate 875-125 mg tablet 1 tab PO BID Patient Comments: STARTED ON SATURDAY Referrals / Follow Up: Julia Frazier DO [Primary Care Provider] - Within 1 Week Disposition Disposition (needs filled in before D/C Order can be placed): Home, Self Care Charges/Coding Visit Charges Inpatient E&M: 84881 Disch Hosp >30min
--- NOTE | 2025-01-11 15:25 | PHA.DC_ITS ---
Pharmacy [facility] has performed discharge medication reconciliation and counseling for this patient. 1. AZITHROMYCIN 500MG PO DAILY X 2 DAYS - STOP AUGMENTIN 2. PREDNISONE 40MG PO DAILY X 5 DAYS - STOP PREVIOUS TAPER The patient's discharge medication list was reviewed for discrepancies and discrepancies were resolved. The patient was counseled on the following discharge medications and changes in medications for homegoing were reviewed. The Reason for Use, instructions for use, and potential side effects were reviewed for all new medications. The patient's questions regarding all of their medications were answered. The patient was able to verbally demonstrate an understanding of their discharge medications. Medications at Discharge Home Medications tiotropium bromide 18 mcg capsule with inhalation device 1 puff inhalation DAILY breathing 06/09/19 cholecalciferol (vitamin D3) 125 mcg (5,000 unit) disintegrating tablet 5,000 unit PO DAILY ##30 11/02/19 guaifenesin 1,200 mg tablet, extended release 12 hr 1,200 mg PO BID PRN Cough 06/09/21 ipratropium 0.5 mg-albuterol 3 mg (2.5 mg base)/3 mL nebulization soln 3 ml INHALATION Q4H PRN sob 12/07/21 fluticasone furoate 200 mcg-vilanterol 25 mcg/dose inhalation powder (Breo Ellipta) 1 ea inhalation DAILY 06/14/22 linaclotide 145 mcg capsule (Linzess) 145 mcg PO DAILY 10/13/24 albuterol sulfate 90 mcg/actuation aerosol inhaler 2 puff inhalation Q6H PRN shortness of breath or wheezing 01/08/25 levothyroxine 50 mcg tablet (Synthroid) 50 mcg PO DAILY 01/08/25 metoclopramide HCl 5 mg/5 mL oral solution 5 mg PO TID 01/08/25 azithromycin 500 mg tablet 500 mg PO DAILY 2 days #2 tabs 01/11/25 prednisone 20 mg tablet 40 mg (2 x 20 mg) PO DAILY 5 days #10 tabs 01/11/25
--- NOTE | 2025-01-11 15:55 | CASEMGMT ---
Patient has order for discharge. Patient does not qualify for increase in home oxygen. RN CM in to discuss discharge needs with patient. Patient declines need of HHC or therapy at discharge. Patient had no further questions or concerns.
== END 2025-01-11 16:44 | disposition home or self-care (01) | DRG 191 ==
LOC: ED 14:51 → PCU 15:39
PROVIDERS: Admitting Provider Internal Medicine; Emergency Provider Emergency Medicine; PCP Internal Medicine; Referring Provider Internal Medicine; Visit Provider Student in an Organized Health Care Education/Training Program
DX: J44.1 Chronic obstructive pulmonary disease with (acute) exacerbation (principal); I24.89 Other forms of acute ischemic heart disease; E03.9 Hypothyroidism, unspecified; J43.9 Emphysema, unspecified; K22.70 Barrett's esophagus without dysplasia; K31.84 Gastroparesis; J20.8 Acute bronchitis due to other specified organisms; J44.0 Chronic obstructive pulmonary disease with (acute) lower respiratory infection; R53.1 Weakness; B97.81 Human metapneumovirus as the cause of diseases classified elsewhere; Z79.51 Long term (current) use of inhaled steroids; Z79.890 Hormone replacement therapy; Z79.899 Other long term (current) drug therapy; Z86.718 Personal history of other venous thrombosis and embolism; Z87.891 Personal history of nicotine dependence
CPT/HCPCS: 36415; 71046; 71275; 80048; 80053; 81001; 83605; 83880; 84484; 85025; 85610; 85730; 87040; 87070; 87086; 87205; 87631; 87633; 92526; 92610; 93005; 93306; 94640; 94668; 97110; 97116; 97162; 97165; 97530; 97535; 99285; Q9957; Q9967; A4216; C8929; J0295

== ENCOUNTER 2025-01-29 06:38 | Emergency (ER) | payer MEDICARE, SELFPAY ==
[2024-07-16 12:11] VITALS: BMI 19.7
[2025-01-29] VITALS (7 sets, daily range): BP systolic 124–150; BP diastolic 55–86; PULSE 64–113; RESP 16–22; TEMP 36.6–37; O2SAT 94–100; BMI 19.8
--- NOTE | 2025-01-29 06:44 | EKG12_ITS ---
Test Reason : SOB Blood Pressure : */* mmHG Vent. Rate : 98 BPM Atrial Rate : 98 BPM P-R Int : 172 ms QRS Dur : 74 ms QT Int : 364 ms P-R-T Axes : 77 36 69 degrees QTcB Int : 464 ms Normal sinus rhythm Normal ECG Confirmed by DARCIE WOODY, MARIANNE ([id number]), news videotape editor SHAKA TONG ([id number]) on 02/01/2025 8:45:46 AM Referred By: JAJA Confirmed By: MARIANNE SPRAGUE MD
--- NOTE | 2025-01-29 06:58 | RAD_ITS ---
PROCEDURE: CHEST PA AND LATERAL 01/29/2025 REASON FOR EXAM: DYSPNEA TECHNIQUE: Frontal and lateral views of the chest. COMPARISON: 01/08/2025 FINDINGS: Pulmonary emphysema and hyperinflation again noted. Spiculated opacity at the right upper lobe again seen with an area of posterior 6th rib deformity and either fracture or partial resection with adjacent surgical clips at the right 7th rib again noted with neoplastic process not excluded. No focal consolidation. Platelike areas of the [id number]-left base may represent chronic changes or atelectasis not significantly changed. No pleural effusion. The cardiac and mediastinal contours appear within limits. Atherosclerotic change of the aortic arch again noted. RAD/Chest PA and Lateral IMPRESSION: No evidence of acute disease. Pulmonary emphysema and hyperinflation with likely scarring or atelectasis at t he bases not significantly changed. Spiculated opacity at the right upper lobe with similar appearance, can not exc lude neoplasm. Reading Location: [id number]
--- NOTE | 2025-01-29 07:05 | EX.ED.DYSGE1 ---
HPI History of Present Illness Chief Complaint: Shortness of Breath Informant: patient Narrative Narrative: Patient is a 79-year-old female with past medical history of COPD and hypothyroidism. She was admitted to the hospital roughly 2 weeks ago secondary to COPD exacerbation from human metapneumovirus. At that time her pulse ox would desaturate to approximately 70% with ambulation. She was kept in the hospital for a few days and discharged home. She states that she wears oxygen at night at baseline and was told that she should wear it during the day if she feels short of breath. She states she was feeling better when she was discharged but not back to 100%. She reports in the last 24 hours she developed pain in the upper mid abdomen and a sensation that it is difficult to breathe. She states she took her home nebulizer treatments without any symptom improvement. She also reports she has had shaking chills but denies any true fevers. She states there is been no nausea vomiting diarrhea or dysuria. She denies any chest pain associated with this. However as her symptoms are progressing she presents for evaluation [facility] Medical History Generalized weakness COPD exacerbation Hypothyroidism GERD (gastroesophageal reflux disease) Wears hearing aid Wears glasses Wears partial dentures Wears dentures Post-menopausal Thyroid disease Arthritis Low iron DVT (deep venous thrombosis) Migraine headache Back pain Syncope Hypoglycemia History of hiatal hernia Gastric reflux On home oxygen therapy Former smoker Asthma Shortness of breath on exertion COPD (chronic obstructive pulmonary disease) History of pain when walking History of Holter monitoring Bronchiectasis BMI between 19-24,adult At risk for malnutrition Left lower lobe pneumonia Home Medications ?Medication ?Instructions ?Recorded ?Last Taken ?Type tiotropium bromide 18 mcg capsule 1 puff inhalation DAILY breathing 06/09/19 01/08/25 History with inhalation device cholecalciferol (vitamin D3) 125 5,000 unit PO DAILY ##30 11/02/19 10/13/24 Rx mcg (5,000 unit) disintegrating tablet guaifenesin 1,200 mg tablet, 1,200 mg PO BID PRN Cough 06/09/21 10/13/24 History extended release 12 hr ipratropium 0.5 mg-albuterol 3 mg 3 ml INHALATION Q4H PRN sob 12/07/21 01/08/25 History (2.5 mg base)/3 mL nebulization soln fluticasone furoate 200 1 ea inhalation DAILY 06/14/22 01/07/25 History mcg-vilanterol 25 mcg/dose inhalation powder (Breo Ellipta) linaclotide 145 mcg capsule 145 mcg PO DAILY 10/13/24 01/08/25 History (Linzess) albuterol sulfate 90 mcg/actuation 2 puff inhalation Q6H PRN 01/08/25 Unknown History aerosol inhaler shortness of breath or wheezing levothyroxine 50 mcg tablet 50 mcg PO DAILY 01/08/25 01/08/25 History (Synthroid) metoclopramide HCl 5 mg/5 mL oral 5 mg PO TID 01/08/25 01/07/25 History solution albuterol sulfate 2.5 mg/3 mL 1 Q4H PRN PRN shortness of breath 01/29/25 Unknown History (0.083 %) solution for nebulization or wheezing Allergy/AdvReac Type Severity Reaction Status Date / Time Fish Containing Products Allergy Angioedema Verified 01/29/25 06:38 lactose Allergy Other Verified 01/29/25 06:38 levofloxacin (From Levaquin) Allergy Unknown Verified 01/29/25 06:38 meperidine (From Demerol) Allergy Angioedema Verified 01/29/25 06:38 pepper (genus Capsicum) Allergy Other Verified 01/29/25 06:38 propoxyphene (From Allergy Unknown Verified 01/29/25 06:38 Darvocet-N) Sulfa (Sulfonamide Allergy Hives Verified 01/29/25 06:38 Antibiotics) Surgical History Hx of colonoscopy Hx of dilation and curettage History of esophagogastroduodenoscopy (EGD) Status post open reduction and internal fixation (ORIF) of fracture Status post repair of paraesophageal diaphragmatic hernia H/O: section History of appendectomy Social History household members: none Smoking Status: Former smoker substance use type: does not use ROS ROS ED Constitutional Constitutional ED: Reports chills and subjective; Denies fever(s) Eyes Eyes: Denies blurry vision or change in vision ENT ENT ED: Denies rhinorrhea or sore throat Cardiovascular Cardiovascular: Denies chest pain Respiratory/Chest Respiratory/Chest: Reports cough and dyspnea Gastrointestinal Gastrointestinal: Reports abdominal pain; Denies diarrhea, nausea or vomiting Genitourinary Genitourinary ED: Denies dysuria or urinary frequency Musculoskeletal Musculoskeletal: Denies back pain or myalgias Integumentary Denies rash Neurologic Neurologic: Denies headache(s) Hematologic/Lymphatic Hematologic/Lymphatic: Denies easy bleeding or easy bruising Allergic/Immunologic Allergic/Immunologic ED: Denies mouth swelling or tongue swelling EXAM Physical Exam Const Vital Signs: 01/29/25 06:38 01/29/25 06:38 01/29/25 06:42 Temperature 98 F 98 F Temperature Source Oral Oral Pulse Rate 108 H 113 H Respiratory Rate 19 H 22 H Respiratory Effort Short of Breath Respiratory Depth Shallow Respiratory Pattern Tachypnea Blood Pressure 134/70 H 134/70 H Blood Pressure Mean 91 91 Pulse Ox 95 95 Oxygen Delivery Method Room Air Room Air Room Air Positive well nourished and well developed General Appearance ED: well developed; Negative for pallor HEENT HEENT Narrative: No tongue or lip swelling no oral lesions no airway edema or compromise Eyes PERRL and EOMs intact bilaterally General Eye ED: Negative for scleral icterus Neck supple and no JVD Neck Narrative: No nuchal rigidity or meningeal signs noted Chest Wall palpation of chest normal Chest Narrative: No bony deformity or subcutaneous emphysema noted on palpation of the chest No reproducible pain with palpation Resp Resp Narrative: Patient is tachypneic and breath sounds are diminished throughout but overall clear to auscultation No nasal flaring retractions or accessory muscle use Cardio regular rhythm Rate: tachycardic and other Other Details: Tachycardic rate with regular rhythm Radial and carotid pulses are equal and symmetric GI non-distended and no masses GI Narrative: Abdomen is soft and nondistended with normal active bowel sounds. Patient has pain on palpation in the midepigastric region. No voluntary guarding or rigidity or pulsatile mass. Auscultation: normoactive bowel sounds Palpation: soft Extremity normal to inspection Extremity Narrative: No asymmetric edema no pitting edema negative Homans' sign bilaterally Neuro oriented x3, CN's II-XII intact bilaterally and no sensory deficits noted Sensorium / Orientation: alert Motor Exam: strength 5/5 throughout Psych mental status grossly normal Skin no rashes or lesions noted General Skin Exam: Negative for jaundice or pallor MDM MDM MDM Narrative Medical decision making narrative: Patient arrived to the ER satting in the mid to high 90s on room air. Breath sounds are overall clear to auscultation which correlate with the fact she states she used her home breathing treatments prior to arrival. As there is no gerald rhonchi or wheezing I do not feel the need for repeat nebulizer treatments at this time. The patient does not have chest pain but ACS or cardiac dysrhythmia can mimic the shortness of breath sensation and potential abdominal discomfort patient is feeling. Therefore EKG was obtained which revealed no signs of acute ischemia/STEMI. As the patient has been on prolonged steroids and has midepigastric pain there is concern for gastritis versus steroid-induced pancreatitis. Therefore liver enzymes and a lipase will be obtained. With the shaking chills there is concern for underlying infection such as pneumonia UTI or viral infection such as COVID influenza or RSV. Therefore repeat viral swab will be obtained. At this time the patient's workup is still pending and therefore he will be signed out to the day physician Dr. Meneses pending her results History & Record Review Discussion w/independent historian: Patient Discharge Plan Triage Chief Complaint: Shortness of Breath ED Provider: Urbano Eli Dx/Rx/DC Orders Prescriptions: No Action tiotropium bromide 1 PUFF inhaler 1 puff inhalation DAILY cholecalciferol (vitamin D3) 5,000 UNIT tablet,disintegrating 5,000 unit PO DAILY Qty: 30 0RF Patient Comments: PT UNSURE OF STRENGTH guaifenesin 1,200 MG tablet extended release 12hr 1,200 mg PO BID PRN (Reason: Cough) Patient Comments: ONLY NEEDED ipratropium-albuterol 3 ML solution for nebulization 3 ml INHALATION Q4H PRN (Reason: sob) fluticasone furoate-vilanterol [Breo Ellipta] 200-25 mcg/dose blister with device 1 ea INHALATION DAILY Patient Comments: Inhale 1 puff daily albuterol sulfate 2.5 mg /3 mL (0.083 %) solution for nebulization 1 Q4H PRN PRN (Reason: shortness of breath or wheezing) Linzess 145 mcg capsule 145 mcg PO DAILY metoclopramide HCl 5 mg/5 mL solution 5 mg PO TID levothyroxine [Synthroid] 50 mcg tablet 50 mcg PO DAILY albuterol sulfate 90 mcg/actuation HFA aerosol inhaler 2 puff inhalation Q6H PRN (Reason: shortness of breath or wheezing) Primary Care Provider: Julia Frazier Referrals: Julia Frazier DO [Primary Care Provider] - Print Language: Spanish
[2025-01-29 07:21] LABS: Absolute Lymphocyte Count 1.53 X10^3/uL (0.83-4.51); Absolute Neutrophil Count 3.4 X10^3/uL (2.0-7.7); Basophil# 0.05 X10^3/uL; Basophil% 0.9 % (0-1); Eosinophils% 8.6 % (0-5); Hematocrit 30.2 % (37-47); Hemoglobin 9.7 g/dL (12.0-15.0); Lymphocyte # 1.53 X10^3/ul (0.83-4.51); Lymphocyte % 26.3 % (19-41); Mean Corp Hgb Conc 32.1 g/dL (32-36); Mean Corpuscular Hgb 28.9 pg (27.0-32.0); Mean Corpuscular Volume 89.9 fL (81-99); Mean Platelet Vol. 10.6 fl (6.2-12.0); Monocyte# 0.33 X10^3/uL; Monocyte% 5.7 % (0-10); NRBC Flagged by Analyzer 0 % (0-5); Neutrophil # 3.39 X10^3/uL (2.7-7.7); Neutrophil % 58.2 % (47-70); Platelet Count 212 K/mm3 (150-450); RBC Distribution Width CV 14.1 % (11.6-14.6); RBC Distribution Width SD 45.7 fl (35.1-43.9); Red Blood Count 3.36 M/mm3 (4.2-5.4); White Blood Count 5.8 K/mm3 (4.4-11.0)
[2025-01-29] MEDS: Pantoprazole Sodium 40 MG in 0.9% Normal Saline (100mL MB+) 100 ML 330 MG IV (08:10)
[2025-01-29 08:38] LABS: AST(SGOT) 22 U/L (<=31); Alanine Aminotransfer ALT/SGPT 9 U/L (<=34); Albumin, Serum 3.8 g/dL (3.4-4.8); Alkaline Phosphatase 60 U/L (35-104); Anion Gap 11 (5-15); BUN 13 mg/dL (4-19); Bilirubin, Direct 0.11 mg/dL (0.00-0.30); Calcium,Total 9.1 mg/dL (7.6-11.0); Carbon Dioxide 22.6 mmol/L (21.0-32.0); Chloride 106 mmol/L (98-108); Creatinine, Serum 1.31 mg/dL (0.70-1.20); EST Glomerular Filtration Rate 42 (>60); Estimated Creatinine Clearance 25.42 ml/min (50-250); Globulin 2.8 g/dL (2.2-4.2); Glucose 113 mg/dL (70-99); Lipase 129 U/L (13-75); Magnesium 2.2 mg/dL (1.5-2.2); Potassium 3.8 mmol/L (3.3-5.1); Pro- Brain NATRIURETIC PEPTIDE 50 pg/mL (<=1800); Protein, Total 6.6 g/dL (5.9-8.4); Sodium Level 140 mmol/L (133-145); Total Bilirubin 0.26 mg/dL (0.00-1.30)
[2025-01-29 08:54] LABS: Troponin T High Sensitivity 18 ng/L (<=14)
[2025-01-29 08:59] LABS: Bacteria 0 SEEN /hpf (None Seen); Mucous, Urine 0 SEEN /hpf (<or=2+); Red Blood Cells-Urine 0 SEEN /hpf (0-5); Squamous Epithelial Cells - UA 0 SEEN /hpf (5-10); White Blood Cells 0 SEEN /hpf (0-5)
[2025-01-29 09:06] LABS: Color, Urine Yellow (Yellow); Glucose, Dipstick Normal (Normal); Ketone-Dipstick Negative (Negative); Leukocyte Esterase-Dipstick Negative /ul (Negative); Nitrite-Dipstick Negative (Negative); Occult Blood-Urine Negative /ul (Negative); Protein-Dipstick 15 mg/dl (Negative); Urine Bilirubin Dipstick Negative (Negative); Urine Clarity Clear (Clear); Urine Urobilinogen Normal (Normal); Urine pH 6.5 (5.0 - 8.0)
[2025-01-29] MEDS: MethylPREDNISolone 125 MG/2 ML Vial 60 MG IV (09:22)
[2025-01-29] MEDS: Azithromycin 250 MG Tablet 500 MG PO (09:58)
[2025-01-29] MEDS: Fluconazole 100 MG Tablet PO (09:59)
[2025-01-29 10:54] LABS: Troponin T High Sens 2 HR 18 ng/L (<=14)
== END 2025-01-29 11:41 | disposition home or self-care (01) ==
PROVIDERS: Emergency Medicine; Emergency Provider Emergency Medicine; PCP Internal Medicine; Visit Provider Emergency Medicine
DX: J44.1 Chronic obstructive pulmonary disease with (acute) exacerbation (principal); R10.13 Epigastric pain; E03.9 Hypothyroidism, unspecified; Z79.890 Hormone replacement therapy; Z79.899 Other long term (current) drug therapy; Z87.891 Personal history of nicotine dependence; Z11.52 Encounter for screening for COVID-19
CPT/HCPCS: 71046; 80048; 80076; 81001; 83690; 83735; 83880; 84484; 85025; 87631; 87633; 93005; 96365; 96366; 96375; 99283

== ENCOUNTER → 2025-02-11 | Outpatient (CLI) | payer MEDICARE, SELFPAY ==
[2024-07-16 12:11] VITALS: BMI 19.7
[2025-02-11 13:03] LABS: Erythrocyte Sedimentation Rate 13 mm/hr (0-30); Hematocrit 33.1 % (37-47); Hemoglobin 10.7 g/dL (12.0-15.0); Mean Corp Hgb Conc 32.3 g/dL (32-36); Mean Corpuscular Volume 89.7 fL (81-99); Mean Platelet Vol. 10.9 fl (6.2-12.0); Platelet Count 267 K/mm3 (150-450); RBC Distribution Width CV 15.1 % (11.6-14.6); RBC Distribution Width SD 49.5 fl (35.1-43.9); Red Blood Count 3.69 M/mm3 (4.2-5.4)
[2025-02-11 13:25] LABS: ALB/GLOB Ratio 1.5 RATIO (0.9-2.4); AST(SGOT) 21 U/L (<=31); Alanine Aminotransfer ALT/SGPT 9 U/L (<=34); Albumin, Serum 4.2 g/dL (3.4-4.8); Alkaline Phosphatase 73 U/L (35-104); Anion Gap 11 (5-15); BUN 16 mg/dL (4-19); BUN/Creat Ratio 11.8 RATIO (10-20); Calcium,Total 10.3 mg/dL (7.6-11.0); Carbon Dioxide 28.6 mmol/L (21.0-32.0); Chloride 103 mmol/L (98-108); Creatinine, Serum 1.37 mg/dL (0.70-1.20); EST Glomerular Filtration Rate 39 (>60); Globulin 2.9 g/dL (2.2-4.2); Glucose 94 mg/dL (70-99); Hepatitis C Antibody Nonreactive (Nonreactive); Potassium 4.1 mmol/L (3.3-5.1); Sodium Level 143 mmol/L (133-145); Vitamin B12 750 pg/mL (180-914)
[2025-02-11 13:48] LABS: Hemoglobin A1c 5.7 % (<=5.6)
[2025-02-12 12:08] LABS: ANTINUCLEAR ANTIBODIES DIRECT Negative (Negative)
== END | disposition home or self-care (01) ==
PROVIDERS: PCP Internal Medicine; Referring Provider Internal Medicine; Visit Provider Internal Medicine
DX: R20.2 Paresthesia of skin (principal); R73.01 Impaired fasting glucose
CPT/HCPCS: 80053; 82607; 83036; 84443; 85027; 85652; 86038; 86803

== ENCOUNTER 2025-02-17 11:06 | Emergency (ER) | payer MEDICARE, SELFPAY ==
[2024-07-16 12:11] VITALS: BMI 19.7
[2025-02-17 11:07] VITALS: BP 129/57; PULSE 103; RESP 16; TEMP 37.1; O2SAT 98
[2025-02-17 11:20] VITALS: BMI 19.5
--- NOTE | 2025-02-17 11:46 | EX.ED.DYSGE1 ---
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 She has had a ascending weakness and numbness in her legs followed by her arms for the past month or 2 maybe, she states has been gradual she does not know exactly how long it has been. She was on some antibiotics for respiratory tract infection recently, and states this definitely started before taking those medications. She has twisted her ankles a couple of times due to weakness in her legs but she has not fallen. She denies any bowel or bladder dysfunction or back pain or fever/chills, no headaches or vision changes. She has had no lateralizing neurologic symptoms they are bilateral. She has Raynaud's that she commonly gets tingling in her fingers and she noticed that first but then it has been basically from her feet going up to her knees and now in her hands going up her forearms. She has not been dropping anything with her hands but has noticed some weakness in both arms. [facility] Medical History Generalized weakness COPD exacerbation Hypothyroidism GERD (gastroesophageal reflux disease) Wears hearing aid Wears glasses Wears partial dentures Wears dentures Post-menopausal Thyroid disease Arthritis Low iron DVT (deep venous thrombosis) Migraine headache Back pain Syncope Hypoglycemia History of hiatal hernia Gastric reflux On home oxygen therapy Former smoker Asthma Shortness of breath on exertion COPD (chronic obstructive pulmonary disease) History of pain when walking History of Holter monitoring Bronchiectasis BMI between 19-24,adult At risk for malnutrition Left lower lobe pneumonia Home Medications ?Medication ?Instructions ?Recorded ?Last Taken ?Type tiotropium bromide 18 mcg capsule 1 puff inhalation DAILY breathing 06/09/19 01/08/25 History with inhalation device cholecalciferol (vitamin D3) 125 5,000 unit PO DAILY ##30 11/02/19 10/13/24 Rx mcg (5,000 unit) disintegrating tablet guaifenesin 1,200 mg tablet, 1,200 mg PO BID PRN Cough 06/09/21 10/13/24 History extended release 12 hr fluticasone furoate 200 1 ea inhalation DAILY 06/14/22 01/07/25 History mcg-vilanterol 25 mcg/dose inhalation powder (Breo Ellipta) linaclotide 145 mcg capsule 145 mcg PO DAILY 10/13/24 01/29/25 History (Linzess) albuterol sulfate 90 mcg/actuation 2 puff inhalation Q6H PRN 01/08/25 Unknown History aerosol inhaler shortness of breath or wheezing levothyroxine 50 mcg tablet 50 mcg PO DAILY 01/08/25 01/29/25 History (Synthroid) metoclopramide HCl 5 mg/5 mL oral 5 mg PO TID 01/08/25 01/07/25 History solution albuterol sulfate 2.5 mg/3 mL 2.5 mg continuous nebulization Q6H 01/29/25 01/29/25 History (0.083 %) solution for nebulization PRN shortness of breath or wheezing azithromycin 500 mg tablet 500 mg PO DAILY 4 days #4 tabs 01/29/25 Unknown Rx (Zithromax) fluconazole 100 mg tablet 100 mg PO DAILY #6 tabs 01/29/25 Unknown Rx pantoprazole 40 mg tablet,delayed 40 mg PO DAILY #30 tabs 01/29/25 Unknown Rx release prednisone 20 mg tablet 60 mg (3 x 20 mg) PO DAILY #12 01/29/25 Unknown Rx TABLETS Allergy/AdvReac Type Severity Reaction Status Date / Time Fish Containing Products Allergy Angioedema Verified 02/17/25 11:06 lactose Allergy Other Verified 02/17/25 11:06 levofloxacin (From Levaquin) Allergy Unknown Verified 02/17/25 11:06 meperidine (From Demerol) Allergy Angioedema Verified 02/17/25 11:06 pepper (genus Capsicum) Allergy Other Verified 02/17/25 11:06 propoxyphene (From Allergy Unknown Verified 02/17/25 11:06 Darvocet-N) Sulfa (Sulfonamide Allergy Hives Verified 02/17/25 11:06 Antibiotics) Surgical History Hx of colonoscopy Hx of dilation and curettage History of esophagogastroduodenoscopy (EGD) Status post open reduction and internal fixation (ORIF) of fracture Status post repair of paraesophageal diaphragmatic hernia H/O: section History of appendectomy Social History household members: none Smoking Status: Former smoker substance use type: does not use ROS ROS ED Constitutional Constitutional ED: Denies chills or fever(s) Eyes Eyes: Denies change in vision or diplopia ENT ENT ED: Denies rhinorrhea or sore throat Cardiovascular Cardiovascular: Denies chest pain or palpitations Respiratory/Chest Respiratory/Chest: Denies cough or dyspnea Gastrointestinal Gastrointestinal: Reports diarrhea; Denies abdominal pain, nausea or vomiting Genitourinary Genitourinary ED: Denies dysuria or hematuria Musculoskeletal Musculoskeletal: Denies back pain or neck pain Integumentary Denies abscess or rash Neurologic Neurologic: Reports paresthesias and weakness; Denies headache(s) Psychiatric Psychiatric: Denies anxiety or suicidal thoughts EXAM Physical Exam Const Vital Signs: 02/17/25 11:07 02/17/25 13:06 02/17/25 15:00 Temperature 98.7 F Temperature Source Temporal Pulse Rate 103 H 81 97 Respiratory Rate 16 20 H 15 Blood Pressure 129/57 H 117/60 134/66 H Blood Pressure Mean 81 79 88 Pulse Ox 98 98 98 Oxygen Delivery Method Room Air Room Air Positive well nourished and well developed Constitutional Narrative: Thin, no distress General Appearance ED: well developed and NAD HEENT Reports moist mucous membranes normocephalic and atraumatic Eyes PERRL and EOMs intact bilaterally Neck full ROM and supple Resp normal respiratory effort and clear to auscultation bilaterally Cardio regular rate, regular rhythm and no murmurs GI non-tender and non-distended Auscultation: normoactive bowel sounds Palpation: soft Back/Spine no CVA tenderness General Back: other FROM Extremity normal to inspection General Extremety ED: Negative for edema, pulses abnormal or tenderness General Extremity: Negative for edema or pulses abnormal Neuro oriented x3, CN's II-XII intact bilaterally and no sensory deficits noted Neuro Narrative: Most muscle groups are weak, especially the extensor muscle groups of both lower extremities. I can resist all muscle groups of all 4 extremities. 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 She has weakness with both flexion and extension of the upper arms. Weakness with hip flexion, foot dorsiflexion, knee extension bilaterally and symmetric. I approximate all of the above at 4/5. She has 4+/5 with knee flexion and plantarflexion bilaterally. She has normal 2+ DTRs in both upper extremities, the lower extremities are diminished symmetrically. Toes are downgoing no clonus. Sensorium / Orientation: awake and alert Skin no rashes or lesions noted and no wounds MDM MDM MDM Narrative Medical decision making narrative: Labs performed and an LP performed, fluid sent for CSF analysis. Concern here was for Guillain-Denis?. Blood work is unremarkable urine normal, she does not have elevated inflammatory markers. With regards to her CSF, the results are returning slowly. Her glucose and protein are normal, with her protein level at 26.6. This argues against Guillain-Denis? syndrome, as there would be an albuminocytologic dissociation. I discussed with Dr. Cohn with neurology, if her CSF cell counts are unremarkable, she is stable for discharge, close outpatient follow-up with neurology, they will call her for an appointment if not she can call it by the end of the week. Patient is able to ambulate, she is in no respiratory distress or having trouble breathing and she is comfortable with that plan. Lab Data Attestation: I reviewed the patient's lab results. Labs: Laboratory Results - last 24 hr 02/17/25 02/17/25 02/17/25 11:57 12:00 14:16 WBC 5.5 RBC 3.55 L Hgb 10.3 L Hct 31.7 L MCV 89.3 MCH 29.0 MCHC 32.5 RDW Std Deviation 47.7 H RDW Coeff of Amber 14.5 Plt Count 268 MPV 11.0 Immature Gran % (Auto) 0.400 Neut % (Auto) 65.6 Lymph % (Auto) 20.8 Mcculloch % (Auto) 8.3 Eos % (Auto) 4.2 Baso % (Auto) 0.7 Absolute Neuts (auto) 3.6 Absolute Lymphs (auto) 1.15 Nucleated RBC % 0 ESR 20 Sodium 140 Potassium 4.0 Chloride 106 Carbon Dioxide 22.7 Anion Gap 11 BUN 13 Creatinine 1.20 Estim Creat Clear Calc 27.19 L Est GFR (MDRD) Non-Af 46 L BUN/Creatinine Ratio 11.2 Glucose 92 Calcium 9.2 C-React Prot Ext Range < 3.00 Urine Color Yellow Urine Clarity Clear Urine pH 6.0 Ur Specific [place] 1.015 Urine Protein 30 H Urine Glucose (UA) Normal Urine Ketones Negative Urine Occult Blood Negative Urine Nitrite Negative Urine Bilirubin Negative Urine Urobilinogen Normal Ur Leukocyte Esterase Negative Urine RBC 0 SEEN Urine WBC 0-5 SEEN Ur Squamous Epith Cells 0-5 SEEN Calcium Oxalate Crystal 1+ Urine Bacteria 0 SEEN Hyaline Casts 5-10 SEEN Urine Mucus 1+ CSF Glucose 61 CSF Total Protein 26.6 Management Discussion w/another healthcare provider: Railcar Carpenter (Neurology) Procedures Lumbar Puncture Consent/Risks: Consent for procedure obtained, Risks/Benefits/Alternatives Discussed and - (3rd attempt. Slightly traumatic tap, but blood cleared quickly. Obtained 2 cc in each of 4 tubes. No complications tolerated well, laid supine for 20 minutes after procedure.) Lumbar Puncture Description: Right, Lateral, Sterile Prep, Betadine Prep, Sterile Technique and L4-5 Spinal Needle: 21ga Sedation: n/a Opening Pressure: 11 cmH2O Fluid Color: Clear, colorless Discharge Plan Triage Chief Complaint: Neuro S/Sx ED Provider: Leobardo Garcia Dx/Rx/DC Orders Clinical Impression: Weakness of both arms, Weakness of both legs, Paresthesias Instructions: ED Weakness Uncertain Cause, ED Paraesthesias Prescriptions: No Action tiotropium bromide 1 PUFF inhaler 1 puff inhalation DAILY cholecalciferol (vitamin D3) 5,000 UNIT tablet,disintegrating 5,000 unit PO DAILY Qty: 30 0RF Patient Comments: PT UNSURE OF STRENGTH guaifenesin 1,200 MG tablet extended release 12hr 1,200 mg PO BID PRN (Reason: Cough) Patient Comments: ONLY NEEDED fluticasone furoate-vilanterol [Breo Ellipta] 200-25 mcg/dose blister with device 1 ea INHALATION DAILY Patient Comments: Inhale 1 puff daily albuterol sulfate 2.5 mg /3 mL (0.083 %) solution for nebulization 2.5 mg continuous nebulization Q6H PRN (Reason: shortness of breath or wheezing) fluconazole 100 mg tablet 100 mg PO DAILY Qty: 6 0RF azithromycin [Zithromax] 500 mg tablet 500 mg PO DAILY 4 Days Qty: 4 0RF prednisone 20 mg tablet 60 mg PO DAILY Qty: 12 0RF pantoprazole 40 mg tablet,delayed release (DR/EC) 40 mg PO DAILY Qty: 30 0RF Linzess 145 mcg capsule 145 mcg PO DAILY metoclopramide HCl 5 mg/5 mL solution 5 mg PO TID levothyroxine [Synthroid] 50 mcg tablet 50 mcg PO DAILY albuterol sulfate 90 mcg/actuation HFA aerosol inhaler 2 puff inhalation Q6H PRN (Reason: shortness of breath or wheezing) Primary Care Provider: Julia Frazier Referrals: Julia Frazier DO [Primary Care Provider] - (call for follow up appt) Yves Cohn MD [Non-Staff -Ordering Privileges] - (Office will call you for appointment information, call Saturday if you do not hear from them by then) Print Language: Hungarian Disposition Disposition: Home, Self Care
--- NOTE | 2025-02-17 11:47 | FLU_PTH ---
PATIENT: JENNI HOLLINS LOC: ED U#:[id number] AGE/SX: 80/F ROOM: RE02/17/[address]: Dr. Leobardo Garcia MD : [id number] BED: DIS: 02/17/2025 SPEC #: [id number] RECD: 02/18/25 09:00 STATUS: MALU REJuliana #: [id number] VALERIY: 02/17/25 11:[address]: Leobardo Garcia DEPT: CYTOLOGY RECD BY: Joaquín Henriquez ENTERED: 02/18/25 11:12 SP TYPE: Fluid OTHR DR: Dr. Julia Frazier, DO Tissues: A - Cerebrospinal Fluid Procedures: Special Stain Group II Surgery Specimen Level IV Cytospin Fluid HEADER OPERATION: Not noted PRE-OP DIAGNOSIS: Numbness TISSUE SUBMITTED: A- Cerebrospinal fluid for cytology DIAGNOSIS CYTOLOGY A. Cerebrospinal fluid: * No malignant cells are identified CYTOLOGY STUDY Slides are reviewed. CYTOLOGY GROSS A. Received is 1 ml of clear fluid labeled with the patient's name and and designated per the requisition as Cebrospinal fluid. Submitted for cytology and cell block preparation. Mr 02/18/2025 CPT: 54349
[2025-02-17 12:12] LABS: Bacteria 0 SEEN /hpf (None Seen); Red Blood Cells-Urine 0 SEEN /hpf (0-5)
[2025-02-17 12:14] LABS: Color, Urine Yellow (Yellow); Glucose, Dipstick Normal (Normal); Ketone-Dipstick Negative (Negative); Leukocyte Esterase-Dipstick Negative /ul (Negative); Nitrite-Dipstick Negative (Negative); Occult Blood-Urine Negative /ul (Negative); Protein-Dipstick 30 mg/dl (Negative); Specific Gravity, Urine 1.015 (1.002-1.030); Urine Bilirubin Dipstick Negative (Negative); Urine Clarity Clear (Clear); Urine Urobilinogen Normal (Normal)
[2025-02-17 12:24] LABS: Erythrocyte Sedimentation Rate 20 mm/hr (0-30)
[2025-02-17 12:29] LABS: Absolute Lymphocyte Count 1.15 X10^3/uL (0.83-4.51); Absolute Neutrophil Count 3.6 X10^3/uL (2.0-7.7); Basophil# 0.04 X10^3/uL; Basophil% 0.7 % (0-1); Eosinophil# 0.23 X10^3/uL; Eosinophils% 4.2 % (0-5); Hematocrit 31.7 % (37-47); Hemoglobin 10.3 g/dL (12.0-15.0); Lymphocyte # 1.15 X10^3/ul (0.83-4.51); Lymphocyte % 20.8 % (19-41); Mean Corp Hgb Conc 32.5 g/dL (32-36); Mean Corpuscular Volume 89.3 fL (81-99); Monocyte# 0.46 X10^3/uL; Monocyte% 8.3 % (0-10); NRBC Flagged by Analyzer 0 % (0-5); Neutrophil # 3.62 X10^3/uL (2.7-7.7); Neutrophil % 65.6 % (47-70); Platelet Count 268 K/mm3 (150-450); RBC Distribution Width CV 14.5 % (11.6-14.6); RBC Distribution Width SD 47.7 fl (35.1-43.9); Red Blood Count 3.55 M/mm3 (4.2-5.4); White Blood Count 5.5 K/mm3 (4.4-11.0)
[2025-02-17 12:31] LABS: Calcium Oxalate Crystals Ur 1+ /hpf (<or=2+); Mucous, Urine 1+ /hpf (<or=2+); Squamous Epithelial Cells - UA 0-5 SEEN /hpf (5-10); White Blood Cells 0-5 SEEN /hpf (0-5)
[2025-02-17 12:33] LABS: Hyaline Cast 5-10 SEEN /lpf (0-5)
[2025-02-17 12:35] LABS: Anion Gap 11 (5-15); BUN 13 mg/dL (4-19); BUN/Creat Ratio 11.2 RATIO (10-20); Calcium,Total 9.2 mg/dL (7.6-11.0); Carbon Dioxide 22.7 mmol/L (21.0-32.0); Chloride 106 mmol/L (98-108); EST Glomerular Filtration Rate 46 (>60); Estimated Creatinine Clearance 27.19 ml/min (50-250); Glucose 92 mg/dL (70-99); Sodium Level 140 mmol/L (133-145)
[2025-02-17 12:37] LABS: CRP < 3.00 mg/L (0.0-3.0)
[2025-02-17 13:06] VITALS: BP 117/60; PULSE 81; RESP 20; O2SAT 98
[2025-02-17 14:23] LABS: Pathologist Review May follow
[2025-02-17 14:53] LABS: Glucose Spinal Fluid 61 mg/dL (40-75); Protein Spinal Fluid 26.6 mg/dL (15.0-45.0)
[2025-02-17 15:00] VITALS: BP 134/66; PULSE 97; RESP 15; O2SAT 98
[2025-02-17] MEDS: Lidocaine 1% (20 ml mdv) 20 ML Vial INFILT (15:06)
[2025-02-17 16:50] LABS: Appearance CSF (character) CLEAR (Clear); Auto B Fluid Analyzer BKGD Ct COUNTS W/IN LIMITS (W/IN LIMITS); CSF Color COLORLESS (Colorless); Tested Tube # 4
[2025-02-17 16:52] LABS: RBC Count, Spinal Fluid 58 /mm-3 (None seen); White Count, CSF 11 /mm-3 (0 - 5)
[2025-02-17 16:53] LABS: Body Fluid QC Type(s) BF1Q
[2025-02-17 17:00] VITALS: BP 99/55; PULSE 117; RESP 15; O2SAT 96
[2025-02-17 19:00] VITALS: BP 108/63; PULSE 104; RESP 18; O2SAT 95
[2025-02-17 20:20] VITALS: BP 117/57; PULSE 95; RESP 15; TEMP 37.1; O2SAT 95
[2025-02-18 16:46] LABS: Cytology, Body Fluid / CSF SEE PATHOLOGY REPORT
== END 2025-02-17 20:21 | disposition home or self-care (01) ==
PROVIDERS: Emergency Provider Emergency Medicine; PCP Internal Medicine; Visit Provider Emergency Medicine
DX: R20.2 Paresthesia of skin (principal); J44.9 Chronic obstructive pulmonary disease, unspecified; R19.7 Diarrhea, unspecified; R29.898 Other symptoms and signs involving the musculoskeletal system; I73.00 Raynaud's syndrome without gangrene; Z79.890 Hormone replacement therapy; Z79.899 Other long term (current) drug therapy; R20.0 Anesthesia of skin; E03.9 Hypothyroidism, unspecified; K21.9 Gastro-esophageal reflux disease without esophagitis; Z87.891 Personal history of nicotine dependence
CPT/HCPCS: 62270; 80048; 81001; 82945; 84157; 85025; 85652; 86140; 87070; 87205; 88108; 88305; 88313; 89050; 89051; 99283; A4216

== ENCOUNTER 2025-06-10 12:52 | Outpatient (CLI) | payer MEDICARE, SELFPAY ==
[2025-03-05 11:26] VITALS: BMI 19.7
[2025-06-10 13:02] VITALS: BP 115/45; PULSE 88; RESP 16; TEMP 36.3; O2SAT 100; BMI 18.5
[2025-06-10] MEDS: DENOSUMAB 60 MG/ML SC (13:03)
== END 2025-06-10 23:59 | disposition home or self-care (01) ==
LOC: MEDOUTP 12:52
PROVIDERS: PCP Internal Medicine; Referring Provider Internal Medicine; Visit Provider Internal Medicine
DX: M81.0 Age-related osteoporosis without current pathological fracture (principal)
CPT/HCPCS: 96372; J0897

== ENCOUNTER → 2025-08-10 | Outpatient (CLI) | payer MEDICARE, SELFPAY ==
[2025-03-05 11:26] VITALS: BMI 19.7
--- NOTE | 2025-08-10 13:10 | NEURO_ITS ---
NCS and/or EMG Patient Report Ordering Doctor: Roya Barton DATE OF SERVICE: 08/10/25 Clinical Summary: 80 year old female patient with symptoms of numbness and tingling in the distal lower extremities. Nerve Conduction Studies Summary: Nerve conduction studies were performed in the bilateral lower extremities. The peroneal motor conduction velocities were reduced diffusely bilaterally. Needle Examination Summary: Needle examination of the bilateral lower extremities There was a higher proportion of motor unit action potentials with reduced recruitment, increased amplitude, increased duration, and polyphasia in the Impression: There is electrodiagnostic evidence of the following -
--- NOTE | 2025-08-10 13:10 | NEURO ---
NCS and/or EMG Patient Report Ordering Doctor: Roya Barton DATE OF SERVICE: 08/10/25 Clinical Summary: 80 year old female patient with symptoms of numbness and tingling in the distal lower extremities. Nerve Conduction Studies Summary: Nerve conduction studies were performed in the bilateral lower extremities. The distal SNAP amplitudes were reduced mildly bilaterally. The peroneal motor conduction velocities were reduced diffusely bilaterally. Needle Examination Summary: Needle examination of the bilateral lower extremities was normal. Impression: Reduced distal motor conduction velocities and mildly reduced sensory amplitudes bilaterally are suggestive of a mild, predominantly axonal, peripheral polyneuropathy. There is no electrodiagnostic evidence of right/left lumbosacral radiculopathies. Multi Select Codes Neurology Neurology Interp Codes: 95186-21 Musc test done w/n test comp (interp) (2) and 74830-45 Nrv cndj test 9-10 studies (interp)
== END | disposition home or self-care (01) ==
LOC: PSN 12:01
PROVIDERS: PCP Internal Medicine
DX: R20.2 Paresthesia of skin (principal)
CPT/HCPCS: 95886; 95911

== ENCOUNTER → 2025-08-18 | Outpatient (CLI) | payer MEDICARE, SELFPAY ==
[2025-03-05 11:26] VITALS: BMI 19.7
--- NOTE | 2025-08-18 13:27 | NEURO ---
NCS and/or EMG Patient Report Ordering Doctor: Roya Barton DATE OF SERVICE: 08/18/25 Pam presents with complaints of numbness and tingling in both hands. Electrodiagnostic findings: Median motor nerve demonstrates normal distal latency, amplitude and conduction velocity bilaterally. Ulnar motor response within normal limits bilaterally, including conduction across the elbow. Normal median and ulnar F?waves. Sensory responses are within normal limits. Needle EMG testing was performed in the upper limbs. All muscles tested showed no evidence of denervation with normal motor unit action potentials. Electrodiagnostic impression: This is a normal electrodiagnostic study of the upper limbs. There is no electrodiagnostic evidence for peripheral neuropathy, including carpal tunnel or cubital tunnel syndrome. There is no electrodiagnostic evidence for cervical radiculopathy. Multi Select Codes Neurology Neurology Interp Codes: 86720-64 Musc test done w/n test comp (interp) (2) and 48313-10 Nrv cndj test 13/> studies (interp)
== END | disposition home or self-care (01) ==
LOC: PSN 11:59
PROVIDERS: PCP Internal Medicine
DX: R20.2 Paresthesia of skin (principal)
CPT/HCPCS: 95886; 95913